=== PATIENT | female | born 1960 | race Caucasian/White ===

== ENCOUNTER 2021-12-08 14:11 | Outpatient (CLI) | payer BC, SELFPAY ==
[2021-12-08 14:13] LABS: Albumin* 4.4 g/dL (3.3-5.0); Chloride* 102 mmol/L (96-114); Sodium* 138 mmol/L (135-149)
[2021-12-08 14:14] LABS: Potassium* 4.2 mmol/L (3.6-5.1)
[2021-12-08 14:16] LABS: Alkaline Phosphatase* 137 U/L (40-150); Aspartate Amino Transferase* 163 U/L (12-35); Bilirubin Total* 1.6 mg/dL (0.1-1.5); Blood Urea Nitrogen* 12 mg/dL (7-30); Carbon Dioxide* 28 mmol/L (20-32); Cholesterol* 210 mg/dL (90-199); Creatinine* 0.6 mg/dL (0.5-1.5); Estimated Glomerular Filt Rate 103 ml/min; Glucose* 89 mg/dL (60-115); Total Protein* 7.5 g/dL (6.0-8.3); Triglycerides* 206 mg/dL (40-149)
[2021-12-08 14:17] LABS: Alanine Aminotransferase* 157 U/L (4-35); Calcium* 9.7 mg/dL (8.4-10.6); HDL Cholesterol* 53 mg/dL (>=50); LDL Cholesterol Calculated 116 mg/dL (<100)
[2021-12-08 21:55] LABS: Creatinine Urine 180.4 mg/dL
[2021-12-08 22:00] LABS: Microalbumin Creatinine Ratio 0 mg/g (0-30); Microalbumin Urine 1 mg/dL
== END 2021-12-08 14:12 | disposition home or self-care (01) ==
PROVIDERS: PCP Physician Assistant Medical; Visit Provider Family Medicine
DX: I10 Essential (primary) hypertension (principal); Z13.1 Encounter for screening for diabetes mellitus; Z13.6 Encounter for screening for cardiovascular disorders
CPT/HCPCS: 80053; 80061; 82043; 82570

== ENCOUNTER 2022-11-15 07:30 | Outpatient (CLI) | payer BC, SELFPAY | END 2022-11-15 07:31 | disposition home or self-care (01) | LOC: NFLDREF 11-16 15:35 | PROVIDERS: PCP Physician Assistant Medical; Referring Provider Physician Assistant Medical; Visit Provider Physician Assistant Medical | DX: R10.13 Epigastric pain (principal) | CPT/HCPCS: 87338 ==

== ENCOUNTER 2022-12-19 07:15 | Outpatient (CLI) | payer BC, SELFPAY ==
--- NOTE | 2022-12-19 07:15 | CRLHL7_ITS ---
For Patients: As a result of the Century Cures Act, medical imaging exams and procedure reports are released immediately into your electronic medical record. You may view this report before your referring provider. If you have questions, please contact your health care provider. INDICATION: abdominal distension COMPARISON: 08/17/2020 TECHNIQUE: Real time marte scale imaging and color Doppler analysis was performed of the right upper quadrant. FINDINGS: The liver echotexture is diffusely heterogeneous. No intrahepatic masses. There is a normal appearance of the hepatic IVC and proximal abdominal aorta. There is no evidence of ascites. The gallbladder is absent. The common bile duct is of normal size and measures 6 mm in diameter at the level of the shila hepatis. The pancreas appears normal. There is no evidence of a stone or hydronephrosis within the right kidney. The right kidney measures 10.4 cm in length. IMPRESSION: Diffuse hepatic steatosis, similar to the prior study. Dictated by Joel Batista MD @ 12/19/2022 8:33:53 AM (Electronically Signed)
== END 2022-12-19 07:16 | disposition home or self-care (01) ==
PROVIDERS: PCP Family Medicine; Visit Provider Internal Medicine Gastroenterology
DX: R14.0 Abdominal distension (gaseous) (principal); K76.0 Fatty (change of) liver, not elsewhere classified
CPT/HCPCS: 76705

== ENCOUNTER 2023-09-06 13:15 | Outpatient (CLI) | payer BC, SELFPAY | END 2023-09-06 13:16 | disposition home or self-care (01) | PROVIDERS: PCP Family Medicine; Visit Provider Family Medicine | DX: R17 Unspecified jaundice (principal); R10.9 Unspecified abdominal pain; K76.9 Liver disease, unspecified | CPT/HCPCS: 80076; 83690 ==

== ENCOUNTER 2023-09-08 09:38 | Outpatient (CLI) | payer BC, SELFPAY ==
--- NOTE | 2023-09-08 10:00 | CRLHL7_ITS ---
For Patients: As a result of the Century Cures Act, medical imaging exams and procedure reports are released immediately into your electronic medical record. You may view this report before your referring provider. If you have questions, please contact your health care provider. INDICATION: Abdominal pain. Elevated bilirubin. TECHNIQUE: CT abdomen and pelvis acquired with 84 cc Isovue 370 IV contrast. COMPARISON: None. FINDINGS: Lower chest: Dependent opacities within the lung bases. Liver: Unremarkable. Normal in size and attenuation. No suspicious masses. Gallbladder and bile ducts: Status post cholecystectomy. Normal caliber common bile duct. Pancreas: Unremarkable. No mass or inflammation. Spleen: Mild splenomegaly. Adrenal glands: Unremarkable. No nodules. Kidneys, ureters and urinary bladder: Unremarkable. No suspicious masses, stones, or hydronephrosis. Unremarkable urinary bladder. GI tract: Unremarkable. Normal in caliber. No sign of mass or inflammation. Normal appendix. Vasculature: Mildly dilated portal and splenic veins consistent with portal venous hypertension. Recanalization of the umbilical vein. Abdominal aorta is normal in caliber. Mesenteric arteries are patent. Lymph nodes: No lymphadenopathy. Peritoneum: Small volume of abdominal ascites in the right upper quadrant and pelvic ascites. No free intraperitoneal air. Abdominal Wall: No abdominal wall mass or hernia. Pelvis: Unremarkable uterus and adnexa. Bones: Old mild superior endplate compression deformity of L3. No acute fracture or suspicious bone lesion. IMPRESSION: 1. Mild splenomegaly. 2. Portal venous hypertension. 3. Recanalization of the umbilical vein. 4. Small volume of abdominal and pelvic ascites. 5. Status post cholecystectomy. Please note that all CT scans at this facility use dose modulation, iterative reconstruction, and/or weight-based dosing when appropriate to reduce radiation dose to as low as reasonably achievable. Dictated by Cristian Bundy MD @ 09/08/2023 12:52:44 PM (Electronically Signed)
[2023-09-08 10:15] LABS: Creatinine* 0.5 mg/dL (0.5-1.5); Estimated Glomerular Filt Rate 107 ml/min
== END 2023-09-08 09:39 | disposition home or self-care (01) ==
PROVIDERS: PCP Family Medicine; Visit Provider Family Medicine
DX: R10.9 Unspecified abdominal pain (principal); R17 Unspecified jaundice; R16.1 Splenomegaly, not elsewhere classified; K76.6 Portal hypertension; R18.8 Other ascites
CPT/HCPCS: 36415; 74177; 82565; Q9967

== ENCOUNTER 2023-09-12 10:36 | Outpatient (CLI) | payer BC, SELFPAY | END 2023-09-12 10:37 | disposition home or self-care (01) | PROVIDERS: PCP Family Medicine; Visit Provider Family Medicine | DX: R17 Unspecified jaundice (principal); K76.9 Liver disease, unspecified; R10.9 Unspecified abdominal pain | CPT/HCPCS: 80074; 80076; 83516; 86015; 86256; 86376; 86381 ==

== ENCOUNTER 2023-09-15 08:02 | Outpatient (CLI) | payer BC, SELFPAY ==
--- NOTE | 2023-09-15 08:15 | CRLHL7_ITS ---
For Patients: As a result of the Century Cures Act, medical imaging exams and procedure reports are released immediately into your electronic medical record. You may view this report before your referring provider. If you have questions, please contact your health care provider. INDICATION: unspecified jaundice COMPARISON: none TECHNIQUE: Real time marte scale imaging and color Doppler analysis was performed of the right upper quadrant. FINDINGS: The liver echotexture is coarsened. The main portal vein is patent with antegrade flow. The liver has a macronodular contour. There is a normal appearance of the hepatic IVC and proximal abdominal aorta. Ascites is present. The gallbladder is absent. The common bile duct is of normal size and measures 4.9 mm in diameter at the level of the shila hepatis. The pancreas appears normal. There is no evidence of a stone or hydronephrosis within the right kidney. The right kidney measures 9.3 cm in length. IMPRESSION: Cirrhotic liver with ascites. Dictated by Joel Batista MD @ 09/15/2023 10:14:07 PM (Electronically Signed)
== END 2023-09-15 08:03 | disposition home or self-care (01) ==
LOC: US 08:03
PROVIDERS: PCP Family Medicine; Visit Provider Family Medicine
DX: R17 Unspecified jaundice (principal); K74.60 Unspecified cirrhosis of liver; R18.8 Other ascites; R10.11 Right upper quadrant pain
CPT/HCPCS: 76705

== ENCOUNTER 2023-10-06 09:03 | Outpatient (CLI) | payer BC, SELFPAY ==
[2023-10-06 09:07] VITALS: BP 152/70; PULSE 93; RESP 16; O2SAT 100
--- NOTE | 2023-10-06 09:22 | P.GSCN_ITS ---
History of Present Illness Consult details Date Seen: 10/06/23 Consult date: 10/06/23 Narrative: Patient presents for evaluation of ascites and possible paracentesis. She 1st noticed yellowing of her eyes, which is what prompted her to come in. She has been seeing a provider at [facility] who recommended a diagnostic paracentesis. She denies any bloating of her abdomen or abdominal pain. She recently started 2 different diuretics and has lost 12 lb of water weight. She does feel like the yellowing of her skin and eyes is improving. She gets her liver labs checked every 2 weeks and they are trending in the right direction. On chart review a CT abdomen/pelvis was performed 09/15/2023. A moderate amount of ascites was seen at that time with largest fluid collection in the right upper quadrant and pelvis. Review of Systems Status of ROS: Reports: 10 or more systems reviewed and unremarkable except as noted in History and below [facility] Medical History Contact dermatitis ?L25.9 - Unspecified contact dermatitis, unspecified cause (ICD-10) Surgical History History of tonsillectomy and adenoidectomy ?Z90.89 - Acquired absence of other organs (ICD-10) History of liver biopsy ?Z98.890 - Other specified postprocedural states (ICD-10) History of endometrial ablation ?Z98.890 - Other specified postprocedural states (ICD-10) History of colonoscopy ?Z98.890 - Other specified postprocedural states (ICD-10) History of cholecystectomy ?Z90.49 - Acquired absence of other specified parts of digestive tract (ICD- 10) History of breast biopsy ?Z98.890 - Other specified postprocedural states (ICD-10) Family History Other Cardiovascular disease Diabetes Stroke Social History Narrative: 1 child non smoker Smoking Status: Never smoker Meds Home Medications and Allergies Home Medications ?Medication ?Instructions ?Recorded ?Confirmed ?Type fluticasone propionate 50 2 spray intranasal .PRN 09/06/23 09/06/23 History mcg/actuation nasal spray,suspension Allergies Allergy/AdvReac Type Severity Reaction Status Date / Time Sulfa (Sulfonamide Allergy Mild Hives Verified 09/06/23 12:40 Antibiotics) Exam Narrative: Exam Narrative: General: Alert and oriented, no acute distress. HEENT: Scleral icterus, PERRLA Abdomen: Soft, non tender and nondistended. Previously well-healed laparoscopic incision sites Skin: Jaundiced of skin, no significant edema or anasarca. Const: Vital Signs, click to edit/add: Vital Signs - 24 hr 10/06/23 09:07 Pulse Rate [Left P ulse Oximeter] 93 Respiratory Rate 16 Blood Pressure [Ri ght Arm] 152/70 H Pulse Oximetry 100 Oxygen Delivery Me thod Room Air Results Labs Labs: INR 09/06/2023 of 1.4 Hepatic panel reviewed from 09/06/2023, elevated total bilirubin but trending down. Mild elevation in transaminases and alkaline phosphatase. Imaging Abdomen CT scan report/results: report reviewed and image reviewed Progress Note:A&P Assessment and plan (1) Liver disease: Status: Acute Plan Patient is a 62-year-old female who is currently being worked up for liver disease of unknown etiology. Recommendations were made for a diagnostic and therapeutic paracentesis. Ultrasound evaluation was performed today with no evidence of ascites on imaging. I do think that this improvement is secondary to recent medication changes that the patient has had. With insufficient fluid to sample the procedure was not performed.
== END 2023-10-06 09:33 | disposition home or self-care (01) ==
PROVIDERS: PCP Family Medicine; Visit Provider Surgery
DX: R18.8 Other ascites; K76.9 Liver disease, unspecified
CPT/HCPCS: 76705

== ENCOUNTER 2023-10-09 12:55 | Outpatient (CLI) | payer BC, SELFPAY | END 2023-10-09 12:56 | disposition home or self-care (01) | LOC: RAD 12:55 | PROVIDERS: PCP Family Medicine; Visit Provider Nurse Practitioner | DX: R00.2 Palpitations (principal); R74.8 Abnormal levels of other serum enzymes; R17 Unspecified jaundice; R60.0 Localized edema; K76.6 Portal hypertension; R18.8 Other ascites; R03.0 Elevated blood-pressure reading, without diagnosis of hypertension | CPT/HCPCS: 93306 ==

== ENCOUNTER 2023-10-19 14:22 | Outpatient (CLI) | payer BC, SELFPAY ==
[2023-10-19 16:33] LABS: Albumin* 3.9 g/dL (3.3-5.0); Chloride* 96 mmol/L (96-114); Sodium* 128 mmol/L (135-149)
[2023-10-19 16:34] LABS: Potassium* 3.5 mmol/L (3.6-5.1)
[2023-10-19 16:36] LABS: Alanine Aminotransferase* 32 U/L (4-35); Alkaline Phosphatase* 108 U/L (40-150); Anion Gap 9 mEq/L (7-15); Aspartate Amino Transferase* 61 U/L (12-35); Bilirubin Direct* 2.5 mg/dL (0.0-0.5); Bilirubin Total* 6.6 mg/dL (0.1-1.5); Blood Urea Nitrogen* 10 mg/dL (7-30); Carbon Dioxide* 23 mmol/L (20-32); Creatinine* 0.8 mg/dL (0.5-1.5); Estimated Glomerular Filt Rate 84 ml/min; Glucose* 95 mg/dL (60-115); Total Protein* 7.7 g/dL (6.0-8.3)
[2023-10-19 16:37] LABS: Calcium* 9.8 mg/dL (8.4-10.6)
== END 2023-10-19 14:23 | disposition home or self-care (01) ==
LOC: NPINS 14:23
PROVIDERS: PCP Family Medicine; Visit Provider Nurse Practitioner
DX: R74.8 Abnormal levels of other serum enzymes (principal)
CPT/HCPCS: 80048; 80076

== ENCOUNTER 2024-03-01 15:20 | Outpatient (CLI) | payer BC, SELFPAY ==
[2024-03-03 20:23] LABS: HPV Source Endocervical; HPV, High Risk by TMA Not Detected
== END 2024-03-01 15:21 | disposition home or self-care (01) ==
PROVIDERS: PCP Family Medicine; Visit Provider Family Medicine
DX: I10 Essential (primary) hypertension (principal); L29.9 Pruritus, unspecified; K76.9 Liver disease, unspecified; R17 Unspecified jaundice; Z13.6 Encounter for screening for cardiovascular disorders; Z11.59 Encounter for screening for other viral diseases; Z11.51 Encounter for screening for human papillomavirus (HPV)
CPT/HCPCS: 80053; 80061; 86803; 87624; 87625; 88141; 88142

== ENCOUNTER 2024-03-07 13:01 | Outpatient (CLI) | payer BC, SELFPAY ==
--- NOTE | 2024-03-07 13:00 | CRLHL7_ITS ---
For Patients: As a result of the Cures Act, medical imaging exams and procedure reports are released immediately into your electronic medical record. You may view this report before your referring provider. If you have questions, please contact your health care provider. BILATERAL CAROTID ARTERY ULTRASOUND, 03/07/2024 CLINICAL HISTORY: Pruritus, unspecified. TECHNIQUE: The carotid circulations and the vertebral arteries in the neck were examined with marte-scale ultrasound, color-flow and Doppler spectral analysis. Degrees of stenosis were determined using SRU 2002 Consensus Panel Criteria. FINDINGS: There is a small amount of atherosclerotic plaque at the carotid bulb and proximal ICA bilaterally. Peak Systolic Velocity Right Subclavian A: 193.6 Distal CCA: 107.6 Mid CCA: 105.0 Prox ICA: 69.9 Mid ICA: 96.6 Dist ICA: 120.2 ICA/CCA Ratio: 1.1 Vertebral Artery: 84.5 Antegrade Left Subclavian A: 193.6 Distal CCA: 103.8 Mid CCA: 111.1 Prox ICA: 71.1 Mid ICA: 85.7 Dist ICA: 87.5 ICA/CCA Ratio: 0.8 Vertebral Artery: 63.2 Antegrade IMPRESSION: No hemodynamically significant stenosis within the internal carotid arteries bilaterally. Juliana Louie M.D. Diagnostic/Breast Radiologist [email or web address] Transcribed: 8:43 am DW/Dictated by: Juliana Louie MD @ 03/08/2024 6:47:00 AM (Electronically Signed)
== END 2024-03-07 13:02 | disposition home or self-care (01) ==
LOC: US 13:01
PROVIDERS: PCP Family Medicine; Visit Provider Family Medicine
DX: L29.9 Pruritus, unspecified (principal); I65.23 Occlusion and stenosis of bilateral carotid arteries; K76.9 Liver disease, unspecified; R17 Unspecified jaundice; I10 Essential (primary) hypertension
CPT/HCPCS: 93880

== ENCOUNTER 2024-03-29 09:00 | Outpatient (CLI) | payer BC, SELFPAY | END 2024-03-29 09:01 | disposition home or self-care (01) | LOC: NFLDREF 03-30 03:33 | PROVIDERS: PCP Family Medicine; Referring Provider Family Medicine; Visit Provider Family Medicine | DX: K76.9 Liver disease, unspecified (principal) | CPT/HCPCS: 85610 ==

== ENCOUNTER 2024-05-20 13:23 | Outpatient (CLI) | payer BC, SELFPAY ==
--- NOTE | 2024-05-20 13:40 | CRLHL7_ITS ---
For Patients: As a result of the Cures Act, medical imaging exams and procedure reports are released immediately into your electronic medical record. You may view this report before your referring provider. If you have questions, please contact your health care provider. BILATERAL SCREENING MAMMOGRAM WITH COMPUTER-AIDED DETECTION AND TOMOSYNTHESIS TECHNIQUE: CC and MLO views were obtained. These mammographic images have been obtained using full-field digital technique. These mammographic images were interpreted with the benefit of computer-aided detection. Breast Tomosynthesis was used in this interpretation. COMPARISON FILM: 09/22/20, 10/29/19, 05/03/18. FINDINGS: There are scattered areas of fibroglandular density IMPRESSION: There is no radiographic evidence for malignancy. ASSESSMENT: BI-RADS Category 1: Negative RECOMMENDATION: Routine screening mammogram in 1 year. A lay language report of this examination will be provided to the patient. Joel Batista M.D. Diagnostic Radiologist [email or web address] Transcribed: 4:45 p.mAnne-Marie lagunas/Dictated by: Joel Batista MD @ 05/21/2024 12:58:00 PM (Electronically Signed)
== END 2024-05-20 13:24 | disposition home or self-care (01) ==
LOC: MAMMO 13:23
PROVIDERS: PCP Family Medicine; Visit Provider Family Medicine
DX: Z12.31 Encounter for screening mammogram for malignant neoplasm of breast (principal)
CPT/HCPCS: 77063; 77067

== ENCOUNTER 2024-07-07 17:56 | Emergency (ER) | payer BC, SELFPAY ==
--- OUTSIDE RECORDS SUMMARY | 2024-07-03 09:30 | XMS_ITS | Encounter Summary ---
Author Organization [place] Address [address] [place] [address] Care Team Providers Care Environmental Sampling Technician Name Role Phone [facility], [facility] Primary Care Provider Kristen Dockery RN Unavailable Unavaila Kristen Bermudez RN Unavailable Unavaila Meliza James MD Unavailable [phone] Lanny Meléndez APRN C ARCHITECT Unavailable [phone] Gala Fair HAND CLIPPER Unavailable [phone] Meliza Villaseñor MD Unavailable [phone] Trey Abraham MD Unavailable [phone] Unavailable Unavail able Dixon Hernandez MD Unavailable [phone] Jes Arrington MD Unavailable + Encounter Details Date Type Department Care Team (Late st Contact Info) Description 07/03/2024 9:30 AM CDT Lab [facility] [address] [place] [address] Alcoholic cirrhosis (H); Cirrhosis, alcoholic [...] PM CDT Legal Sex Female 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 Gender Identity Female 10/31/2023 12:26 PM CDT Sexual Orientation Straight 10/31/2023 12 :26 PM CDT documented as of this encounter Plan of Treatment Upcoming Encounters Date Type Department Care Team (Late st Contact Info) Description 07/11/2024 PRE VISIT [facility] [address] [phone] Shanthi Griffin MD [address] [place] [address] [phone] *-*INCOMING RECORDS*-* 07/16/2024 7:30 AM CDT Lab [address] [phone] Jes Arrington MD [address] [place] [address] [phone] 07/16/2024 8:10 AM CDT Orders Only [address] [phone] Jes Arrington MD [address] [place] [address] 348365 07/16/2024 8:30 AM CDT Allied Health/Nurse Visit [facility] [address] [place] [address] [phone] Jes Arrington MD [address] [place] [address] [phone] 07/16/2024 9:00 AM CDT Allied Health/Nurse Visit [facility] [address] [place] [address] [phone] Jes Arrington MD [address] [place], [place] [address] [place] [address] [phone] Gala Fair, [facility] 07/16/2024 10:00 AM CDT Office Visit [facility] [address] [place] [address] [phone] Jes Arrington MD [address] [place] [address] [phone] 07/16/2024 11:00 AM CDT Office Visit [facility] [address] [place] [address] [phone] Jes Arrington MD [address] [place] [address] [phone] Trey Abraham MD [address] [place] [address] [address] [place], [place] [phone] 07/16/2024 12:00 PM CDT Allied Health/Nurse Visit [facility] [address] [place] [address] [phone] Jes Arrington MD [address] [place] [address] [phone] Jena Castano, [facility] [address] [facility] [address] [place] [address] 07/16/2024 12:30 PM CDT Allied Health/Nurse Visit [facility] [address] [place] [address] [phone] Jes Arrington MD [address] [place] [address] [phone] 07/16/2024 12:50 PM CDT Ancillary Procedure [facility] Imaging [facility] US [address] [phone] Jes Arrington MD [address] [place] [address] [address] [place] [address] 07/16/2024 1:50 PM CDT Ancillary Procedure [facility] Xray [address] [phone] Jes Arrington MD [address] [place] [address] [address] [place] [address] [phone] 07/16/2024 2:30 PM CDT Ancillary Procedure [facility] [address] [phone] Jes Arrington MD [address] [place] [address] [address] [place] [address] 08/26/2024 10:30 AM CDT Appointment [facility] [address] [place] [phone] Meliza Villaseñor MD [facility] [address] [place] [address] 08/26/2024 12:00 PM CDT Appointment [facility] Imaging [address] [place] [phone] Meliza Villaseñor MD [facility] [address] [place] [address] 10/01/2024 8:45 AM CDT Office Visit [facility] [address] [phone] Meliza Villaseñor MD [address] [place] [address] Dixon Hernandez MD [address] [facility] [address] [place] [address] documented as of this encounter Procedures Procedure [...] Cirrhosis, alcoholic (H) QUANTIFERON-TB GOLD PLUS Routine 025 9:42 AM CDT Alcoholic cirrhosis (H) Cirrhosis, alcoholic (H) HEPATITIS A ANTIBODY TOTAL Routine 07/03 9:42 AM CDT Alcoholic cirrhosis (H) Cirrhosis, alcoholic (H) TYPE AND SCREEN, ADULT Routine 9:42 AM CDT Alcoholic cirrhosis (H) [...] TSH WITH FREE T4 REFLEX Routine 07/04/19 25 9:42 AM CDT Alcoholic [...] * Urine Culture (07/03/2024 2:36 PM CDT) Culture <10,000 CFU/mL Mixture of Urogenital Zakia 07/05/2024 5:38 AM CDT [facility] Urine URINE SPECIMEN OBTAINED BY CLEAN CATCH PROCEDURE / Unknown Non-blood Collection / Unknown 07/03/2024 2:36 PM CDT 07/03/2024 2:41 PM CDT us Jes Arrington MD LAB - MICRO GENERA L ORDERABLES Final Result [facility] Inf. Diseases Diag. Lab 500 [facility], Room [address] [place] [address], [facility] * (ABNORMAL) Urine Microscopic Exam (07/03/2024 [...] RENA 07/03/2024 2:45 PM CDT RM LABORATORY Urine URINE SPECIMEN OBTAINED BY CLEAN CATCH PROCEDURE / Unknown Non-blood Collection / Unknown 07/03/2024 2:36 PM CDT 07/03/2024 2:36 PM CDT Jes Arrington MD LAB - URINE ORDERA BLES Final Result LABORATORY [facility] [place] [facility] [address] [facility] Lab (no room number, 1st floor of clinic) [place] [address], [place] * Nicotine and Mets, Urn, Quant (07/03/2024 2:36 PM CDT) Cotinine Confirm <15 ng/mL 07/08/19 11:38 AM CDT [facility] Nicotine Confirmation Urine <15 ng/mL 07/07/2024 11:38 AM CDT [facility] Comment: INTERPRETIVE INFORMATION: Nicotine and Metabolites, Urine, Quantitative Methodology: Quantitative Liquid Chromatography-Tandem Mass Spectrometry Positive cutoff: Nicotine 15 ng/mL Cotinine 15 ng/mL 4-BA-Ofgtszup 50 ng/mL Anabasine 5 ng/mL For medical [...] developed and its performance characteristics determined by [facility]. It has not been cleared or approved by the US Food and Drug Administration. This test was performed in a CLIA certified laboratory and is intended for clinical purposes. Performed By: [facility] [address] [place] [address] Work Car Operator: Sedrick Santos MD, PhD CLIA Number: [id number] 3-IE-Crmnsogd, Urn, Quant <50 ng/mL 07/07/2024 11:38 AM CDT [facility] Anabasine, Urn, Quant <5 ng/mL 07/07/2024 11:38 AM CDT [facility] Urine URINE SPECIMEN OBTAINED BY CLEAN CATCH PROCEDURE / Unknown Non-blood Collection / Unknown 07/03/2024 2:36 PM CDT 07/03/2024 2:36 PM CDT us Jes Arrington MD LAB - URINE ORDERA BLES Final Result [employer] [address] [place] [phone], [facility] [phone] * Ethyl Glucuronide Urine (07/03/2024 2:36 PM CDT) Ethyl Glucuronide Urine Negative Cutoff 500 ng/mL 07/05/2024 2:51 AM CDT [facility] Comment: Presumptive Negative by immunoassay. Testing by [...] chromatography tandem mass spectrometry (LC-MS/MS). Performed By: [address] [address] Work Car Operator: Sedrick Santos MD, PhD CLIA Number: [id number] Urine URINE SPECIMEN OBTAINED BY CLEAN CATCH PROCEDURE / Unknown Non-blood Collection / Unknown 07/03/2024 2:36 PM CDT 07/03/2024 2:36 PM CDT Jes Arrington MD LAB - URINE ORDERA BLES Final Result [address] [address], [facility] [phone] * (ABNORMAL) UA Macroscopic with reflex to [...] mg/dL 07/03/2024 2:41 PM CDT LABORATORY [facility] [place] Urine 1.015 1.003 - 1.035 07/03/2024 2:41 [...] LAB - URINE ORDERA BLES Final Result RM LABORATORY [facility] [place] [facility] [address] [facility] Lab (no room number, 1st floor of clinic) [place] [address], [facility] * Protein random urine (07/03/2024 2:36 [...] URINE ORDERA BLES Final Result PH LABORATORY [facility] [address] [facility] Lab (Main level, no room number) [place] [address] * Quantiferon TB Gold Plus (07/03/2024 9:42 AM CDT) Quantiferon-TB Gold Plus Negative Negative 07/04/2024 2:22 [...] Value -0.01 IU/mL 07/04/2024 2:22 PM CDT SPECIALTY CORE/PROT/END O TB2 Ag minus Nil Value 0.00 IU/mL 07/04/2024 2:22 PM CDT SPECIALTY CORE/PROT/END O Mitogen minus Nil Result 1.03 IU/mL 07/04/2024 2:22 PM CDT UM SPECIALTY CORE/PROT/END O Nil Result 0.05 IU/mL 07/04/2024 2:22 PM CDT SPECIALTY CORE/PROT/END O Blood BLOOD SPECIMEN / Unknown Venipuncture / Unknown 07/03/2024 9:42 AM CDT 07/03/2024 2:29 PM CDT Jes Arrington MD LAB - MICRO GENERA L ORDERABLES Final Result UM SPECIALTY CORE/PROT/ENDO Specialty Core/Prot/Endo 500 [facility], Room [address] [place] [address] * Treponema pallidum antibody confirm (07/03/2024 9:42 AM CDT) Pathologist [facility] T Pallidum by TP-PA conf Non Reactive Non Reactive 07/06/2024 11:07 PM CDT [facility] Comment: Performed By: [facility] [address] [place] [address] Work Car Operator: Sedrick Santos MD, PhD CLIA Number: [id number] Blood BLOOD SPECIMEN / Unknown Venipuncture / Unknown 07/03/2024 9:42 AM CDT 07/04/2024 11:40 AM CDT Jes Arrington MD LAB - BLOOD ORDERA BLES Final Result [facility] [employer] [facility] [employer] [address] [place] [address], [facility] [phone] * Rapid Plasma Reagin w Rflx to [facility]ITER (07/03/2024 9:42 AM CDT) Rapid Plasma Reagin Nonreactive Nonreactive 07/04/2024 11:40 AM CDT SPECIALTY CORE/PROT/EN DO Comment:Specimen sent to [facility]) for confirmation. Blood BLOOD SPECIMEN / Unknown Venipuncture / Unknown 07/03/2024 9:42 AM CDT 07/03/2024 9:42 AM CDT Narrative UM SPECIALTY CORE/PROT/ENDO - 07/04/2024 11:40 AM CDT [...] UM Specialty Core/Prot/Endo 500 [facility], [address] * Quantiferon TB Gold Plus Yellow Tube (07/03/2024 9:42 AM CDT) Quantiferon TB2 Tube 0.05 07/04/2024 12:56 PM CDT UM SPECIALTY CORE/PROT/ENDO Blood BLOOD SPECIMEN / Unknown Venipuncture / Unknown 07/03/2024 9:42 AM CDT 07/03/2024 2:29 PM CDT Jes Arrington MD LAB - MICRO GENERA L ORDERABLES Final Result UM SPECIALTY CORE/PROT/ENDO UM Specialty Core/Prot/Endo 500 [facility], Room [address] * Quantiferon TB Gold Plus Green Tube (07/03/2024 9:42 AM CDT) Quantiferon TB1 Tube 0.04 IU/mL 07/04/2024 12:56 PM CDT SPECIALTY CORE/PROT/ENDO Blood BLOOD SPECIMEN / Unknown Venipuncture / Unknown 07/03/2024 9:42 AM CDT 07/03/2024 2:29 PM CDT Jes Arrington MD LAB - MICRO GENERA L ORDERABLES Final Result UM SPECIALTY CORE/PROT/ENDO Specialty Core/Prot/Endo 500 [facility], Room [address] * Quantiferon TB Gold Plus Purple Tube (07/03/2024 9:42 AM CDT) Quantiferon Mitogen 1.08 IU/mL 07/04/2024 12:05 PM CDT UM SPECIALTY CORE/PROT/ENDO Blood BLOOD SPECIMEN / Unknown Venipuncture / Unknown 07/03/2024 9:42 AM CDT 07/03/2024 2:29 PM CDT Jes Arrington MD LAB - MICRO GENERA L ORDERABLES Final Result UM SPECIALTY CORE/PROT/ENDO UM Specialty Core/Prot/Endo 500 [facility], Room [address] * Quantiferon TB Gold Plus Estevez Tube (07/03/2024 9:42 AM CDT) Quantiferon Nil Tube 0.05 IU/mL 07/04/2024 12:57 PM CDT UM SPECIALTY CORE/PROT/ENDO Blood BLOOD SPECIMEN / Unknown Venipuncture / Unknown 07/03/2024 9:42 AM CDT 07/03/2024 2:29 PM CDT Jes Arrington MD LAB - MICRO GENERA L ORDERABLES Final Result UM SPECIALTY CORE/PROT/ENDO UM Specialty Core/Prot/Endo 500 [facility], Room [address] [place] [address] * Quantiferon TB Gold Plus Primary (07/03/2024 9:42 AM CDT) Blood BLOOD SPECIMEN / Unknown Venipuncture / Unknown 07/03/2024 9:42 AM CDT 07/03/2024 2:29 PM CDT Jes Arrington MD LAB - MICRO GENERA L ORDERABLES Final Result Performing Organization Address City/[facility]/ZIP Co de Phone Number UM SPECIALTY CORE/PROT/ENDO Specialty Core/Prot/Endo 500 [facility], Room [address] [place] [address] * (ABNORMAL) Bilirubin direct (07/03/2024 9:42 AM CDT) Bilirubin Direct 4.65(H) 0.00 - 0.45 mg/dL 07/03/2024 8:34 PM CDT [facility] Comment:As of 24, refer ence ranges and trending lines may vary depending on the testing location. Blood BLOOD SPECIMEN / Unknown Venipuncture / Unknown 07/03/2024 9:42 AM CDT 07/03/2024 9:42 AM CDT Jes Arrington MD LAB - BLOOD ORDERA BLES Final Result [facility] 500 [facility] [address] Building, Room [address] [phone] * Quantiferon TB Gold Plus Collection (07/03/2024 9:42 AM CDT) Blood BLOOD SPECIMEN / Unknown Venipuncture / Unknown 07/03/2024 9:42 AM CDT 07/03/2024 9:42 AM CDT Jes Arrington MD LAB - MICRO GENERA L ORDERABLES Final Result SPECIALTY CORE/PROT/ENDO Specialty Core/Prot/Endo 500 [facility] J [facility] [address], Room [phone] [place] [address] * Adult Type and Screen (07/03/2024 9:42 AM CDT) ABO/RH(D) A POS 07/02/2024 7:00 PM CDT RH BLOOD BANK Antibody Screen Negative Negative 07/02/2024 7:00 PM CDT RH BLOOD BANK SPECIMEN EXPIRATION DATE [id number] 07/02/2024 7:00 PM CDT RH BLOOD BANK Blood BLOOD SPECIMEN / Unknown Venipuncture / Unknown 07/03/2024 9:42 AM CDT 07/03/2024 9:42 AM CDT Jes Arrington MD LAB - BLOOD BANK T EST ORDER Final Result RH BLOOD BANK [address] [place] [address] * DRUG SCREEN 9, SER/DEIDRE W/RFLX TO CONF (07/03/2024 9:42 AM CDT) Amphetamines Qual Negative Cutoff 20 ng/mL 07/05/2024 1:37 PM CDT [facility] Bartiburates Qual Negative Cutoff 50 ng/mL 07/05/2024 1:37 PM CDT [facility] Benzodiazepines Qual Negative Cutoff 50 ng/mL 07/05/2024 1:37 PM CDT [facility] Buprenorphine Qual Negative Cutoff 1 ng/mL 07/05/2024 1:37 PM CDT [facility] Cocaine Qual Negative Cutoff 20 ng/mL 07/05/2024 1:37 PM CDT [facility] Methadone Qual Negative Cutoff 25 ng/mL 07/05/2024 1:37 PM CDT [facility] Opiates Qual Negative Cutoff 20 ng/mL 07/05/2024 1:37 PM CDT [facility] Oxycodone Qual Negative Cutoff 20 ng/mL 07/05/2024 1:37 PM CDT [facility] Phencyclidine Qual Negative Cutoff 10 ng/mL 07/05/2024 1:37 PM CDT [facility] Methamphetamine Qual Positive Cutoff 20 ng/mL 07/05/2024 1:37 PM CDT [facility] Comment: If the screen is positive, then confirmation by mass spectrometry will be added. Additional charges will apply. Unconfirmed positive may be useful for medical purposes, but does not meet forensic standards. Drug Screen Comments, Serum or Plasma See Note 07/05/2024 1:37 PM CDT [facility] Comment: INTERPRETIVE INFORMATION: Drug Screen 9 [...] developed and its performance characteristics determined by [employer]. It has not been cleared or approved by the US Food and Drug Administration. This test was performed in a CLIA certified laboratory and is intended for clinical purposes. Performed By: [facility] [address] [place] [address] Work Car Operator: Sedrick Santos MD, PhD CLIA Number: [id number] Cannabinoids Qual Negative Cutoff 20 ng/mL 07/05/2024 1:37 PM CDT [facility] Blood BLOOD SPECIMEN / Unknown Venipuncture / Unknown 07/03/2024 9:42 AM CDT 07/03/2024 9:42 AM CDT Jes Arrington MD LAB - BLOOD ORDERA BLES Final Result [facility] [employer] [facility] [employer] [address] [place] [address], [facility] [phone] * (ABNORMAL) Treponema Abs w Reflex to [...] testing in approximately two weeks is recommended. Jes Arrington MD LAB - BLOOD ORDERA BLES Final Result SPECIALTY CORE/PROT/ENDO Specialty Core/Prot/Endo 500 [facility], Room [id number] [place] [address] SPECIALTY LABS Specialty Lab 500 [facility], Room [address] [address] * HIV Antigen Antibody Combo Pretransplant [place] (07/03/2024 9:42 AM CDT) [facility] HIV Antigen Antibody Combo Pretransplant Nonreactive Nonreactive 07/03/2024 9:11 PM CDT LABORATORY Comment:Negative HIV-1 p24 a ntigen and [...] - BLOOD ORDERA BLES Final Result LABORATORY [facility] 500 [facility], Room [address] [address] * Hepatitis C antibody (07/03/2024 9:42 AM CDT) Pathologist [facility] Hepatitis C Antibody Nonreactive Nonreactive 07/03/2024 8:46 [...] ORDERA BLES Final Result Performing Organization Address [facility] Co de Phone Number LABORATORY [facility] Core Lab [address] [facility] [address] * Hepatitis B surface antigen (07/03/2024 9:42 AM CDT) [facility] Hepatitis B Surface Antigen Nonreactive Nonreactive 07/03/2024 8:46 PM CDT [facility] Blood BLOOD SPECIMEN / Unknown Venipuncture / Unknown 07/03/2024 9:42 AM CDT 07/03/2024 9:42 AM CDT Jes Arrington MD LAB - BLOOD ORDERA BLES Final Result LABORATORY [facility] Core Lab 500 [facility], [address] * Hepatitis B Surface Antibody (07/03/2024 9:42 AM CDT) [facility] Hepatitis B Surface Antibody Nonreactive 07/03/2024 8:54 [...] ORDERA BLES Final Result Performing Organization Address [facility] de Phone Number U LABORATORY [facility] 500 [facility], [address] * Hepatitis B core antibody (07/03/2024 9:42 [...] ORDERA BLES Final Result Performing Organization Address [facility] de Phone Number U LABORATORY [facility] 500 [facility], [address] [phone] * Hepatitis A Antibody Total (07/03/2024 9:42 AM CDT) Hepatitis A Antibody Total Nonreactive 07/03/2024 8:46 PM CDT [facility] Comment:This assay detects t he presence [...] ORDERA BLES Final Result Performing Organization Address City/[facility]/ZIP Co de Phone Number LABORATORY [facility] Core Lab 500 [facility], [address] [address], [facility] * (ABNORMAL) EBV Capsid Antibody IgG (07/03/2024 9:42 AM CDT) [facility] EBV Capsid Gaby IgG Instrument Value 407.0(H) [...] BLOOD ORDERA BLES Final Result SPECIALTY CORE/PROT/ENDO UM Specialty Core/Prot/Endo 500 [facility], Room [address] [address] SPECIAL[facility] LABS Specialty Lab 500 [facility], Room [address] [phone] [place] [address] * CMV Antibody IgG (07/03/2024 9:42 AM CDT) Pathologist [facility] CMV Gaby IgG Instrument Value <0.20 <0.60 [...] UM Specialty Core/Prot/Endo 500 [facility], Room [address] SPECIALTY LABS Specialty Lab 500 [facility], [address] * (ABNORMAL) CBC with platelets (07/03/2024 9:42 AM CDT) Pathologist [facility] WBC Count 4.4 4.0 - 11.0 10e3/uL 07/03/2024 10:18 AM CDT LABORATORY RBC Count 2.50(L) 3.80 - 5.20 10e6/uL 07/03/2024 10:18 AM CDT LABORATORY Hemoglobin 8.4(L) 11.7 - 15.7 g/dL 07/03/2024 10:18 AM CDT LABORATORY Hematocrit 24.7(L) 35.0 - 47.0 % [...] - 450 10e3/uL 07/03/2024 10:18 AM CDT LABORATORY Blood BLOOD SPECIMEN / Unknown Venipuncture / Unknown 07/03/2024 9:42 AM CDT 07/03/2024 9:42 AM CDT Narrative RM LABORATORY - 07/03/2024 10:18 AM CDT Verified by repeat analysis DA Jes Arrington MD LAB - BLOOD ORDERA BLES Final Result LABORATORY [facility] [place] Lab [address] [facility] (no room number, 1st floor of clinic) [place] [address], [facility] * (ABNORMAL) Vitamin D Deficiency (07/03/2024 9:42 AM CDT) [facility] Vitamin D, Total (25-Hydroxy) 15(L) 20 - 50 ng/mL 07/03/2024 8:43 PM CDT [facility] Comment:mild to moderate def iciency Blood BLOOD SPECIMEN / Unknown Venipuncture / Unknown 07/03/2024 9:42 AM CDT 07/03/2024 9:42 AM CDT Narrative [facility] - 07/03/2024 8:43 PM CDT Season, race, dietary intake, and treatment affect the concentration of 87-xkinism-Tguqqum D. Values may decrease during winter months and increase during summer months. Vitamin D determination is routinely performed by an immunoassay specific for 25 hydroxyvitamin D3. If an individual is on vitamin D2(ergocalciferol) supplementation, please specify 25 OH vitamin D2 and D3 level determination by LCMSMS test VITD23. Jes Arrington MD LAB - BLOOD ORDERA BLES Final Result U LABORATORY [facility] 500 [facility], [address] [place] [address], [facility] * (ABNORMAL) Transferrin (07/03/2024 9:42 AM CDT) Transferrin 187.0(L) 200.0 - 360.0 mg/dL 07/03/2024 8:43 PM CDT [facility] Blood BLOOD SPECIMEN / Unknown Venipuncture / Unknown 07/03/2024 9:42 AM CDT 07/03/2024 9:42 AM CDT Jes Arrington MD LAB - BLOOD ORDERA BLES Final Result U LABORATORY [facility] 500 [facility], [address] * TSH with free T4 reflex (07/03/2024 9:42 AM CDT) TSH 2.95 0.30 - 4.20 uIU/mL 07/03/2024 10:29 PM CDT [facility] Blood BLOOD SPECIMEN / Unknown Venipuncture / Unknown 07/03/2024 9:42 AM CDT 07/03/2024 9:42 AM CDT Jes Arrington MD LAB - BLOOD ORDERA BLES Final Result Performing Organization Address City/[facility]/ZIP Co de Phone Number LABORATORY [facility] Core Lab [address] [place] [address], [address] * Phosphorus (07/03/2024 9:42 AM CDT) Phosphorus 2.9 2.5 - 4.5 mg/dL 07/03/2024 8:43 PM CDT [facility] Blood BLOOD SPECIMEN / Unknown Venipuncture / Unknown 07/03/2024 9:42 AM CDT 07/03/2024 9:42 AM CDT Jes Arrington MD LAB - BLOOD ORDERA BLES Final Result U LABORATORY [facility] 500 [facility], [address] [address] * (ABNORMAL) Iron and iron binding capacity (07/03/2024 9:42 AM CDT) [facility] Iron 81 37 - 145 ug/dL 07/03/2024 [...] - BLOOD ORDERA BLES Final Result LABORATORY [facility] Core Lab 500 [facility], [address] [phone] * Hemoglobin A1c (07/03/2024 9:42 AM CDT) [facility] Estimated Average Glucose 74 <117 mg/dL 07/03/2024 [...] - BLOOD ORDERA BLES Final Result LABORATORY [facility] [place] [facility] [address] [facility] Lab (no room number, 1st floor of clinic) [place] [address], [place] * Ferritin (07/03/2024 9:42 AM CDT) [facility] Ferritin 216 11 - 328 ng/mL 07/03/2024 8:34 PM CDT [facility] Blood BLOOD SPECIMEN / Unknown Venipuncture / Unknown 07/03/2024 9:42 AM CDT 07/03/2024 9:42 AM CDT Jes Arrington MD LAB - BLOOD ORDERA BLES Final Result Performing Organization Address [facility] de Phone Number [facility] [address] [facility] * AFP tumor marker (07/03/2024 9:42 AM CDT) [facility] AFP tumor marker 3.4 <=8.3 ng/mL [...] ORDERA BLES Final Result Performing Organization Address City/[facility] Co de Phone Number [facility] [address] [facility], [address] [id number] [place] [address] * (ABNORMAL) Lipid Profile (07/03/2024 9:42 AM CDT) [facility] Cholesterol 203(H) <200 mg/dL 07/03/2024 8:34 [...] 219 mg/dL Very High: >= 220 mg/dL us Jes Arrington MD LAB - BLOOD ORDERA BLES Final Result [facility] [address] [facility], [address] [place] [address], [facility] * Phosphatidylethanol (PEth), Whole Blood (07/03/2024 [...] 16:0/18:2 (PLPEth) <10 ng/mL 07/05/2024 11:00 AM [employer] Comment:Reference ranges are not well established. EER Phosphatidylethanol (PETH) See Note 07/05/2024 11:00 AM [employer] Comment: Authorized individuals can access the [employer] Enhanced Report with an [employer] Connect account using the following link. Your local lab can assist you in obtaining the patient report if you don't have a Connect account. [email or web address] PEth Interpretation See Comment 07/05/2024 11:00 AM [employer] Comment: Phosphatidylethanol (PEth) is a group of [...] developed and its performance characteristics determined by [employer]. It has not been cleared or approved by the U.S. Food and Drug Administration. This test was performed in a CLIA-certified laboratory and is intended for clinical purposes. Performed By: [facility] [address] [place] [address] Work Car Operator: Sedrick Santos MD, PhD CLIA Number: [id number] Blood BLOOD SPECIMEN / Unknown Venipuncture / Unknown 07/03/2024 9:42 AM CDT 07/03/2024 9:42 AM CDT eJs Arrington MD LAB - BLOOD ORDERA BLES Final Result [facility] [address] [place] [address], [facility] [phone] * (ABNORMAL) INR (07/03/2024 9:42 AM CDT) INR 1.66(H) 0.85 - 1.15 07/03/2024 12:45 PM CDT [facility] PT 20.0(H) 11.8 - 14.8 Seconds 07/03/2024 12:45 PM CDT [facility] Blood BLOOD SPECIMEN / Unknown Venipuncture / Unknown 07/03/2024 9:42 AM CDT 07/03/2024 9:42 AM CDT Jes Arrington MD LAB - BLOOD ORDERA BLES Final Result [facility] [address] Lab (no room number, 1st floor of clinic) [place] [address] * (ABNORMAL) Comprehensive metabolic panel [...] 8:34 PM CDT [facility] Comment:eGFR calculated usin 2020 CKD-EPI equation. Calcium 8.7(L) 8.8 - 10.4 [...] BLOOD ORDERA BLES Final Result [facility], [address] [place] [address] documented in this encounter Visit Diagnoses Diagnosis Alcoholic cirrhosis (H) Alcoholic cirrhosis of liver Cirrhosis, alcoholic (H) Alcoholic cirrhosis of liver documented in this encounter Additional Health Concerns Assessment Noted Time PHQ-9 Depression Total Score: 8 06/12/19 25 12:56 PM CDT documented as of this encounter Care Teams Environmental Sampling Technician Relationship Specialty Start Date End Date Clinic, [facility] [place] [address] [place] [address] PCP - General 08/24/20 Kristen Dockery, RN Registered Nurse Nurse 11/09/23 Kristen Dockery, machine room engineerNews Technical Director Nurse 05/19/24 Meliza Villaseñor MD [address] [place] [address] Train Gateman Internal Medicine 05/19/24 Lanny Meléndez APRN C ARCHITECT [facility] [address] [place] [address] Referring Physician Internal Medicine 05/19/24 Gala Fair, [facility] Policy Writer Typist 05/20/24 Meliza Villaseñor MD [address] [place] [address] Physician Internal Medicine 05/20/24 Trey Abraham MD 420 [facility] 195 [place] [address] Surgery 05/20/[address] [facility] 420 [facility] EMER[facility]PART[facility] 84 [place] [address] Registered Dietitian Dietitian, Registered 05/20/24 Dixon Hernandez MD [address] [facility] [address] [place] [address] Cardiovascular Disease 05/20/24 Jes Arrington MD 516 [facility] [address] [place], [place] [address] Gastroenterology 06/24/24 documented as of this encounter
--- OUTSIDE RECORDS SUMMARY | 2024-07-06 09:20 | XMS_ITS | Encounter Summary ---
Author Organization [place] Address [address] [place] [address] Care Team Providers Care Fish Trapper Name Role Phone Clinic, [facility] Primary Care Provider Kristen Dockery RN Unavailable Unavaila Kristen Bermudez RN Unavailable Unavaila Meliza James MD Unavailable [phone] Lanny Meléndez APRN DENTAL THERAPIST Unavailable [phone] Gala Fair ELECTRICAL TEST TECHNICIAN Unavailable [phone] Meliza Villaseñor MD Unavailable [phone] Trey Abraham MD Unavailable [phone] Unavailable Unavail able Dixon Hernandez MD Unavailable [phone] Jes Arrington MD Unavailable + Encounter Details Date Type Department Care Team (Late st Contact Info) Description 07/06/2024 9:20 AM CDT Lab [facility] [address] [place] [address] Cirrhosis of liver (H) Social [...] PM CDT Legal Sex Female 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 AM PRIMARY 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 Gender Identity Female 10/31/2023 12:26 PM CDT Sexual Orientation Straight 10/31/2023 12 :26 PM CDT documented as of this encounter Plan of Treatment Upcoming Encounters Date Type Department Care Team (Late st Contact Info) Description 07/11/2024 PRE VISIT [facility] Hepatology Clinic [address] [phone] Shanthi Griffin MD [address] [place] [phone] *-*INCOMING RECORDS*-* 07/16/2024 7:30 AM CDT Lab [address] [phone] Jes Arrington MD [address] [place] [phone] 07/16/2024 8:10 AM CDT Orders Only [address] [phone] Jes Arrington MD [address] [place] [address] 659115 07/16/2024 8:30 AM CDT Allied Health/Nurse Visit [facility] Transplant Clinic [address] [place] [phone] Jes Arrington MD [address] [place] [address] [phone] 07/16/2024 9:00 AM CDT Allied Health/Nurse Visit [facility] Transplant Clinic [address] [place] [phone] Jes Arrington MD [address] [place] [phone] Gala Fair, [facility] 07/16/2024 10:00 AM CDT Office Visit [facility] Transplant Clinic [address] [place] [address] [phone] Jes Arrington MD [address] [place] [address] [phone] 07/16/2024 11:00 AM CDT Office Visit [facility] Transplant Clinic [address] [place] [address] [phone] Jes Arrington MD [address] [place] [address] [phone] Trey Abraham MD [address] [place] [address] 195 [place], [place] 6[address] 07/16/2024 12:00 PM CDT Allied Health/Nurse Visit [facility] Transplant Clinic [address] [place] [address] [phone] Jes Arrington MD [address] [place] [address] 180295 Jena Castano, RD [facility] 420 [facility] EMERGENCY DEPARTMENT 84 [place] [address] 07/16/2024 12:30 PM CDT Allied Health/Nurse Visit [facility] Transplant Clinic [address] [place] [phone] Jes Arrington MD [address] [place] [address] 486[address] 07/16/2024 12:50 PM CDT Ancillary Procedure [facility] Imaging Center US [place] 9[address] [facility] 1st [place] [phone] Jes Arrington MD [address] [place] [address] [address] [place] [address] 07/16/2024 1:50 PM CDT Ancillary Procedure [facility] Imaging Center Xray [place] [address] [phone] Jes Arrington MD [address] [place] [address] [address] [place] [address] [phone] 07/16/2024 2:30 PM CDT Ancillary Procedure [facility] [address] [phone] Jes Arrington MD [address] [place] [address] [address] [place] [address] 08/26/2024 10:30 AM CDT Appointment [facility] 500 [place] [phone] Meliza Villaseñor MD [facility] [address] [place] [address] 08/26/2024 12:00 PM CDT Appointment [facility] Imaging 500 [place] [phone] Meliza Villaseñor MD [facility] [address] [place] [address] 10/01/2024 8:45 AM CDT Office Visit [facility] Heart Clinic [address] [phone] Meliza Villaseñor MD [address] [place], [place] [address] Dixon Hernandez MD 420 [facility] 508 [place], [place] [phone] documented as of this encounter Procedures Procedure Name Priority Date/Time Associated Diagnosis Comments INR AALIYAH 07/06/2024 9:29 AM CDT Cirrhosis of liver (H) COMPREHENSIVE METABOLIC PANEL AALIYAH 07/06/2024 9:29 AM CDT Cirrhosis of [...] - BLOOD ORDERA BLES Final Result LABORATORY [facility] Acute Care Lab [address] [facility] Lab (1st floor, no room number) [place] [address], [facility] * (ABNORMAL) Comprehensive metabolic panel (07/06/2024 9:29 AM CDT) Sodium 132(L) 135 - 145 mmol/L 07/06/2024 10:03 AM CDT LABORATORY Potassium 3.6 3.4 - 5.3 mmol/L 07/06/2024 10:03 AM CDT LABORATORY Carbon Dioxide (CO2) 27 22 - 29 mmol/L 07/06/2024 10:03 AM CDT LABORATORY Anion Gap 14 7 - 15 mmol/L 07/06/2024 10:03 AM T LABORATORY Urea Nitrogen 25.6(H) 8.0 - 23.0 mg/dL 07/06/2024 10:03 AM [facility] LABORATORY Creatinine 1.90(H) 0.51 - 0.95 mg/dL 07/06/2024 10:03 AM T LABORATORY GFR Estimate 30(L) >60 mL/min/1.7 3m2 07/06/2024 10:03 AM T LABORATORY Comment:eGFR calculated usca 2020 CKD-EPI equation. Calcium 8.3(L) 8.8 - 10.4 mg/dL 07/06/2024 10:03 AM T LABORATORY Chloride 91(L) 98 - 107 mmol/L 07/06/2024 10:03 AM [facility] LABORATORY Glucose 101(H) 70 - 99 mg/dL 07/06/2024 10:03 AM [facility] LABORATORY Alkaline Phosphatase 208(H) 40 - 150 U/L 07/06/2024 10:03 AM [facility] LABORATORY AST 31 0 - 45 U/L 07/06/2024 10:03 AM [facility] LABOR[facility]ORY ALT 17 0 - 50 U/L 07/06/2024 10:03 AM [facility] LABOR[facility]ORY Protein Total 6.1(L) 6.4 - 8.3 g/dL 07/06/2024 10:03 AM [facility] LABOR[facility]ORY Albumin 2.8(L) 3.5 - 5.2 g/dL 07/06/2024 10:03 AM [facility] LABORATORY Bilirubin Total 10.7(H) <=1.2 mg/dL 07/06/2024 10:03 AM [facility] LABORATORY Blood STRUCTURE OF RIGHT UPPER LIMB / Unknown Venipuncture / Unknown 07/06/2024 9:29 AM CDT 07/06/2024 9:29 AM CDT us Jes Arrington MD LAB - BLOOD ORDERA BLES Final Result LABORATORY [facility] Acute Care Lab [address] [facility] Lab (1st floor, no room number) [place] [address], [facility] documented in this encounter Visit Diagnoses Diagnosis Cirrhosis of liver (H) Cirrhosis of liver without mention of alcohol documented in this encounter Additional Health Concerns Assessment Noted Time PHQ-9 Depression Total Score: 8 06/12/19 25 12:56 PM CDT documented as of this encounter Care Teams Fish Trapper Relationship Specialty Start Date End Date Clinic, [facility] [address] [facility] [place] [address] PCP - General 08/24/20 Kristen Dockery, RN Registered Nurse Nurse 11/09/23 Kristen Dockery, pearl diggerPipeline Dispatch Operator Nurse 05/19/24 Meliza Villaseñor MD [address] [place] [address] Glove Cleaner Internal Medicine 05/19/24 Lanny Meléndez APRN DENTAL THERAPIST [facility] [address] [place] [address] Referring Physician Internal Medicine 05/19/24 Gala Fair, [facility] Grounds Supervisor 05/20/24 Meliza Villaseñor MD [address] [place] [address] Physician Internal Medicine 05/20/24 Trey Abraham MD [address] [place] [facility] 195 [place], [place] [phone] Surgery 05/20/[address] [facility] [address] [facility] 84 [place] [address] Registered Dietitian Dietitian, Registered 05/20/24 Dixon Hernandez MD 420 [facility] [address] [place], [place] [address] Cardiovascular Disease 05/20/24 Jes Arrington MD 516 [facility] [address] [place], [place] [address] Gastroenterology 06/24/24 documented as of this encounter
[2024-07-07] VITALS (20 sets, daily range): BP systolic 101–127; BP diastolic 52–78; PULSE 88–94; RESP 16–18; TEMP 36.9; O2SAT 95–98; BMI 22.4
--- OUTSIDE RECORDS SUMMARY | 2024-07-07 17:59 | XMS_ITS | Encounter Summary ---
Author Organization [place] Address [address] [place] [address] 10580 Care Team Providers Care Parcel Post Order Clerk Name Role Phone Clinic, [facility] Primary Care Provider Kristne Dockery RN Unavailable Unavaila Kristen Bermudez RN Unavailable Unavaila Meliza James MD Unavailable [phone] Lanny Meléndez APRN FLIGHT SURGEON Unavailable [phone] Gala Fair GRILL ATTENDANT Unavailable [phone] Meliza Villaseñor MD Unavailable [phone] Trey Abraham MD Unavailable [phone] Unavailable Unavail able Dixon Hernandez MD Unavailable [phone] Jes Arrington MD Unavailable + Encounter Details Date Type Department Care Team (Late st Contact Info) Description 07/03/2024 MyC Medical Advice Initial Department Kristen Dockery RN Social History Tobacco Use Types Packs/Day Years [...] PM CDT 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 Gender Identity Female 10/31/2023 12:26 PM CDT Sexual Orientation Straight 10/31/2023 12 :26 PM CDT documented as of this encounter Plan of Treatment Upcoming Encounters Date Type Department Care Team (Late st Contact Info) Description 07/11/2024 PRE VISIT [facility] Hepatology Clinic [address] [phone] Shanthi Griffin MD [address] [place] [address] [phone] *-*INCOMING RECORDS*-* 07/16/2024 7:30 AM CDT Lab [address] [phone] Jes Arrington MD [address] [place] [address] [phone] 07/16/2024 8:10 AM CDT Orders Only [address] [phone] Jes Arrington MD [address] [place] [address] 471965 07/16/2024 8:30 AM CDT Allied Health/Nurse Visit [facility] Transplant Clinic [address] [place] [address] [phone] Jes Arrington MD [address] [place] [address] [phone] 07/16/2024 9:00 AM CDT Allied Health/Nurse Visit [facility] Transplant Clinic [address] [place] [address] [phone] Jes Arrington MD [address] [place] [address] [phone] Gala Fair, [facility] 07/16/2024 10:00 AM CDT Office Visit [facility] Transplant Clinic [address] [place] [address] [phone] Jes Arrington MD [address] [place] [address] [phone] 07/16/2024 11:00 AM CDT Office Visit [facility] Transplant Clinic [address] [place] [phone] Jes Arrington MD [address] [place] [address] 864695 Trey Abraham MD [address] [place] [address] 195 [place], [place] 761315 07/16/2024 12:00 PM CDT Allied Health/Nurse Visit [facility] Transplant Clinic [address] [place] [address] [phone] Jes Arrington MD [address] [place] [address] 898145 Jena Castano, RAFIQ [address] [place] [address] 07/16/2024 12:30 PM CDT Allied Health/Nurse Visit [facility] Transplant Clinic [address] [place] [address] [phone] Jes Arrington MD [address] [place] [address] [phone] 07/16/2024 12:50 PM CDT Ancillary Procedure [address] 1st [place] [phone] Jes Arrington MD [address] [place] [address] [id number] 07/16/2024 1:50 PM CDT Ancillary Procedure [facility] Imaging Center Xray [address] [phone] Jes Arrington MD [address] [place] [address] [address] [place] [address] 038[address] 07/16/2024 2:30 PM CDT Ancillary Procedure [facility] Dexa [address] [phone] Jes Arrington MD [address] [place] [address] [address] [place] [address] [id number] 08/26/2024 10:30 AM CDT Appointment [facility] Heart Care [address] [place] [phone] Meliza Villaseñor MD [address] [place] [address] 31754 08/26/2024 12:00 PM CDT Appointment [facility] Imaging [address] [place] [phone] Meliza Villaseñor MD [address] P[address] [place] [address] 51254 10/01/2024 8:45 AM CDT Office Visit [facility] Heart Clinic [address] [phone] Meliza Villaseñor MD [address] [place] [address] 97[address] Dixon Hernandez MD [address] [facility] [address] [place] [address] documented as of this encounter Visit Diagnoses Not on filedocumented in this encounter Additional Health Concerns Assessment Noted Time PHQ-9 Depression Total Score: 8 06/12/19 25 12:56 PM CDT documented as of this encounter Care Teams Parcel Post Order Clerk Relationship Specialty Start Date End Date Clinic, [facility] [address] [place] [address] PCP - General 08/24/20 Kristen Dockery, RN Registered Nurse Nurse 11/09/23 Kristen Dockery, telemarketing fundraiserHousing Management Representative Nurse 05/19/24 Meliza Villaseñor MD [address] [place] [address] Type Soldering Machine Tender Internal Medicine 05/19/24 Lanny Meléndez APRN FLIGHT SURGEON [facility] [address] [place] [address] Referring Physician Internal Medicine 05/19/24 Gala Fair, [facility] Paper Rewinder 05/20/24 Meliza Villaseñor MD [address] [place] [address] Physician Internal Medicine 05/20/24 Trey Abraham MD [address] [facility] [address] [place] [address] Surgery 05/20/[address] [facility] 420 [facility] [address] [facility] 84 [place] [address] Registered Dietitian Dietitian, Registered 05/20/24 Dixon Hernandez MD 420 [facility] [address] [place] [address] Cardiovascular Disease 05/20/24 Jes Arrington MD 516 [facility] [address] [place] [address] Gastroenterology 06/24/24 documented as of this encounter
--- OUTSIDE RECORDS SUMMARY | 2024-07-07 17:59 | XMS_ITS | Encounter Summary ---
Author Organization [place] Address [address] [place] [address] 84023 Care Team Providers Care Social Work Msw Name Role Phone Clinic, [facility] Primary Care Provider Kristen Dockery RN Unavailable Unavaila Kristen Bermudez RN Unavailable Unavaila Meliza James MD Unavailable [phone] Lanny Meléndez APRN VETERINARY PARASITOLOGIST Unavailable [phone] Gala Fair BRIM IRONER HAND Unavailable [phone] Meliza Villaseñor MD Unavailable [phone] Trey Abraham MD Unavailable [phone] Unavailable Unavail able Dixon Hernandez MD Unavailable [phone] Jes Arrington MD Unavailable + Encounter Details Date Type Department Care Team (Latest Contact Info) Description 07/03/2024 Travel Social History Tobacco Use Types Packs/Day Years [...] PM CDT 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 Gender Identity Female 10/31/2023 12:26 PM CDT Sexual Orientation Straight 10/31/2023 12 :26 PM CDT documented as of this encounter Plan of Treatment Upcoming Encounters Date Type Department Care Team (Late st Contact Info) Description 07/11/2024 PRE VISIT [facility] Hepatology Clinic [address] [phone] Shanthi Griffin MD [address] [place] [address] 639265 *-*INCOMING RECORDS*-* 07/16/2024 7:30 AM CDT Lab [address] [phone] Jes Arrington MD [address] [place] [address] 137105 07/16/2024 8:10 AM CDT Orders Only [address] [phone] Jes Arrington MD [address] [place] [address] [phone] 07/16/2024 8:30 AM CDT Allied Health/Nurse Visit [facility] Transplant Clinic [address] [place] [address] [phone] Jes Arrington MD [address] [place], [place] [address]B [address] [place] [address] [id number] 07/16/2024 9:00 AM CDT Allied Health/Nurse Visit [facility] Transplant Clinic [address] [place] [address] [phone] Jes Arrington MD [address] [place] [address] 179595 Beckielibrashirin Gala Alexa, [facility] 07/16/2024 10:00 AM CDT Office Visit [facility] Transplant Clinic [address] [place] [phone] Jes Arrington MD [address] [place] [address] 159365 07/16/2024 11:00 AM CDT Office Visit [facility] Transplant Clinic [address] [place] [phone] Jes Arrington MD [address] [place] [address] [phone] Trey Abraham MD [address] [place] [address] 195 [place], [place] 962445 07/16/2024 12:00 PM CDT Allied Health/Nurse Visit [facility] Transplant Clinic [address] [place] [phone] Jes Arrington MD [address] [place] [address] [phone] Jena Castano, RAFIQ [facility] 420 [facility] 84 [place] [address] 07/16/2024 12:30 PM CDT Allied Health/Nurse Visit [facility] Transplant Clinic [address] [place] [phone] Jes Arrington MD [address] [place] [address] [phone] 07/16/2024 12:50 PM CDT Ancillary Procedure [address] 1st [place] [phone] Jes Arrington MD [address] [place] [address] [address] [place] [address] 07/16/2024 1:50 PM CDT Ancillary Procedure [facility] Imaging Center Xray [place] [address] [place] [address] [phone] Jes Arrington MD [address] [place] [address] [address] [place] [address] 13978 07/16/2024 2:30 PM CDT Ancillary Procedure [facility] Dexa Clinic [address] [phone] Jes Arrington MD [address] [place] [address] [address] [place] [address] [phone] 08/26/2024 10:30 AM CDT Appointment [facility] Heart Care 500 [place] [phone] Meliza Villaseñor MD [address] [place] [address] 37494 08/26/2024 12:00 PM CDT Appointment [facility] Imaging 500 [place] [phone] Meliza Villaseñor MD [address] [place] [address] 34069 10/01/2024 8:45 AM CDT Office Visit [facility] Heart Clinic [address] [phone] Meliza Villaseñor MD [address] [place] [address] 71969 Dixon Hernandez MD [address] [facility] 508 [place], [place] 848095 documented as of this encounter Visit Diagnoses Not on filedocumented in this encounter Additional Health Concerns Assessment Noted Time PHQ-9 Depression Total Score: 8 06/12/19 25 12:56 PM CDT documented as of this encounter Care Teams Social Work Msw Relationship Specialty Start Date End Date Clinic, [facility] [address] [place] [address] PCP - General 08/24/20 Kristen Dockery, RN Registered Nurse Nurse 11/09/23 Kristen Dockery pet caretakerReal Estate Paralegal Nurse 05/19/24 Meliza Villaseñor MD [address] [place] [address] Med Specialist Internal Medicine 05/19/24 Lanny Meléndez APRN VETERINARY PARASITOLOGIST [facility] [address] [place], [place] 875036 Referring Physician Internal Medicine 05/19/24 Gala Fair, [facility] Latex Spooler 05/20/24 Meliza Villaseñor MD [address] [place] [address] Physician Internal Medicine 05/20/24 Trey Abraham MD [address] [facility] 195 [place], [place] 103205 Surgery 05/20/[address] [facility] 420 [facility] [address] [place] [address] Registered Dietitian Dietitian, Registered 05/20/24 Dixon Hernandez MD 420 [facility] 508 [place] [address] Cardiovascular Disease 05/20/24 Jes Arrington MD 516 [facility] [address] [place] [address] Gastroenterology 06/24/24 documented as of this encounter
--- OUTSIDE RECORDS SUMMARY | 2024-07-07 17:59 | XMS_ITS | Encounter Summary ---
Author Organization [place] Address [address] [place] [address] 73430 Care Team Providers Care Nuclear Waste Process Operator Name Role Phone Clinic, [facility] Primary Care Provider Kristen Dockery RN Unavailable Unavaila Kristen Bermudez RN Unavailable Unavaila Meliza James MD Unavailable [phone] Lanny Meléndez APRN TRACKMOBILE OPERATOR Unavailable [phone] Gala Fair VERSE WRITER Unavailable [phone] Meliza Villaseñor MD Unavailable [phone] Trey Abraham MD Unavailable [phone] Unavailable Unavail able Dixon Hernandez MD Unavailable [phone] Jes Arrington MD Unavailable + Encounter Details Date Type Department Care Team (Late st Contact Info) Description 07/04/2024 Results Follow-Up [facility] Transplant Clinic [address] [place] [phone] Kristen Dockery RN Social History Tobacco Use [...] PM CDT 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 Gender Identity Female 10/31/2023 12:26 PM CDT Sexual Orientation Straight 10/31/2023 12 :26 PM CDT documented as of this encounter Plan of Treatment Upcoming Encounters Date Type Department Care Team (Late st Contact Info) Description 07/11/2024 PRE VISIT [facility] Hepatology Clinic [address] [phone] Shanthi Griffin MD [address] [place] [address] [phone] *-*INCOMING RECORDS*-* 07/16/2024 7:30 AM CDT Lab [address] [phone] Jes Arrington MD [address] [place] [address] 138755 07/16/2024 8:10 AM CDT Orders Only [address] [phone] Jes Arrington MD [address] [place] [address] [phone] 07/16/2024 8:30 AM CDT Allied Health/Nurse Visit [facility] Transplant Clinic [address] [place] [address] [phone] Jes Arrington MD [address] [place] [address] [phone] 07/16/2024 9:00 AM CDT Allied Health/Nurse Visit [facility] Transplant Clinic [address] [place] [address] [phone] Jes Arrington MD [address] [place] [address] [phone] BeckieGala spears, [facility] 07/16/2024 10:00 AM CDT Office Visit [facility] Transplant Clinic [address] [place] [address] [phone] Jes Arrington MD [address] [place] [address] [phone] 07/16/2024 11:00 AM CDT Office Visit [facility] Transplant Clinic [address] [place] [address] [phone] Jes Arrington MD [address] [place] [address] 287695 Trey Abraham MD [address] [place] [address] 195 [place], [place] 828335 07/16/2024 12:00 PM CDT Allied Health/Nurse Visit [facility] Transplant Clinic [address] [place] [address] [phone] Jes Arrington MD [address] [place] [address] 598395 Jena Castano, RD [facility] 420 [facility] 84 [place] [address] 07/16/2024 12:30 PM CDT Allied Health/Nurse Visit [facility] Transplant Clinic [address] [place] [address] [phone] Jes Arrington MD [address] [place] [address] 207355 07/16/2024 12:50 PM CDT Ancillary Procedure [facility] Imaging [facility] [place] [address] [facility] 1st [place] [phone] Jes Arrington MD [address] [place] [address] [address] [place] [address] 96272 07/16/2024 1:50 PM CDT Ancillary Procedure [facility] Imaging Center Xray [place] [address] [place] [address] [phone] Jes Arrington MD [address] [place] [address] [address] [place] [address] 740115 07/16/2024 2:30 PM CDT Ancillary Procedure [facility] Dexa Clinic [address] [phone] Jes Arrington MD [address] [place] [address] [address] [place] [address] 17326 08/26/2024 10:30 AM CDT Appointment [facility] Heart Care 500 [place] [phone] Meliza Villaseñor MD [facility] [address] [place] [address] 63103 08/26/2024 12:00 PM CDT Appointment [facility] Imaging 500 [place] [phone] Meliza Villaseñor MD [facility] [address] [place] [address] 86889 10/01/2024 8:45 AM CDT Office Visit [facility] Heart Clinic [address] [phone] Meliza Villaseñor MD [address] [place], [place] 680997 Dixon Hernandez MD 420 [facility] 508 [place], [place] 918395 documented as of this encounter Visit Diagnoses Not on filedocumented in this encounter Additional Health Concerns Assessment Noted Time PHQ-9 Depression Total Score: 8 06/12/19 25 12:56 PM CDT documented as of this encounter Care Teams Nuclear Waste Process Operator Relationship Specialty Start Date End Date Clinic, [facility] [address] [place] [address] PCP - General 08/24/20 Kristen Dockery, RN Registered Nurse Nurse 11/09/23 Kristen Dockery therapeutic recreation leaderFurnace Clerk Nurse 05/19/24 Meliza Villaseñor MD [address] [place] [address] Bacteriologist Food Internal Medicine 05/19/24 Lanny Meléndez APRN TRACKMOBILE OPERATOR [facility] [address] [place], [place] [address] Referring Physician Internal Medicine 05/19/24 Gala Fair, [facility] Statistical Consultant 05/20/24 Meliza Villaseñor MD [address] [place] [address] Physician Internal Medicine 05/20/24 Trey Abraham MD 420 [facility] 195 [place], [place] [phone] Surgery 05/20/[address] [facility] 420 [facility] SE [facility] 84 [place] [address] Registered Dietitian Dietitian, Registered 05/20/24 Dixon Hernandez MD 420 [facility] 508 [place] [address] Cardiovascular Disease 05/20/24 Jes Arrington MD 516 [facility] [address] [place], [place] 246125 Gastroenterology 06/24/24 documented as of this encounter
--- OUTSIDE RECORDS SUMMARY | 2024-07-07 17:59 | XMS_ITS | Encounter Summary ---
Author Organization [facility] Address [address] [place] [address] 77599 Care Team Providers Care Box Fabricator Name Role Phone Clinic, [facility] Primary Care Provider Kristen Dockery RN Unavailable Unavaila Kristen Bermudez RN Unavailable Unavaila Meliza James MD Unavailable [phone] Lanny Meléndez APRN [employer] REP Unavailable [phone] Gala Fair ATMOSPHERIC TECHNICIAN Unavailable [phone] Meliza Villaseñor MD Unavailable [phone] Trey Abraham MD Unavailable [phone] Unavailable Unavail able Dixon Hernandez MD Unavailable [phone] Jes Arrington MD Unavailable + Encounter Details Date Type Department Care Team (Late st Contact Info) Description 07/01/2024 MyC Medical Advice [facility] [address] [place] [address] Kristen Dockery RN Social History [...] PM CDT 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 Gender Identity Female 10/31/2023 12:26 PM CDT Sexual Orientation Straight 10/31/2023 12 :26 PM CDT documented as of this encounter Plan of Treatment Upcoming Encounters Date Type Department Care Team (Late st Contact Info) Description 07/11/2024 PRE VISIT [facility] [address] [phone] Shanthi Griffin MD [address] [place] [address] [phone] *-*INCOMING RECORDS*-* 07/16/2024 7:30 AM CDT Lab [address] [phone] Jes Arrington MD [address] [place] [address] 750405 07/16/2024 8:10 AM CDT Orders Only [address] [phone] Jes Arrington MD [address] [place] [address] [phone] 07/16/2024 8:30 AM CDT Allied Health/Nurse Visit [facility] [address] [place] [address] [phone] Jes Arrington MD [address] [place] [address] 600695 07/16/2024 9:00 AM CDT Allied Health/Nurse Visit [facility] [address] [place] [address] [phone] Jes Arrington MD [address] [place] [address] 609295 Beckielibrashirin Gala Alexa, [facility] 07/16/2024 10:00 AM CDT Office Visit [facility] [address] [place] [address] [phone] Jes Arrington MD [address] [place] [address] 798995 07/16/2024 11:00 AM CDT Office Visit [facility] [address] [place] [address] [phone] Jes Arrington MD [address] [place] [address] 476405 Trey Abraham MD [address] [place] [address] 195 [place], [place] 980405 07/16/2024 12:00 PM CDT Allied Health/Nurse Visit [facility] [address] [place] [address] [phone] Jes Arrington MD [address] [place] [address] [phone] Jena Castano, RD [facility] 420 [facility] 84 [place] [address] 07/16/2024 12:30 PM CDT Allied Health/Nurse Visit [facility] [address] [place] [address] [phone] Jes Arrington MD [address] [place] [address] [phone] 07/16/2024 12:50 PM CDT Ancillary Procedure [facility] Imaging [facility] [place] 909 [facility] 1st [place] [phone] Jes Arrington MD [address] [place] [address] [address] [place] [address] 69990 07/16/2024 1:50 PM CDT Ancillary Procedure [facility] Imaging Center Xray [place] [address] [place] [address] [phone] Jes Arrington MD [address] [place] [address] [address] [place] [address] [phone] 07/16/2024 2:30 PM CDT Ancillary Procedure [facility] [address] [phone] Jes Arrington MD [address] [place] [address] [address] [place] [address] 45[address] 08/26/2024 10:30 AM CDT Appointment [facility] Heart Care [address] [place] [phone] Meliza Villaseñor MD [facility] [address] [place] [address] 689[address] 08/26/2024 12:00 PM CDT Appointment [facility] Imaging [address] [place] [phone] Meliza Villaseñor MD [facility] [address] [place] [address] 02078 10/01/2024 8:45 AM CDT Office Visit [facility] [address] [phone] Meliza Villaseñor MD [address] [place], [place] 057817 Dixon Hernandez MD [address] [place] [facility] 508 [place], [place] [phone] documented as of this encounter Visit Diagnoses Not on filedocumented in this encounter Additional Health Concerns Assessment Noted Time PHQ-9 Depression Total Score: 8 06/12/19 25 12:56 PM CDT documented as of this encounter Care Teams Box Fabricator Relationship Specialty Start Date End Date Clinic, [facility] [place] [address] [address] [place], [place] [phone] PCP - General 08/24/20 Kristen Dockery, RN Registered Nurse Nurse 11/09/23 Kristen Dockery curb setterMen'S Golf Coach Nurse 05/19/24 Meliza Villaseñor MD [address] [place] [address] Cyber Defense Analyst Internal Medicine 05/19/24 Lanny Meléndez APRN [employer]ITY PARTNER[employer]IP REP [facility] [address] [place], [place] 116226 Referring Physician Internal Medicine 05/19/24 Gala Fair, [facility] Correctional Probation Officer 05/20/24 Meliza Villaseñor MD [address] [place] [address] Physician Internal Medicine 05/20/24 Trey Abraham MD 420 [facility] 195 [place], [place] [phone] Surgery 05/20/[address] [facility] [address] [facility] 84 [place] [address] Registered Dietitian Dietitian, Registered 05/20/24 Dixon Hernandez MD 420 [facility] 508 [place] [address] Cardiovascular Disease 05/20/24 Jes Arrington MD [address] [facility] [address] [place], [place] 816165 Gastroenterology 06/24/24 documented as of this encounter
--- OUTSIDE RECORDS SUMMARY | 2024-07-07 17:59 | XMS_ITS | Encounter Summary ---
Author Organization [facility] Address [address] [place] [address] 64358 Care Team Providers Care Range Conservationist Name Role Phone Clinic, [facility] Primary Care Provider Kristen Dockery RN Unavailable Unavaila Kristen Bermudez RN Unavailable Unavaila Meliza James MD Unavailable [phone] Lanny Meléndez APRN BOARDING KENNEL OR CATTERY OPERATOR Unavailable [phone] Gala Fair BEHAVIORAL CONSULTANT Unavailable [phone] Meliza Villaseñor MD Unavailable [phone] Trey Abraham MD Unavailable [phone] Unavailable Unavail able Dixon Hernandez MD Unavailable [phone] Jes Arrington MD Unavailable + Encounter Details Date Type Department Care Team (Late st Contact Info) Description 07/05/2024 Telephone [facility] [address] [place] [phone] Kristen Dockery RN Social History [...] PM CDT 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 Gender Identity Female 10/31/2023 12:26 PM CDT Sexual Orientation Straight 10/31/2023 12 :26 PM CDT documented as of this encounter Miscellaneous Notes * Telephone Encounter - Kristen Dockery RN - 07/05/2024 8:38 AM CDT Lvm yesterday and today K+ 2.8 Med list notes Lasix and potassium- need to affirm what she's been taking Needs repeat K+ Reviewed w/ Dr Arrington, has not yet seen pt but scheduled with her for PLE 07/16/24 documented in this encounter Plan of Treatment Upcoming Encounters Date Type Department Care Team (Late st Contact Info) Description 07/11/2024 PRE VISIT [facility] [address] [phone] Shanthi Griffin MD [address] [place] [address] [phone] *-*INCOMING RECORDS*-* 07/16/2024 7:30 AM CDT Lab [address] [phone] Jes Arrington MD [address] [place] [address] [phone] 07/16/2024 8:10 AM CDT Orders Only [address] [phone] Jes Arrington MD [address] [place] [address] [phone] 07/16/2024 8:30 AM CDT Allied Health/Nurse Visit [facility] [address] [place] [address] [phone] Jes Arrington MD [address] [place] [address] [phone] 07/16/2024 9:00 AM CDT Allied Health/Nurse Visit [facility] Transplant [address] [phone] Jes Arrington MD [address] [place] [address] [phone] Gala Fair, [facility] 07/16/2024 10:00 AM CDT Office Visit [facility] [address] [place] [address] [phone] Jes Arrington MD [address] [place] [address] [phone] 07/16/2024 11:00 AM CDT Office Visit [facility] Transplant [address] [phone] Jes Arrington MD [address] [place] [address] [phone] Trey Abraham MD [address] [place] [address] 096245 07/16/2024 12:00 PM CDT Allied Health/Nurse Visit [facility] Transplant [address] [phone] Jes Arrington MD [address] [place] [address] [phone] Jena Castano, RAFIQ [facility] 420 [facility] 84 [place] [address] 07/16/2024 12:30 PM CDT Allied Health/Nurse Visit [facility] [address] [place] [address] [phone] Jes Arrington MD [address] [place], [place] [address]B [address] [place] [address] [phone] 07/16/2024 12:50 PM CDT Ancillary Procedure [address] [phone] Jes Arrington MD [address] [place] [address] 61613 07/16/2024 1:50 PM CDT Ancillary Procedure [facility] Xray [address] [phone] Jes Arrington MD [address] [place] [address] [phone] 07/16/2024 2:30 PM CDT Ancillary Procedure [facility] Dexa Clinic [address] [phone] Jes Arrington MD [address] [place] [address] [phone] 08/26/2024 10:30 AM CDT Appointment [facility] Heart Care [address] [place] [address] [phone] Meliza Villaseñor MD [address] [place] [address] 17327 08/26/2024 12:00 PM CDT Appointment [facility] Imaging [address] [place] [phone] Meliza Villaseñor MD [address] [place] [address] 10/01/2024 8:45 AM CDT Office Visit [facility] [address] [place] [phone] Meliza Villaseñor MD [address] [place], [place] [phone] Dixon Hernandez MD [address] [place] [address] 508 [place], [place] [phone] documented as of this encounter Visit Diagnoses Not on filedocumented in this encounter Additional Health Concerns Assessment Noted Time PHQ-9 Depression Total Score: 8 06/12/19 12:56 PM CDT documented as of this encounter Care Teams Range Conservationist Relationship Specialty Start Date End Date [facility], [facility] [address] [place] [address] PCP - General 08/24/20 Kristen Dockery, RN Registered Nurse Nurse 11/09/23 Kristen Dockery, loading dock handPower Shovel Operator Helper Nurse 05/19/24 Meliza Villaseñor MD [address] [place] [address] Culinary Director Internal Medicine 05/19/24 Lanny Meléndez APRN BOARDING KENNEL OR CATTERY OPERATOR [facility] [address] [place], [place] 612186 Referring Physician Internal Medicine 05/19/24 Gala Fair, [facility] Cash Surrender Calculator 05/20/24 Meliza Villaseñor MD 516 [facility] 2[address] [place] [address] Physician Internal Medicine 05/20/24 Trey Abraham MD 420 [facility] 195 [place] [address] Surgery 05/20/[address] [facility] 420 [facility] 84 [place] [address] Registered Dietitian Dietitian, Registered 05/20/24 Dixon Hernandez MD 420 [facility] [address] [place], [place] 439405 Cardiovascular Disease 05/20/24 Jes Arrington MD 516 [facility] 2[address] [place], [place] 013025 Gastroenterology 06/24/24 documented as of this encounter
--- OUTSIDE RECORDS SUMMARY | 2024-07-07 18:00 | XMS_ITS | Encounter Summary ---
Author Organization [place] Address [address] [place] [address] 18989 Care Team Providers Care Technical Writer And Editor Name Role Phone Clinic, [facility] Primary Care Provider Kristen Dockery RN Unavailable UnavailKristen Toussaint RN Unavailable Unavaila Meliza James MD Unavailable [phone] Lanny Meléndez APRN INTEGRATED LOGISTICS SUPPORT MANAGER Unavailable [phone] Gala Fair HOUSING MANAGER Unavailable [phone] Meliza Villaseñor MD Unavailable [phone] Trey Abraham MD Unavailable [phone] Unavailable Unavail able Dixon Hernandez MD Unavailable [phone] Jes Arrington MD Unavailable + Encounter Details Date Type Department Care Team (Late st Contact Info) Description 03/01/2024 External Order Results [facility] [address] [place] [address] Outside, Provider Social History Tobacco Use Types Packs/Day Years Used Date Smoking Tobacco: Never Smokeless Tobacco: Never Alcohol Use Standard Drinks/Week Comments Not Currently 0 (1 standard drink = 0.6 oz pur e alcohol) two months ago last drink Adolescent Education Answer Date Record ed Getting School Help Needed Not on file 11/20 Comments No Sex and Gender Information Value Date Recorded Sex Assigned at Female 10/31/2023 12:26 PM CDT Legal Sex Female 3:12 AM CIGARETTE MAKING MACHINE HOPPER FEEDER Gender Identity Female 10/31/2023 12:26 PM CDT Sexual Orientation Straight 10/31/2023 12 :26 PM CDT documented as of this encounter Plan of Treatment Upcoming Encounters Date Type Department Care Team (Late st Contact Info) Description 07/11/2024 PRE VISIT [facility] Hepatology Clinic [address] [phone] Shanthi Griffin MD [address] [place] [address] [phone] *-*INCOMING RECORDS*-* 07/16/2024 7:30 AM CDT Lab [address] [phone] Jes Arrington MD [address] [place] [address] 442105 07/16/2024 8:10 AM CDT Orders Only [address] [phone] Jes Arrington MD [address] [place] [address] [phone] 07/16/2024 8:30 AM CDT Allied Health/Nurse Visit [facility] Transplant Clinic [address] [place] [address] [phone] Jes Arrington MD [address] [place] [address] [phone] 07/16/2024 9:00 AM CDT Allied Health/Nurse Visit [facility] Transplant Clinic [address] [place] [address] [phone] Jes Arrington MD [address] [place] [address] 44186 Gala Fair, [facility] 07/16/2024 10:00 AM CDT Office Visit [facility] Transplant Clinic [address] [place] [address] [phone] Jes Arrington MD [address] [place] [address] [phone] 07/16/2024 11:00 AM CDT Office Visit [facility] [address] [place] [address] [phone] Jes Arrington MD [address] [place] [address] 61140 Trey Abraham MD [address] [place] [address] 195 [place], [place] 043525 07/16/2024 12:00 PM CDT Allied Health/Nurse Visit [facility] Transplant Clinic [address] [place] [address] [phone] Jes Arrington MD [address] [place] [address] 34489 Jena Castano, RAFIQ [address] [place] [address] 07/16/2024 12:30 PM CDT Allied Health/Nurse Visit [facility] Transplant Clinic [address] [place] [address] [phone] Jes Arrington MD [address] [place] [address] 92613 07/16/2024 12:50 PM CDT Ancillary Procedure [address] [place] [phone] Jes Arrington MD [address] [place] [address] [address] [place] [address] [phone] 07/16/2024 1:50 PM CDT Ancillary Procedure [facility] Center Xray [address] [phone] Jes Arrington MD [address] [place] [address] [address] [place] [address] 35183 07/16/2024 2:30 PM CDT Ancillary Procedure [facility] [address] [phone] Jes Arrington MD [address] [place] [address] [address] [place] [address] [phone] 08/26/2024 10:30 AM CDT Appointment [facility] Heart Care [address] [place] [phone] Meliza Villaseñor MD [facility] [address] [place] [address] 25827 08/26/2024 12:00 PM CDT Appointment [facility] Imaging [address] [place] [phone] Meliza Villaseñor MD [address] [place] [address] 50417 10/01/2024 8:45 AM CDT Office Visit [facility] Clinic [address] [phone] Meliza Villaseñor MD [address] [place] [address] 89539 Dixon Hernandez, [address] 879648 [place] [address] documented as of this encounter Procedures Procedure Name Priority Date/Time Associated Diagnosis Comments LIPID PROFILE Routine 03/01/2024 4:25 PM CIGARETTE MAKING MACHINE HOPPER FEEDER HEPATITIS C ANTIBODY Routine 03/01/2024 4:25 PM CIGARETTE MAKING MACHINE HOPPER FEEDER HEPATIC FUNCTION PANEL Routine 03/01/2024 4:25 PM CIGARETTE MAKING MACHINE HOPPER FEEDER BASIC METABOLIC PANEL Routine 03/01/2024 4:25 PM CIGARETTE MAKING MACHINE HOPPER FEEDER documented in this encounter Results * (ABNORMAL) Basic metabolic panel (03/01/2024 4:25 PM CIGARETTE MAKING MACHINE HOPPER FEEDER) Sodium (External) 134(L) 135 - 149 mmol/L NON-INTERFACED (ONBASE SCANS) Potassium (External) 3.9 3.6 - 5.1 mmol/L NON-INTERFACED (ONBASE SCANS) Chloride (External) 101 96 - 114 mmol/L NON-INTERFACED (ONBASE SCANS) CO2 (External) 27 20 - 32 mmol/L NON-INTERFACED (ONBASE SCANS) Anion Gap (External) 6(L) 7 - 15 mEq/L NON-INTERFACED (ONBASE SCANS) Urea Nitrogen (External) 15 7 - 30 mg/dL NON-INTERFACED (ONBASE SCANS) Creatinine (External) 0.7 0.5 - 1.5 mg/dL NON-INTERFACED (ONBASE SCANS) GFR Estimated (External) 98 mL/min NON-INTERFACED (ONBASE SCANS) Calcium (External) 9.1 8.4 - 10.6 mg/dL NON-INTERFACED (ONBASE SCANS) Glucose (External) 115 60 - 115 mg/dL NON-INTERFACED (ONBASE SCANS) Blood BLOOD SPECIMEN / Unknown 03/01/2024 4:25 PM CIGARETTE MAKING MACHINE HOPPER FEEDER Hansa FINLEY PFT - 03/05/2024 9:55 AM CIGARETTE MAKING MACHINE HOPPER FEEDER Verified by Param Katz on 03/05/2024. us Meliza Crawford MD LAB - BLOOD ORDERABLES Ed ited Result - Final Performing Organization Address [facility] de Phone Number TUSHAR JONES NON-INTERFACED (ONBASE SCANS) * (ABNORMAL) Hepatic function panel (03/01/2024 4:25 PM CIGARETTE MAKING MACHINE HOPPER FEEDER) Protein Total (External) 6.7 6.0 - 8.3 g/dL NON-INTERFACE D (ONBASE SCANS) Albumin (External) 3.6 3.3 - 5.0 g/dL NON-INTERFACE D (ONBASE SCANS) Bilirubin Total (External) 6.7(H) 0.1 - 1.5 mg/dL NON-INTERFACE D (ONBASE SCANS) AST (External) 41(H) 12 - 35 U/L NON-INTERFACE D (ONBASE SCANS) ALT (External) 29 4 - 35 U/L NON- INTERFACE D (ONBASE SCANS) Alk Phosphatase (External) 139 40 - 150 U/L NON-INTERFACE D (ONBASE SCANS) Blood BLOOD SPECIMEN / Unknown 03/01/2024 4:25 PM CIGARETTE MAKING MACHINE HOPPER FEEDER Narrative TUSHAR PFT - 03/05/2024 9:55 AM CIGARETTE MAKING MACHINE HOPPER FEEDER Verified by Param Katz on 03/05/2024. us Meliza Crawford MD LAB - BLOOD ORDERABLES Ed ited Result - Final Performing Organization Address [facility] de Phone Number TUSHAR JONES NON-INTERFACED (ONBASE SCANS) * (ABNORMAL) Lipid Profile (03/01/2024 4:25 PM CIGARETTE MAKING MACHINE HOPPER FEEDER) Triglycerides (External) 136 40 - 149 mg/dL NON-INTERFACE D (ONBASE SCANS) Cholesterol (External) 357(H) 90 - 199 mg/dL NON-INTERFACE D (ONBASE SCANS) LDL Cholesterol Calculated (External) 235(H) <100 mg/dL NON-INTERFACE D (ONBASE SCANS) HDL Cholesterol (External) 95 >=50 mg/dL NON-INTERFACE D (ONBASE SCANS) Blood BLOOD SPECIMEN / Unknown 03/01/2024 4:25 PM CIGARETTE MAKING MACHINE HOPPER FEEDER Narrative BREEZE PFT - 03/05/2024 9:55 AM CIGARETTE MAKING MACHINE HOPPER FEEDER Verified by Param Katz on 03/05/2024. us Meliza Crawford MD LAB - BLOOD ORDERABLES Ed ited Result - Final BREEZE PFT NON-INTERFACED (ONBASE SCANS) * Hepatitis C antibody (03/01/2024 4:25 PM CIGARETTE MAKING MACHINE HOPPER FEEDER) Hepatitis C Antibody (External) Negative Negative NON-INTERFACE D (ONBASE SCANS) Blood BLOOD SPECIMEN / Unknown 03/01/2024 4:25 PM CIGARETTE MAKING MACHINE HOPPER FEEDER Narrative BREEZE PFT - 03/05/2024 9:55 AM CIGARETTE MAKING MACHINE HOPPER FEEDER Verified by Param Katz on 03/05/2024. us Meliza Crawford MD LAB - BLOOD ORDERABLES Ed ited Result - Final BREEZE PFT NON-INTERFACED (ONBASE SCANS) documented in this encounter Visit Diagnoses Not on filedocumented in this encounter Care Teams Technical Writer And Editor Relationship Specialty Start Date End Date [facility], [facility] [address] [place], [place] [phone] PCP - General 08/24/20 Kristen Dockery, RN Registered Nurse Nurse 11/09/23 Kristen Dockery, eyeglass assemblerShed Hand Nurse 05/19/24 Meliza Villaseñor MD [address] [place] [address] [address] [place], [place] [phone] [employer] Clerk Internal Medicine 05/19/24 Lanny Meléndez APRN INTEGRATED LOGISTICS SUPPORT MANAGER [facility] [address] [place] [address] Referring Physician Internal Medicine 05/19/24 Gala Fair, [facility] Sales Office Coordinator 05/20/24 Meliza Villaseñor MD [address] [place] [address] [address] [place] [address] Physician Internal Medicine 05/20/24 Trey Abraham MD 420 [facility] 195 [place] [address] Surgery 05/20/[address] [facility] 420 [facility] 84 [place] [address] Registered Dietitian Dietitian, Registered 05/20/24 Dixon Hernandez MD 420 [facility] 508 [place] [address] Cardiovascular Disease 05/20/24 Jes Arrington MD 6 [facility] 2[address] [place] [address] Gastroenterology 06/24/24 documented as of this encounter
--- OUTSIDE RECORDS SUMMARY | 2024-07-07 18:00 | XMS_ITS | Encounter Summary ---
Author Organization [place] Address [facility] [place] [address] Care Team Providers Care Grain Loader Name Role Phone Clinic, [facility] Primary Care Provider Kristen Dockery RN Unavailable Unavaila Kristen Bermudez RN Unavailable Unavaila Meliza James MD Unavailable [phone] Lanny Meléndez APRN INFLATABLE BUILDINGS LAMINATOR Unavailable [phone] Gala Fair BELT MOLDER Unavailable [phone] Meliza Villaseñor MD Unavailable [phone] Trey Abraham MD Unavailable [phone] Unavailable Unavail able Dixon Hernandez MD Unavailable [phone] Encounter Details Date Type Department Care Team (Late st Contact Info) Description 06/03/2024 Telephone [facility] [address] [place] [address] Neftali Elizabeth MD [address] [place], [place] [id number] Social History Tobacco Use Types Packs/Day Years [...] PM CDT Legal Sex Female 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 Appointment scheduled by: Patient. (self-pay - complete Cost Estimate) Caller name: Analia Caller phone #: [phone] Legal Guardianship Reviewed? No Honoring Choices Notified? No Brief reason for appt: ANJEL EVAL Sheriff needed? NO Contact information verified/updated: Yes If appt is for adult ANJEL program location, confirm you have verified the location and address with the patient referring to the template header. Yes Shanthi Abebe We have scheduled your evaluation. In the event that your insurance coverage comes back as out of network, you may receive a call to cancel your appointment and direct you to your insurance company for in-network coverage. Disclaimer regarding insurance read to patient? Yes Informed patient Carmona are for programming that is in person in the [facility] area? Yes - proceed with scheduling documented in this encounter Plan of Treatment Upcoming Encounters Date Type Department Care Team (Late st Contact Info) Description 07/11/2024 PRE VISIT [facility]atology [facility] [address] [phone] Shanthi Griffin MD [address] [place] [address] *-*INCOMING RECORDS*-* 07/16/2024 7:30 AM CDT Lab [facility] [place] [address] [phone] Jes Arrington MD [address] [place], [place] [address]B [address] [place] [address] 780955 07/16/2024 8:10 AM CDT Orders Only [address] [phone] Jes Arrington MD [address] [place], [place] [address]B [address] [place] [address] 127235 07/16/2024 8:30 AM CDT Allied Health/Nurse Visit [facility] Transplant Clinic [address] [place] [address] [phone] Jes Arrington MD [address] [place] [address] 433145 07/16/2024 9:00 AM CDT Allied Health/Nurse Visit [facility] Transplant [address] [phone] Jes Arrington MD [address] [place] [address] [phone] Gala Fair, [facility] 07/16/2024 10:00 AM CDT Office Visit [facility] Trans[facility] [address] [place] [address] [phone] Jes Arrington MD [address] [place] [address] 190995 07/16/2024 11:00 AM CDT Office Visit [facility] Trans[facility] [address] [place] [address] [phone] Jes Arrington MD [address] [place] [address], [place] [address] Trey Abraham MD 420 [facility] 195 [place] [address] 07/16/2024 12:00 PM CDT Allied Health/Nurse Visit [facility] Transplant [facility] [address] [place] [address] [phone] Jes Arrington MD [address] [place] [address] [place] [address] Jena Castano, RAFIQ [address] [place] [address] 07/16/2024 12:30 PM CDT Allied Health/Nurse Visit [facility] Transplant Clinic [address] [place] [address] [phone] Jes Arrington MD [address] [place] [address] [place] [address] 07/16/2024 12:50 PM CDT Ancillary Procedure [facility] [address] [phone] Jes Arrington MD [address] [place] [address] ST [address] [place] [address] 07/16/2024 1:50 PM CDT Ancillary Procedure [facility] Imaging [place] Xray [address] [phone] Jes Arrington MD [address] [place] [address] ST [address] [place] [address] 07/16/2024 2:30 PM CDT Ancillary Procedure [facility] [address] [place] [phone] Jes Arrington MD [address] [place] [address] ST [address] [place] [address] 08/26/2024 10:30 AM CDT Appointment [facility] 500 [place] [phone] Meliza Villaseñor MD [address] P[address] [place] [address] 08/26/2024 12:00 PM CDT Appointment [facility] 500 [place] [phone] Meliza Villaseñor MD [address] [place], [place] [address]ware st PWB [address] [place] [address] 10/01/2024 8:45 AM CDT Office Visit [facility] [address] [phone] Meliza Villaseñor MD [address] P[address] [place] [address] Dixon Hernandez MD 420 [facility] 508 [place], [place] 27[address] documented as of this encounter Visit Diagnoses Not on filedocumented in this encounter Care Teams Grain Loader Relationship Specialty Start Date End Date Clinic, [facility] [place] [address] [place] [address] PCP - General 08/24/20 Kristen Dockery, RN Registered Nurse Nurse 11/09/23 Kristen Dockery, manifold operatorVaccinator Nurse 05/19/24 Meliza Villaseñor MD [address] [place] [address] Firearms Expert Internal Medicine 05/19/24 Medhat Lanny PLANT GUARD INFLATABLE BUILDINGS LAMINATOR [facility] [address] [place], [place] [address] Referring Physician Internal Medicine 05/19/24 Gala Fair, [facility] Ux Research Associate 05/20/24 Meliza Villaseñor MD [address] [place] [address] Physician Internal Medicine 05/20/24 Trey Abraham MD [address] [place] [address] [facility] 195 [place] [address] Surgery 05/20/[address] [facility] [address] [facility] 84 [place] [address] Registered Dietitian Dietitian, Registered 05/20/24 Dixon Hernandez MD [address] [place] [address] [facility] 508 [place], [place] [address] Cardiovascular Disease 05/20/24 documented as of this encounter
--- OUTSIDE RECORDS SUMMARY | 2024-07-07 18:00 | XMS_ITS ---
Author Organization [place] Address [address] [place] [address] Care Team Providers Care Precision Agriculture Specialist Name Role Phone [facility], [facility] Primary Care Provider Kristen Dockery RN Unavailable UnavailKristen Toussaint RN Unavailable Unavaila Meliza James MD Unavailable [phone] Lanny Meléndez APRN CORE MICROARCHITECT Unavailable [phone] Gala Fair ORCHARD HAND Unavailable [phone] Meliza Villaseñor MD Unavailable [phone] Trey Abraham MD Unavailable [phone] Unavailable Unavail able Dixon Hernandez MD Unavailable [phone] Jes Arrington MD Unavailable + Transplant Episode Liver Candidate [facility] ([place], [place]) - [facility] Referred on 10/30/2023 Marked as Active on 05/19/2024 Reason: Ready for Evaluation Liver CoordinatorCatbisi Dockery RN Phone: N/A Fax: N/A Email: [email or web address] [email or web address] Score Value Updated Expires Exceptions/[place] sons CPRA Not available UNOS MELD Not available MELD (Calc) 34 07/06/2024 [place] Organ Diagnosis 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 Care Team Name Role Phone Fax Email Kristen Dockery RN Liver Coordinator N/A N/A [email or web address] Kristen Dockery RN Bindery Helper N/A N/A [email or web address] Meliza Villaseñor MD Chalk Molding Machine Operator [phone] N/A Lanny Meléndez APRN CORE MICROARCHITECT Referring Physician [phone] N/A Fernanda Figueroa LPN Studio Set Up Worker N/A N/A N/A Events Pre-Transplant Referred: 10/30/2023 Appointments (06/07/2024 - 08/07/2024) When With Visit Type Description 06/25/2024 SOT SOT Metal Punch Press Operator Eval Ca nceled (Other) 06/25/2024 SOT - Dixon Castano Nutrition Visit Cance led (Other) 06/25/2024 SOT - Jarad, T Liver Eval Surg Canceled (Other) 06/25/2024 SOT - Mahnaz Villaseñor Liver Eval Hept Canceled (Other) 06/25/2024 SOT - Kendra Montanez Social Work Eval Cancele d (Other) 06/25/2024 SOT Nurse Only Canceled (Other ) 07/11/2024 Gastro - Gaby, E New General Liver Cancele d (Other) 07/16/2024 SOT SOT Care Coordin ator Eval 07/16/2024 SOT - Dixon Castano Nutrition Vi sit 07/16/2024 SOT - Jarad, T Liver Eval Surg 07/16/2024 SOT - Mahnaz Arrington Liver Eval Hep t 07/16/2024 SOT - Manjula, Dom Social Work E danica 07/16/2024 SOT Nurse Only
--- OUTSIDE RECORDS SUMMARY | 2024-07-07 18:00 | XMS_ITS | Encounter Summary ---
Author Organization [place] Address [address] [place] [address] Care Team Providers Care Bankruptcy Judge Name Role Phone Clinic, [facility] Primary Care Provider Kristen Dockery RN Unavailable Unavaila Kristen Bermudez RN Unavailable Unavaila Meliza James MD Unavailable [phone] Lanny Meléndez APRN CAMPUS COORDINATOR Unavailable [phone] Gala Fair DIVISION CONTROLLER Unavailable [phone] Meliza Villaseñor MD Unavailable [phone] Trey Abraham MD Unavailable [phone] Unavailable Unavail able Dixon Hernandez MD Unavailable [phone] Jes Arrington MD Unavailable + Encounter Details Date Type Department Care Team (Late st Contact Info) Description 06/03/2024 MyC Medical Advice Initial Department Kristen Dockery [...] PM CDT Legal Sex Female 3:12 AM ROPE TOW 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 Gender Identity Female 10/31/2023 12:26 PM CDT Sexual Orientation Straight 10/31/2023 12 :26 PM CDT documented as of this encounter Plan of Treatment Upcoming Encounters Date Type Department Care Team (Late st Contact Info) Description 07/11/2024 PRE VISIT [facility] Hepatology Clinic [address] [phone] Shanthi Griffin MD [address] [place] [address] [phone] *-*INCOMING RECORDS*-* 07/16/2024 7:30 AM CDT Lab [address] [phone] Jes Arrington MD [address] [place] [address] 547315 07/16/2024 8:10 AM CDT Orders Only [address] [phone] Jes Arrington MD [address] [place] [address] 814225 07/16/2024 8:30 AM CDT Allied Health/Nurse Visit [facility] Transplant Clinic [address] [place] [address] [phone] Jes Arrington MD [address] [place], [place] [address]B [address] [place] [address] 593655 07/16/2024 9:00 AM CDT Allied Health/Nurse Visit [facility] Transplant Clinic [address] [place] [address] [phone] Jes Arrington MD [address] [place] [address] 588585 Manjula Gala Alexa, [facility] 07/16/2024 10:00 AM CDT Office Visit [facility] Transplant Clinic [address] [place] [phone] Jes Arrington MD [address] [place] [address] [phone] 07/16/2024 11:00 AM CDT Office Visit [facility] Transplant Clinic [address] [place] [phone] Jes Arrington MD [address] [place] [address] 110055 Trey Abraham MD [address] [place] [address] 195 [place], [place] 5[address]25 07/16/2024 12:00 PM CDT Allied Health/Nurse Visit [facility] Transplant Clinic [address] [place] [phone] Jes Arrington MD [address] [place] [address] 488425 Jena Castano, RAFIQ [facility] 420 [facility] 84 [place] [address] 07/16/2024 12:30 PM CDT Allied Health/Nurse Visit [facility] Transplant Clinic [address] [place] [phone] Jes Arrington MD [address] [place] [address] 387495 07/16/2024 12:50 PM CDT Ancillary Procedure [address] 1st [place] [address] Jes Arrington MD [address] [place] [address] [address] [place] [address] 07/16/2024 1:50 PM CDT Ancillary Procedure [facility] Xray [place] [address] [place] [address] [phone] Jes Arrington MD [address] [place] [address] ST [address] [place] [address] 07/16/2024 2:30 PM CDT Ancillary Procedure [facility] [address] [phone] Jes Arrington MD [address] [place] [address] ST [address] [place] [address] 406115 08/26/2024 10:30 AM CDT Appointment [facility] Care 500 [place] [phone] Meliza iVllaseñor MD [address] P[address] [place] [address] 96[address] 08/26/2024 12:00 PM CDT Appointment [facility] 500 [place] [phone] Meliza Villaseñor MD [address] P[address] [place] [address] 10/01/2024 8:45 AM CDT Office Visit [facility] Heart Clinic [address] [phone] Meliza Villaseñor MD [address] P[address] [place] [address] 8[address] Dixon Hernandez MD [address] [place] [facility] [address] [place], [place] 1285[address] documented as of this encounter Visit Diagnoses Not on filedocumented in this encounter Care Teams Bankruptcy Judge Relationship Specialty Start Date End Date Clinic, [facility] [place] [address] [place], [place] [phone] PCP - General 08/24/20 Kristen Dockery, RN Registered Nurse Nurse 11/09/23 Kristen Dockery, agronomy advisorEnvironmental Educator Nurse 05/19/24 Meliza Villaseñor MD [address] [place] [address] Sorting Supervisor Internal Medicine 05/19/24 Lanny Meléndez APRN CAMPUS COORDINATOR [facility] [address] [place], [place] [address] Referring Physician Internal Medicine 05/19/24 Gala Fair, [facility] Telemetry Monitor 05/20/24 Meliza Villaseñor MD [address] [place] [address] Physician Internal Medicine 05/20/24 Trey Abraham MD [address] [place] [facility] 195 [place], [place] 793325 Surgery 05/20/[address] [facility] 420 [facility] 84 [place] [address] Registered Dietitian Dietitian, Registered 05/20/24 Dixon Hernandez MD 420 [facility] 508 [place], [place] 626[address] Cardiovascular Disease 05/20/24 Jes Arrington MD [address] [facility] [address] [place], [place] 5867[address] Gastroenterology 06/24/24 documented as of this encounter
--- OUTSIDE RECORDS SUMMARY | 2024-07-07 18:00 | XMS_ITS | Encounter Summary ---
Author Organization [place] Address [address] [place] [address] Care Team Providers Care Torch Straightener Name Role Phone Clinic, [facility] Primary Care Provider Kristen Dockery RN Unavailable UnavailKristen Toussaint RN Unavailable Unavaila Meliza James MD Unavailable [phone] Lanny Meléndez APRN INTER FOLD ROLL CUTTER Unavailable [phone] Gala Fair DIRECTOR HOME Unavailable [phone] Meliza Villaseñor MD Unavailable [phone] Trey Abraham MD Unavailable [phone] Unavailable Unavail able Dixon Hernandez MD Unavailable [phone] Encounter Details Date Type Department Care Team (Latest Contact Info) Description 06/11/2024 Travel Social History Tobacco Use Types Packs/Day [...] PM CDT Legal Sex Female 3:12 AM CLASSER Gender Identity Female 10/31/2023 12:26 PM CDT Sexual Orientation Straight 10/31/2023 12 :26 PM CDT documented as of this encounter Plan of Treatment Upcoming Encounters Date Type Department Care Team (Late st Contact Info) Description 07/11/[address] [facility] Hepatology Clinic [address] [phone] Shanthi Griffin MD [address] [place] [address] 659925 *-*INCOMING RECORDS*-* 07/16/2024 7:30 AM CDT Lab [address] [phone] Jes Arrington MD [address] [place] [address] 871115 07/16/2024 8:10 AM CDT Orders Only [address] [phone] Jes Arrington MD [address] [place] [address] 610315 07/16/2024 8:30 AM CDT Allied Health/Nurse Visit [facility] Transplant Clinic [address] [place] [address] [phone] Jes Arrington MD [address] [place], [place] [address]B [address] [place] [address] [phone] 07/16/2024 9:00 AM CDT Allied Health/Nurse [facility] Transplant Clinic [address] [place] [address] [phone] Jes Arrington MD [address] [place], [place] [address]B [address] [place] [address] 630425 Gala Fair, [facility] 07/16/2024 10:00 AM CDT Office Visit [facility] Transplant Clinic [address] [place] [address] [phone] Jes Arrington MD [address] [place] [address] ST [address] [place] [address] 799205 07/16/2024 11:00 AM CDT Office Visit [facility] Transplant Clinic [address] [place] [address] [phone] Jes Arrington MD [address] [place] [address] [phone] Trey Abraham MD [address] [place] [address] 195 [place], [place] 976535 07/16/2024 12:00 PM CDT Allied Health/Nurse Visit [facility] Transplant Clinic [address] [place] [address] [phone] Jes Arrington MD [address] [place] [address] 072175 Jena Castano, RAFIQ [facility] [address] [address] 07/16/2024 12:30 PM CDT Allied Health/Nurse [facility] Transplant Clinic [address] [place] [address] [phone] Jes Arrington MD [address] [place] [address] ST [address] [place] [address] 487865 07/16/2024 12:50 PM CDT Ancillary Procedure [address] 1st [place] [phone] Jes Arrington MD [address] [place], [place] [address]B 2[address] [place] [address] 07/16/2024 1:50 PM CDT Ancillary Procedure [facility] Xray [place] [address] [place] [address] [phone] Jes Arrington MD [address] [place] [address] ST [address] [place] [address] 94[address] 07/16/2024 2:30 PM CDT Ancillary Procedure [facility] [address] [phone] Jes Arrington MD [address] [place] [address] [address] [place] [address] 00584 08/26/2024 10:30 AM CDT Appointment [facility] Care 500 [place] [phone] Meliza Villaseñor MD [facility] [address] [place] [address] 08/26/2024 12:00 PM CDT Appointment [facility] Imaging 500 [place] [phone] Meliza Villaseñor MD [facility] [address] [place] [address] 36[address] 10/01/2024 8:45 AM CDT Office Visit [facility] Heart Clinic [address] [phone] Meliza Villaseñor MD [address] [place] [address] 486[address] Dixon Hernandez MD 420 [facility] 508 [place], [place] 7[address] documented as of this encounter Visit Diagnoses Not on filedocumented in this encounter Additional Health Concerns Assessment Noted Time PHQ-9 Depression Total Score: 8 06/12/19 12:56 PM CDT documented as of this encounter Care Teams Torch Straightener Relationship Specialty Start Date End Date Clinic, [facility] [address] [facility] [place] [address] PCP - General 08/24/20 Kristen Dockery, RN Registered Nurse Nurse 11/09/23 Kristen Dockery, auditing control clerkBlow Torch Operator Nurse 05/19/24 Meliza Villaseñor MD [address] [place] [address] Ditch Rider Internal Medicine 05/19/24 Lanny Meléndez APRN INTER FOLD ROLL [facility]UT[facility] [address] [place], [place] [address] Referring Physician Internal Medicine 05/19/24 Gala Fair, [facility] Career Development Director 05/20/24 Meliza Villaseñor MD [address] [place] [address] Physician Internal Medicine 05/20/24 Trey Abraham MD 420 [facility] 195 [place], [place] [phone] Surgery 05/20/[address] [facility] 420 [facility] 84 [place] [address] Registered Dietitian Dietitian, Registered 05/20/24 Dixon Hernandez MD [address] [place] [address] 508 [place], [place] 567385 Cardiovascular Disease 05/20/24 documented as of this encounter
--- OUTSIDE RECORDS SUMMARY | 2024-07-07 18:00 | XMS_ITS | Encounter Summary ---
Author Organization [place] Address [address] [place] [address] 98171 Care Team Providers Care Hatchery Employee Name Role Phone [facility], [facility] Primary Care Provider Kristen Dockery RN Unavailable UnavailKristen Toussaint RN Unavailable Unavaila Meliza James MD Unavailable [phone] Lanny Meléndez APRN COMMODITY MERCHANT Unavailable [phone] Gala Fair HEALTH SPA MANAGER Unavailable [phone] Meliza Villaseñor MD Unavailable [phone] Trey Abraham MD Unavailable [phone] Unavailable Unavail able Dixon Hernandez MD Unavailable [phone] Jes Arrington MD Unavailable + Encounter Details Date Type Department Care Team (Late st Contact Info) Description 01/08/2024 MyC Medical Advice [facility] [address] [place] [address] Kristen Dockery RN Social History [...] PM CDT Legal Sex Female 3:12 AM OPHTHALMOLOGY SURGICAL TECHNICIAN Gender Identity Female 10/31/2023 12:26 PM CDT Sexual Orientation Straight 10/31/2023 12 :26 PM CDT documented as of this encounter Plan of Treatment Upcoming Encounters Date Type Department Care Team (Late st Contact Info) Description 07/11/2024 PRE VISIT [facility] [address] [phone] Shanthi Griffin MD [address] [place] [address] [phone] *-*INCOMING RECORDS*-* 07/16/2024 7:30 AM CDT Lab [address] [phone] Jes Arrington MD [address] [place], [place] [address]B [address] [place] [address] 117305 07/16/2024 8:10 AM CDT Orders Only [address] [phone] Jes Arrington MD [address] [place], [place] [address]B [address] [place] [address] [phone] 07/16/2024 8:30 AM CDT Allied Health/Nurse Visit [facility] [address] [place] [address] [phone] Jes Arrington MD [address] [place] [address] [address] [place] [address] 536995 07/16/2024 9:00 AM CDT Allied Health/Nurse Visit [facility] [address] [place] [address] [phone] Jes Arrington MD [address] [place] [address] Gala Fair, [facility] 07/16/2024 10:00 AM CDT Office Visit [facility] [address] [place] [address] [phone] Jes Arrington MD [address] [place] [address] [phone] 07/16/2024 11:00 AM CDT Office Visit [facility] [address] [place] [address] [phone] Jes Arrington MD [address] [place] [address] [phone] Trey Abraham MD [address] [place] [address] [address] [place], [place] [phone] 07/16/2024 12:00 PM CDT Allied Health/Nurse Visit [facility] [address] [place] [address] [phone] Jes Arrington MD [address] [place] [address] 446325 Jena Castano, RAFIQ [facility] 420 [facility] 84 [place] [address] 07/16/2024 12:30 PM CDT Allied Health/Nurse Visit [facility] [address] [place] [address] [phone] Jes Arrington MD [address] [place] [address] [phone] 07/16/2024 12:50 PM CDT Ancillary Procedure [facility] Imaging Center [facility] [address] [phone] Jes Arrington MD [address] [place] [address] 37708 07/16/2024 1:50 PM CDT Ancillary Procedure [facility] Xray [place] [address] [place] [address] [phone] Jes Arrington MD [address] [place] [address] [address] [place] [address] [id number] 07/16/2024 2:30 PM CDT Ancillary Procedure [facility] [address] [phone] Jes Arrington MD [address] [place] [address] [address] [place] [address] 9[address] 08/26/2024 10:30 AM CDT Appointment [facility] Heart Care [address] [place] [phone] Meliza Villaseñor MD [facility] [address] [place] [address] 36047 08/26/2024 12:00 PM CDT Appointment [facility] Imaging [address] [place] [phone] Meliza Villaseñor MD [address] [place] [address] 49871 10/01/2024 8:45 AM CDT Office Visit [facility] [address] [phone] Meliza Villaseñor MD [address] [place] [address] Dixon Hernandez MD 420 [facility] [address] [place], [place] 665455 documented as of this encounter Visit Diagnoses Not on filedocumented in this encounter Care Teams Hatchery Employee Relationship Specialty Start Date End Date Clinic, [facility] [address] [facility]kimberleejameson [address] [place], [place] [phone] PCP - General 08/24/20 Kristen Dockery, RN Registered Nurse Nurse 11/09/23 Kristen Dockery, web weaverGastroenterology Teacher Nurse 05/19/24 Meliza Villaseñor MD [address] [facility] [place] [address] [place] [address] Target Man Internal Medicine 05/19/24 Lanny Meléndez APRN COMMODITY MERCHANT [facility] [address] [place], [place] [address] Referring Physician Internal Medicine 05/19/24 Gala Fair, [facility] Charge Master Coordinator 05/20/24 Meliza Villaseñor MD [address] [place] [address] Physician Internal Medicine 05/20/24 Trey Abraham MD 420 [facility] [address] [place], [place] [phone] Surgery 05/20/[address] [facility] 420 [facility] 84 [place] [address] Registered Dietitian Dietitian, Registered 05/20/24 Dixon Hernandez MD 420 [facility] [address] [place] [address] Cardiovascular Disease 05/20/24 Jes Arrington MD 516 [facility] [address] [place], [place] 596715 Gastroenterology 06/24/24 documented as of this encounter
--- OUTSIDE RECORDS SUMMARY | 2024-07-07 18:00 | XMS_ITS | Encounter Summary ---
Author Organization [place] Address [address] [place] [address] 23028 Care Team Providers Care Forms Analyst Name Role Phone Clinic, [facility] Primary Care Provider Kristen Dockery RN Unavailable UnavailKristen Toussaint RN Unavailable Unavaila Meliza James MD Unavailable [phone] Lanny Meléndez APRN SENSOR OPERATOR Unavailable [phone] Gala Fair TELEHEALTH CASE MANAGER Unavailable [phone] Meliza Villaseñor MD Unavailable [phone] Trey Abraham MD Unavailable [phone] Unavailable Unavail able Dixon Hernandez MD Unavailable [phone] Jes Arrington MD Unavailable + Encounter Details Date Type Department Care Team (Late st Contact Info) Description 09/08/2023 External Order Results [facility] [address] [place] [address] Outside, Provider Social History Tobacco Use Types Packs/Day Years Used Date Smoking Tobacco: Never Smokeless Tobacco: Never Alcohol Use Standard Drinks/Week Comments Yes 0 (1 standard drink = 0.6 oz pur e alcohol) few times a year Adolescent Education Answer Date Record ed Getting School Help Needed Not on file 11/20 Comments No Sex and Gender Information Value Date Recorded Sex Assigned at Female 10/31/2023 12:26 PM CDT Legal Sex Female 3:12 AM ZIPPER MEASURER Gender Identity Female 10/31/2023 12:26 PM CDT Sexual Orientation Straight 10/31/2023 12 :26 PM CDT documented as of this encounter Plan of Treatment Upcoming Encounters Date Type Department Care Team (Late st Contact Info) Description 07/11/2024 PRE VISIT [facility] Hepatology Clinic [address] [phone] Shanthi Griffin MD [address] [place] [address] [phone] *-*INCOMING RECORDS*-* 07/16/2024 7:30 AM CDT Lab [address] [phone] Jes Arrington MD [address] [place] [address] 703165 07/16/2024 8:10 AM CDT Orders Only [address] [phone] Jes Arrington MD [address] [place] [address] [phone] 07/16/2024 8:30 AM CDT Allied Health/Nurse Visit [facility] Transplant [facility] [address] [place] [address] [phone] Jes Arrington MD [address] [place] [address] [phone] 07/16/2024 9:00 AM CDT Allied Health/Nurse Visit [facility] Trans[facility] [address] [place] [address] [phone] Jes Arrington MD [address] [place] [address] [phone] Gala Fair, [facility] 07/16/2024 10:00 AM CDT Office Visit [facility] [address] [place] [address] [phone] Jes Arrington MD [address] [place] [address] [phone] 07/16/2024 11:00 AM CDT Office Visit [facility] [address] [place] [phone] Jes Arrington MD [address] [place] [address] 490695 Trey Abraham MD [address] [place] [address] 195 [place], [place] 35[address] 07/16/2024 12:00 PM CDT Allied Health/Nurse Visit [facility] [address] [place] [address] [phone] Jes Arrington MD [address] [place] [address] 855455 Jena Castano, RAFIQ [address] [place] [address] 07/16/2024 12:30 PM CDT Allied Health/Nurse Visit [facility] [address] [place] [address] [phone] Jes Arrington MD [address] [place] [address] 676105 07/16/2024 12:50 PM CDT Ancillary Procedure [address] [phone] Jes Arrington MD [address] [place] [address] [address] [place] [address] 78985 07/16/2024 1:50 PM CDT Ancillary Procedure [facility] Xray [address] [phone] Jes Arrington MD [address] [place] [address] [address] [place] [address] 14821 07/16/2024 2:30 PM CDT Ancillary Procedure [facility] [address] [phone] Jes Arrington MD [address] [place] [address] [address] [place] [address] 0[address] 08/26/2024 10:30 AM CDT Appointment [facility] Heart Care [address] [place] [phone] Meliza Villaseñor MD [address] [place] [address] 47[address] 08/26/2024 12:00 PM CDT Appointment [facility] Imaging 500 [place] [address] Meliza Vlilaseñor MD [address] [place] [address] 15899 10/01/2024 8:45 AM CDT Office Visit [facility] Heart Clinic [address] [phone] Meliza Villaseñor MD [address] [place] [address] 41502 Dixon Hernandez MD 420 [facility] 508 [place], [place] 110855 documented as of this encounter Procedures Procedure Name Priority Date/Time Associated Diagnosis Comments CREATININE Routine 09/08/2023 9:50 AM CDT documented in this encounter Results * Creatinine (09/08/2023 9:50 AM CDT) Creatinine (External) 0.51 0.5 - 1.5 mg/dL NON-INTERFACED (ONBASE SCANS) GFR Estimated (External) 107 ml/min NON-INTERFACED (ONBASE SCANS) Blood BLOOD SPECIMEN / Unknown 09/08/2023 9:50 AM CDT Narrative TUSHAR PFT - 03/05/2024 9:44 AM ZIPPER MEASURER Verified by Isaac Rodrigues on 03/05/2024. us Provider Outside LAB - BLOOD ORDERABLES Edited R esult - Final TUSHAR PFT NON-INTERFACED (ONBASE SCANS) documented in this encounter Visit Diagnoses Not on filedocumented in this encounter Care Teams Forms Analyst Relationship Specialty Start Date End Date [facility] [place], [facility] [address] [facility] [place] [address] PCP - General 08/24/20 Kristen Dockery, RN Registered Nurse Nurse 11/09/23 Kristen Dockery, adoption services managerAnesthesiologist And Critical Care Nurse 05/19/24 Meliza Villaseñor MD [address] [place] [address] Hotel Director Internal Medicine 05/19/24 Lanny Meléndez APRN SENSOR OPERATOR [facility] [address] [place] [address] Referring Physician Internal Medicine 05/19/24 Gala Fair, [facility] Laborer Vegetable Farm 05/20/24 Meliza [facility]aseñor MD [facility] [address] [place] [address] Physician Internal Medicine 05/20/24 Trey Abraham MD 420 [facility] 195 [place] [address] Surgery 05/20/24 Jena Castano, RAFIQ [facility] 420 [facility] 84 [place] [address] Registered Dietitian Dietitian, Registered 05/20/24 Dixon Hernandez MD 420 [facility] [address] [place] [address] Cardiovascular Disease 05/20/24 Jes Arrington MD 516 [facility] [address] [place] [address] Gastroenterology 06/24/24 documented as of this encounter
--- OUTSIDE RECORDS SUMMARY | 2024-07-07 18:00 | XMS_ITS | Encounter Summary ---
Author Organization [place] Address [address] [place] [address] 16622 Care Team Providers Care Hack Driver Name Role Phone [facility], [facility] Primary Care Provider Kristen Dockery RN Unavailable UnavailKristen Toussaint RN Unavailable Unavaila Meliza James MD Unavailable [phone] Lanny Meléndez APRN STOVE INSTALLER Unavailable [phone] Gala Fair PLATFORM INSPECTOR Unavailable [phone] Meliza Villaseñor MD Unavailable [phone] Trey Abraham MD Unavailable [phone] Unavailable Unavail able Dixon Hernandez MD Unavailable [phone] Jes Arrington MD Unavailable + Encounter Details Date Type Department Care Team (Late st Contact Info) Description 11/13/2023 MyC Medical Advice [facility] Trans[facility] [address] [place] [address] Kristen Dockery RN Social History [...] PM CDT Legal Sex Female 3:12 AM INSPECTOR AND TESTER Gender Identity Female 10/31/2023 12:26 PM CDT Sexual Orientation Straight 10/31/2023 12 :26 PM CDT documented as of this encounter Plan of Treatment Upcoming Encounters Date Type Department Care Team (Late st Contact Info) Description 07/11/2024 PRE VISIT [facility] [address] [phone] Shanthi Griffin MD [address] [place] [address] [phone] *-*INCOMING RECORDS*-* 07/16/2024 7:30 AM CDT Lab [address] [phone] Jes Arrington MD [address] [place], [place] [address]B [address] [place] [address] 104005 07/16/2024 8:10 AM CDT Orders Only [address] [phone] Jes Arrington MD [address] [place], [place] [address]B [address] [place] [address] 915505 07/16/2024 8:30 AM CDT Allied Health/Nurse Visit [facility] [address] [place] [address] [phone] Jes Arrington MD [address] [place] [address] [address] [place] [address] 518015 07/16/2024 9:00 AM CDT Allied Health/Nurse Visit [facility] [address] [place] [address] [phone] Jes Arrington MD [address] [place] [address] 9[address] Gala Fair, [facility] 07/16/2024 10:00 AM CDT Office Visit [facility] [address] [place] [address] [phone] Jes Arrington MD [address] [place] [address] [phone] 07/16/2024 11:00 AM CDT Office Visit [facility] [address] [place] [address] [phone] Jes Arrington MD [address] [place] [address] [phone] Trey Abraham MD [address] [place] [address] 195 [place], [place] 157785 07/16/2024 12:00 PM CDT Allied Health/Nurse Visit [facility] [address] [place] [address] [phone] Jes Arrington MD [address] [place] [address] 773255 Jena Castano, RAFIQ [facility] 420 [facility] 84 [place] [address] 07/16/2024 12:30 PM CDT Allied Health/Nurse Visit [facility] [address] [place] [address] [phone] Jes Arrington MD [address] [place] [address] [phone] 07/16/2024 12:50 PM CDT Ancillary Procedure [facility] [address] [phone] Jes Arrington MD [address] [place] [address] 07/16/2024 1:50 PM CDT Ancillary Procedure [facility] Xray [place] [address] [place] [address] [phone] Jes Arrington MD [address] [place] [address] [address] [place] [address] 145765 07/16/2024 2:30 PM CDT Ancillary Procedure [facility] [address] [phone] Jes Arrington MD [address] [place] [address] [address] [place] [address] 08/26/2024 10:30 AM CDT Appointment [facility] 500 [place] [address] Meliza Villaseñor MD [facility] [address] [place] [address]90 08/26/2024 12:00 PM CDT Appointment [facility] Imaging [address] [place] [phone] Meliza Villaseñor MD [address] [place] [address]952 10/01/2024 8:45 AM CDT Office Visit [facility] [address] [phone] Meliza Villaseñor MD [address] [place] [address] Dixon Hernandez MD 420 [facility] [address] [place], [place] 798105 documented as of this encounter Visit Diagnoses Not on filedocumented in this encounter Care Teams Hack Driver Relationship Specialty Start Date End Date Clinic, [facility] [address] [facility] [address] [place], [place] [phone] PCP - General 08/24/20 Kristen Dockery, RN Registered Nurse Nurse 11/09/23 Kristen Dockery, glue mounter operatorUnit Aide Tech Nurse 05/19/24 Meliza Villaseñor MD [address] [facility] [address] [place] [address] Communications Department Head Internal Medicine 05/19/24 Lanny Meléndez APRN STOVE INSTALLER [facility] [address] [place], [place] 6426[address] Referring Physician Internal Medicine 05/19/24 Gala Fair, [facility] Thoroughbred Horse Farm Manager 05/20/24 Meliza Villaseñor MD [address] [place] [address] Physician Internal Medicine 05/20/24 Trey Abraham MD 420 [facility] 195 [place], [place] 141785 Surgery 05/20/[address] [facility] 420 [facility] 84 [place] [address] Registered Dietitian Dietitian, Registered 05/20/24 Dixon Hernandez MD 420 [facility] [address] [place] [address] Cardiovascular Disease 05/20/24 Jes Arrington MD 516 [facility] [address] [place], [place] 063365 Gastroenterology 06/24/24 documented as of this encounter
--- OUTSIDE RECORDS SUMMARY | 2024-07-07 18:00 | XMS_ITS | Clinical Summary ---
Author Organization [employer] [facility] Address [address] [place] [address] Care Team Providers Care Filling Station Laborer Name Role Phone Meliza Crawford MD Primary Care Provider [phone] Allergies Active Allergy Reactions Criticality Noted Date Comments Sulfa (Sulfonamide Antibiotics) Rash,Itching Medications triamcinolone (ARISTOCORT; KENALOG) 0.1 % creamIndications :Dermatitis Apply thinly to chest, legs and arms 2 times daily, Monday through Fridays, off on weekends. Avoid face and skin folds. 45 g 2 9 Active loratadine (CLARITIN) 10 mg tablet Take by mouth. Activ e gabapentin (NEURONTIN) 300 mg capsule take 1 Capsule by mouth three times a day 0 Active fluticasone (50 mcg per actuation) nasal solution (FLONASE)Indicat ions:Chronic rhinitis Inhale 2 Sprays into both nostrils once daily. 1 Bottle 11 0 Active Loratadine-D 10-240 mg 24hr tabletIndication s:Seasonal allergic rhinitis, unspecified trigger Take 1 tablet by mouth once daily 90 Tablet 1 Active Xolair 150 mg/mL subcutaneous syringe 1 Active fluocinonide 0.05 TOPICAL (LIDEX) 0.05 % external solution apply 1 Application twice a day as needed topically for no more than 14 days at a time. 1 Active EPINEPHrine (EPIPEN) 0.3 mg/0.3 mL injection 1 Injectible as needed as directed At first sign of allergy. 0 Active potassium chloride (Klor-Con M20) 20 mEq Extended-Release tabletIndication s:Hypokalemia Take 1 Tablet (20 mEq) by mouth 2 times daily with meals. 60 Tablet 1 Active lisinopriL (PRINIVIL; ZESTRIL) 20 mg tabletIndication s:HTN (hypertension) Take 2 tablets by mouth once daily. 180 Tablet 1 Active hydroCHLOROthiaz vijay 12.5 mg tabletIndication s:HTN (hypertension) Take 1 tablet by mouth once daily. 30 Tablet 1 Active Active Problems Problem Noted Date Diagnosed Date Other insomnia 11/20/2019 JOSE (obstructive sleep apnea) 11/20/2019 ASCUS of cervix with negative high risk HPV 09/2019 Overview (11/01/2019): 10/2019 ASCUS/HPV negative Plan: Pap/HPV due 10/2022 Itching 09/26/2019 Elevated blood sugar 08/27/2017 Regular astigmatism 05/27/2005 Myopia 05/27/2005 HYPERTENSION - ESSENTIAL 02/22/2005 ALLERGIES 04/10/2003 Breast mass, left Resolved Problems Problem Noted Date Diagnosed Date Resolved Date Routine adult health maintenance 08/21/2015 08/25/2020 Overview (08/21/2015): Colonoscopy 08/2015 hyperplastic polyp, repeat in 10 years ANXIETY - UNSPECIFIED 05/23/20002020 ACNE 09/23/1999 08/25/2020 Immunizations Immunization Administration Dates Next Due Influenza, IIV3 (Age >=3 years) 12/18/2009 Influenza, IIV4 04/23/2019(Deferred: Patient Ref used) Tdap 08/25/2020,02/13/2009 Zoster (Shingrix-RZV, recombinant) 11/03/2017, Family History Medical History Relation Name Comments Diabetes Father Hypertension Father Heart attack Maternal Grandfather Hypertension Maternal Grandfather Hypertension Maternal Grandmother Diabetes Mother Hypertension Mother Osteoporosis Mother Other Mother retinal detachm ent/rheumatic fever Stroke Mother Diabetes Paternal Grandfather ?? Hypertension Paternal Grandfather Hypertension Paternal Grandmother Anesthesia Problem No Family History Blood Disease No Family History Clotting disorder No Family History Relation Name Status Comments Father Maternal Grandfather Maternal Grandmother Mother Paternal Grandfather Paternal Grandmother Social History Tobacco Use Types Packs/Day Years Used Date Smoking Tobacco: Never Smokeless Tobacco: Never Tobacco Cessation:Counseling Given: Yes Alcohol Use Standard Drinks/Week Comments Yes 0 (1 standard drink = 0.6 oz pur e alcohol) A few times a year PHQ-2 Answer Date Recorded PHQ-2 TOTAL SCORE 0 10/22/2019 Social Connections Answer Date Recorded Frequency of Communication with Friends and Fami ly Not on file 02/13/2021 Financial Resource Strain Answer Date R ecorded Difficulty of Paying Living Expenses Not on file 02/13/2021 Difficulty of Paying Living Expenses Not on file 02/13/2021 Comments No Sex and Gender Information Value Date Recorded Sex Assigned at Not on file Legal Sex Female 5:21 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 Gender Identity Not on file Sexual Orientation Not on file 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 on file Not on file Not on file Obstetrics History Para Term AB IAB SAB Ectopic Multiple Livin g Live Births 1 1 1 1 1 Date Outcome GA Total Labor Labor/2nd/3rd Weight Sex Type Anes PTL Rosario A1 A5 Name Clin 1996 Term 37w 0d M Vag Living Last Filed Vital Signs Vital Sign Reading Time Taken Comments Blood Pressure 106/72 08/25/2020 9:44 AM CDT Pulse 90 08/25/2020 9:44 AM CDT Temperature 36.7 C (98 F) 11/20/2019 11:47 AM CDT Respiratory Rate 18 09/27/2019 11:2 2 AM CDT Oxygen Saturation 99% 08/25/2020 9:44 AM CDT Inhaled Oxygen Concentration - - Weight 69.4 kg (152 lb 14.4 oz) 08/25/2020 9:44 AM CDT Height 173.5 cm (5' 8.31) 08/25/2020 9:44 AM CD T Body Mass Index 23.04 08/25/2020 9:44 AM CDT Plan of Treatment Health Maintenance Due Date Last Done Comments HIV for age 15-65 1977 Hepatitis C screening for age 18-79 1980 Pneumococcal series for age 50+ (1 of 1 - PCV) 2012 Depression screening for age 12+ 10/21/2020 10/22/2019, 10/20/2019, 08/22/2017, Additional history exists Mammogram for age 45-75 10/28/2020 10/29/19 20, 05/03/2018, 10/26/2012, Additional history exists BMI (ht and wt on same day) for age 18+ 08/25/2021 08/25/2020, 11/20/2019, 10/22/2019, Additional history exists Pap test for age 21-65 10/21/2022 , 10/22/2019, 09/27/2015 ([facility] Additional history exists COVID-19 vaccine series ( - 2023- season) 2023 Lipids for age 45-75 10/09/2024 10/10/2019, 08/17/2016, 07/12/2013, Additional history exists Influenza Vaccine (Season Ended) 2024 12/18/2009 Colonoscopy through age 75 08/19/2025 08/20/2015 Tetanus booster 08/25/2030 08/25/2020, 02/13/2009 RSV vaccine for adults or (1 - 1-dose 75+ series) 2037 Zoster (shingles) series for age 50+ Completed 11/03/2017, 08/22/2017 Tdap Completed 08/25/2020, 02/13/2009 Hepatitis B series for 19+ Aged Out N o longer eligible based on patient's age to complete this topic Procedures Procedure Name Priority Date/Time Associated Diagnosis Comments XR MAMMO BILAT SCREENING Routine 10/29/2019 9:20 AM CDT Visit for screening mammogram POULTRY DEBEAKER THIN PREP PAP SCREEN IMAGED Routine 10/22/2019 2:01 PM CDT Screening for malignant neoplasm of cervix LIPID PANEL Routine 10/10/2019 8:28 AM CDT Lipid screening from Last 3 Months or Most Recently Relevant to Health Maintenance Results * XR MAMMO BILAT SCREENING (10/29/2019 9:20 AM CDT) Anatomical Region Laterality Modality BREASTS, Breast Left, Breast Right Bilateral Mammography Impressions 10/29/2019 2:20 PM CDT There is no radiographic evidence for malignancy. Recommend annual mammograms. A lay language report of this examination will be provided to the patient. MAMMOGRAM ASSESSMENT: ACR 1 Negative Narrative 10/29/2019 2:20 PM CDT XR MAMMO BILAT SCREENING [[id number]] CLINICAL HISTORY: This is an asymptomatic 59 y.o. patient. INDICATION FOR EXAM: Mammogram Screening. TECHNIQUE: CC & MLO views were obtained. This digital study was evaluated with the assistance of Computer-Aided Detection. COMPARISON FILM: Yes 05/03/18 Axxana 10/26/12 Axxana FINDINGS: Mammographically, the breast tissue has scattered fibroglandular densities. There are no dominant masses, suspicious micro calcifications or areas of architectural distortion. Emely Jimenez MD MAMMO Final Resul t * (ABNORMAL) POULTRY DEBEAKER THIN PREP PAP SCREEN IMAGED (10/22/2019 2:01 PM CDT) Case Report Gynecologic Cytology Report Case: [id number] Authorizing Provider: Melonie Savage NP Collected: 10/22/2019 1401 [facility] Received: 10/22/2019 1427 [facility] First Screen: Remi Whittington Pathologist: Albina Cortes MD Specimen: POULTRY DEBEAKER ThinPrep Vial Screening, Cervical 10/31/2019 3:04 PM CDT [facility] INTERPRETATION/ RESULT ATYPICAL SQUAMOUS CELLS OF UNDETERMINED SIGNIFICANCE (ASCUS)(A) (none) 10/31/2019 3:04 PM CDT [facility] at 1504 CDT SPECIMEN ADEQUACY Satisfactory for evaluation Endocervical component present 10/31/2019 3:04 PM CDT [facility] HPV REQUEST HPV if ASCUS 10/31/2019 3:04 PM CDT [facility] Date of LMP postmenopausal 0 3:04 PM CDT [facility] Last Pap Date 201210/31/2019 3:04 PM CDT [facility] Last Pap Result NIL 0 3:04 PM CDT [facility] Abnormal Pap or [place] Bx in last 5 years No 10/31/2019 3:04 PM CDT [facility] Menstrual Status Postmenopausal 10/31/2019 3:04 PM CDT [facility] [place] Bx Done Today No 10/31/2019 3:04 PM CDT [facility] Additional Information None given 10/31/2019 3:04 PM CDT [facility] Comment: Cytology is screened at [facility] - [address], [place] [address] and [facility] - [address], [place] [address] and [facility] - [address] [place] [address] Interpreted at [facility] - [address], [place] [address] Automated Review Successful 10/31/2019 3:04 PM CDT [facility] Comment:Specimen processed s uccessfully by automated pastry sous chef device, ThinPrep Imaging System, [email or web address] ANCILLARY TESTING POULTRY DEBEAKER HPV Ordered, Please see separate report 10/31/2019 3:04 PM CDT [facility] Note The pap test is a screening technique, not a diagnostic procedure. It is used primarily to screen for squamous cancers and precursor lesions. Published studies have shown that it is subject to both false negative and false positive results. The pap test should not be used as the sole means to diagnose or exclude pre-malignant and malignant lesions. 10/31/2019 3:04 PM CDT [facility] Other (Cervical) Non-Blood / Unknown 10/22/2019 2:01 PM CDT 10/22/2019 2:27 PM CDT Melonie Savage SPEED BELT SANDER PATHOLOGY/CYTOLOGY Final Res ult [facility] [address] [place] [address], [place] * (ABNORMAL) LIPID PANEL (10/10/2019 8:28 AM CDT) CHOLESTEROL,TOTAL 279(H) 100 - 199 mg/dL 10/10/2019 3:56 PM CDT [facility] TRIGLYCERIDES 112 <150 mg/dL 10/10/2019 3:56 PM CDT [facility] HDL CHOLESTEROL 88 >40 mg/dL 0 3:56 PM CDT [facility] NON-HDL CHOLESTEROL 191(H) <145 mg/dl 10/10/2019 3:56 PM CDT [facility] CHOL/HDL RATIO 3.17 <4.50 10/10/2019 3:56 PM CDT [facility] LDL CHOLESTEROL 169(H) <=130 mg/dL 10/10/2019 3:56 PM CDT [facility] PROVIDER ORDERED STATUS RANDOM 10/10/2019 3:56 PM CDT [facility] Blood BLOOD SPECIMEN / Unknown Venipuncture / Unknown 10/10/2019 8:28 AM CDT 10/10/2019 8:28 AM CDT us Emely Jimenez MD CHEMISTRY Final Resul t [facility] [address] [place] [address], from Last 3 Months or Most Recently Relevant to Health Maintenance Insurance [facility] [employer] Advance Directives * Full Code (Latest Code Status on File) Date Activated Date Inactivated Comments 06/29/2018 11:16 AM 06/29/2018 6:20 PM Care Teams Filling Station Laborer Relationship Specialty Start Date End Date Meliza Crawford MD [address] [place] [id number] PCP - General 10/09/23
--- OUTSIDE RECORDS SUMMARY | 2024-07-07 18:00 | XMS_ITS | Encounter Summary ---
Author Organization [employer] Address [address] [place] [address] Care Team Providers Care Speech Lang Path Name Role Phone Clinic, [facility] Primary Care Provider Kristen Dockery RN Unavailable UnavailKristen Toussaint RN Unavailable Unavaila Meliza James MD Unavailable [phone] Lanny Meléndez APRN PARTY PLAN SALES UNIT SALES LEADER Unavailable [phone] Gala Fair NATIONAL SALES ASSOCIATE Unavailable [phone] Meliza Villaseñor MD Unavailable [phone] Trey Abraham MD Unavailable [phone] Unavailable Unavail able Dixon Hernandez MD Unavailable [phone] Jes Arrington MD Unavailable + Encounter Details Date Type Department Care Team (Late st Contact Info) Description 03/15/2024 External Order Results [facility] [address] [place] [address] Outside, Provider Social History Tobacco Use Types [...] PM CDT Legal Sex Female 3:12 AM C.O.D. AUDIT CLERK Gender Identity Female 10/31/2023 12:26 PM CDT Sexual Orientation Straight 10/31/2023 12 :26 PM CDT documented as of this encounter Plan of Treatment Upcoming Encounters Date Type Department Care Team (Late st Contact Info) Description 07/11/2024 PRE VISIT [facility] [address] [phone] Shanthi Griffin MD [address] [place] [address] [phone] *-*INCOMING RECORDS*-* 07/16/2024 7:30 AM CDT Lab [address] [phone] Jes Arrington MD [address] [place] [address] [phone] 07/16/2024 8:10 AM CDT Orders Only [address] [phone] Jes Arrington MD [address] [place] [address] [phone] 07/16/2024 8:30 AM CDT Allied Health/Nurse Visit [facility] [address] [place] [address] [phone] Jes Arrington MD [address] [place] [address] [phone] 07/16/2024 9:00 AM CDT Allied Health/Nurse Visit [facility] [address] [place] [address] [phone] Jes Arrington MD [address] [place] [address] Gala Fair, [facility] 07/16/2024 10:00 AM CDT Office Visit [facility] [address] [place] [address] [phone] Jes Arrington MD [address] [place] [address] [phone] 07/16/2024 11:00 AM CDT Office Visit [facility] [address] [place] [address] [phone] Jes Arrington MD [address] [place] [address] 5[address] Trey Abraham MD [address] [place] [address] [address] [place], [place] 122165 07/16/2024 12:00 PM CDT Allied Health/Nurse Visit [facility] [address] [place] [address] [phone] Jes Arrington MD [address] [place] [phone] Jena Castano, RAFIQ [address] [place] [address] 07/16/2024 12:30 PM CDT Allied Health/Nurse Visit [facility] [address] [place] [address] [phone] Jes Arrington MD [address] [place] [address] 07/16/2024 12:50 PM CDT Ancillary Procedure [address] [place] [phone] Jes Arrington MD [address] [place] [address] [address] [place] [address] [phone] 07/16/2024 1:50 PM CDT Ancillary Procedure [facility] Xray [address] [phone] Jes Arrington MD [address] [place] [address] [address] [place] [address] 07/16/2024 2:30 PM CDT Ancillary Procedure [facility] [address] [phone] Jes Arrington MD [address] [place] [address] [address] [place] [address] [phone] 08/26/2024 10:30 AM CDT Appointment [facility] [address] [place] [phone] Meliza Villaseñor MD [facility] [address] [place] [address] 08/26/2024 12:00 PM CDT Appointment [facility] [address] [place] [phone] Meliza Villaseñor MD [address] [place] [address] 10/01/2024 8:45 AM CDT Office Visit [facility] [address] [phone] Meliza Villaseñor MD [address] [place] [phone] Dixon Hernandez MD [address] [place] [address] documented as of this encounter Procedures Procedure Name Priority Date/Time Associated Diagnosis Comments INR Routine 03/29/2024 9:00 AM C.O.D. AUDIT CLERK CBC WITH PLATELETS Routine 03/15/2024 8: 30 AM C.O.D. AUDIT CLERK documented in this encounter Results * (ABNORMAL) INR (03/29/2024 9:00 AM C.O.D. AUDIT CLERK) Pathologist [facility] INR (External) 1.38(H) 0.91 - 1.10 NON-INTERFACED (ONBASE SCANS) Blood BLOOD SPECIMEN / Unknown 03/29/2024 9:00 AM C.O.D. AUDIT CLERK Narrative TUSHRA PFT - 04/09/2024 2:14 PM C.O.D. AUDIT CLERK Verified by Leah Gimenez on 04/09/2024. us Provider Outside LAB - BLOOD ORDERABLES Edited R esult - Final TUSHAR PFT NON-INTERFACED (ONBASE SCANS) * (ABNORMAL) CBC with platelets (03/15/2024 8:30 AM C.O.D. AUDIT CLERK) WBC Count (External) 3.28(L) 4.50 - 11.00 K/UL NON-INTERFACE D (ONBASE SCANS) RBC Count (External) 3.17(L) 4.00 - 5.20 m/uL NON-INTERFACE D (ONBASE SCANS) Hemoglobin (External) 10.1(L) 12.0 - 16.0 gm/dl NON-INTERFACE D (ONBASE SCANS) Hematocrit (External) 30.6(L) 33.0 - 51.0 % NON-INTERFACE D (ONBASE SCANS) MCV (External) 97 80 - 100 fL NON-INTERFACE D (ONBASE SCANS) MCH (External) 32 26 - 34 pg NON- INTERFACE D (ONBASE SCANS) MCHC (External) 33 32 - 36 gm/dl NON-INTERFACE D (ONBASE SCANS) Platelet Count (External) 97(L) 140 - 440 K/UL NON-INTERFACE D (ONBASE SCANS) Blood BLOOD SPECIMEN / Unknown 03/15/2024 8:30 AM C.O.D. AUDIT CLERK Narrative TUSHAR PFT - 03/15/2024 8:30 AM C.O.D. AUDIT CLERK Verified by Dm Hernandez on 03/26/2024. us Provider Outside LAB - BLOOD ORDERABLES Edited R esult - Final TUSHAR PFT NON-INTERFACED (ONBASE SCANS) documented in this encounter Visit Diagnoses Not on filedocumented in this encounter Care Teams Speech Lang Path Relationship Specialty Start Date End Date [facility], [facility] [address] [address] [place], [place] [phone] PCP - General 08/24/20 Kristen Dockery, RN Registered Nurse Nurse 11/09/23 Kristen Dockery, advanced registered nurseMedical Lab Scientist Nurse 05/19/24 Meliza Villaseñor MD [address] [facility] [address] [place] [address] Sausage Cutter Internal Medicine 05/19/24 Lanny Meléndez APRN PARTY PLAN SALES UNIT SALES LEADER [facility] [address] [place], [place] [address] Referring Physician Internal Medicine 05/19/24 Gala Fair, [facility] Inspector Open Die 05/20/24 Meliza Villaseñor MD [address] [place] [address] Physician Internal Medicine 05/20/24 Trey Abraham MD 420 [facility] [address] [place] [address] Surgery 05/20/24 Jena Castano, RAFIQ [facility] 420 [facility] [address] [place] [address] Registered Dietitian Dietitian, Registered 05/20/24 Dixon Hernandez MD 420 [facility] [address] [place] [address] Cardiovascular Disease 05/20/24 Jes Arrington MD [address] [facility] [address] [place] [address] Gastroenterology 06/24/24 documented as of this encounter
--- OUTSIDE RECORDS SUMMARY | 2024-07-07 18:00 | XMS_ITS | Encounter Summary ---
Author Organization [place] Address [address] [place] [address] Care Team Providers Care Housing Relocation Name Role Phone Clinic, [facility] Primary Care Provider Kristen Dockery RN Unavailable Unavaila Kristen Bermudez RN Unavailable Unavaila Meliza James MD Unavailable [phone] Lanny Meléndez APRN CARBURETOR MECHANIC Unavailable [phone] Gala Fair SHEARING MACHINE OPERATOR Unavailable [phone] Meliza Villaseñor MD Unavailable [phone] Trey Abraham MD Unavailable [phone] Unavailable Unavail able Dixon Hernandez MD Unavailable [phone] Jes Arrington MD Unavailable + Reason for Referral * Diagnostic Imaging Dexa (Routine) - Pending Review Specialty Diagnoses / Procedures Referred By Contac t Referred To Contact Radiology. Diagnoses Alcoholic cirrhosis (H) Cirrhosis, alcoholic (H) Procedures Dexa hip/pelvis/spine [[id number]] > 40 years or previous steroid use. Bone age for pediatric patients. Jes Arrington MD 6 [facility] [address] [place] [address] Phone: tel: fax: Referral ID Status Reason Start Date Expiration Date V isits Requested Visits Authorized [id number] Pending Review 06/24/2024 06/24/2025 1 1 * Diagnostic Imaging Ultrasound (Routine) - Pending Review Specialty Diagnoses / Procedures Referred By Paz noble Referred To Contact Radiology. Diagnoses Alcoholic cirrhosis (H) Cirrhosis, alcoholic (H) Procedures US Abdomen Complete w Doppler Complete Jes Arrington MD [address] [place] [address] Phone: tel: fax: Referral ID Status Reason Start Date Expiration Date V isits Requested Visits Authorized [id number] Pending Review 06/24/2024 06/24/2025 1 1 * Diagnostic Imaging XR (Routine) - Pending Review Specialty Diagnoses / Procedures Referred By Paz noble Referred To Contact Radiology. Diagnoses Alcoholic cirrhosis (H) Cirrhosis, alcoholic (H) Procedures X-ray Chest 2 vws [IMG36] Jes Arrington MD [address] [place] [address] Phone: tel: fax: Referral ID Status Reason Start Date Expiration Date V isits Requested Visits Authorized [id number] Pending Review 06/24/2024 06/24/2025 1 1 Reason for Visit * Reason Onset Date Comments Cancel/Reschedule 06/24/2024 Encounter Details Date Type Department Care Team (Late st Contact Info) Description 06/24/[address] [facility] [address] [place] [address] Kristen Dockery RN Cancel/Reschedule Social History Tobacco Use Types Packs/Day Years [...] CDT Legal Sex Female 3:12 AM [employer] Gender Identity Female 10/31/2023 12:26 PM CDT Sexual Orientation Straight 10/31/2023 12 :26 PM CDT documented as of this encounter Miscellaneous Notes * Telephone Encounter - Kristen Dockery RN - 06/24/2024 10:15 AM CDT Spoke to Analia. She reports she believes she has COVID, sx started Monday- respiratory sx with cough. Plan to reschedule for 07/16/24 w/ Dr Arrington for PLE Asked her to ge labs AALIYAH as we have not received full records from [place] or [facility] on recent labs. She plans to get at [facility], asked her to get AALIYAH and see PCP re: COVID sx, discussed higher risk of complications with cirrhosis. * Telephone Encounter - Renetta Paul - 06/24/2024 9:01 AM CDT Patient Call: General Route to PHOTO PRINTER Reason for call: Pt called to cancel Liver evaluation appointments on 06/25, she has been having symptoms for a few days Call back needed? Yes Return Call Needed Same as documented in contacts section When to return call?: Same day: Route High Priority * Addendum Note - Kristen Dockery RN - 06/24/2024 9:01 AM CDTAddended by: KRISTEN DOCKERY on: 06/24/2024 12:37 PM Modules accepted: Orders documented in this encounter Plan of Treatment Upcoming Encounters Date Type Department Care Team (Shannan Contact Info) Description 07/11/[address] [facility] [address] [phone] Shanthi Griffin MD [address] [place] [address] [phone] *-*INCOMING RECORDS*-* 07/16/2024 7:30 AM CDT Lab [address] [phone] Jes Arrington MD [address] [place] [address] [phone] 07/16/2024 8:10 AM CDT Orders Only [address] [phone] Jes Arrington MD [address] [place], [place] [address]B [address] [place] [address] [phone] 07/16/2024 8:30 AM CDT Allied Health/Nurse Visit [facility] [address] [place] [phone] Jes Arrington MD [address] [place], [place] [address] [address] [place] [address] 154695 07/16/2024 9:00 AM CDT Allied Health/Nurse Visit [facility] [address] [place] [address] [phone] Jes Arrington MD [address] [place], [place] [address] [address] [place] [address] 786855 Gala Fair, [facility] 07/16/2024 10:00 AM CDT Office Visit [facility] [address] [place] [address] [phone] Jes Arrington MD [address] [place], [place] [address] [address] [place] [address] [phone] 07/16/2024 11:00 AM CDT Office Visit [facility] [address] [place] [address] [phone] Jes Arrington MD [address] [place] [address] Trey Abraham MD [address] [place] [address] [address] [place], [place] 498275 07/16/2024 12:00 PM CDT Allied Health/Nurse Visit [facility] [address] [place] [address] [phone] Jes Arrington MD [address] [place] [address] [phone] Jena Castano, RD [address] [address] 07/16/2024 12:30 PM CDT Allied Health/Nurse Visit [facility] [address] [place] [address] [phone] Jes Arrington MD [address] [place] [address] 07/16/2024 12:50 PM CDT Ancillary Procedure [address] 1st [place] [phone] Jes Arrington MD [address] [place] [address] [phone] 07/16/2024 1:50 PM CDT Ancillary Procedure [facility] Xray [place] [address] [facility] 1st [place] [phone] Jes Arrington MD [address] [place] [address] [address] [place] [address] 07/16/2024 2:30 PM CDT Ancillary Procedure [facility] Dexa Clinic [place] [address] [phone] Jes Arrington MD [address] [place] [address] [address] [place] [address] [phone] 08/26/2024 10:30 AM CDT Appointment [facility] [address] [place] [phone] Meliza Villaseñor MD [facility] [address] [place] [address] 08/26/2024 12:00 PM CDT Appointment [facility] [address] [place] [phone] Meliza Villaseñor MD [facility] [address] [place] [address] 10/01/2024 8:45 AM CDT Office Visit [facility] [place] [address] [place] [phone] Meliza Villaseñor MD [address] [place] [address] Dixon Hernandez MD [address] [facility] [address] [place] [address] Scheduled Orders Name Type Priority Associated Diagnoses Order Schedule Comprehensive metabolic panel Lab Routine Alcoholic cirrhosis (H) Monthly for 20 Occurrences starting 06/24/2024 until 06/24/2025, 1 completed INR Lab Routine Alcoholic cirrhosis (H) Monthly for 20 Occurrences starting 06/24/2024 until 06/24/2025, 1 completed Phosphatidylethanol (PEth), Whole Blood Lab Routine Alcoholic cirrhosis (H) Monthly for 20 Occurrences starting 06/24/2024 until 06/24/2025, 1 completed EKG 12-lead, tracing only [EKG1] EKG Routine Alcoholic cirrhosis (H) Cirrhosis, alcoholic (H) Expected: 07/16/2024, Expires: 06/24/2025 Nicotine and Cotinine Confirmation Lab Routine Alcoholic cirrhosis (H) Cirrhosis, alcoholic (H) Expected: 07/16/2024, Expires: 06/24/2025 X-ray Chest 2 vws [IMG36] Imaging Routine Alcoholic cirrhosis (H) Cirrhosis, alcoholic (H) Expected: 07/16/2024, Expires: 06/24/2025 US Abdomen Complete w Dopple r Complete Imaging Routine Alcoholic cirrhosis (H) Cirrhosis, alcoholic (H) Expected: 07/16/2024, Expires: 06/24/2025 Dexa hip/pelvis/spine [[id number]] > 40 years or previous steroid use. Bone age for pediatric patients. Imaging Routine Alcoholic cirrhosis (H) Cirrhosis, alcoholic (H) Expected: 07/16/2024, Expires: 06/24/2025 documented as of this encounter Results * Nicotine and Mets, Urn, Quant (07/03/2024 2:36 PM CDT) Cotinine Confirm <15 ng/mL 07/08/19 11:38 AM CDT [facility] Nicotine Confirmation Urine <15 ng/mL 07/07/2024 11:38 AM CDT [facility] Comment: INTERPRETIVE INFORMATION: Nicotine and Metabolites, Urine, Quantitative Methodology: Quantitative Liquid Chromatography-Tandem Mass Spectrometry Positive cutoff: Nicotine 15 ng/mL Cotinine 15 ng/mL 1-MC-Eqccowzm 50 ng/mL Anabasine 5 ng/mL For medical [...] developed and its performance characteristics determined by [facility]. It has not been cleared or approved by the US Food and Drug Administration. This test was performed in a CLIA certified laboratory and is intended for clinical purposes. Performed By: [facility] [address] [place] [address] Pediatrician/Medical Doctor: Sedrick Santos MD, PhD CLIA Number: [id number], Urn, Quant <50 ng/mL 07/07/2024 11:38 AM CDT [facility] Anabasine, Urn, Quant <5 ng/mL 07/07/2024 11:38 AM CDT [facility] [employer] Urine URINE SPECIMEN OBTAINED BY CLEAN CATCH PROCEDURE / Unknown Non-blood Collection / Unknown 07/03/2024 2:36 PM CDT 07/03/2024 2:36 PM CDT Jes Arrington MD LAB - URINE ORDERA BLES Final Result [facility] [employer] [address] [address], [facility] [phone] * Ethyl Glucuronide Urine (07/03/2024 2:36 PM CDT) Ethyl Glucuronide Urine Negative Cutoff 500 ng/mL 07/05/2024 2:51 AM CDT [facility] [employer] Comment: Presumptive Negative by immunoassay. Testing by [...] chromatography tandem mass spectrometry (LC-MS/MS). Performed By: [facility] [address] [place] [address] Pediatrician/Medical Doctor: Sedrick Santos MD, PhD CLIA Number: [id number] Urine URINE SPECIMEN OBTAINED BY CLEAN CATCH PROCEDURE / Unknown Non-blood Collection / Unknown 07/03/2024 2:36 PM CDT 07/03/2024 2:36 PM CDT us Jes Arrington MD LAB - URINE ORDERA BLES Final Result [facility] [employer] [address] [place] [phone], [facility] [phone] * (ABNORMAL) UA Macroscopic with reflex to [...] mg/dL 07/03/2024 2:41 PM CDT LABORATORY Specific [place] Urine 1.015 1.003 - 1.035 07/03/2024 2:41 [...] - URINE ORDERA BLES Final Result LABORATORY [facility] [address] [facility] Lab (no room number, 1st floor of clinic) [place] [address], [facility] * Protein random urine (07/03/2024 [...] URINE ORDERA BLES Final Result PH LABORATORY [facility] [address] (Main level, no room number) [place] [address], [facility] * DRUG SCREEN 9, SER/DEIDRE [...] ng/mL 07/05/2024 1:37 PM CDT [facility] Phencyclidine Qual Negative Cutoff 10 ng/mL 07/05/2024 1:37 PM CDT [facility] Methamphetamine Qual Positive Cutoff 20 ng/mL 07/05/2024 1:37 PM CDT [facility] Comment: If the screen is positive, then confirmation by mass spectrometry will be added. Additional charges will apply. Unconfirmed positive may be useful for medical purposes, but does not meet forensic standards. Drug Screen Comments, Serum or Plasma See Note 07/05/2024 1:37 PM CDT [facility] Comment: INTERPRETIVE INFORMATION: Drug Screen 9 [...] developed and its performance characteristics determined by [facility]. It has not been cleared or approved by the US Food and Drug Administration. This test was performed in a CLIA certified laboratory and is intended for clinical purposes. Performed By: [facility] [address] [place] [address] Pediatrician/Medical Doctor: Sedrick Santos MD, PhD CLIA Number: [id number] Cannabinoids Qual Negative Cutoff 20 ng/mL 07/05/2024 1:37 PM CDT [facility] Blood BLOOD SPECIMEN / Unknown Venipuncture / Unknown 07/03/2024 9:42 AM CDT 07/03/2024 9:42 AM CDT us Jes Arrington MD LAB - BLOOD ORDERA BLES Final Result [address] [address], [facility] [phone] * (ABNORMAL) Treponema Abs w Reflex to RPR and Titer (07/03/2024 9:42 AM CDT) [facility] Treponema Antibody Total Reactive( A) Nonreactive 07/03/2024 [...] Final Result SPECIALTY CORE/PROT/ENDO Specialty Core/Prot/Endo 500 [facility], [address] SPECIALTY LABS Specialty Lab [address] [place] [address], Room [address] * HIV Antigen Antibody Combo Pretransplant [place] (07/03/2024 9:42 AM CDT) [facility] HIV Antigen Antibody Combo Pretransplant Nonreactive [...] - BLOOD ORDERA BLES Final Result LABORATORY [facility] Core Lab [address] [facility], Room [address] [phone] * Hepatitis C antibody (07/03/2024 9:42 AM CDT) Hepatitis C Antibody Nonreactive Nonreactive 07/03/2024 8:46 PM CDT LABORATORY Comment:A nonreactive screen ing test result [...] - BLOOD ORDERA BLES Final Result LABORATORY [facility] Core Lab [address] [facility], Room [address] * Hepatitis B surface antigen (07/03/2024 9:42 AM CDT) Hepatitis B Surface Antigen Nonreactive Nonreactive 07/03/2024 8:46 PM CDT LABORATORY Blood BLOOD SPECIMEN / Unknown Venipuncture / Unknown 07/03/2024 9:42 AM CDT 07/03/2024 9:42 AM CDT Jes Arrington MD LAB - BLOOD ORDERA BLES Final Result LABORATORY [facility] Institute Core Lab [address] [facility], [address] [phone] * Hepatitis B Surface Antibody (07/03/2024 9:42 AM CDT) [facility] Hepatitis B Surface Antibody Nonreactive 07/03/2024 [...] ORDERA BLES Final Result Performing Organization Address City/[facility]/ZIP Co de Phone Number U LABORATORY [facility] Institute Core Lab [address] [facility], Room [address] * Hepatitis B core antibody (07/03/2024 9:42 AM CDT) [facility] Hepatitis B Core Antibody Total Nonreactive Nonreactive [...] BLOOD ORDERA BLES Final Result U LABORATORY [facility] Institute Core Lab [address] [facility], Room [address] * Hepatitis A Antibody Total (07/03/2024 9:42 AM CDT) [facility] Hepatitis A Antibody Total Nonreactive 07/03/2024 [...] BLOOD ORDERA BLES Final Result U LABORATORY [facility] Institute Core Lab [address] [facility], [address] [phone] * (ABNORMAL) EBV Capsid Antibody IgG (07/03/2024 9:42 AM CDT) [facility] EBV Capsid Gaby IgG Instrument Value [...] Final Result SPECIALTY CORE/PROT/ENDO Specialty Core/Prot/Endo 500 [facility] [address] Building, Room [address] SPECIALTY LABS Specialty Lab [address] [facility] Unit [facility] Room [address] [address], [place] * CMV Antibody IgG (07/03/2024 9:42 AM CDT) [facility] CMV Gaby IgG Instrument Value <0.20 <0.60 U/mL 07/03/2024 11:21 PM CDT UM SPECIALTY CORE/PROT/EN DO CMV Antibody IgG No detectable antibody. No detectable antibody. 07/03/2024 11:21 PM CDT SPECIALTY LABS Blood BLOOD SPECIMEN / Unknown Venipuncture / Unknown 07/03/2024 9:42 AM CDT 07/03/2024 9:42 AM CDT Jes Arrington MD LAB - BLOOD ORDERA BLES Final Result UM SPECIALTY CORE/PROT/ENDO Specialty Core/Prot/Endo [address] [facility] Unit [facility] Room [address] SPECIALTY LABS Specialty Lab 500 [facility], [address] [phone] [place] [address] * (ABNORMAL) CBC with platelets (07/03/2024 9:42 AM CDT) [facility] WBC Count 4.4 4.0 - 11.0 10e3/uL 07/03/2024 10:18 AM CDT LABORATORY RBC Count 2.50(L) 3.80 - 5.20 10e6/uL 07/03/2024 10:18 AM CDT LABORATORY Hemoglobin 8.4(L) 11.7 - 15.7 g/dL 07/03/2024 10:18 AM CDT RM LABORATORY Hematocrit 24.7(L) 35.0 - 47.0 % 07/03/2024 10:18 AM CDT RM LABORATORY MCV 99 78 - 100 fL 07/03/2024 10:18 AM CDT LABORATORY MCH 33.6(H) 26.5 - 33.0 pg 07/03/2024 10:18 AM CDT RM LABORATORY MCHC 34.0 31.5 - 36.5 g/dL [...] - BLOOD ORDERA BLES Final Result LABORATORY [facility] Lab [address] [facility] (no room number, 1st floor of clinic) [place] [address] * (ABNORMAL) Vitamin D Deficiency (07/03/2024 9:42 AM CDT) [facility] Vitamin D, Total (25-Hydroxy) 15(L) 20 - 50 ng/mL 07/03/2024 8:43 PM CDT [facility] LAB[facility] Comment:mild to moderate def iciency Blood BLOOD SPECIMEN / Unknown Venipuncture / Unknown 07/03/2024 9:42 AM CDT 07/03/2024 9:42 AM CDT Narrative [facility] LAB[facility] - 07/03/2024 8:43 PM CDT Season, race, dietary intake, and treatment affect the concentration of 00-ehsbbua-Mwdroik D. Values may decrease during winter months and increase during summer months. Vitamin D determination is routinely performed by an immunoassay specific for 25 hydroxyvitamin D3. If an individual is on vitamin D2(ergocalciferol) supplementation, please specify 25 OH vitamin D2 and D3 level determination by LCMSMS test VITD23. us Jes Arrington MD LAB - BLOOD ORDERA BLES Final Result [facility] LABORATORY [facility] Institute Core Lab [address] [facility], Room [address] * (ABNORMAL) Transferrin (07/03/2024 9:42 AM CDT) Transferrin 187.0(L) 200.0 - 360.0 mg/dL 07/03/2024 8:43 PM CDT [facility] Blood BLOOD SPECIMEN / Unknown Venipuncture / Unknown 07/03/2024 9:42 AM CDT 07/03/2024 9:42 AM CDT Jes Arrington MD LAB - BLOOD ORDERA BLES Final Result U LABORATORY [facility] Core Lab [address] [facility], Room [address] * TSH with free T4 reflex (07/03/2024 9:42 AM CDT) Pathologist [facility] TSH 2.95 0.30 - 4.20 uIU/mL 07/03/2024 10:29 PM CDT [facility] LAB[facility]ATORY Blood BLOOD SPECIMEN / Unknown Venipuncture / Unknown 07/03/2024 9:42 AM CDT 07/03/2024 9:42 AM CDT Jes Arrington MD LAB - BLOOD ORDERA BLES Final Result U LABORATORY [facility] Institute Core Lab [address] [facility], Room [address] * Phosphorus (07/03/2024 9:42 AM CDT) Phosphorus 2.9 2.5 - 4.5 mg/dL 07/03/2024 8:43 PM CDT [facility] Blood BLOOD SPECIMEN / Unknown Venipuncture / Unknown 07/03/2024 9:42 AM CDT 07/03/2024 9:42 AM CDT Jes Arrington MD LAB - BLOOD ORDERA BLES Final Result U LABORATORY [facility] Institute Core Lab [address] [facility], Room [address] * (ABNORMAL) Iron and iron binding capacity (07/03/2024 9:42 AM CDT) Pathologist [facility] Iron 81 37 - 145 ug/dL 07/03/2024 8:34 PM CDT [facility] Iron Binding Capacity 210(L) 240 - 430 ug/dL 07/03/2024 8:34 PM CDT [facility] LAB[facility] Iron Sat Index 39 15 - 46 % 07/03/2024 8:34 PM CDT U LABORATORY Blood BLOOD SPECIMEN / Unknown Venipuncture / Unknown 07/03/2024 9:42 AM CDT 07/03/2024 9:42 AM CDT Jes Arrington MD LAB - BLOOD ORDERA BLES Final Result Performing Organization Address City/[facility]/ZIP Co de Phone Number LABORATORY [facility] Institute Core Lab [address] [facility], Room [address] * Hemoglobin A1c (07/03/2024 9:42 AM CDT) Pathologist [facility] Estimated Average Glucose 74 <117 mg/dL 07/03/2024 [...] - BLOOD ORDERA BLES Final Result LABORATORY [facility] [address] [facility] Lab (no room number, 1st floor of clinic) [place] [address], [facility] * Ferritin (07/03/2024 9:42 AM CDT) [facility] Ferritin 216 11 - 328 ng/mL 07/03/2024 8:34 PM CDT U LABORATORY Blood BLOOD SPECIMEN / Unknown Venipuncture / Unknown 07/03/2024 9:42 AM CDT 07/03/2024 9:42 AM CDT Jes Arrington MD LAB - BLOOD ORDERA BLES Final Result LABORATORY [facility] Institute Core Lab [address] [facility], [facility] [address] [phone] * AFP tumor marker (07/03/2024 9:42 AM CDT) [facility] AFP tumor marker 3.4 <=8.3 ng/mL 07/03/2024 8:34 PM CDT LABORATORY Blood BLOOD SPECIMEN / Unknown Venipuncture / Unknown 07/03/2024 9:42 AM CDT 07/03/2024 9:42 AM CDT Narrative LABORATORY - 07/03/2024 8:34 PM CDT This result is obtained using the [employer] AFP method on the arjun e801 immunoassay analyzer. Results obtained with different assay methods or kits cannot be used interchangeably. Reference ranges apply to non- females only. Jes Arrington MD LAB - BLOOD ORDERA BLES Final Result LABORATORY [facility] Institute Core Lab [address] [facility], [address] [phone] * (ABNORMAL) Lipid Profile (07/03/2024 9:42 AM CDT) [facility] Cholesterol 203(H) <200 mg/dL 07/03/2024 8:34 [...] BLOOD ORDERA BLES Final Result [facility] LABORATORY [facility] Institute Core Lab [address] [facility], [address] [place] [address] * Phosphatidylethanol (PEth), Whole Blood (07/03/2024 9:42 [...] (PLPEth) <10 ng/mL 07/05/2024 11:00 AM CDT [facility] Comment:Reference ranges are not well established. EER Phosphatidylethanol (PETH) See Note 07/05/2024 11:00 AM T [facility] Comment: Authorized individuals can access the [facility] Enhanced Report with an [facility] Connect account using the following link. Your local lab can assist you in obtaining the patient report if you don't have a Connect account. [email or web address] PEth Interpretation See Comment 07/05/2024 11:00 AM T [facility] Comment: Phosphatidylethanol (PEth) is a group of [...] developed and its performance characteristics determined by [facility]. It has not been cleared or approved by the U.S. Food and Drug Administration. This test was performed in a CLIA-certified laboratory and is intended for clinical purposes. Performed By: [facility] [address] [place] [address] Pediatrician/Medical Doctor: Sedrick Santos MD, PhD CLIA Number: [id number] Blood BLOOD SPECIMEN / Unknown Venipuncture / Unknown 07/03/2024 9:42 AM CDT 07/03/2024 9:42 AM CDT Jes Arrington MD LAB - BLOOD ORDERA BLES Final Result [facility] [employer] [address] [address], [facility] [phone] * (ABNORMAL) INR (07/03/2024 9:42 AM CDT) INR 1.66(H) 0.85 - 1.15 07/03/2024 12:45 PM CDT [facility] PT 20.0(H) 11.8 - 14.8 Seconds 07/03/2024 12:45 PM CDT [facility] Blood BLOOD SPECIMEN / Unknown Venipuncture / Unknown 07/03/2024 9:42 AM CDT 07/03/2024 9:42 AM CDT Jes Arrington MD LAB - BLOOD ORDERA BLES Final Result [facility] LABORATORY [facility] [place] [facility] Lab [address] Lab (no room number, 1st floor of clinic) [place] [address], [facility] * (ABNORMAL) Comprehensive metabolic panel [...] BLOOD ORDERA BLES Final Result [facility] LABORATORY [facility] Institute Core Lab 500 [facility] J Building, Room [address]-580 [place] [address], [facility] documented in this encounter Visit Diagnoses Diagnosis Alcoholic cirrhosis (H)- Primary Alcoholic cirrhosis of liver Cirrhosis, alcoholic (H) Alcoholic cirrhosis of liver documented in this encounter Additional Health Concerns Assessment Noted Time PHQ-9 Depression Total Score: 8 06/12/19 25 12:56 PM CDT documented as of this encounter Care Teams Housing Relocation Relationship Specialty Start Date End Date Clinic, [facility] [address] [place] [address] PCP - General 08/24/20 Kristen Dockery, RN Registered Nurse Nurse 11/09/23 Kristen Dockery, base cloth inspectorProduct Management Analyst Nurse 05/19/24 Meliza Villaseñor MD [address] [place] [address] Practice Billing Associate Internal Medicine 05/19/24 Lanny Meléndez APRN CARBURETOR MECHANIC [facility] [address] [place], [place] [address] Referring Physician Internal Medicine 05/19/24 Gala Fair, [facility] Traffic Safety Administrator 05/20/24 Meliza Villaseñor MD [address] [place] [address] Physician Internal Medicine 05/20/24 Trey Abraham MD 420 [facility] 195 [place], [place] 6737[address] Surgery 05/20/[address] [facility] 420 [facility] SE [facility] 84 [place] [address] Registered Dietitian Dietitian, Registered 05/20/24 Dixon Hernandez MD 420 [facility] 508 [place], [place] 099[address] Cardiovascular Disease 05/20/24 Jes Arrington MD [facility] [place], [place] 9[address] Gastroenterology 06/24/24 documented as of this encounter
--- OUTSIDE RECORDS SUMMARY | 2024-07-07 18:00 | XMS_ITS | Encounter Summary ---
Author Organization [place] Address [address] [place] [address]99 Care Team Providers Care Customer Service Coordinator Name Role Phone Clinic, [facility] Primary Care Provider Kristen Dockery RN Unavailable Unavaila Kristen Bermudez RN Unavailable Unavaila Meliza James MD Unavailable [phone] Lanny Meléndez APRN FRINGE WEAVER Unavailable [phone] Gala Fair ACID PUMPER Unavailable [phone] Meliza Villaseñor MD Unavailable [phone] Trey Abraham MD Unavailable [phone] Unavailable Unavail able Dixon Hernandez MD Unavailable [phone] Jes Arrington MD Unavailable + Encounter Details Date Type Department Care Team (Late st Contact Info) Description 07/02/2024 Telephone [facility] Transplant Clinic [address] [place] [address] Kristen Dockery RN Social History [...] PM CDT Legal Sex Female 3:12 AM 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 Lvm 07/02 asking her to get labs as we discussed last week. Asked for them nolater than end of week. Assess MELD and PEth and determine if / eval still appropriate. documented in this encounter Plan of Treatment Upcoming Encounters Date Type Department Care Team (Late st Contact Info) Description 07/11/2024 PRE VISIT [facility] Hepatology [facility] [address] [phone] Shanthi Griffin MD [address] [place] [address] 120365 *-*INCOMING RECORDS*-* 07/16/2024 7:30 AM CDT Lab [address] [phone] Jes Arrington MD [address] [place] [address] 07/16/2024 8:10 AM CDT Orders Only [address] [phone] Jes Arrington MD [address] [place] [address] [phone] 07/16/2024 8:30 AM CDT Allied Health/Nurse Visit [facility] Transplant Clinic [address] [place] [address] [phone] Jes Arrington MD [address] [place] [address] [phone] 07/16/2024 9:00 AM CDT Allied Health/Nurse Visit [facility] Transplant [address] [phone] Jes Arrington MD [address] [place] [address] [phone] Gala Fair, [facility] 07/16/2024 10:00 AM CDT Office Visit [facility] Trans[facility] [address] [place] [address] [phone] Jes Arrington MD [address] [place] [address] [id number] 07/16/2024 11:00 AM CDT Office Visit [facility] Transplant [address] [phone] Jes Arrington MD [address] [place] [address] 075515 Trey Abraham MD [address] [place] [address] [phone] 07/16/2024 12:00 PM CDT Allied Health/Nurse Visit [facility] Transplant [address] [phone] Jes Arrington MD [address] [place] [address] [phone] Jena Castano, RAFIQ [facility] 420 [facility] 84 [place] [address] 07/16/2024 12:30 PM CDT Allied Health/Nurse Visit [facility] Transplant Clinic [address] [place] [address] [phone] Jes Arrington MD [address] [place], [place] [address]B [address] [place] [address] 265365 07/16/2024 12:50 PM CDT Ancillary Procedure [address] [phone] Jes Arrington MD [address] [place] [address] [phone] 07/16/2024 1:50 PM CDT Ancillary Procedure [facility] Xray [address] [phone] Jes Arrington MD [address] [place] [address] [phone] 07/16/2024 2:30 PM CDT Ancillary Procedure [facility] [address] [phone] Jes Arrington MD [address] [place] [address] 169245 08/26/2024 10:30 AM CDT Appointment [facility] Heart Care [address] [place] [address] [phone] Meliza Villaseñor MD [address] [place] [address] 08/26/2024 12:00 PM CDT Appointment [facility] Imaging [address] [place] [phone] Meliza Villaseñor MD [address] [place] [address] 10/01/2024 8:45 AM CDT Office Visit [facility] Heart Clinic [facility] [address] [place] [phone] Meliza Villaseñor MD [address] [place], [place] 344617 Dixon Hernandez MD [address] [place] [address] 508 [place], [place] [address]855 documented as of this encounter Visit Diagnoses Not on filedocumented in this encounter Additional Health Concerns Assessment Noted Time PHQ-9 Depression Total Score: 8 06/12/19 12:56 PM CDT documented as of this encounter Care Teams Customer Service Coordinator Relationship Specialty Start Date End Date [facility], [facility] [address] [facility] [address] PCP - General 08/24/20 Kristen Dockery, RN Registered Nurse Nurse 11/09/23 Kristen Dockery, jewelry jobberNet Finisher Nurse 05/19/24 Meliza Villaseñor MD [address] [place] [address] Stationary Engineer Apprentice Internal Medicine 05/19/24 Lanny Meléndez APRN FRINGE WEAVER [facility] [address] [place], [place] 86[address] Referring Physician Internal Medicine 05/19/24 Gala Fair, [facility] Truck Spotter 05/20/24 Meliza Villaseñor MD 516 [facility] 2A [place] [address] Physician Internal Medicine 05/20/24 Trey Abraham MD 420 [facility] 195 [place] [address] Surgery 05/20/[address] [facility] 420 [facility] 84 [place] [address] Registered Dietitian Dietitian, Registered 05/20/24 Dixon Hernandez MD 420 [facility] 508 [place] [address] Cardiovascular Disease 05/20/24 Jes Arrington MD 516 [facility] 2A [place] [address] Gastroenterology 06/24/24 documented as of this encounter
--- OUTSIDE RECORDS SUMMARY | 2024-07-07 18:00 | XMS_ITS | Encounter Summary ---
Author Organization [place] Address [address] [place] [address] Care Team Providers Care Plycor Operator Name Role Phone Clinic, [facility] Primary Care Provider Kristen Dockery RN Unavailable UnavailKristen Toussaint RN Unavailable Unavaila Meliza James MD Unavailable [phone] Lanny Meléndez APRN RAILCAR BRAKE OPERATOR Unavailable [phone] Gala Fair SET UP MECHANIC COIL WINDING MACHINES Unavailable [phone] Meliza Villaseñor MD Unavailable [phone] Trey Abraham MD Unavailable [phone] Unavailable Unavail able Dixon Hernandez MD Unavailable [phone] Jes Arrington MD Unavailable + Encounter Details Date Type Department Care Team (Late st Contact Info) Description 09/12/2023 External Order Results [facility] [address] [place] [address] Outside, Provider Social History Tobacco Use Types [...] PM CDT Legal Sex Female 3:12 AM 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 Gender Identity Female 10/31/2023 12:26 PM CDT Sexual Orientation Straight 10/31/2023 12 :26 PM CDT documented as of this encounter Plan of Treatment Upcoming Encounters Date Type Department Care Team (Late st Contact Info) Description 07/11/2024 PRE VISIT [facility] Hepatology Clinic [address] [phone] Shanthi Griffin MD [address] [place] [address] [phone] *-*INCOMING RECORDS*-* 07/16/2024 7:30 AM CDT Lab [address] [phone] Jes Arrington MD [address] [place] [address] 097305 07/16/2024 8:10 AM CDT Orders Only [address] [phone] Jes Arrington MD [address] [place] [address] 119105 07/16/2024 8:30 AM CDT Allied Health/Nurse Visit [facility] Transplant Clinic [address] [place] [address] [phone] Jes Arrington MD [address] [place] [address] [phone] 07/16/2024 9:00 AM CDT Allied Health/Nurse Visit [facility] Transplant Clinic [address] [place] [address] [phone] Jes Arrington MD [address] [place] [address] [phone] Gala Fair, [facility] 07/16/2024 10:00 AM CDT Office Visit [facility] Trans[facility] [address] [place] [address] [phone] Jes Arrington MD [address] [place] [address] 084885 07/16/2024 11:00 AM CDT Office Visit [facility] Trans[facility] [address] [place] [phone] Jes Arrington MD [address] [place] [address] 450635 Trey Abraham MD [address] [place] [address] 195 [place], [place] 299205 07/16/2024 12:00 PM CDT Allied Health/Nurse Visit [facility] Trans[facility] [address] [place] [address] [phone] Jes Arrington MD [address] [place] [address] 674515 Jena Castano, RAFIQ [address] [place] [address] 07/16/2024 12:30 PM CDT Allied Health/Nurse Visit [facility] Trans[facility] [address] [place] [address] [phone] Jes Arrington MD [address] [place] [address] [phone] 07/16/2024 12:50 PM CDT Ancillary Procedure [address] [phone] Jes Arrington MD [address] [place] [address] [address] [place] [address] 23403 07/16/2024 1:50 PM CDT Ancillary Procedure [facility] Xray [address] [phone] Jes Arrington MD [address] [place] [address] [address] [place] [address] 21815 07/16/2024 2:30 PM CDT Ancillary Procedure [facility] Dexa Clinic [address] [phone] Jes Arrington MD [address] [place] [address] [address] [place] [address] 62380 08/26/2024 10:[address] [facility] Heart Care 500 [place] [phone] Meliza Villaseñor MD [address] [place] [address] 13016 08/26/2024 12:00 PM CDT Appointment [facility] Imaging 500 [place] [phone] Meliza Villaseñor MD [address] [place] [address] 87187 10/01/2024 8:45 AM CDT Office Visit [facility] Heart Clinic [address] [phone] Meliza Villaseñor MD [address] [place] [address] 41592 Dixon Hernandez MD 420 [facility] 508 [place] [address] documented as of this encounter Procedures Procedure Name Priority Date/Time Associated Diagnosis Comments EXTERNAL LAB RESULTS Routine 09/12/2023 10:45 AM CDT EXTERNAL LAB RESULTS Routine 09/12/2023 10:45 AM CDT documented in this encounter Results * (ABNORMAL) External Lab Results (09/12/2023 10:45 AM CDT) Scan Lab Results (External) See scanned report, multiple labs(A) NON-INTERFACE D (ONBASE SCANS) Comment: Mitochondrial (M2) Antibody, IgG Antinuclear Antibody (JUANY), HEp-2, IgG Smooth Muscle Ab, IgG Titer 09/12/2023 10:4 5 AM CDT Narrative BREEZE PFT - 11/09/2023 11:50 AM CDT Verified by Isaac Rodrigues on 11/09/2023. us Provider Outside LABORATORY Edited Result - Final Performing Organization Address City/[facility]/ZIP Co de Phone Number BREEZE PFT NON-INTERFACED (ONBASE SCANS) * External Lab Results (09/12/2023 10:45 AM CDT) Scan Lab Results (External) See Scanned Report NON-INTERFACE D (ONBASE SCANS) Comment:Autoimmune Liver Dis ease Reflexive Panel 09/12/2023 10:4 5 AM CDT Narrative BREEZE PFT - 11/09/2023 11:40 AM CDT Verified by Leah Gimenez on 11/09/2023. us Provider Outside LABORATORY Edited Result - Final BREEZE PFT NON-INTERFACED (ONBASE SCANS) documented in this encounter Visit Diagnoses Not on filedocumented in this encounter Care Teams Plycor Operator Relationship Specialty Start Date End Date Clinic, [facility] [place] [address] [place], [place] [phone] PCP - General 08/24/20 Kristen Dockery, RN Registered Nurse Nurse 11/09/23 Kristen Dockery, brake operatorVeterinary Milk Specialist Nurse 05/19/24 Meliza Villaseñor MD [address] [place] [address] Oracle Solutions Architect Internal Medicine 05/19/24 Lanny Meléndez APRN CNP [facility] [address] [place], [place] [address] Referring Physician Internal Medicine 05/19/24 Gala Fair, [facility] Mammalogy Teacher 05/20/24 Meliza Villaseñor MD [address] [place] [address] Physician Internal Medicine 05/20/24 Trey Abraham MD 420 [facility] 195 [place], [place] 207925 Surgery 05/20/24 Jean Castano, RAFIQ [facility] [address] [facility] 84 [place] [address] Registered Dietitian Dietitian, Registered 05/20/24 Dixon Hernandez MD [address] [facility] 508 [place] [address] Cardiovascular Disease 05/20/24 Jes Arrington MD 6 [facility] 2A [place] [address] Gastroenterology 06/24/24 documented as of this encounter
--- OUTSIDE RECORDS SUMMARY | 2024-07-07 18:00 | XMS_ITS | Encounter Summary ---
Author Organization [place] Address [address] [place] [address] Care Team Providers Care Veterans Rehabilitation Counselor Name Role Phone Clinic, [facility] Primary Care Provider Kristen Dockery RN Unavailable Unavaila Kristen Bermudez RN Unavailable Unavaila Meliza James MD Unavailable [phone] Lanny Meléndez APRN INCISING MACHINE OPERATOR Unavailable [phone] Gala Fair NEWS CAMERA PERSON Unavailable [phone] Meliza Villaseñor MD Unavailable [phone] Trey Abraham MD Unavailable [phone] Unavailable Unavail able Dixon Hernandez MD Unavailable [phone] Jes Arrington MD Unavailable + Encounter Details Date Type Department Care Team (Late st Contact Info) Description 05/09/2024 MyC Medical Advice Initial Department Kristen Dockery [...] PM CDT Legal Sex Female 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 Gender Identity Female 10/31/2023 12:26 PM CDT Sexual Orientation Straight 10/31/2023 12 :26 PM CDT documented as of this encounter Plan of Treatment Upcoming Encounters Date Type Department Care Team (Late st Contact Info) Description 07/11/2024 PRE VISIT [facility] Hepatology Clinic [address] [phone] Shanthi Griffin MD [address] [place] [address] [phone] *-*INCOMING RECORDS*-* 07/16/2024 7:30 AM CDT Lab [address] [phone] Jes Arrington MD [address] [place] [address] 632365 07/16/2024 8:10 AM CDT Orders Only [address] [phone] Jes Arrington MD [address] [place] [address] 500245 07/16/2024 8:30 AM CDT Allied Health/Nurse Visit [facility] [address] [place] [address] [phone] Jes Arrington MD [address] [place], [place] [address]B [address] [place] [address] 744395 07/16/2024 9:00 AM CDT Allied Health/Nurse Visit [facility] [address] [place] [address] [phone] Jes Arrington MD [address] [place] [address] [phone] Manjula Gala Alexa, [facility] 07/16/2024 10:00 AM CDT Office Visit [facility] [address] [place] [phone] Jes Arrington MD [address] [place] [address] [phone] 07/16/2024 11:00 AM CDT Office Visit [facility] [address] [place] [phone] Jes Arrington MD [address] [place] [address] [phone] Trey Abraham MD [address] [place] [address] 195 [place], [place] 6[address]25 07/16/2024 12:00 PM CDT Allied Health/Nurse Visit [facility] [address] [place] [phone] Jes Arrington MD [address] [place] [address] [phone] Jena Castano, RAFIQ [facility] 420 [facility] 84 [place] [address] 07/16/2024 12:30 PM CDT Allied Health/Nurse Visit [facility] [address] [place] [phone] Jes Arrington MD [address] [place] [address] [phone] 07/16/2024 12:50 PM CDT Ancillary Procedure [address] 1st [place] [address] Jes Arrington MD [address] [place] [address] [address] [place] [address] 07/16/2024 1:50 PM CDT Ancillary Procedure [facility] Xray [place] [address] [place] [address] [phone] Jes Arrington MD [address] [place] [address] [address] [place] [address] 57267 07/16/2024 2:30 PM CDT Ancillary Procedure [facility] Dexa Clinic [address] [phone] Jes Arrington MD [address] [place] [address] [address] [place] [address] [phone] 08/26/2024 10:30 AM CDT Appointment [facility] Heart Care 500 [place] [phone] Meliza Villaseñor MD [address] [place] [address] 87[address] 08/26/2024 12:00 PM CDT Appointment [facility] Imaging 500 [place] [phone] Meliza Villaseñor MD [address] [place] [address] 38575 10/01/2024 8:45 AM CDT Office Visit [facility] [address] [phone] Meliza Villaseñor MD [address] [place] [address]98 Dixon Hernandez MD [address] [place] [address] [facility] 508 [place], [place] [phone] documented as of this encounter Visit Diagnoses Not on filedocumented in this encounter Care Teams Veterans Rehabilitation Counselor Relationship Specialty Start Date End Date Clinic, [facility] [place] [address] [place], [place] [phone] PCP - General 08/24/20 Kristen Dockery, RN Registered Nurse Nurse 11/09/23 Kristen Dockery, leather splitterOffset Label Rewinder Nurse 05/19/24 Meliza Villaseñor MD [address] [place] [address] Welding Production Supervisor Internal Medicine 05/19/24 Lanny Meléndez APRN INCISING MACHINE OPERATOR [facility] [address] [place], [place] 421906 Referring Physician Internal Medicine 05/19/24 Gala Fair, [facility] Sap Business Objects Developer 05/20/24 Meliza Villaseñor MD [address] [place] [address] Physician Internal Medicine 05/20/24 Trey Abraham MD [address] [facility] 195 [place], [place] [phone] Surgery 05/20/[address] [facility] [address] [facility] 84 [place] [address] Registered Dietitian Dietitian, Registered 05/20/24 Dixon Hernandez MD 420 [facility] 508 [place], [place] 565545 Cardiovascular Disease 05/20/24 Jes Arrington MD 516 [facility] [address] [place], [place] 322485 Gastroenterology 06/24/24 documented as of this encounter
--- OUTSIDE RECORDS SUMMARY | 2024-07-07 18:00 | XMS_ITS | Encounter Summary ---
Author Organization [facility] Address [address] [place] [address] 6[address]99 Care Team Providers Care Online Editor Name Role Phone Clinic, [facility] Primary Care Provider Kristen Dockery RN Unavailable Unavaila Kristen Bermudez RN Unavailable Unavaila Meliza James MD Unavailable [phone] Lanny Meléndez APRN LAN ENGINEER Unavailable [phone] Gala Fair SPECIALIST FIELD ENGINEER Unavailable [phone] Meliza Villaseñor MD Unavailable [phone] Trey Abraham MD Unavailable [phone] Unavailable Unavail able Dixon Hernandez MD Unavailable [phone] Jes Arrington MD Unavailable + Encounter Details Date Type Department Care Team (Late st Contact Info) Description 04/08/2024 MyC Medical Advice Initial Department Kristen Dockery [...] PM CDT Legal Sex Female 3:12 AM ASSEM[employer]ER [employer] Gender Identity Female 10/31/2023 12:26 PM CDT Sexual Orientation Straight 10/31/2023 12 :26 PM CDT documented as of this encounter Plan of Treatment Upcoming Encounters Date Type Department Care Team (Late st Contact Info) Description 07/11/2024 PRE VISIT [facility] [address] [phone] Shanthi Griffin MD [address] [place] [address] [phone] *-*INCOMING RECORDS*-* 07/16/2024 7:30 AM CDT Lab [address] [phone] Jes Arrington MD [address] [place] [address] [phone] 07/16/2024 8:10 AM CDT Orders Only [address] [phone] Jes Arrington MD [address] [place] [address] [phone] 07/16/2024 8:30 AM CDT Allied Health/Nurse Visit [facility] [address] [place] [address] [phone] Jes Arrington MD [address] [place], [place] [address]B [address] [place] [address] [phone] 07/16/2024 9:00 AM CDT Allied Health/Nurse Visit [facility] [address] [place] [address] [phone] Jes Arrington MD [address] [place] [address] [phone] Manjula Gala Alexa, [facility] 07/16/2024 10:00 AM CDT Office Visit [facility] [address] [place] [phone] Jes Arrington MD [address] [place] [address] [phone] 07/16/2024 11:00 AM CDT Office Visit [facility] [address] [place] [phone] Jes Arrington MD [address] [place] [address] 406375 Trey Abraham MD [address] [place] [address] 195 [place], [place] [phone] 07/16/2024 12:00 PM CDT Allied Health/Nurse Visit [facility] [address] [place] [phone] Jes Arrington MD [address] [place] [address] 647715 Jena Castano, RAFIQ [facility] 420 [facility] 84 [place] [address] 07/16/2024 12:30 PM CDT Allied Health/Nurse Visit [facility] [address] [place] [phone] Jes Arrington MD [address] [place] [address] 707155 07/16/2024 12:50 PM CDT Ancillary Procedure [address] 1st [place] [address] Jes Arrington MD [address] [place] [address] [address] [place] [address] 07/16/2024 1:50 PM CDT Ancillary Procedure [facility] Xray [place] [address] [place] [address] [phone] Jes Arrington MD [address] [place] [address] [address] [place] [address] 07/16/2024 2:30 PM CDT Ancillary Procedure [facility] [address] [phone] Jes Arrington MD [address] [place] [address] [place] [address] [phone] 08/26/2024 10:30 AM CDT Appointment [facility] Heart Care 500 [place] [phone] Meliza Villaseñor MD [address] [place] [address] 08/26/2024 12:00 PM CDT Appointment [facility] 500 [place] [phone] Meliza Villaseñor MD [address] P[address] [place] [address] 47625 10/01/2024 8:45 AM CDT Office Visit [facility] [address] [phone] Meliza Villaseñor MD [address] P[address] [place] [address] 68681 Dixon Hernandez MD [address] [place] [address] [facility] 508 [place], [place] 588995 documented as of this encounter Visit Diagnoses Not on filedocumented in this encounter Care Teams Online Editor Relationship Specialty Start Date End Date Clinic, [facility] [place] [address] [place], [place] [phone] PCP - General 08/24/20 Kristen Dockery, RN Registered Nurse Nurse 11/09/23 Kristen Dockery, medication administration professionalMortgage Assistant Nurse 05/19/24 Meliza Villaseñor MD [address] [place] [address] Rhinologist Internal Medicine 05/19/24 Lanny Meléndez APRN LAN ENGINEER [facility] [address] [place], [place] [address] Referring Physician Internal Medicine 05/19/24 Gala Fair, [facility] Patient Coordinator Front Desk 05/20/24 Meliza Villaseñor MD [address] [place] [address] Physician Internal Medicine 05/20/24 Trey Abraham MD [address] [place] [address] [facility] 195 [place], [place] 775155 Surgery 05/20/[address] [facility] 420 [facility] SE [facility] 84 [place] [address] Registered Dietitian Dietitian, Registered 05/20/24 Dixon Hernandez MD 420 [facility] 508 [place], [place] [phone] Cardiovascular Disease 05/20/24 Jes Arrington MD 516 [facility] [address] [place], [place] [phone] Gastroenterology 06/24/24 documented as of this encounter
--- OUTSIDE RECORDS SUMMARY | 2024-07-07 18:00 | XMS_ITS | Encounter Summary ---
Author Organization [facility] Address [address] [place] [address] 34296 Care Team Providers Care Lime Burner Name Role Phone Clinic, [facility] Primary Care Provider Kristen Dockery RN Unavailable Unavaila Kristen Bermudez RN Unavailable Unavaila Meliza James MD Unavailable [phone] Lanny Meléndez APRN COMMODITY BUYER Unavailable [phone] Gala Fair PARACHUTE TAPER Unavailable [phone] Meliza Villaseñor MD Unavailable [phone] Trey Abraham MD Unavailable [phone] Unavailable Unavail able Dixon Hernandez MD Unavailable [phone] Jes Arrington MD Unavailable + Encounter Details Date Type Department Care Team (Late st Contact Info) Description 03/19/2024 MyC Medical Advice Initial Department Kristen Dockery [...] PM CDT 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 Gender Identity Female 10/31/2023 12:26 PM CDT Sexual Orientation Straight 10/31/2023 12 :26 PM CDT documented as of this encounter Plan of Treatment Upcoming Encounters Date Type Department Care Team (Late st Contact Info) Description 07/11/2024 PRE VISIT [facility] Hepatology Clinic [address] [phone] Shanthi Griffin MD [address] [place] [address] [phone] *-*INCOMING RECORDS*-* 07/16/2024 7:30 AM CDT Lab [address] [phone] Jes Arrington MD [address] [place] [address] [phone] 07/16/2024 8:10 AM CDT Orders Only [address] [phone] Jes Arrington MD [address] [place] [address] [phone] 07/16/2024 8:30 AM CDT Allied Health/Nurse Visit [facility] Transplant Clinic [address] [place] [address] [phone] Jes Arrington MD [address] [place], [place] [address]B [address] [place] [address] 322005 07/16/2024 9:00 AM CDT Allied Health/Nurse Visit [facility] Transplant Clinic [address] [place] [address] [phone] Jes Arrington MD [address] [place] [address] 225605 Manjula Gala Alexa, [facility] 07/16/2024 10:00 AM CDT Office Visit [facility] Transplant [facility] [address] [place] [phone] Jes Arrington MD [address] [place] [address] [phone] 07/16/2024 11:00 AM CDT Office Visit [facility] Trans[facility] [address] [place] [phone] Jes Arrington MD [address] [place] [address] [phone] Trey Abraham MD [address] [place] [address] 195 [place], [place] 771365 07/16/2024 12:00 PM CDT Allied Health/Nurse Visit [facility] Trans[facility] [address] [place] [phone] Jes Arrington MD [address] [place] [address] 294295 Jena Castano, RAFIQ [facility] 420 [facility] 84 [place] [address] 07/16/2024 12:30 PM CDT Allied Health/Nurse Visit [facility] Transplant Clinic [address] [place] [phone] Jes Arrington MD [address] [place] [address] [phone] 07/16/2024 12:50 PM CDT Ancillary Procedure [address] 1st [place] [address] Jes Arrington MD [address] [place] [address] [address] [place] [address] 07/16/2024 1:50 PM CDT Ancillary Procedure [facility] Imaging Center Xray [place] [address] [place] [address] [phone] Jes Arrington MD [address] [place] [address] [address] [place] [address] 43[address] 07/16/2024 2:30 PM CDT Ancillary Procedure [facility] Dexa Clinic [address] [phone] Jes Arrington MD [address] [place] [address] [address] [place] [address] [phone] 08/26/2024 10:30 AM CDT Appointment [facility] 500 [place] [phone] Meliza Villaseñor MD [address] [place] [address] 98999 08/26/2024 12:00 PM CDT Appointment [facility] 500 [place] [phone] Meliza Villaseñor MD [address] [place] [address] 04408 10/01/2024 8:45 AM CDT Office Visit [facility] Heart Clinic [address] [phone] Meliza Villaseñor MD [address] [place] [address] 16426 Dixon Hernandez MD [address] [place] [address] [facility] 508 [place], [place] 399485 documented as of this encounter Visit Diagnoses Not on filedocumented in this encounter Care Teams Lime Burner Relationship Specialty Start Date End Date Clinic, [facility] [place] [address] [place], [place] [phone] PCP - General 08/24/20 Kristen Dockery, RN Registered Nurse Nurse 11/09/23 Kristen Dockery, pneumatic system conveyor operatorVp Integrity Nurse 05/19/24 Meliza Villaseñor MD [address] [place] [address] Supervisor Drying And Winding Internal Medicine 05/19/24 Lanny Meléndez APRN COMMODITY BUYER [facility] [address] [place], [place] 20[address]66 Referring Physician Internal Medicine 05/19/24 Gala Fair, [facility] [place] Construction Supervisor 05/20/24 Meliza Villaseñor MD [address] [place] [address] Physician Internal Medicine 05/20/24 Trey Abraham MD [address] [place] [address] [facility] 195 [place], [place] 902925 Surgery 05/20/[address] [facility] 420 [facility] SE [facility] 84 [place] [address] Registered Dietitian Dietitian, Registered 05/20/24 Dixon Hernandez MD 420 [facility] 508 [place], [place] 025475 Cardiovascular Disease 05/20/24 Jes Arrington MD 516 [facility] [address] [place], [place] 645165 Gastroenterology 06/24/24 documented as of this encounter
--- OUTSIDE RECORDS SUMMARY | 2024-07-07 18:01 | XMS_ITS | Encounter Summary ---
Author Organization [facility] Address [address] [place] [address] 07214 Care Team Providers Care Separations Scientist Name Role Phone Clinic, [facility] Primary Care Provider Kristen Dockery RN Unavailable Unavaila Kristen Bermudez RN Unavailable Unavaila Meliza James MD Unavailable [phone] Lanny Meléndez APRN TROLLEY CAR OVERHAULER Unavailable [phone] Gala Fair SEAT MAKER Unavailable [phone] Meliza Villaseñor MD Unavailable [phone] Trey Abraham MD Unavailable [phone] Unavailable Unavail able Dixon Hernandez MD Unavailable [phone] Jes Arrington MD Unavailable + Encounter Details Date Type Department Care Team (Latest Contact Info) Description 07/06/2024 Travel Social History Tobacco Use Types Packs/Day [...] PM CDT 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 Gender Identity Female 10/31/2023 12:26 PM CDT Sexual Orientation Straight 10/31/2023 12 :26 PM CDT documented as of this encounter Plan of Treatment Upcoming Encounters Date Type Department Care Team (Late st Contact Info) Description 07/11/2024 PRE VISIT [facility] Hepatology Clinic [address] [phone] Shanthi Griffin MD [address] [place] [address] 193615 *-*INCOMING RECORDS*-* 07/16/2024 7:30 AM CDT Lab [address] [phone] Jes Arrington MD [address] [place] [address] [phone] 07/16/2024 8:10 AM CDT Orders Only [address] [phone] Jes Arrington MD [address] [place] [address] [phone] 07/16/2024 8:30 AM CDT Allied Health/Nurse Visit [facility] Transplant Clinic [address] [place] [address] [phone] Jes Arrington MD [address] [place], [place] [address]B [address] [place] [address] 806935 07/16/2024 9:00 AM CDT Allied Health/Nurse Visit [facility] Transplant Clinic [address] [place] [address] [phone] Jes Arrington MD [address] [place] [address] [phone] Beckielibrashirin Gala Alexa, [facility] 07/16/2024 10:00 AM CDT Office Visit [facility] Transplant Clinic [address] [place] [phone] Jes Arrington MD [address] [place] [address] [phone] 07/16/2024 11:00 AM CDT Office Visit [facility] Trans[facility] [address] [place] [phone] Jes Arrington MD [address] [place] [address] [phone] Trey Abraham MD [address] [place] [address] 195 [place], [place] [phone] 07/16/2024 12:00 PM CDT Allied Health/Nurse Visit [facility] Transplant [facility] [address] [place] [phone] Jes Arrington MD [address] [place] [address] 626255 Jena Castano, RAFIQ [facility] 420 [facility] 84 [place] [address] 07/16/2024 12:30 PM CDT Allied Health/Nurse Visit [facility] Transplant [facility] [address] [place] [phone] Jes Arrington MD [address] [place] [address] [phone] 07/16/2024 12:50 PM CDT Ancillary Procedure [address] 1st [place] [phone] Jes Arrington MD [address] [place] [address] [address] [place] [address] 07/16/2024 1:50 PM CDT Ancillary Procedure [facility] Imaging Center Xray [place] [address] [place] [address] [phone] Jes Arrington MD [address] [place] [address] [address] [place] [address] 27890 07/16/2024 2:30 PM CDT Ancillary Procedure [facility] Dexa Clinic [address] [phone] Jes Arrington MD [address] [place] [address] [address] [place] [address] [phone] 08/26/2024 10:30 AM CDT Appointment [facility] Heart Care 500 [place] [phone] Meliza Villaseñor MD [address] [place] [address] 75612 08/26/2024 12:00 PM CDT Appointment [facility] Imaging 500 [place] [phone] Meliza Villaseñor MD [address] [place] [address] 82895 10/01/2024 8:45 AM CDT Office Visit [facility] Heart Clinic [address] [phone] Meliza Villaseñor MD [address] [place] [address] 46332 Dixon Hernandez MD [address] [place] [address] [facility] 508 [place], [place] 392865 documented as of this encounter Visit Diagnoses Not on filedocumented in this encounter Additional Health Concerns Assessment Noted Time PHQ-9 Depression Total Score: 8 06/12/19 25 12:56 PM CDT documented as of this encounter Care Teams Separations Scientist Relationship Specialty Start Date End Date Clinic, [facility] [address] [place] [address] PCP - General 08/24/20 Kristen Dockery, RN Registered Nurse Nurse 11/09/23 Kristen Dockery inspector fibrous wallboardBehavioral Health Rn Nurse 05/19/24 Meliza Villaseñor MD [address] [place] [address] Order Picker Internal Medicine 05/19/24 Lanny Meléndez APRN TROLLEY CAR OVERHAULER [facility] [address] [place], [place] [address] Referring Physician Internal Medicine 05/19/24 Gala Fair, [facility] Cpht 05/20/24 Meliza Villaseñor MD [address] [place] [address] Physician Internal Medicine 05/20/24 Trey Abraham MD [address] [place] [address] [facility] 195 [place], [place] 398105 Surgery 05/20/[address] [facility] 420 [facility] 84 [place] [address] Registered Dietitian Dietitian, Registered 05/20/24 Dixon Hernandez MD 420 [facility] 508 [place] [address] Cardiovascular Disease 05/20/24 Jes Arrington MD 516 [facility] [address] [place] [address] Gastroenterology 06/24/24 documented as of this encounter
--- OUTSIDE RECORDS SUMMARY | 2024-07-07 18:01 | XMS_ITS | Encounter Summary ---
Author Organization [place] Address [address] [place] [address] Care Team Providers Care Pet Walker Name Role Phone Clinic, [facility] Primary Care Provider Kristen Dockery RN Unavailable Unavaila Kristen Bermudez RN Unavailable Unavaila Meliza James MD Unavailable [phone] Lanny Meléndez APRN RECOVERY ROOM NURSE Unavailable [phone] Gala Fair ROPE RIDER Unavailable [phone] Meliza Villaseñor MD Unavailable [phone] Trey Abraham MD Unavailable [phone] Unavailable Unavail able Dixon Hernandez MD Unavailable [phone] Jes Arrington MD Unavailable + Encounter Details Date Type Department Care Team (Late st Contact Info) Description 07/05/2024 Telephone [facility] Transplant Clinic [address] [place] [address] Kristen Dockery RN Social History [...] PM CDT 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 K+ 2.88. Having muscle cramping and weakness, feels run down Discussed labs worsening, MELD now up to 26. Do not cancel PLE clinic again, she needs to be seen. Discussed any fevers or other signs of infection to come to our ER. Patient does not get rachelle. Abdomen with some bloating after eating but no ascites per her description/assessment. Does have BLE edema. Encouraged her to follow low Na+ diet, elevate legs when at rest. PLAN: holding today and tomorrow's Lasix. Taking K+ supplement she has at home BID, will repeat labs first thing in morning at walk in lab at [facility] and re- assess. Discussed with infectious sx or anybleeding documented in this encounter Plan of Treatment Upcoming Encounters Date Type Department Care Team (Late st Contact Info) Description 07/11/2024 PRE VISIT [facility] Hepatology Clinic [address] [phone] Shanthi Griffin MD [address] [place] [address] *-*INCOMING RECORDS*-* 07/16/2024 7:30 AM CDT Lab [facility] Lab [address] 1st [place] [address] Jes Arrington MD [address] [place] [address] [address] [place] [address] 07/16/2024 8:10 AM CDT Orders Only [address] [phone] Jes Arrington MD [address] [place] [address] 727175 07/16/2024 8:30 AM CDT Allied Health/Nurse Visit [facility] Transplant [address] [phone] Jes Arrington MD [address] [place] [address] 640345 07/16/2024 9:00 AM CDT Allied Health/Nurse Visit [facility] Transplant [address] [phone] Jes Arrington MD [address] [place] [address] [phone] Gala Fair, [facility] 07/16/2024 10:00 AM CDT Office Visit [facility] Transplant [address] [phone] Jes Arrington MD [address] [place], [place] [address]B [address] [place] [address] 07/16/2024 11:00 AM CDT Office Visit [facility] Transplant Clinic [address] [place] [phone] Jes Arrington MD [address] [place], [place] [address]B [address] [place] [address] 474645 Trey Abraham MD 420 [facility] 195 [place], [place] 473345 07/16/2024 12:00 PM CDT Allied Health/Nurse Visit [facility] Transplant Clinic [address] [place] [phone] Jes Arrington MD [address] [place] [address] [address] [place], [place] 765895 Jena Castano, RAFIQ [facility] 420 [facility] 84 [place] [address] 07/16/2024 12:30 PM CDT Allied Health/Nurse Visit [facility] Transplant Clinic [address] [place] [address] [phone] Jes Arrington MD [address] [place] [address] [address] [place] [address] 680205 07/16/2024 12:50 PM CDT Ancillary Procedure [facility] [address] [phone] Jes Arrington MD [address] [place] [address] [address] [place] [address] [phone] 07/16/2024 1:50 PM CDT Ancillary Procedure [facility] Imaging Center Xray [address] [phone] Jes Arrington MD [address] [place] [address] [address] [place] [address] [phone] 07/16/2024 2:30 PM CDT Ancillary Procedure [facility] Dexa Clinic [address] [phone] Jes Arrington MD [address] [place] [address] [place] [address] 08/26/2024 10:30 AM CDT Appointment [facility] Heart Care [address] [place] [phone] Meliza Villaseñor MD [facility] [address] [place] [address] 08/26/2024 12:00 PM CDT Appointment [facility] Imaging 500 [place] [phone] Meliza Villaseñor MD [address] [place], [place] [address]ware st [address]WB [address] [place] [address] 10/01/2024 8:45 AM CDT Office Visit [facility] [place] [address] [place] [phone] Meliza Villaseñor MD [address] [place], [place] [address]ware st [address] [place] [address] [phone] Dixon Hernandez MD 420 [facility] 508 [place], [place] 628995 documented as of this encounter Results * (ABNORMAL) INR (07/06/2024 9:29 AM CDT) INR 2.06(H) 0.85 - 1.15 07/06/2024 9:45 AM CDT [facility] PT 23.0(H) 11.8 - 14.8 Seconds 07/06/2024 9:45 AM CDT [facility] Blood STRUCTURE OF RIGHT UPPER LIMB / Unknown Venipuncture / Unknown 07/06/2024 9:29 AM CDT 07/06/2024 9:29 AM CDT Jes Arrington MD LAB - BLOOD ORDERA BLES Final Result LABORATORY [facility] Lab [address] Lab (1st floor, no room number) [place] [address], [facility] * (ABNORMAL) Comprehensive metabolic panel (07/06/2024 9:29 AM CDT) Sodium 132(L) 135 - 145 mmol/L 07/06/2024 10:03 AM CDT LABORATORY Potassium 3.6 3.4 - 5.3 mmol/L 07/06/2024 10:03 AM CDT LABORATORY Carbon Dioxide (CO2) 27 22 - 29 mmol/L 07/06/2024 10: AM T LABORATORY Anion Gap 14 7 - 15 mmol/L 07/06/2024 10:03 AM T LABORATORY Urea Nitrogen 25.6(H) 8.0 - 23.0 mg/dL 07/06/2024 10:03 AM T LABORATORY Creatinine 1.90(H) 0.51 - 0.95 mg/dL 07/06/2024 10:03 AM CDT LABORATORY GFR Estimate 30(L) >60 mL/min/1.7 3m2 07/06/2024 10:03 AM CDT LABORATORY Comment:eGFR calculated usin 2020 CKD-EPI equation. Calcium 8.3(L) 8.8 - 10.4 mg/dL 07/06/2024 10: AM CDT LABORATORY Chloride 91(L) 98 - 107 mmol/L 07/06/2024 10:03 AM T LABORATORY Glucose 101(H) 70 - 99 mg/dL 07/06/2024 10:03 AM CDT LABORATORY Alkaline Phosphatase 208(H) 40 - 150 U/L 07/06/2024 10:03 AM CDT LABORATORY AST 31 0 - 45 U/L 07/06/2024 10:03 AM CDT LABORATORY ALT 17 0 - 50 U/L 07/06/2024 10:03 AM CDT LABORATORY Protein Total 6.1(L) 6.4 - 8.3 g/dL 07/06/2024 10:03 AM T LABORATORY Albumin 2.8(L) 3.5 - 5.2 g/dL 07/06/2024 10:03 AM CDT RH LAB[facility] Bilirubin Total 10.7(H) <=1.2 mg/dL 07/06/2024 10:03 AM CDT [facility] Blood STRUCTURE OF RIGHT UPPER LIMB / Unknown Venipuncture / Unknown 07/06/2024 9:29 AM CDT 07/06/2024 9:29 AM CDT us Jes Arrington MD LAB - BLOOD ORDERA BLES Final Result RH LABORATORY [facility] Lab [address] Lab (1st floor, no room number) [place] [address] documented in this encounter Visit Diagnoses Diagnosis Cirrhosis of liver (H)- Primary Cirrhosis of liver without mention of alcohol documented in this encounter Additional Health Concerns Assessment Noted Time PHQ-9 Depression Total Score: 8 06/12/19 25 12:56 PM CDT documented as of this encounter Care Teams Pet Walker Relationship Specialty Start Date End Date [facility], [facility] [address] [facility] [place] [address] PCP - General 08/24/20 Kristen Dockery, RN Registered Nurse Nurse 11/09/23 Kristen Dockery, gold charmerAudio Visual Collections Coordinator Nurse 05/19/24 Meliza Villaseñor MD [address] [place] [address] 9[address] Hose Seamer Internal Medicine 05/19/24 Lanny Meléndez APRN RECOVERY ROOM NURSE [facility] [address] [place] [address] Referring Physician Internal Medicine 05/19/24 Gala Fair, [facility] Hang Gliding Instructor 05/20/24 Meliza Villaseñor MD 516 [facility] 2A [place] [address] Physician Internal Medicine 05/20/24 Trey Abraham MD 420 [facility] 195 [place], [place] 755245 Surgery 05/20/24 Jena Castano, RAFIQ [facility] 420 [facility] 84 [place] [address] Registered Dietitian Dietitian, Registered 05/20/24 Dixon Hernandez MD 420 [facility] 508 [place] [address] Cardiovascular Disease 05/20/24 Jes Arrington MD 6 [facility] 2A [place] [address] Gastroenterology 06/24/24 documented as of this encounter
--- OUTSIDE RECORDS SUMMARY | 2024-07-07 18:01 | XMS_ITS | Encounter Summary ---
Author Organization [place] Address [address] [place] [address] Care Team Providers Care Associate Professor Of History Name Role Phone Clinic, [facility] Primary Care Provider Kristen Dockery RN Unavailable Unavaila Kristen Bermudez RN Unavailable Unavaila Meliza James MD Unavailable [phone] Lanny Meléndez APRN INSURANCE ADMINISTRATOR Unavailable [phone] Gala Fair STONE TRIMMER Unavailable [phone] Meliza Villaseñor MD Unavailable [phone] Trey Abraham MD Unavailable [phone] Unavailable Unavail able Dioxn Hernandez MD Unavailable [phone] Jes Arrington MD Unavailable + Encounter Details Date Type Department Care Team (Late st Contact Info) Description 08/14/2019 External Order Results [facility] Specialty Laboratories [address] 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 Gender Identity Female 10/31/2023 12:26 PM CDT Sexual Orientation Straight 10/31/2023 12 :26 PM CDT documented as of this encounter Plan of Treatment Upcoming Encounters Date Type Department Care Team (Late st Contact Info) Description 07/11/2024 PRE VISIT [facility] Hepatology Clinic [address] [phone] Shanthi Griffin MD [address] [place] [address] *-*INCOMING RECORDS*-* 07/16/2024 7:30 AM CDT Lab [address] [phone] Jes Arrington MD [address] [place] [address] [phone] 07/16/2024 8:10 AM CDT Orders Only [address] [phone] Jes Arrington MD [address] [place], [place] [address]B [address] [place] [address] 010045 07/16/2024 8:30 AM CDT Allied Health/Nurse Visit [facility] Transplant Clinic [address] [place] [address] [phone] Jes Arrington MD [address] [place], [place] [address]B [address] [place] [address] 129215 07/16/2024 9:00 AM CDT Allied Health/Nurse Visit [facility] Transplant Clinic [address] [place] [address] [phone] Jes Arrington MD [address] [place], [place] [address]B [address] [place] [address] 380265 Gala Fair, [facility] 07/16/2024 10:00 AM CDT Office Visit [facility] Transplant Clinic [address] [place] [phone] Jes Arrington MD [address] [place], [place] [address]B [address] [place] [address] 369415 07/16/2024 11:00 AM CDT Office Visit [facility] Transplant Clinic [address] [place] [address] [phone] Jes Arrington MD [address] [place] [address] 749[address] Trey Abraham MD [address] [place] [address] 195 [place] [address] 07/16/2024 12:00 PM CDT Allied Health/Nurse Visit [facility] Transplant Clinic [address] [place] [address] [phone] Jes Arrington MD [address] [place] [address] 225325 Jena Castano, RAFIQ [address] [place] [address] 07/16/2024 12:30 PM CDT Allied Health/Nurse Visit [facility] Transplant Clinic [address] [place] [address] [phone] Jes Arrington MD [address] [place] [address] 6[address] 07/16/2024 12:50 PM CDT Ancillary Procedure [address] 1st [place] [phone] Jes Arrington MD [address] [place] [address] 035425 07/16/2024 1:50 PM CDT Ancillary Procedure [facility] Imaging Center Xray [place] 909 [facility] 1st [place] [phone] Jes Arrington MD [address] [place] [address] [address] [place] [address] 07/16/2024 2:30 PM CDT Ancillary Procedure [facility] Dexa Clinic [place] [address] [phone] eJs Arrington MD [address] [place] [address] [address] [place] [address] [phone] 08/26/2024 10:30 AM CDT Appointment [facility] Heart Care 500 [place] [phone] Meliza Villaseñor MD [facility] [address] [place] [address] 08/26/2024 12:00 PM CDT Appointment [facility] Imaging 500 [place] [phone] Meliza Villaseñor MD [facility] [address] [place] [address] 10/01/2024 8:45 AM CDT Office Visit [facility] Heart [facility] 909 [place] [phone] Meliza Villaseñor MD [address] [place] [address] 97889 Dixon Hernandez MD 420 [facility] EMERGENCY DEPARTMENT 508 [place] [address] documented as of this encounter Procedures Procedure Name Priority Date/Time Associated Diagnosis Comments EXTERNAL LAB RESULTS Routine 08/14/2019 10:22 AM CDT documented in this encounter Results * External Lab Results (08/14/2019 10:22 AM CDT) Scan Lab Results (External) See Scanned Report NON-INTERFACE D (ONBASE SCANS) Comment:MITOCHONDRIAL ANTIBO DY 08/14/2019 10:2 2 AM CDT Narrative TUSHAR PFT - 02/27/2024 1:23 PM BOOKSTORE CLERK Verified by Isaac Rodrigues on 02/27/2024. us Provider Outside LABORATORY Edited Result - Final TUSHAR PFT NON-INTERFACED (ONBASE SCANS) documented in this encounter Visit Diagnoses Not on filedocumented in this encounter Care Teams Associate Professor Of History Relationship Specialty Start Date End Date [facility], [facility] [address] [facility] [place] [address] PCP - General 08/24/20 Kristen Dockery, RN Registered Nurse Nurse 11/09/23 Kristen Dockery, bed spring makerComputer Compositor Nurse 05/19/24 Meliza Villaseñor MD [address] [place] [address] 22884 Test Grader Internal Medicine 05/19/24 Lanny Meléndez APRN INSURANCE ADMINISTRATOR [facility] [address] [place], [place] [address] Referring Physician Internal Medicine 05/19/24 Gala Fair, [facility] Real Estate Instructor 05/20/24 Meliza Villaseñor MD 516 [facility] 2A [place] [address] Physician Internal Medicine 05/20/24 Trey Abraham MD 420 [facility] 195 [place] [address] Surgery 05/20/24 Jena Castano, RD [facility] 420 [facility] SE [facility] 84 [place] [address] Registered Dietitian Dietitian, Registered 05/20/24 Dixon Hernandez MD 420 [facility] EM[facility]MENT 508 [place] [address] Cardiovascular Disease 05/20/24 Jes Arrington MD 6 [facility] 2A [place] [address] Gastroenterology 06/24/24 documented as of this encounter
--- OUTSIDE RECORDS SUMMARY | 2024-07-07 18:01 | XMS_ITS | Encounter Summary ---
Author Organization [place] Address [address] [place] [address]80 Care Team Providers Care Actuarial Science Teacher Name Role Phone Clinic, [facility] Primary Care Provider Kristen Dockery RN Unavailable UnavailKristen Toussaint RN Unavailable Unavaila Meliza James MD Unavailable [phone] Lanny Meléndez APRN BUTTON BRADDER Unavailable [phone] Gala Fair PBX WIRE CHIEF Unavailable [phone] Meliza Villaseñor MD Unavailable [phone] Trey Abraham MD Unavailable [phone] Unavailable Unavail able Dixon Hernandez MD Unavailable [phone] Jes Arrington MD Unavailable + Encounter Details Date Type Department Care Team (Late st Contact Info) Description 09/08/2023 External Order Results [facility] Specialty Laboratories [address] [place] [address] Outside, Provider Social History Tobacco Use Types [...] PM CDT Legal Sex Female 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 Gender Identity Female 10/31/2023 12:26 PM CDT Sexual Orientation Straight 10/31/2023 12 :26 PM CDT documented as of this encounter Plan of Treatment Upcoming Encounters Date Type Department Care Team (Late st Contact Info) Description 07/11/2024 PRE VISIT [facility] Hepatology Clinic [address] [phone] Shanthi Griffin MD [address] [place] [address] 680285 *-*INCOMING RECORDS*-* 07/16/2024 7:30 AM CDT Lab [address] [phone] Jes Arrington MD [address] [place] [address] [phone] 07/16/2024 8:10 AM CDT Orders Only [address] [phone] Jes Arrington MD [address] [place] [address] [phone] 07/16/2024 8:30 AM CDT Allied Health/Nurse Visit [facility] Transplant Clinic [address] [place] [address] [phone] Jes Arrington MD [address] [place] [address] 118515 07/16/2024 9:00 AM CDT Allied Health/Nurse Visit [facility] Transplant Clinic [address] [place] [address] [phone] Jes Arrington MD [address] [place] [address] 817655 Gala Fair, [facility] 07/16/2024 10:00 AM CDT Office Visit [facility] Transplant Clinic [address] [place] [address] [phone] Jes Arrington MD [address] [place] [address] 135695 07/16/2024 11:00 AM CDT Office Visit [facility] Transplant Clinic [address] [place] [phone] Jes Arrington MD [address] [place] [address] [phone] Trey Abraham MD [address] [place] [address] 195 [place], [place] 259415 07/16/2024 12:00 PM CDT Allied Health/Nurse Visit [facility] Transplant Clinic [address] [place] [address] [phone] Jes Arrington MD [address] [place] [address] 100395 Jena Castano, RAFIQ [address] [place] [address] 07/16/2024 12:30 PM CDT Allied Health/Nurse Visit [facility] Transplant Clinic [address] [place] [address] [phone] Jes Arrington MD [address] [place] [address] [phone] 07/16/2024 12:50 PM CDT Ancillary Procedure [address] [phone] Jes Arrington MD [address] [place] [address] [address] [place] [address] 07/16/2024 1:50 PM CDT Ancillary Procedure [facility] Center Xray [address] [phone] Jes Arrington MD [address] [place] [address] [address] [place] [address] 07/16/2024 2:30 PM CDT Ancillary Procedure [facility] Dexa Clinic [address] [phone] Jes Arrington MD [address] [place] [address] [address] [place] [address] 08/26/2024 10:30 AM CDT Appointment [facility] Heart Care 500 [place] [phone] Meliza Villaseñor MD [address] [place] [address] 24022 08/26/2024 12:00 PM CDT Appointment [facility] Imaging 500 [place] [phone] Meliza Villaseñor MD [address] [place] [address] 10/01/2024 8:45 AM CDT Office Visit [facility] Heart Clinic [address] [phone] Meliza Villaseñor MD [address] [place] [address] Dixon Hernandez MD 420 [facility] 508 [place], [place] [phone] documented as of this encounter Procedures Procedure Name Priority Date/Time Associated Diagnosis Comments CREATININE Routine 09/08/2023 9:50 AM CDT documented in this encounter Results * Creatinine (09/08/2023 9:50 AM CDT) GFR Estimated (External) 107 ml/min NON-INTERFACED (ONBASE SCANS) Creatinine (External) 0.5 0.5 - 1.5 mg/dL NON-INTERFACED (ONBASE SCANS) Blood BLOOD SPECIMEN / Unknown 09/08/2023 9:50 AM CDT Narrative BREEZE PFT - 11/09/2023 11:42 AM CDT Verified by Leah Gimenez on 11/09/2023. Manuel Riggins MD LAB - BLOOD ORDERABLES Edited Result - Final TUSHAR PFT NON-INTERFACED (ONBASE SCANS) documented in this encounter Visit Diagnoses Not on filedocumented in this encounter Care Teams Actuarial Science Teacher Relationship Specialty Start Date End Date [facility], [facility] [address] [facility] [place] [address] PCP - General 08/24/20 Kristen Dockery, RN Registered Nurse Nurse 11/09/23 Kristen Dockery, antiquerSeed Service Advisor Nurse 05/19/24 Meliza Villaseñor MD [address] [place] [address] Engineering And Development Director Internal Medicine 05/19/24 Lanny Meléndez APRN BUTTON BRADDER [facility] [address] [place] [address] Referring Physician Internal Medicine 05/19/24 Gala Fair, [facility] Flare Maker 05/20/24 Meliza Villaseñor MD 516 [facility] 2A [place] [address] Physician Internal Medicine 05/20/24 Trey Abraham MD 420 [facility] 195 [place] [address] Surgery 05/20/[address] [facility] 420 [facility] 84 [place] [address] Registered Dietitian Dietitian, Registered 05/20/24 Dixon Hernandez MD 420 [facility] 508 [place] [address] Cardiovascular Disease 05/20/24 Jes Arrington MD 516 [facility] 2A [place] [address] Gastroenterology 06/24/24 documented as of this encounter
--- OUTSIDE RECORDS SUMMARY | 2024-07-07 18:01 | XMS_ITS | Encounter Summary ---
Author Organization [facility] Address [address] [place] [id number] Care Team Providers Care Hydramatic Mechanic Name Role Phone Clinic, [facility] Primary Care Provider Kristen Dockery RN Unavailable UnavailKristen Toussaint RN Unavailable Unavaila Meliza James MD Unavailable [phone] Lanny Meléndez APRN COUNTY SURVEYOR Unavailable [phone] Gala Fair FREELANCE WEB DESIGNER Unavailable [phone] Meliza Villaseñor MD Unavailable [phone] Trey Abraham MD Unavailable [phone] Unavailable Unavail able Dixon Hernandez MD Unavailable [phone] Jes Arrington MD Unavailable + Encounter Details Date Type Department Care Team (Late st Contact Info) Description 11/15/2022 External Order Results [facility] [address] [place] [address] Outside, Provider Social History Tobacco Use Types Packs/Day Years Used Date Smoking Tobacco: Never Smokeless Tobacco: Never Alcohol Use Standard Drinks/Week Comments Yes 0 (1 standard drink = 0.6 oz pur e alcohol) few times a year Comments No Sex and Gender Information Value Date Recorded Sex Assigned at Female 10/31/2023 12:26 PM CDT Legal Sex Female 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 AM 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 FINISHER Gender Identity Female 10/31/2023 12:26 PM CDT Sexual Orientation Straight 10/31/2023 12 :26 PM CDT documented as of this encounter Plan of Treatment Upcoming Encounters Date Type Department Care Team (Late st Contact Info) Description 07/11/2024 PRE VISIT [facility] [address] [phone] Shanthi Griffin MD [address] [place] [address] [phone] *-*INCOMING RECORDS*-* 07/16/2024 7:30 AM CDT Lab [address] [phone] Jes Arrington MD [address] [place] [address] [phone] 07/16/2024 8:10 AM CDT Orders Only [address] [phone] Jes Arrington MD [address] [place] [address] [phone] 07/16/2024 8:30 AM CDT Allied Health/Nurse Visit [facility] [address] [place] [address] [phone] Jes Arrington MD [address] [place] [address] [phone] 07/16/2024 9:00 AM CDT Allied Health/Nurse Visit [facility] [address] [place] [address] [phone] Jes Arrington MD [address] [place] [address] [phone] Gala Fair, [facility] 07/16/2024 10:00 AM CDT Office Visit [facility] [address] [place] [phone] Jes Arrington MD [address] [place] [address] [phone] 07/16/2024 11:00 AM CDT Office Visit [facility] [address] [place] [phone] Jes Arrington MD [address] [place] [phone] Trey Abraham MD [address] [place] [address] [address] [place], [place] [phone] 07/16/2024 12:00 PM CDT Allied Health/Nurse Visit [facility] [address] [place] [phone] Jes Arrington MD [address] [place] [address] [phone] Jena Castano, RAFI[facility] [address] [place] [address] 07/16/2024 12:30 PM CDT Allied Health/Nurse Visit [facility] [address] [place] [phone] Jes Arrington MD [address] [place] [address] [phone] 07/16/2024 12:50 PM CDT Ancillary Procedure [address] 1st [place] [phone] Jes Arrington MD [address] [place] [address] [address] [place] [address] 07/16/2024 1:50 PM CDT Ancillary Procedure [facility] Xray [address] [phone] Jes Arrington MD [address] [place] [address] [address] [place] [phone] 07/16/2024 2:30 PM CDT Ancillary Procedure [facility] [address] [phone] Jes Arrington MD [address] [place] [address] [address] [place] [phone] 08/26/2024 10:30 AM CDT Appointment [facility] [address] [place] [phone] Meliza Villaseñor MD [facility] [address] [place] [phone] 08/26/2024 12:00 PM CDT Appointment [facility] [address] [place] [phone] Meliza Villaseñor MD [address] [place] [phone] 10/01/2024 8:45 AM CDT Office Visit [facility] [address] [phone] Meliza Villaseñor MD [address] [place] [phone] Dixon Hernandez MD [address] [facility] [address] [place] [address] documented as of this encounter Procedures Procedure Name Priority Date/Time Associated Diagnosis Comments HEPATIC FUNCTION PANEL Routine 10/19/2023 8:56 AM CDT BASIC METABOLIC PANEL Routine 10/19/2023 8:56 AM CDT EXTERNAL LAB RESULTS Routine 09/12/2023 10:45 AM CDT HEPATITIS C ANTIBODY Routine 09/12/2023 10:45 AM CDT HEPATITIS B SURFACE ANTIGEN Routine 09/12/2023 10:45 AM CDT HEPATITIS B CORE ANTIBODY Routine 09/12/2023 10:45 AM CDT HEPATIC FUNCTION PANEL Routine 09/12/2023 10:45 AM CDT INR Routine 09/06/2023 1:33 PM CDT LIPASE Routine 09/06/2023 1:33 PM CDT HEPATIC FUNCTION PANEL Routine 09/06/2023 1:33 PM CDT CALCIUM IONIZED WHOLE BLOOD BIRGIT Routine 09/06/2023 1:33 PM CDT BASIC METABOLIC PANEL Routine 09/06/2023 1:33 PM CDT EXTERNAL LAB RESULTS Routine 11/15/2022 7:30 AM CDT documented in this encounter Results * (ABNORMAL) Basic metabolic panel (10/19/2023 8:56 AM CDT) Sodium (External) 128(L) 135 - 149 mmol/L NON-INTERFACED (ONBASE SCANS) Potassium (External) 3.5(L) 3.6 - 5.1 mmol/L NON-INTERFACED (ONBASE SCANS) Chloride (External) 96 96 - 114 mmol/L NON-INTERFACED (ONBASE SCANS) CO2 (External) 23 20 - 32 mmol/L NON-INTERFACED (ONBASE SCANS) Anion Gap (External) 9 7 - 15 mEq/L NON-INTERFACED (ONBASE SCANS) Urea Nitrogen (External) 10 7 - 30 mg/dL NON-INTERFACED (ONBASE SCANS) Creatinine (External) 0.8 0.5 - 1.5 mg/dl NON-INTERFACED (ONBASE SCANS) GFR Estimated (External) 84 ml/min NON-INTERFACED (ONBASE SCANS) Calcium (External) 9.8 8.4 - 10.6 mg/dL NON-INTERFACED (ONBASE SCANS) Glucose (External) 95 60 - 115 mg/dL NON-INTERFACED (ONBASE SCANS) Blood BLOOD SPECIMEN / Unknown 10/19/2023 8:56 AM CDT Narrative TUSHAR PFT - 11/09/2023 11:50 AM CDT Verified by Dm Hernandez on 11/09/2023. us Provider Outside LAB - BLOOD ORDERABLES Edited R esult - Final [place] P[place] NON-INTERFACED (ONBASE SCANS) * (ABNORMAL) Hepatic function panel (10/19/2023 8:56 AM CDT) Protein Total (External) 7.7 6.0 - 8.3 g/dL NON-INTERFACE D (ONBASE SCANS) Albumin (External) 3.9 3.3 - 5.0 g/dl NON-INTERFACE D (ONBASE SCANS) Bilirubin Total (External) 6.6(H) 0.1 - 1.5 mg/dL NON-INTERFACE D (ONBASE SCANS) Bilirubin Direct (External) 2.5(H) 0.0 - 0.5 mg/dL NON-INTERFACE D (ONBASE SCANS) AST (External) 61(H) 12 - 35 U/L NON-INTERFACE D (ONBASE SCANS) ALT (External) 32 4 - 35 U/L NON- INTERFACE D (ONBASE SCANS) Alk Phosphatase (External) 108 40 - 150 U/L NON-INTERFACE D (ONBASE SCANS) Blood BLOOD SPECIMEN / Unknown 10/19/2023 8:56 AM CDT Narrative BREEZE PFT - 11/09/2023 11:50 AM CDT Verified by Dm Hernandez on 11/09/2023. Provider Outside LAB - BLOOD ORDERABLES Edited R Evolva - Final Performing Organization Address City/[facility]/ZIP Co de Phone Number TUSHAR PFT NON-INTERFACED (ONBASE SCANS) * (ABNORMAL) Hepatic function panel (09/12/2023 10:45 AM CDT) Protein Total (External) 7.0 6.0 - 8.3 g/dL NON-INTERFACE D (ONBASE SCANS) Albumin (External) 3.3 3.3 - 5.0 g/dL NON-INTERFACE D (ONBASE SCANS) Bilirubin Total (External) 6.5(H) 0.1 - 1.5 mg/dl NON-INTERFACE D (ONBASE SCANS) Bilirubin Direct (External) 2.8(H) 0.0 - 0.5 mg/dL NON-INTERFACE D (ONBASE SCANS) AST (External) 152(H) 12 - 35 U/L NON-INTERFACE D (ONBASE SCANS) ALT (External) 56(H) 4 - 35 U/L NON- INTERFACE D (ONBASE SCANS) Alk Phosphatase (External) 139 40 - 150 U/L NON-INTERFACE D (ONBASE SCANS) Blood BLOOD SPECIMEN / Unknown 09/12/2023 10:45 AM CDT Narrative GAILEZE PFT - 11/09/2023 11:42 AM CDT Verified by Isaac Rodrigues on 11/09/2023. Provider Outside LAB - BLOOD ORDERABLES Edited [employer] TUSHAR PFT NON-INTERFACED (ONBASE SCANS) * Hepatitis B surface antigen (09/12/2023 10:45 AM CDT) Hep B Surface Agn (External) Negative Negative NON-INTERFACE D (ONBASE SCANS) Blood BLOOD SPECIMEN / Unknown 09/12/2023 10:45 AM CDT Narrative BREEZE PFT - 11/09/2023 11:42 AM CDT Verified by Isaac Rodrigues on 11/09/2023. Provider Outside LAB - BLOOD ORDERABLES Edited R esult - Final BREEZE PFT NON-INTERFACED (ONBASE SCANS) * Hepatitis B core antibody (09/12/2023 10:45 AM CDT) Hepatitis B Core Gaby (External) Negative Negative NON-INTERFACE D (ONBASE SCANS) Blood BLOOD SPECIMEN / Unknown 09/12/2023 10:45 AM CDT Narrative BREEZE PFT - 11/09/2023 11:42 AM CDT Verified by Isaac Rodrigues on 11/09/2023. Provider Outside LAB - BLOOD ORDERABLES Edited R esult - Final Performing Organization Address [facility]/ZIP Co de Phone Number BREEZE PFT NON-INTERFACED (ONBASE SCANS) * External Lab Results (09/12/2023 10:45 AM CDT) Scan Lab Results (External) See Scanned Report NON-INTERFACE D (ONBASE SCANS) Comment: Hep A Ab, IGM Hep Acute Pnl 09/12/2023 10:4 5 AM CDT Narrative BREEZE PFT - 11/09/2023 11:42 AM CDT Verified by Isaac Rodrigues on 11/09/2023. us Provider Outside LABORATORY Edited Result - Final BREEZE PFT NON-INTERFACED (ONBASE SCANS) * Hepatitis C antibody (09/12/2023 10:45 AM CDT) Hepatitis C Antibody (External) Negative Negative NON-INTERFACE D (ONBASE SCANS) Blood BLOOD SPECIMEN / Unknown 09/12/2023 10:45 AM CDT Narrative BREEZE PFT - 11/09/2023 11:42 AM CDT Verified by Isaac Rodrigues on 11/09/2023. Provider Outside LAB - BLOOD ORDERABLES Edited [facility] Performing Organization Address [facility]/ZIP Co de Phone Number GAILEZE PFT NON-INTERFACED (ONBASE SCANS) * INR (09/06/2023 1:33 PM CDT) Pathologist [facility] INR (External) 1.4 0.8 - 1.4 NON-I NTERFACED (ONBASE SCANS) Blood BLOOD SPECIMEN / Unknown 09/06/2023 1:33 PM CDT Narrative BREEZE PFT - 11/09/2023 11:43 AM CDT Verified by Dm Hernandez on 11/09/2023. Provider Outside LAB - BLOOD ORDERABLES Edited Ev[employer] Performing Organization Address [facility] Co de Phone Number GAILEZE PFT NON-INTERFACED (ONBASE SCANS) * (ABNORMAL) Hepatic function panel (09/06/2023 1:33 PM CDT) Protein Total (External) 7.1 6.0 - 8.3 g/dL NON-INTERFACE D (ONBASE SCANS) Albumin (External) 3.1(L) 3.3 - 5.0 g/dL NON-INTERFACE D (ONBASE SCANS) Bilirubin Total (External) 11.6(H) 0.1 - 1.5 mg/dL NON-INTERFACE D (ONBASE SCANS) Bilirubin Direct (External) 5.0(H) 0.0 - 0.5 mg/dL NON-INTERFACE D (ONBASE SCANS) ALT (External) 34 4 - 35 U/L NON- INTERFACE D (ONBASE SCANS) Alk Phosphatase (External) 197(H) 40 - 150 U/L NON-INTERFACE D (ONBASE SCANS) AST (External) 114(H) 12 - 35 U/L NON-INTERFACE D (ONBASE SCANS) Blood BLOOD SPECIMEN / Unknown 09/06/2023 1:33 PM CDT Narrative BREEZE PFT - 11/09/2023 11:43 AM CDT Verified by Dm Hernandez on 11/09/2023. Provider Outside LAB - BLOOD ORDERABLES Edited [facility] Performing Organization Address [facility] Co de Phone Number BREEZE PFT NON-INTERFACED (ONBASE SCANS) * Lipase (09/06/2023 1:33 PM CDT) Lipase Level Low Scale (External) 53 23 - 300 U/L NON-INTERFACED (ONBASE SCANS) Blood BLOOD SPECIMEN / Unknown 09/06/2023 1:33 PM CDT Narrative BREEZE PFT - 11/09/2023 11:43 AM CDT Verified by mD Hernandez on 11/09/2023. Provider Outside LAB - BLOOD ORDERABLES Edited [facility] Performing Organization Address [facility] de Phone Number BREEZE PFT NON-INTERFACED (ONBASE SCANS) * (ABNORMAL) Calcium Ionized Whole Blood Birgit (09/06/2023 1:33 PM CDT) Calcium Ionized (External) 1.08(L) 1.11 - 1.33 mmol/L NON-INTERFACED (ONBASE SCANS) Blood BLOOD SPECIMEN / Unknown 09/06/2023 1:33 PM CDT Narrative BREEZE PFT - 11/09/2023 11:43 AM CDT Verified by Dm Hernandez on 11/09/2023. Provider Outside LAB - BLOOD ORDERABLES Edited [facility] Performing Organization Address [facility] Co de Phone Number BREEZE PFT NON-INTERFACED (ONBASE SCANS) * (ABNORMAL) Basic metabolic panel (09/06/2023 1:33 PM CDT) Sodium (External) 134(L) 138 - 146 mmol/L NON-INTERFACED (ONBASE SCANS) Potassium (External) 3.4(L) 35 - 4.9 mmol/L NON-INTERFACED (ONBASE SCANS) Chloride (External) 96(L) 98 - 109 mmol/L NON-INTERFACED (ONBASE SCANS) CO2 (External) 25 20 - 32 mmol/L NON-INTERFACED (ONBASE SCANS) Urea Nitrogen (External) <5(L) 8 - 26 mg/dL NON-INTERFACED (ONBASE SCANS) Creatinine (External) 0.6 0.6 - 1.3 mg/dL NON-INTERFACED (ONBASE SCANS) Glucose (External) 106 68 - 115 mg/dL NON-INTERFACED (ONBASE SCANS) Blood BLOOD SPECIMEN / Unknown 09/06/2023 1:33 PM CDT Narrative BREEZE PFT - 11/09/2023 11:43 AM CDT Verified by Dm Hernandez on 11/09/2023. us Provider Outside LAB - BLOOD ORDERABLES Edited R esult - Final BREEZE PFT NON-INTERFACED (ONBASE SCANS) * External Lab Results (11/15/2022 7:30 AM CDT) Scan Lab Results (External) See Scanned Report NON-INTERFACE D (ONBASE SCANS) Comment:H pylori Ag St 11/15/2022 7:30 AM CDT Narrative BREEZE PFT - 11/09/2023 11:33 AM CDT Verified by Isaac Rodrigues on 11/09/2023. us Provider Outside LABORATORY Edited Result - Final GAILEZE PFT NON-INTERFACED (ONBASE SCANS) documented in this encounter Visit Diagnoses Not on filedocumented in this encounter Care Teams Hydramatic Mechanic Relationship Specialty Start Date End Date [facility], Magdalene Myrick [address] [place] [address] PCP - General 08/24/20 Kristen Dockery, RN Registered Nurse Nurse 11/09/23 Kristen Dockery, line inspectorCaterpillar Operator Nurse 05/19/24 Meliza Villaseñor MD [address] [facility] [address] [place] [address] Rooming House Inspector Internal Medicine 05/19/24 Lanny Meléndez APRN COUNTY SURVEYOR [facility] [address] [place] [address] Referring Physician Internal Medicine 05/19/24 Gala Fair, [facility] Creative Specialist 05/20/24 Meliza Villaseñor MD [address] [facility] [address] [place] [address] Physician Internal Medicine 05/20/24 Trey Abraham MD [address] [facility] [address] [place] [address] Surgery 05/20/[address] [facility] [address] [facility] [address] [place] [address] Registered Dietitian Dietitian, Registered 05/20/24 Dixon Hernandez MD [address] [facility] [address] [place] [address] Cardiovascular Disease 05/20/24 Jes Arrington MD 6 [facility] [address] [place] [address] Gastroenterology 06/24/24 documented as of this encounter
--- OUTSIDE RECORDS SUMMARY | 2024-07-07 18:01 | XMS_ITS | Encounter Summary ---
Author Organization [facility] Address [address] [place] [address] Care Team Providers Care Supervisor Billposting Name Role Phone Clinic, [facility] Primary Care Provider Kristen Dockery RN Unavailable UnavailKristen Toussaint RN Unavailable Unavaila Meliza James MD Unavailable [phone] Lanny Meléndez APRN MACHINE SET UP Unavailable [phone] Gala Fair RADIOLOGY NURSE Unavailable [phone] Meliza Villaseñor MD Unavailable [phone] Trey Abraham MD Unavailable [phone] Unavailable Unavail able Dixon Hernandez MD Unavailable [phone] Jes Arrington MD Unavailable + Encounter Details Date Type Department Care Team (Late st Contact Info) Description 09/28/2023 External Order Results Formerly [facility] [address] [place] [address] Outside, Provider Social History Tobacco Use Types [...] PM CDT Legal Sex Female 3:12 AM 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 ENGINEER Gender Identity Female 10/31/2023 12:26 PM CDT Sexual Orientation Straight 10/31/2023 12 :26 PM CDT documented as of this encounter Plan of Treatment Upcoming Encounters Date Type Department Care Team (Late st Contact Info) Description 07/11/2024 PRE VISIT [facility] [address] [phone] Shanthi Griffin MD [address] [place] [address] [phone] *-*INCOMING RECORDS*-* 07/16/2024 7:30 AM CDT Lab [address] [phone] Jes Arrington MD [address] [place] [address] [phone] 07/16/2024 8:10 AM CDT Orders Only [address] [phone] Jes Arrington MD [address] [place] [address] [phone] 07/16/2024 8:30 AM CDT Allied Health/Nurse Visit [facility] [address] [place] [address] [phone] Jes Arrington MD [address] [place] [address] [phone] 07/16/2024 9:00 AM CDT Allied Health/Nurse Visit [facility] [address] [place] [address] [phone] Jes Arrington MD [address] [place] [address] [phone] Gala Fair, [facility] 07/16/2024 10:00 AM CDT Office Visit [facility] [address] [place] [address] [phone] Jes Arrington MD [address] [place] [address] [phone] 07/16/2024 11:00 AM CDT Office Visit [facility] [address] [place] [phone] Jes Arrington MD [address] [place] [address] [phone] Trey Abraham MD [address] [place] [address] [address] [place], [place] [address] 07/16/2024 12:00 PM CDT Allied Health/Nurse Visit [facility] [address] [place] [address] [phone] Jes Arrington MD [address] [place] [address] [phone] Jena Castano, [facility] [address] [place] [address] 07/16/2024 12:30 PM CDT Allied Health/Nurse Visit [facility] [address] [place] [address] [phone] Jes Arrington MD [address] [place] [address] [phone] 07/16/2024 12:50 PM CDT Ancillary Procedure [address] [phone] Jes Arrington MD [address] [place] [address] [address] [place] [phone] 07/16/2024 1:50 PM CDT Ancillary Procedure [facility] [address] [phone] Jes Arrington MD [address] [place] [address] [address] [place] [phone] 07/16/2024 2:30 PM CDT Ancillary Procedure [facility] [address] [phone] Jes Arrington MD [address] [place] [address] [address] [place] [address] 08/26/2024 10:30 AM CDT Appointment [facility] [address] [place] [phone] Meliza Villaseñor MD [address] [place] [phone] 08/26/2024 12:00 PM CDT Appointment Formerly [facility] [address] [place] [phone] Meliza Villaseñor MD [address] [place] [phone] 10/01/2024 8:45 AM CDT Office Visit [facility] [address] [phone] Meliza Villaseñor MD [address] [place] [address] 15[address] Dixon Hernandez MD [address] [phone] [place] [address] documented as of this encounter Procedures Procedure Name Priority Date/Time Associated Diagnosis Comments EXTERNAL LAB RESULTS Routine 09/28/2023 11:39 AM CDT HEPATIC FUNCTION PANEL Routine 09/28/2023 11:39 AM CDT BASIC METABOLIC PANEL Routine 09/28/2023 11:39 AM CDT CBC WITH PLATELETS Routine 09/28/2023 11 :39 AM CDT documented in this encounter Results * (ABNORMAL) Hepatic function panel (09/28/2023 11:39 AM CDT) Bilirubin Total (External) 5.4(H) 0.0 - 1.2 mg/dL NON-INTERFACE D (ONBASE SCANS) Bilirubin Direct (External) 2.29(H) 0.00 - 0.40 mg/dL NON-INTERFACE D (ONBASE SCANS) AST (External) 56(H) 0 - 40 IU/L NON-INTERFACE D (ONBASE SCANS) ALT (External) 35(H) 0 - 32 IU/L NON-INTERFACE D (ONBASE SCANS) Albumin (External) 3.3(L) 3.8 - 4.9 g/dL NON-INTERFACE D (ONBASE SCANS) Alk Phosphatase (External) 103 44 - 121 IU/L NON-INTERFACE D (ONBASE SCANS) Protein Total (External) 6.2 6.0 - 8.5 g/dL NON-INTERFACE D (ONBASE SCANS) Blood BLOOD SPECIMEN / Unknown 09/28/2023 11:39 AM CDT Hansa FINLEY PFT - 02/27/2024 1:38 PM 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 ENGINEER Verified by Leah Gimenez on 02/27/2024. us Provider Outside LAB - BLOOD ORDERABLES Edited R esult - Final TUSHAR PFT NON-INTERFACED (ONBASE SCANS) * (ABNORMAL) Basic metabolic panel (09/28/2023 11:39 AM CDT) Urea Nitrogen (External) 7(L) 8 - 27 mg/dL NON-INTERFACED (ONBASE SCANS) BUN/Creatinine Ratio (External) 12 12 - 28 NON-INTERFACED (ONBASE SCANS) CO2 (External) 25 20 - 29 mmol/L NON-INTERFACED (ONBASE SCANS) Calcium (External) 8.4(L) 8.7 - 10.3 mg/dL NON-INTERFACED (ONBASE SCANS) Chloride (External) 101 96 - 106 mmol/L NON-INTERFACED (ONBASE SCANS) Creatinine (External) 0.57 0.57 - 1.00 mg/dL NON-INTERFACED (ONBASE SCANS) GFR Estimated (External) 104 >59 ml/min/1.7 3m2 NON-INTERFACED (ONBASE SCANS) Glucose (External) 104(H) 70 - 99 mg/dL NON-INTERFACED (ONBASE SCANS) Potassium (External) 3.4(L) 3.5 - 5.2 mmol/L NON-INTERFACED (ONBASE SCANS) Sodium (External) 137 134 - 144 mmol/L NON-INTERFACED (ONBASE SCANS) Blood BLOOD SPECIMEN / Unknown 09/28/2023 11:39 AM CDT Hansa FINLEY PFT - 02/27/2024 1:38 PM 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 ENGINEER Verified by Leah Gimenez on 02/27/2024. us Provider Outside LAB - BLOOD ORDERABLES Edited R esult - Final TUSHAR PFT NON-INTERFACED (ONBASE SCANS) * (ABNORMAL) CBC with platelets (09/28/2023 11:39 AM CDT) Hematocrit (External) 27.2(L) 34.0 - 46.6 % NON-INTERFACE D (ONBASE SCANS) Hemoglobin (External) 9.3(L) 11.1 - 15.9 g/dL NON-INTERFACE D (ONBASE SCANS) MCH (External) 35.5(H) 26.6 - 33.0 pg NON-INTERFACE D (ONBASE SCANS) MCHC (External) 34.2 31.5 - 35.7 g/dL NON-INTERFACE D (ONBASE SCANS) MCV (External) 104(H) 79 - 97 fL NON- INTERFACE D (ONBASE SCANS) Platelet Count (External) 143(L) 150 - 450 x10E3/uL NON-INTERFACE D (ONBASE SCANS) RBC Count (External) 2.62(LL) 3.77 - 5.28 x10E6/uL NON-INTERFACE D (ONBASE SCANS) RDW (External) 13.3 11.7 - 15.4 % NON-INTERFACE D (ONBASE SCANS) WBC Count (External) 6.2 3.4 - 10.8 x10E3/uL NON-INTERFACE D (ONBASE SCANS) Blood BLOOD SPECIMEN / Unknown 09/28/2023 11:39 AM CDT Narrative BREEZE PFT - 02/27/2024 1:38 PM 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 ENGINEER Verified by Leah Gimenez on 02/27/2024. us Provider Outside LAB - BLOOD ORDERABLES Edited R esult - Final BREEZE PFT NON-INTERFACED (ONBASE SCANS) * External Lab Results (09/28/2023 11:39 AM CDT) Scan Lab Results (External) See scanned report NON-INTERFACE D (ONBASE SCANS) Comment:Anti-Mitochondrial A b by IFA 09/28/2023 11:3 9 AM CDT Narrative BREEZE PFT - 02/27/2024 1:38 PM 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 ENGINEER Verified by Leah Gimenez on 02/27/2024. us Provider Outside LABORATORY Edited Result - Final BREEZE PFT NON-INTERFACED (ONBASE SCANS) documented in this encounter Visit Diagnoses Not on filedocumented in this encounter Care Teams Supervisor Billposting Relationship Specialty Start Date End Date Clinic, [facility] [address] [place] [address] PCP - General 08/24/20 Kristen Dockery, RN Registered Nurse Nurse 11/09/23 Kristen Dockery, hall cleanerSpaghetti Press Helper Nurse 05/19/24 Meliza Villaseñor MD [address] [place] [address] Cna Gna Internal Medicine 05/19/24 Lanny Meléndez APRN MACHINE SET UP [facility] [address] [place] [address] Referring Physician Internal Medicine 05/19/24 Gala Fair, [facility] Chief Service Observer 05/20/24 Meliza Villaseñor MD [address] [place] [address] Physician Internal Medicine 05/20/24 Trey Abraham MD [address] [facility] [address] [place], [place] [address] Surgery 05/20/[address] [facility] [address] [facility] [address] [place] [address] Registered Dietitian Dietitian, Registered 05/20/24 Dixon Hernandez MD [address] [facility] [address] [place] [address] Cardiovascular Disease 05/20/24 Jes Arrington MD [address] [place] [address] Gastroenterology 06/24/24 documented as of this encounter
--- OUTSIDE RECORDS SUMMARY | 2024-07-07 18:01 | XMS_ITS | Clinical Summary ---
Author Organization [facility] Address [address] [place] [address] Care Team Providers Care Air Conditioning Insulation Installer Name Role Phone [facility], [facility] Primary Care Provider Kristen Dockery RN Unavailable Unavaila Kristen Bermudez RN Unavailable Unavaila Meliza James MD Unavailable [phone] Lanny Meléndez APRN FISHERIES INSPECTOR Unavailable [phone] Gala Fair DIRECTOR OF SECURITY Unavailable [phone] Meliza Villaseñor MD Unavailable [phone] Trey Abraham MD Unavailable [phone] Unavailable Unavail able Dixon Hernandez MD Unavailable [phone] Jes Arrington MD Unavailable + Allergies Active Allergy Reactions Criticality Noted Date Comments Sulfa Antibiotics Itching,Rash,Hives Low 05/27/2005 Medications * This document contains information received from the source organization and may not represent a complete record from that organization. EPINEPHrine (ANY BX GENERIC EQUIV) 0.3 MG/0.3ML injection 2-pack Inject 0.3 mg into the muscle as needed for anaphylaxis Active fluticasone (CUTIVATE) 0.05 % external cream Apply topically 2 times daily as needed Active fluticasone (FLONASE) 50 MCG/ACT nasal spray Brinkley 2 sprays into both nostrils daily Active gabapentin (NEURONTIN) 300 MG capsule Take 300 mg by mouth 3 times daily Active Potassium Chloride Ramila ER (KLOR-CON M20 PO) Take 20 mEq by mouth 2 times daily Active triamcinolone (KENALOG) 0.1 % external cream Apply topically 2 times daily as needed for irritation Active omalizumab (XOLAIR) 150 MG injection Inject Subcutaneous every 28 days Active hydroCHLOROthia zide 12.5 MG tablet Take 12.5 mg by mouth daily. Active spironolactone (ALDACTONE) 25 MG tablet Take 25 mg by mouth daily. Active loratadine-pseu doePHEDrine (CLARITIN-D 24-HOUR) 10-240 MG 24 hr tablet Take 1 tablet by mouth daily. Active hydrOXYzine HCl (ATARAX) 10 MG tablet Take 10 mg by mouth 3 times daily as needed for itching. Active furosemide (LASIX) 20 MG tablet Take 20 mg by mouth daily. Active Active Problems Problem Noted Date Diagnosed Date Alcohol use disorder, severe, dependence 025 Breast mass, left 10/31/2023 Contact dermatitis 10/31/2023 Disorder of liver 10/31/2023 Epigastric pain 10/31/2023 Gastroesophageal reflux disease 10/31/2023 Jaundice 10/31/2023 Pedal edema 10/31/2023 Dermatitis 10/31/2023 Pruritus 10/31/2023 Restless leg 10/31/2023 Abdominal pain 10/31/2023 JOSE (obstructive sleep apnea) 11/20/2019 Other insomnia 11/20/2019 ASCUS of cervix with negative high risk HPV 09/2019 Overview (10/31/2023): 10/2019 ASCUS/HPV negative Plan: Pap/HPV due 10/2022 Itching 09/26/2019 Elevated blood sugar 08/27/2017 Myopia 05/27/2005 Regular astigmatism 05/27/2005 Essential hypertension 02/22/2005 Allergic rhinitis 04/10/2003 Encounters * This document contains information received from the source organization and may not represent a complete record from that organization. Date Type Department Care Team Description 07/06/2024 9:20 AM CDT [facility] [address] [place] [address] Cirrhosis of liver (H) 07/06/2024 Travel 07/05/2024 Telephone [facility] [address] [place] [phone] Kristen Dockery RN 07/05/2024 Telephone [facility] [address] [place] [phone] Kristen Dockery RN 07/04/2024 Results Follow-Up [facility] [address] [place] [phone] Kristen Dockery RN 07/03/2024 9:30 AM CDT Lab [facility] [address] [place] [phone] Alcoholic cirrhosis (H); Cirrhosis, alcoholic (H) 07/03/2024 MyC Medical Advice Initial Department Kristen Dockery RN 07/03/2024 Travel 07/02/2024 Telephone [facility] [address] [place] [phone] Kristen Dockery RN 07/01/2024 MyC Medical Advice [facility] [address] [place] [phone] Kristen Dockery RN 06/24/2024 Telephone [facility] [address] [place] [phone] Kristen Dockery RN Cancel/Reschedule 06/11/2024 Travel 06/03/2024 MyC Medical Advice Initial Department Kristen Dockery RN 06/03/2024 Telephone [facility] [address] [address] [place] [phone] Neftali Elizabeth MD 05/09/2024 MyC Medical Advice Initial Department Kristen Dockery RN 04/09/2024 Telephone [facility] Hepatology [address] [phone] Shanthi Griffin MD from Last 3 Months Family History Medical History Relation Comments Diabetes Father Hypertension Father Heart Disease Maternal Grandfather Hypertension Maternal Grandfather Hypertension Maternal Grandmother Cerebrovascular Disease Mother Diabetes Mother Hypertension Mother Osteoporosis Mother Retinal detachment Mother Rheumatic fever Mother Diabetes Paternal Grandfather Hypertension Paternal Grandfather Hypertension Paternal Grandmother Relation Status Comments Father Maternal Grandfather Maternal Grandmother Mother Paternal Grandfather Paternal Grandmother Son Alive Social History Tobacco Use Types Packs/Day Years [...] PM CDT Legal Sex Female 3:12 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 Gender Identity Female 10/31/2023 12:26 PM CDT Sexual Orientation Straight 10/31/2023 12 :26 PM CDT Last Filed Vital Signs Vital Sign Reading Time Taken Comments Blood Pressure 106/77 08/27/2020 4:46 PM CDT Pulse 80 08/27/2020 3:15 PM CDT Temperature 36.4 C (97.6 F) 08/27/2020 4:46 PM CDT Respiratory Rate 12 08/27/2020 4:46 PM CDT Oxygen Saturation 98% 08/27/2020 4:46 PM CDT Inhaled Oxygen Concentration - - Weight 62.6 kg (138 lb) 06/12/2024 10:07 AM CDT Height 175.3 cm (5' 9) 06/12/2024 10:07 AM CDT Body Mass Index 20.38 06/12/2024 10:07 AM CDT Plan of Treatment Upcoming Encounters Date Type Department Care Team (Late st Contact Info) Description 07/11/2024 PRE VISIT [facility] [address] [phone] Shanthi Griffin MD [address] [place] [phone] *-*INCOMING RECORDS*-* 07/16/2024 7:30 AM CDT Lab [address] [phone] Jes Arrington MD [address] [place] [phone] 07/16/2024 8:10 AM CDT Orders Only [address] [phone] Jes Arrington MD [address] [place] [address] [phone] 07/16/2024 8:30 AM CDT Allied Health/Nurse Visit [facility] [address] [place] [phone] Jes Arrington MD [address] [place] [address] [phone] 07/16/2024 9:00 AM CDT Allied Health/Nurse Visit [facility] [address] [place] [phone] Jes Arrington MD [address] [place] [address] [phone] Gala Fair, [facility] 07/16/2024 10:00 AM CDT Office Visit [facility] [address] [place] [phone] Jes Arrington MD [address] [place], [place] [address] [address] [place] [address] 07/16/2024 11:00 AM CDT Office Visit [facility] [address] [place] [phone] Jes Arrington MD [address] [place], [place] [address] [address] [place] [address] Trey Abraham MD 420 [facility] 195 [place], [place] [phone] 07/16/2024 12:00 PM CDT Allied Health/Nurse Visit [facility] [address] [place] [address] [phone] Jes Arrington MD [address] [place] [address] Jena Castano, RD [facility] 420 [facility] 84 [place] [address] 07/16/2024 12:30 PM CDT Allied Health/Nurse Visit [facility] [address] [place] [address] [phone] Jes Arrington MD [address] [place] [phone] 07/16/2024 12:50 PM CDT Ancillary Procedure [facility] [address] [phone] Jes Arrington MD [address] [place] [address] 07/16/2024 1:50 PM CDT Ancillary Procedure [facility] Xray [address] [phone] Jes Arrington MD [address] [place] [address] [place] [address] 07/16/2024 2:30 PM CDT Ancillary Procedure [facility] [address] [phone] Jes Arrington MD [address] [place] [address] [place] [address] 08/26/2024 10:30 AM CDT Appointment [facility] [address] [place] [phone] Meliza Villaseñor MD [facility] [address] [place] [address] 08/26/2024 12:00 PM CDT Appointment [facility] [address] [place] [phone] Meliza Villaseñor MD [facility] [address] [place] [address] 10/01/2024 8:45 AM CDT Office Visit [facility] [address] [phone] Meliza Villaseñor MD [address] [place] [address] [phone] Dixon Hernandez MD 420 [facility] 508 [place], [place] [phone] Health Maintenance Due Date Last Done Comments ADVANCE CARE PLANNING 1962 ANNUAL REVIEW OF HM ORDERS 1962 CT COLONOGRAPHY 1962 FIT 1962 FLEX SIG 1962 sDNA (Cologuard) 1962 HEPATITIS A IMMUNIZATION (1 of 2 - Risk 2-dose series) 1981 Pneumococcal Vaccine: 50+ Years (1 of 2 - PCV) 1981 YEARLY PREVENTIVE VISIT 10/21/2020 10/22/2019 COVID-19 Vaccine (2 - Roma risk series) 12/25/2020 11/27/2020 HEPATITIS B IMMUNIZATION (1 of 3 - Risk 3-dose series) 2022 RSV VACCINE (1 - Risk 60-74 years 1-dose series) 2022 INFLUENZA VACCINE (Season Ended) 2024 12/18/2009, 12/15/2008 BMP 07/06/2025 07/06/2024, 06/14, 03/01/2024, Additional history exists MAMMO SCREENING 05/20/2026 05/20/2024, 10/14, 11/21/2008, Additional history exists DIABETES SCREENING 07/07/2027 07/06/2024, 0 07/03/2024, 07/03/2024, Additional history exists HPV TEST 03/01/2029 03/01/2024 PAP 03/01/2029 03/01/2024, 02/13, 10/22/2019 LIPID 07/03/2029 07/03/2024, 03/01/2024 DTAP/TDAP/TD IMMUNIZATION (3 - Td or Tdap) 08/25/2030 08/25/2020, 02/13/2009 COLONOSCOPY 02/03/2033 02/03/2023, 02/03/2023 COLORECTAL CANCER SCREENING 02/03/2033 ZOSTER IMMUNIZATION Completed 11/03/2017, 8 PHQ-2 (once per calendar year) Completed 06/12/2024, 06/12/2024 HEPATITIS C SCREENING Completed 07/03/2024 , 03/01/2024, 09/12/2023 HIV SCREENING Completed 07/03/2024 HPV IMMUNIZATION Aged Out No longer e ligible based on patient's age to complete this topic MENINGITIS IMMUNIZATION Aged Out No l onger eligible based on patient's age to complete this topic Procedures Procedure Name Priority Date/Time Associated Diagnosis Comments INR [facility] 07/06/2024 9:29 AM CDT Cirrhosis of liver (H) COMPREHENSIVE METABOLIC PANEL [facility] 07/06/2024 9:29 AM CDT Cirrhosis of liver (H) URINE CULTURE Routine 07/03/2024 2:36 PM CDT Alcoholic cirrhosis (H) Cirrhosis, alcoholic (H) URINE MICROSCOPIC EXAM Routine 2:36 PM CDT Alcoholic cirrhosis (H) Cirrhosis, alcoholic (H) NICOTINE AND METS, URN, QUANT Routine 07/03/2024 2:36 PM CDT Alcoholic cirrhosis (H) Cirrhosis, alcoholic (H) ETHYL GLUCURONIDE SCREEN WITH REFLEX TO CONFIRMATION, [...] CDT Alcoholic cirrhosis (H) Cirrhosis, alcoholic (H) BILIRUBIN DIRECT Routine 07/03/2024 9:42 AM CDT Alcoholic cirrhosis (H) Cirrhosis, alcoholic (H) DRUG SCREEN 9, SER/DEIDRE W/RFLX TO [...] (H) EBV CAPSID ANTIBODY IGG Routine 07/04/19 9:42 AM CDT Alcoholic cirrhosis [...] CDT Alcoholic cirrhosis (H) Cirrhosis, alcoholic (H) PHOSPHORUS Routine 07/03/2024 9:42 AM CDT [...] 07/03/2024 9:42 AM CDT Alcoholic cirrhosis (H) INR Routine 07/03/2024 9:42 AM CDT Alcoholic cirrhosis (H) COMPREHENSIVE METABOLIC PANEL Routine 07/03/2024 9:42 AM CDT Alcoholic cirrhosis (H) MAMMOGRAM - HIM SCAN 05/20/2024 12:00 AM CDT ABSTRACT PAP ([facility] EXTERNAL RESULT) Routine 03/01/2024 3:40 PM STEREOPTIC PROJECTION TOPOGRAPHER ABSTRACT HPV ([facility] EXTERNAL RESULT) Routine 03/01/2024 3:40 PM STEREOPTIC PROJECTION TOPOGRAPHER COLONOSCOPY - HIM SCAN 3 12:00 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 from Last 3 Months or Most Recently Relevant to Health Maintenance Results * (ABNORMAL) INR (07/06/2024 9:29 AM CDT) Only the most recent of2 resultswithin the time period is included. INR 2.06(H) 0.85 - 1.15 07/06/2024 9:45 AM CDT [facility] PT 23.0(H) 11.8 - 14.8 Seconds 07/06/2024 9:45 AM CDT [facility] Blood STRUCTURE OF RIGHT UPPER LIMB / Unknown Venipuncture / Unknown 07/06/2024 9:29 AM CDT 07/06/2024 9:29 AM CDT Jes Arrington MD LAB - BLOOD ORDERA BLES Final Result LABORATORY [facility] [address] Lab (1st floor, no room number) [place] [address], [facility] * (ABNORMAL) Comprehensive metabolic panel (07/06/2024 9:29 AM CDT) Only the most recent of2 resultswithin the time period is included. Sodium 132(L) 135 - 145 mmol/L 07/06/2024 [...] 07/06/2024 10:03 AM CDT LABORATORY Comment:eGFR calculated 2020 CKD-EPI equation. Calcium 8.3(L) 8.8 - [...] - BLOOD ORDERA BLES Final Result LABORATORY [facility] [address] [facility] Lab (1st floor, no room number) [place] [phone] * Ethyl Glucuronide Urine (07/03/2024 2:36 PM CDT) Ethyl Glucuronide Urine Negative Cutoff 500 ng/mL 07/05/2024 2:51 AM CDT [employer] Comment: Presumptive Negative by immunoassay. Testing by [...] chromatography tandem mass spectrometry (LC-MS/MS). Performed By: [facility] [address] [place] [id number] Senior Qa Automation Engineer: Sedrick Santos MD, PhD CLIA Number: [id number] Urine URINE SPECIMEN OBTAINED BY CLEAN CATCH PROCEDURE / Unknown Non-blood Collection / Unknown 07/03/2024 2:36 PM CDT 07/03/2024 2:36 PM CDT us Jes Arrington MD LAB - URINE ORDERA JD Final Result [facility] [address] [place] [address], [facility] [phone] * Nicotine and Mets, Urn, Quant (07/03/2024 2:36 PM CDT) Cotinine Confirm <15 ng/mL 07/08/19 11:38 AM CDT [facility] Nicotine Confirmation Urine <15 ng/mL 07/07/2024 11:38 AM CDT [facility] Comment: INTERPRETIVE INFORMATION: Nicotine and Metabolites, Urine, Quantitative Methodology: Quantitative Liquid Chromatography-Tandem Mass Spectrometry Positive cutoff: Nicotine 15 ng/mL Cotinine 15 ng/mL 8-KW-Epzewayy 50 ng/mL Anabasine 5 ng/mL For medical [...] developed and its performance characteristics determined by [facility]. It has not been cleared or approved by the [place] Food and Drug Administration. This test was performed in a CLIA certified laboratory and is intended for clinical purposes. Performed By: [facility] [address] [place] [address] Senior Qa Automation Engineer: Sedrick Santos MD, PhD CLIA Number: [id number], Urn, Quant <50 ng/mL 07/07/2024 11:38 AM CDT [facility] Anabasine, Urn, Quant <5 ng/mL 07/07/2024 11:38 AM T [facility] Urine URINE SPECIMEN OBTAINED BY CLEAN CATCH PROCEDURE / Unknown Non-blood Collection / Unknown 07/03/2024 2:36 PM CDT 07/03/2024 2:36 PM CDT Jes Arrington MD LAB - URINE ORDERA BLES Final Result [facility] [address] [place] [address], [facility] [phone] * (ABNORMAL) UA Macroscopic with reflex to Microscopic and Culture (07/03/2024 2:36 PM CDT) Color Urine Fabienne(A) Colorless, Straw, Light Yellow, Yellow 07/03/2024 2:41 PM CDT LABORATORY Appearance Urine Clear Clear 07/04/19 2:41 PM CDT LABORATORY Glucose Urine Negative Negative mg/dL 07/03/2024 2:41 PM CDT LABORATORY Bilirubin Urine Small(A) Negative 2:41 PM CDT LABORATORY Ketones Urine Negative Negative mg/dL 07/03/2024 2:41 PM CDT LABORATORY Specific [place] Urine 1.015 1.003 - 1.035 07/03/2024 2:41 [...] URINE ORDERA BLES Final Result RM LABORATORY [facility] [address] [facility] Lab (no room number, 1st floor of clinic) [place] [address], [facility] * Protein random urine (07/03/2024 2:36 [...] URINE ORDERA BLES Final Result PH LABORATORY [facility] [address] [facility] Lab (Main level, no room number) [place] [address], [facility] * (ABNORMAL) Urine Microscopic Exam (07/03/2024 [...] /HPF RENA 07/03/2024 2:45 PM CDT LABORATORY Hyaline Casts Urine 2-5(A) None Seen /LPF RENA 07/03/2024 2:45 PM CDT [facility] LABORATORY Renal Tubular Epithelials Urine Few(A) None Seen /HPF RENA 07/03/2024 2:45 PM CDT LABORATORY Urine URINE SPECIMEN OBTAINED BY CLEAN CATCH PROCEDURE / Unknown Non-blood Collection / Unknown 07/03/2024 2:36 PM CDT 07/03/2024 2:36 PM CDT Jes Arrington MD LAB - URINE ORDERA BLES Final Result LABORATORY [facility] [address] [facility] (no room number, 1st floor of clinic) [place] [address], [facility] * Urine Culture (07/03/2024 2:36 PM CDT) Culture <10,000 CFU/mL Mixture of Urogenital Zakia 07/05/2024 5:38 AM CDT [facility] Urine URINE SPECIMEN OBTAINED BY CLEAN CATCH PROCEDURE / Unknown Non-blood Collection / Unknown 07/03/2024 2:36 PM CDT 07/03/2024 2:41 PM CDT Jes Arrington MD LAB - MICRO GENERA L ORDERABLES Final Result [facility] LABORATORY [facility] Inf. Diseases Diag. Lab [address] [facility], [address] [place] [address], [facility] * Quantiferon TB Gold Plus (07/03/2024 [...] UM SPECIALTY CORE/PROT/ENDO UM Specialty Core/Prot/Endo 500 [facility], Room [address] * Quantiferon TB Gold Plus Purple Tube (07/03/2024 9:42 AM CDT) [facility] Quantiferon Mitogen 1.08 IU/mL 07/04/2024 12:05 PM CDT UM SPECIALTY CORE/PROT/ENDO Blood BLOOD SPECIMEN / Unknown Venipuncture / Unknown 07/03/2024 9:42 AM CDT 07/03/2024 2:29 PM CDT Jes Arrington MD LAB - MICRO GENERA L ORDERABLES Final Result UM SPECIALTY CORE/PROT/ENDO UM Specialty Core/Prot/Endo 500 [facility], Room [address] * Quantiferon TB Gold Plus Yellow Tube (07/03/2024 9:42 AM CDT) Quantiferon TB2 Tube 0.05 07/04/2024 12:56 PM CDT UM SPECIALTY CORE/PROT/ENDO Blood BLOOD SPECIMEN / Unknown Venipuncture / Unknown 07/03/2024 9:42 AM CDT 07/03/2024 2:29 PM CDT Jes Arrington MD LAB - MICRO GENERA L ORDERABLES Final Result UM SPECIALTY CORE/PROT/ENDO UM Specialty Core/Prot/Endo 500 [facility], Room [address] * Quantiferon TB Gold Plus Green Tube (07/03/2024 9:42 AM CDT) Quantiferon TB1 Tube 0.04 IU/mL 07/04/2024 12:56 PM CDT SPECIALTY CORE/PROT/ENDO Blood BLOOD SPECIMEN / Unknown Venipuncture / Unknown 07/03/2024 9:42 AM CDT 07/03/2024 2:29 PM CDT Jes Arrington MD LAB - MICRO GENERA L ORDERABLES Final Result Performing Organization Address [facility] Co de Phone Number SPECIALTY CORE/PROT/ENDO Specialty Core/Prot/Endo 500 [facility], Room [address] * Quantiferon TB Gold Plus Estevez Tube (07/03/2024 9:42 AM CDT) Quantiferon Nil Tube 0.05 IU/mL 07/04/2024 12:57 PM CDT SPECIALTY CORE/PROT/ENDO Blood BLOOD SPECIMEN / Unknown Venipuncture / Unknown 07/03/2024 9:42 AM CDT 07/03/2024 2:29 PM CDT Jes Arrington MD LAB - MICRO GENERA L ORDERABLES Final Result Performing Organization Address City/State/[facility] Co de Phone Number SPECIALTY CORE/PROT/ENDO Specialty Core/Prot/Endo 500 [facility] [address] [facility], Room [address] * Hepatitis A Antibody Total (07/03/2024 9:42 [...] ORDERA BLES Final Result Performing Organization Address City/[facility]/ZIP Co de Phone Number LABORATORY [facility] [place] [facility] 500 [facility], [address] [id number] * Adult Type and Screen (07/03/2024 9:42 AM CDT) ABO/RH(D) A POS 07/02/2024 7:00 PM CDT RH BLOOD BANK Antibody Screen Negative Negative 07/02/2024 7:00 PM CDT RH BLOOD BANK SPECIMEN EXPIRATION DATE [id number] 07/02/2024 7:00 PM CDT RH BLOOD BANK Blood BLOOD SPECIMEN / Unknown Venipuncture / Unknown 07/03/2024 9:42 AM CDT 07/03/2024 9:42 AM CDT Jes Arrington MD LAB - BLOOD BANK T EST ORDER Final Result [place] [address] * Hepatitis B Surface Antibody (07/03/2024 9:42 AM CDT) Pathologist [facility] Hepatitis B Surface Antibody Nonreactive 07/03/2024 8:54 [...] BLOOD ORDERA BLES Final Result [facility]U LABORATORY [facility] [place] [facility] 500 [facility], [address] [address] * (ABNORMAL) EBV Capsid Antibody IgG (07/03/2024 9:42 AM CDT) Pathologist [facility] EBV Capsid Gaby IgG Instrument Value 407.0(H) [...] UM SPECIALTY CORE/PROT/ENDO UM Specialty Core/Prot/Endo 500 [facility] [address] Building, [id number] [place] [address] SPECIALTY LABS Specialty Lab 500 [facility] [address] Building, [address] [address] * CMV Antibody IgG (07/03/2024 9:42 AM CDT) Pathologist [facility] CMV Gaby IgG Instrument Value <0.20 <0.60 U/mL 07/03/2024 11:21 PM CDT SPECIALTY CORE/PROT/EN DO CMV Antibody IgG No detectable antibody. No detectable antibody. 07/03/2024 11:21 PM CDT SPECIALTY LABS Blood BLOOD SPECIMEN / Unknown Venipuncture / Unknown 07/03/2024 9:42 AM CDT 07/03/2024 9:42 AM CDT Jes Arrington MD LAB - BLOOD ORDERA BLES Final Result UM SPECIALTY CORE/PROT/ENDO UM Specialty Core/Prot/Endo 500 [facility] [address] Building, [id number] [place] [address] SPECIALTY LABS Specialty Lab 500 [facility] [address] Building, [address] [address] * Rapid Plasma Reagin w Rflx to TITER (07/03/2024 9:42 AM CDT) [facility] Rapid Plasma Reagin Nonreactive Nonreactive 07/04/2024 11:40 AM CDT SPECIALTY CORE/PROT/EN DO Comment:Specimen sent to [facility]) for confirmation. Blood BLOOD [...] produce false- positive results with this test. us Jes Arrington MD LAB - BLOOD ORDERA BLES Final Result SPECIALTY CORE/PROT/ENDO Specialty Core/Prot/Endo 500 [facility], [address] * (ABNORMAL) Treponema Abs w Reflex to RPR and Titer (07/03/2024 9:42 AM CDT) Pathologist [facility] Treponema Antibody Total Reactive( A) Nonreactive 07/03/2024 [...] ORDERA BLES Final Result Performing Organization Address City/[facility] Co de Phone Number UM SPECIALTY CORE/PROT/ENDO UM Specialty Core/Prot/Endo 500 [facility], Room [address] SPECIALTY LABS Specialty Lab 500 [facility], Room [address] [place] [address] * Quantiferon TB Gold Plus Collection (07/03/2024 9:42 AM CDT) Blood BLOOD SPECIMEN / Unknown Venipuncture / Unknown 07/03/2024 9:42 AM CDT 07/03/2024 9:42 AM CDT Jes Arrington MD LAB - MICRO GENERA L ORDERABLES Final Result Performing Organization Address City/[facility] Co de Phone Number UM SPECIALTY CORE/PROT/ENDO UM Specialty Core/Prot/Endo 500 [facility] Building, Room [address] * Quantiferon TB Gold Plus Primary (07/03/2024 9:42 AM CDT) Blood BLOOD SPECIMEN / Unknown Venipuncture / Unknown 07/03/2024 9:42 AM CDT 07/03/2024 2:29 PM CDT Jes Arrington MD LAB - MICRO GENERA L ORDERABLES Final Result Performing Organization Address City/[facility]/ZIP Co de Phone Number UM SPECIALTY CORE/PROT/ENDO [facility] Specialty Core/Prot/Endo 500 [facility], Room [address] * HIV Antigen Antibody Combo Pretransplant Teller (07/03/2024 9:42 AM CDT) [facility] HIV Antigen Antibody Combo Pretransplant Nonreactive Nonreactive 07/03/2024 9:11 PM CDT U LABORATORY Comment:Negative HIV-1 p24 a ntigen and [...] - BLOOD ORDERA BLES Final Result LABORATORY [facility] [place] [place] [facility] [address] [place] [address], Room [address] [place] [address] * Treponema pallidum antibody confirm (07/03/2024 9:42 AM CDT) [facility] T Pallidum by TP-PA conf Non Reactive Non Reactive 07/06/2024 11:07 PM CDT [employer] Comment: Performed By: [employer] [address] [place] [id number] Senior Qa Automation Engineer: Sedrick Santos MD, PhD CLIA Number: [id number] Blood BLOOD SPECIMEN / Unknown Venipuncture / Unknown 07/03/2024 9:42 AM CDT 07/04/2024 11:40 AM CDT Jes Arrington MD LAB - BLOOD ORDERA BLES Final Result Performing Organization Address City/[facility]/ZIP Co de Phone Number [employer] [address] [place] [phone], [facility] [phone] * Phosphatidylethanol (PEth), Whole Blood (07/03/2024 9:42 AM CDT) [facility] PEth 16:0/18:1 (POPEth) <10 ng/mL 07/05/2024 11:00 AM T [facility] Comment: PEth 16:0/18:1 (POPEth) Less than 10 ng/mL............Not detected Less than 20 ng/mL............Abstinence or light alcohol consumption 20 - 200 ng/mL................Moderate alcohol consumption Greater than 200 ng/mL........Heavy alcohol consumption or chronic alcohol use (Reference: Eligio Day and Dixon Evans 2018 J. Forensic Sci) PEth 16:0/18:2 (PLPEth) <10 ng/mL 07/05/2024 11:00 AM T [facility] Comment:Reference ranges are not well established. EER Phosphatidylethanol (PETH) See Note 07/05/2024 11:00 AM T [facility] Comment: Authorized individuals can access the [employer] Enhanced Report with an [employer] Connect account using the following link. Your local lab can assist you in obtaining the patient report if you don't have a Connect account. [email or web address] PEth Interpretation See Comment 07/05/2024 11:00 AM T [facility] Comment: Phosphatidylethanol (PEth) is a group [...] developed and its performance characteristics determined by [facility]. It has not been cleared or approved by the U.S. Food and Drug Administration. This test was performed in a CLIA-certified laboratory and is intended for clinical purposes. Performed By: [facility] [address] [place] [address] Senior Qa Automation Engineer: Sedrick Santos MD, PhD CLIA Number: [id number] Blood BLOOD SPECIMEN / Unknown Venipuncture / Unknown 07/03/2024 9:42 AM CDT 07/03/2024 9:42 AM CDT Jes Arrington MD LAB - BLOOD ORDERA BLES Final Result [address] [address], [facility] [phone] * DRUG SCREEN 9, SER/DEIDRE W/RFLX TO [...] Cutoff 20 ng/mL 07/05/2024 1:37 PM CDT [facility] Phencyclidine Qual Negative Cutoff 10 ng/mL 07/05/2024 1:37 PM CDT [facility] Methamphetamine Qual Positive Cutoff 20 ng/mL 07/05/2024 1:37 PM CDT [facility] Comment: If the screen is positive, then confirmation by mass spectrometry will be added. Additional charges will apply. Unconfirmed positive may be useful for medical purposes, but does not meet forensic standards. Drug Screen Comments, Serum or Plasma See Note 07/05/2024 1:37 PM CDT [facility] Comment: INTERPRETIVE INFORMATION: Drug Screen [...] developed and its performance characteristics determined by [facility] [facility]. It has not been cleared or approved by the US Food and Drug Administration. This test was performed in a CLIA certified laboratory and is intended for clinical purposes. Performed By: [facility] [address] [place], [place] [id number] Senior Qa Automation Engineer: Sedrick Santos MD, PhD CLIA Number: [id number] Cannabinoids Qual Negative Cutoff 20 ng/mL 07/05/2024 1:37 PM CDT [facility] Blood BLOOD SPECIMEN / Unknown Venipuncture / Unknown 07/03/2024 9:42 AM CDT 07/03/2024 9:42 AM CDT Jes Arrington MD LAB - BLOOD ORDERA BLES Final Result [facility] [address] [place] [address], [facility] [phone] * (ABNORMAL) Vitamin D Deficiency (07/03/2024 9:42 AM CDT) Vitamin D, Total (25-Hydroxy) 15(L) 20 - 50 ng/mL 07/03/2024 8:43 PM CDT [facility] Comment:mild to moderate def iciency Blood BLOOD SPECIMEN / Unknown Venipuncture / Unknown 07/03/2024 9:42 AM CDT 07/03/2024 9:42 AM CDT Narrative [facility] - 07/03/2024 8:43 PM CDT Season, race, dietary intake, and treatment affect the concentration of 76-yhsqowv-Lcwwnsr D. Values may decrease during winter months and increase during summer months. Vitamin D determination is routinely performed by an immunoassay specific for 25 hydroxyvitamin D3. If an individual is on vitamin D2(ergocalciferol) supplementation, please specify 25 OH vitamin D2 and D3 level determination by LCMSMS test VITD23. Jes Arrington MD LAB - BLOOD ORDERA BLES Final Result [facility] [place] [facility] 500 [facility], [address] [phone] * TSH with free T4 reflex (07/03/2024 9:42 AM CDT) TSH 2.95 0.30 - 4.20 uIU/mL 07/03/2024 10:29 PM CDT [facility] Blood BLOOD SPECIMEN / Unknown Venipuncture / Unknown 07/03/2024 9:42 AM CDT 07/03/2024 9:42 AM CDT Jes Arrington MD LAB - BLOOD ORDERA BLES Final Result Performing Organization Address City/[facility]/ZIP Co de Phone Number U LABORATORY [facility] [place] [place] [facility] 500 [facility], [address] * (ABNORMAL) Transferrin (07/03/2024 9:42 AM CDT) Transferrin 187.0(L) 200.0 - 360.0 mg/dL 07/03/2024 8:43 PM CDT [facility] Blood BLOOD SPECIMEN / Unknown Venipuncture / Unknown 07/03/2024 9:42 AM CDT 07/03/2024 9:42 AM CDT Jes Arrington MD LAB - BLOOD ORDERA BLES Final Result Performing Organization Address City/[facility]/ZIP Co de Phone Number U LABORATORY [facility] Lab 500 [facility], [address] * Phosphorus (07/03/2024 9:42 AM CDT) Phosphorus 2.9 2.5 - 4.5 mg/dL 07/03/2024 8:43 PM CDT [facility] Blood BLOOD SPECIMEN / Unknown Venipuncture / Unknown 07/03/2024 9:42 AM CDT 07/03/2024 9:42 AM CDT Jes Arrington MD LAB - BLOOD ORDERA BLES Final Result Performing Organization Address City/[facility]/ZIP Co de Phone Number U LABORATORY [facility] [place] [facility] 500 [facility], [address] [phone] * (ABNORMAL) Lipid Profile (07/03/2024 9:42 AM CDT) Cholesterol 203(H) <200 mg/dL 07/03/2024 8:34 PM [...] BLOOD ORDERA BLES Final Result [facility] LABORATORY [facility] [place] [facility] 500 [facility], Room [address] [place] [address], [facility] * (ABNORMAL) Iron and iron binding [...] ORDERA BLES Final Result Performing Organization Address [facility] de Phone Number LABORATORY [facility] [place] [facility] 500 [facility], Room [address] [place] [address] * Hepatitis C antibody (07/03/2024 9:42 AM [...] ORDERA BLES Final Result Performing Organization Address City/[facility] Co de Phone Number LABORATORY [facility] [place] [facility] 500 [facility], Room [address] [place], [place] [address] [place] [address] * Hepatitis B surface antigen (07/03/2024 9:42 AM CDT) Hepatitis B Surface Antigen Nonreactive Nonreactive 07/03/2024 8:46 PM CDT LABORATORY Blood BLOOD SPECIMEN / Unknown Venipuncture / Unknown 07/03/2024 9:42 AM CDT 07/03/2024 9:42 AM CDT Jes Arrington MD LAB - BLOOD ORDERA BLES Final Result LABORATORY [facility] [place] [place] [facility] [address] [facility], [address] [phone] * Hepatitis B core antibody (07/03/2024 9:42 AM CDT) [facility] Hepatitis B Core Antibody Total Nonreactive Nonreactive 07/03/2024 8:46 PM CDT LABORATORY Comment:Nonreactive hepatiti s B core antibody test results indicate the absence of exposure to hepatitis B virus and no evidence of recent, past/resolved, or chronic hepatitis B. Blood BLOOD SPECIMEN / Unknown Venipuncture / Unknown 07/03/2024 9:42 AM CDT 07/03/2024 9:42 AM CDT Jes Arrington MD LAB - BLOOD ORDERA BLES Final Result LABORATORY [facility] [place] [facility] [address] [facility], [address] [phone] [place] [address] * Hemoglobin A1c (07/03/2024 9:42 AM CDT) [facility] Estimated Average Glucose 74 <117 mg/dL [...] - BLOOD ORDERA BLES Final Result LABORATORY [facility] [place] [facility] [address] [facility] (no room number, 1st floor of clinic) [place] [address] * Ferritin (07/03/2024 9:42 AM CDT) Pathologist [facility] Ferritin 216 11 - 328 ng/mL 07/03/2024 8:34 PM CDT [facility] Blood BLOOD SPECIMEN / Unknown Venipuncture / Unknown 07/03/2024 9:42 AM CDT 07/03/2024 9:42 AM CDT Jes Arrington MD LAB - BLOOD ORDERA BLES Final Result LABORATORY [facility] [place] [facility] 500 [facility], [address] [address] * (ABNORMAL) Bilirubin direct (07/03/2024 9:42 AM CDT) Pathologist [facility] Bilirubin Direct 4.65(H) 0.00 - 0.45 mg/dL 07/03/2024 8:34 PM CDT [facility] Comment:As of 24, refer ence ranges and trending lines may vary depending on the testing location. Blood BLOOD SPECIMEN / Unknown Venipuncture / Unknown 07/03/2024 9:42 AM CDT 07/03/2024 9:42 AM CDT Jes Arrington MD LAB - BLOOD ORDERA BLES Final Result LABORATORY [facility] [place] [facility] 500 [facility], [address] [address] * AFP tumor marker (07/03/2024 9:42 AM CDT) Pathologist [facility] AFP tumor marker 3.4 <=8.3 ng/mL 07/03/2024 [...] BLOOD ORDERA BLES Final Result U LABORATORY [facility] [place] [facility] [address] [facility], Room [address] [place] [address] * (ABNORMAL) CBC with platelets (07/03/2024 [...] - BLOOD ORDERA BLES Final Result LABORATORY [facility] [place] [facility] [address] [facility] (no room number, 1st floor of clinic) [place] [address], [facility] * Mammogram - HIM Scan (05/20/2024 12:00 AM CDT) Anatomical Region Laterality Modality Other 05/20/2024 Provider Outside IMG MAMMOGRAPHY ORDERABLES Krissy l Result * Abstract HPV (HIM External Result) (03/01/2024 3:40 PM STEREOPTIC PROJECTION TOPOGRAPHER) HPV Abstract See Scanned Document [facility] [employer] 03/01/2024 3:40 PM STEREOPTIC PROJECTION TOPOGRAPHER Narrative [facility] - 03/01/2024 3:40 PM STEREOPTIC PROJECTION TOPOGRAPHER [facility] - External Lab Results Provider Outside LAB - HIM EXTERNAL RESULT Final Result Performing Organization Address City/[facility]/ZIP Co de Phone Number [facility] [employer] [address] [phone] * Abstract PAP (HIM External Result) (03/01/2024 3:40 PM STEREOPTIC PROJECTION TOPOGRAPHER) PAP-ABSTRACT See Scanned Document [facility] [employer] 03/01/2024 3:40 PM STEREOPTIC PROJECTION TOPOGRAPHER Narrative [facility] - 03/01/2024 3:40 PM STEREOPTIC PROJECTION TOPOGRAPHER [facility] - External Lab Results Provider Outside LAB - HIM EXTERNAL RESULT Final Result [facility] [employer] [address] [phone] * Colonoscopy - HIM Scan (02/03/2023 12:00 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) 02/03/2023 us Provider Outside PROCEDURES Final Result from Last 3 Months or Most Recently Relevant to Health Maintenance [place] Care Teams Air Conditioning Insulation Installer Relationship Specialty Start Date End Date Clinic, [facility] [address] [place], [place] [phone] PCP - General 08/24/20 Kristen Dockery, RN Registered Nurse Nurse 11/09/23 Kristen Dockery, industrial security analystMorgue Keeper Nurse 05/19/24 Meliza Villaseñor MD [address] [place] [address] Disability Aide Internal Medicine 05/19/24 Lanny Meléndez APRN FISHERIES INSPECTOR [facility] [id number] [place], [place] [phone] Referring Physician Internal Medicine 05/19/24 Gala Fair, [facility] Manager Actuarial 05/20/24 Meliza Villaseñor MD [address] [place] [address] Physician Internal Medicine 05/20/24 Trey Abraham MD 420 [facility] 195 [place], [place] [phone] MD Surgery 05/20/[address] [facility] 420 [facility] 84 [place] [address] Registered Dietitian Dietitian, Registered 05/20/24 Dixon Hernandez MD 420 [facility] 508 [place], [place] [address] Cardiovascular Disease 05/20/24 Jes Arrington MD [address] [place] [address] Gastroenterology 06/24/24
--- OUTSIDE RECORDS SUMMARY | 2024-07-07 18:01 | XMS_ITS | Encounter Summary ---
Author Organization [place] Address [address] [place] [address] Care Team Providers Care Grill Chef Name Role Phone Clinic, [facility] Primary Care Provider Kristen Dockery RN Unavailable UnavailKristen Toussaint RN Unavailable Unavaila Meliza James MD Unavailable [phone] Lanny Meléndez APRN FLEET OPERATIONS MANAGER Unavailable [phone] Gala Fair UTILITY TECHNICIAN Unavailable [phone] Meliza Villaseñor MD Unavailable [phone] Trey Abraham MD Unavailable [phone] Unavailable Unavail able Dixon Hernandez MD Unavailable [phone] Jes Arrington MD Unavailable + Encounter Details Date Type Department Care Team (Late st Contact Info) Description 10/19/2023 External Order Results [facility] [address] [place] [address] Outside, Provider Social History Tobacco Use Types [...] PM CDT Legal Sex Female 3:12 AM DIRECTOR OF PHYSICAL THERAPY Gender Identity Female 10/31/2023 12:26 PM CDT Sexual Orientation Straight 10/31/2023 12 :26 PM CDT documented as of this encounter Plan of Treatment Upcoming Encounters Date Type Department Care Team (Late st Contact Info) Description 07/11/2024 PRE VISIT [facility] [address] [phone] Shanthi Griffin MD [address] [place] [address]45[address] *-*INCOMING RECORDS*-* 07/16/2024 7:30 AM CDT Lab [address] [phone] Jes Arrington MD [address] [place] [phone] 07/16/2024 8:10 AM CDT Orders Only [address] [phone] Jes Arrington MD [address] [place] [phone] 07/16/2024 8:30 AM CDT Allied Health/Nurse Visit [facility] [address] [place] [phone] Jes Arrington MD [address] [place] [phone] 07/16/2024 9:00 AM CDT Allied Health/Nurse Visit [facility] [address] [place] [address] [phone] Jes Arrington MD [address] [place] [address] Gala Fair, [facility] 07/16/2024 10:00 AM CDT Office Visit [facility] [address] [place] [address] [phone] Jes Arrington MD [address] [place] [address] [phone] 07/16/2024 11:00 AM CDT Office Visit [facility] [address] [place] [phone] Jes Arrington MD [address] [place] [address] [phone] Trey Abraham MD [address] [place] [address] 195 [place], [place] [address] 07/16/2024 12:00 PM CDT Allied Health/Nurse Visit [facility] [address] [place] [address] [phone] Jes Arrington MD [address] [place] [address] [phone] Jena Castano, [employer] [address] [place] [address] 07/16/2024 12:30 PM CDT Allied Health/Nurse Visit [facility] [address] [place] [phone] Jes Arrington MD [address] [place] [phone] 07/16/2024 12:50 PM CDT Ancillary Procedure [address] [phone] Jes Arrington MD [address] [place] [address] [address] [place] [address] 07/16/2024 1:50 PM CDT Ancillary Procedure [facility] Xray [address] [phone] Jes Arrington MD [address] [place] [address] [address] [place] [address] 07/16/2024 2:30 PM CDT Ancillary Procedure [facility] [address] [phone] Jes Arrington MD [address] [place] [address] [address] [place] [address] 08/26/2024 10:[address] [facility] 500 [place] [phone] Meliza Villaseñor MD [address] [place] [address] 08/26/2024 12:00 PM CDT Appointment [facility] 500 [place] [address] Meliza Villaseñor MD [address] [place] [address] 10/01/2024 8:45 AM CDT Office Visit [facility] [address] [phone] Meliza Villaseñor MD [address] [place] [address] Dixon Hernandez MD 420 [facility] 508 [place], [place] [phone] documented as of this encounter Visit Diagnoses Not on filedocumented in this encounter Care Teams Grill Chef Relationship Specialty Start Date End Date Clinic, [facility] [address] [facility] [address] [place], [place] [phone] PCP - General 08/24/20 Kristen Dockery, RN Registered Nurse Nurse 11/09/23 Kristen Dockery, postal sorting officerDevice Repair Technician Nurse 05/19/24 Meliza Villaseñor MD [address] [place] [address] Blue Split Trimmer Internal Medicine 05/19/24 Lanny Meléndez APRN FLEET OPERATIONS MANAGER [facility] [address] [place], [place] [address] Referring Physician Internal Medicine 05/19/24 Gala Fair, [facility] Body Cleaner 05/20/24 Meliza Villaseñor MD [address] [place] [address] Physician Internal Medicine 05/20/24 Trey Abraham MD 420 [facility] 195 [place], [place] [phone] Surgery 05/20/[address] [facility] 420 [facility] 84 [place] [address] Registered Dietitian Dietitian, Registered 05/20/24 Dixon Hernandez MD [address] [facility] [address] [place], [place] [phone] Cardiovascular Disease 05/20/24 Jes Arrington MD 516 [facility] [address] [place], [place] [phone] Gastroenterology 06/24/24 documented as of this encounter
--- NOTE | 2024-07-07 18:33 | ED.GENADULT ---
HPI - General Adult General Date Seen: 07/07/24 Chief complaint: Abdominal Pain Stated complaint: Ascites concerns Time Seen by Provider: 07/07/24 18:33 History of Present Illness HPI narrative: 63-year-old female with a past medical history of liver disease in jaundice presents to the ER today with Labs from 03/15/2024 showed a white count of 3.2, hemoglobin 10.1, platelet count 97 Sodium 134, potassium 3.9, chloride 101, bicarb 27, BUN 15, creatinine 0.7. Total bilirubin was 6.7, AST 41, ALT 29, alk-phos 139. INR was 1.38 on 03/29. Abd US 09/15/23 FINDINGS: The liver echotexture is coarsened. The main portal vein is patent with antegrade flow. The liver has a macronodular contour. There is a normal appearance of the hepatic IVC and proximal abdominal aorta. Ascites is present. The gallbladder is absent. The common bile duct is of normal size and measures 4.9 mm in diameter at the level of the shila hepatis. The pancreas appears normal. There is no evidence of a stone or hydronephrosis within the right kidney. The right kidney measures 9.3 cm in length. IMPRESSION: Cirrhotic liver with ascites. The patient reports that she has been in the process of workup for her liver with her doctors to the [employer] system and through [facility]. They know that she has worsening cirrhosis with complications including peripheral edema and ascites. It sounds like they do not yet know the actual cause of her liver disease. It is not thought to be alcohol related. She has been referred to the liver transplant team at the [facility]. She has had phone contact with her liver transplant team, but has not actually seen them yet for her 1st in person visit. She is on loop diuretics over the long-term. Apparently she had labs done on , 3 days ago that showed dangerously low potassium at about 1.8 or 1.9. She was told to stop her loop diuretic. She was told to start taking a potassium supplement. She did not have any prescription potassium so she went to the pharmacy and got an [id number] version of potassium. She had a recheck potassium level done yesterday on Monday and her K had increased to 3.5. She was in the process, last week, of getting set up for an outpatient paracentesis. It sounds like she was not doing too bad last week so they were putting off the paracentesis to occur sometime this next week. She thought she would be able to make it through the weekend. Over the past couple of days since she has been off her loop diuretic she has noted that she has had increasing bilateral lower extremity peripheral edema and significant increase in her abdominal girth, bloated feeling, and general discomfort. She is not really having abdominal pain. No fever. She has a little bit short of breath because she feels like she can not move her diaphragm down to take a deep breath. She is not coughing. No chest pain. No palpitations. She came here to the ER desiring evaluation for her ascites and, if possible, to get a paracentesis. Related Data Home Medications ?Medication ?Instructions ?Recorded ?Confirmed furosemide 20 mg tablet 20 mg PO DAILY 02/20/24 07/07/24 spironolactone 50 mg tablet 50 mg PO DAILY 02/20/24 07/07/24 Previous Rx's ?Medication ?Instructions ?Recorded loratadine-pseudoephedrine ER 10 1 tab PO QDAY #90 tabs 07/27/23 mg-240 mg tablet,extended [id number] (lorata-dine D) gabapentin 300 mg capsule 300 mg PO 3XD PRN for itch #270 03/01/24 caps hydrochlorothiazide 12.5 mg capsule 12.5 mg PO QAM #90 caps 03/01/24 hydroxyzine HCl 10 mg tablet 10 - 30 mg (1 - 3 x 10 mg) PO TID 06/10/24 PRN itching #360 tabs Allergies Allergy/AdvReac Type Severity Reaction Status Date / Time Sulfa (Sulfonamide Allergy Mild Hives Verified 07/07/24 18:26 Antibiotics) [facility] Surgical History History of tonsillectomy and adenoidectomy ?Z90.89 - Acquired absence of other organs (ICD-10) History of liver biopsy ?Z98.890 - Other specified postprocedural states (ICD-10) History of endometrial ablation ?Z98.890 - Other specified postprocedural states (ICD-10) History of cholecystectomy ?Z90.49 - Acquired absence of other specified parts of digestive tract (ICD-10) History of breast biopsy ?Z98.890 - Other specified postprocedural states (ICD-10) Family History Other Cardiovascular disease Diabetes Stroke Social History Narrative: 1 child non smoker Smoking Status: Never smoker Exam Narrative: Exam Narrative: Constitutional: Appears well-developed and well-nourished. She is jaundiced. Alert. Conversant. Non toxic. HENT: Head: Atraumatic. Nose: Nose normal. Mouth/Throat: Oral mucosa is clear and moist. no trismus. Pharynx normal. Tonsils symmetric. No tonsillar enlargement, erythema, or exudate. Eyes: Conjunctivae normal. EOM normal. Pupils equal, round, and reactive to light. No scleral icterus. Neck: Normal range of motion. Neck supple. No tracheal deviation present. Cardiovascular: Normal rate, regular rhythm. No gallop. No friction rub. No murmur heard. Symmetric radial artery pulses Pulmonary/Chest: Effort normal. No stridor. No respiratory distress. No wheezes. No rales. No rhonchi . No tenderness. Abdominal: Soft. Bowel sounds normal. Distended and dull to percussion consistent with ascites.. No mass. No tenderness. No rebound. No guarding. No caput medusa Musculoskeletal: RUE: Normal range of motion. No tenderness. No deformity LUE: Normal range of motion. No tenderness. No deformity RLE: Normal range of motion. No edema. No tenderness. No deformity LLE: Normal range of motion. No edema. No tenderness. No deformity Neurological: Alert and oriented to person, place, and time. Normal strength. CN II-VII intact. No sensory deficit. GCS eye subscore is 4. GCS verbal subscore is 5. GCS motor subscore is 6. Normal coordination Skin: Skin is warm and dry. No rash noted. No pallor. Normal capillary refill. Psychiatric: Normal mood. Normal affect. Const: Vital Signs, click to edit/add: Vital Signs - 24 hr 07/07/24 18:26 07/07/24 19:42 07/07/24 21:06 Temperature 98.4 F Pulse Rate 92 90 Pulse Rate [Pulse Oximeter] 93 Respiratory Rate 18 16 Blood Pressure 102/52 L Blood Pressure [Ri ght Upper Arm] 127/78 Pulse Oximetry 97 98 98 Oxygen Delivery Me thod Room Air Room Air 07/07/24 21:07 07/07/24 21:15 07/07/24 21:30 Temperature Pulse Rate 90 90 91 Pulse Rate [Pulse Oximeter] Respiratory Rate Blood Pressure 104/58 L Blood Pressure [Ri ght Upper Arm] Pulse Oximetry 98 97 97 Oxygen Delivery Me thod 07/07/24 21:31 07/07/24 21:45 07/07/24 22:00 Temperature Pulse Rate 90 92 93 Pulse Rate [Pulse Oximeter] Respiratory Rate Blood Pressure 101/55 L Blood Pressure [Ri ght Upper Arm] Pulse Oximetry 95 97 98 Oxygen Delivery Me thod 07/07/24 22:01 07/07/24 22:15 07/07/24 22:30 Temperature Pulse Rate 92 91 90 Pulse Rate [Pulse Oximeter] Respiratory Rate Blood Pressure 105/54 L Blood Pressure [Ri ght Upper Arm] Pulse Oximetry 98 97 96 Oxygen Delivery Me thod 07/07/24 22:31 07/07/24 22:45 07/07/24 23:00 Temperature Pulse Rate 90 90 88 Pulse Rate [Pulse Oximeter] Respiratory Rate Blood Pressure 103/58 L Blood Pressure [Ri ght Upper Arm] Pulse Oximetry 97 96 97 Oxygen Delivery Me thod 07/07/24 23:01 07/07/24 23:15 07/07/24 23:30 Temperature Pulse Rate 90 90 93 Pulse Rate [Pulse Oximeter] Respiratory Rate Blood Pressure 107/59 L Blood Pressure [Ri ght Upper Arm] Pulse Oximetry 97 96 97 Oxygen Delivery Me thod 07/07/24 23:31 07/07/24 23:46 07/08/24 00:00 Temperature Pulse Rate 94 93 92 Pulse Rate [Pulse Oximeter] Respiratory Rate Blood Pressure 102/59 L Blood Pressure [Ri ght Upper Arm] Pulse Oximetry 97 95 99 Oxygen Delivery Me thod 07/08/24 00:01 07/08/24 00:01 07/08/24 00:01 Temperature Pulse Rate 94 94 94 Pulse Rate [Pulse Oximeter] Respiratory Rate Blood Pressure 96/45 L 96/45 L 96/45 L Blood Pressure [Ri ght Upper Arm] Pulse Oximetry 98 98 98 Oxygen Delivery Me thod 07/08/24 00:15 Temperature Pulse Rate 89 Pulse Rate [Pulse Oximeter] Respiratory Rate Blood Pressure Blood Pressure [Ri ght Upper Arm] Pulse Oximetry 98 Oxygen Delivery Me thod Course Vital Signs Vital signs: Initial Vital Signs Temperature 98.4 F 07/07/24 18:26 Temperature Source Temporal Artery Scan 07/07/24 18:26 Pulse Rate 93 07/07/24 18:26 Respiratory Rate 18 07/07/24 18:26 Blood Pressure 127/78 07/07/24 18:26 Blood Pressure Mean 94 07/07/24 18:26 Blood Pressure Position Sitting 07/07/24 18:26 Pulse Oximetry 97 07/07/24 18:26 Oxygen Delivery Method Room Air 07/07/24 18:26 Vital Signs Temperature 98.4 F 07/07/24 18:26 Pulse Rate 93 07/07/24 18:26 Respiratory Rate 18 07/07/24 18:26 Blood Pressure 127/78 07/07/24 18:26 Pulse Oximetry 97 07/07/24 18:26 Oxygen Delivery Method Room Air 07/07/24 18:26 Temperature 98.4 F 07/07/24 18:26 Pulse Rate 89 07/08/24 00:15 Respiratory Rate 16 07/07/24 19:42 Blood Pressure 96/45 L 07/08/24 00:01 Pulse Oximetry 98 07/08/24 00:15 Oxygen Delivery Method Room Air 07/07/24 19:42 Medical Decision Making MDM Narrative Medical decision making narrative: Very pleasant 63-year-old female with unexplained liver disease and cirrhosis leading to jaundice, ascites, peripheral edema. She has already had extensive workup through [facility] without a cause and is in the process of establishing care with the liver transplant team at [facility]. She has been developing ascites over the past couple weeks which has gotten worse over the past couple of days. She had been in the beginning phases with her liver team of getting set up for outpatient paracentesis. She thought she could make it through the holiday weekend, but ultimately started having increasing discomfort because of fluid distention in her abdomen and trouble breathing so she came to the ER tonight desiring paracentesis. She has also had trouble with will hypokalemia as a side effect of her loop diuretic recently. Laboratory workup tonight does show normal potassium 3.5. Creatinine is 1.8 which is actually down from last week when it was 1.9. LFTs are abnormal, similar to recent. Platelet count is low but safe at 1:19 a.m.. INR is abnormal but safe at 1.6. After verbal and written consent we did perform the paracentesis at the bedside here in the ER. I was able to get out about 2.8 L of ascitic fluid. Patient notes marked improvement in her discomfort after relief of fluid. She is very pleased in eager for discharge home. Discussed outpatient management, indications for return to the ER, need for close outpatient follow-up and repeat labs on Monday. Questions answered. Patient is pleased near for discharge. Lab Data Labs: Lab Results 07/07/24 07/07/24 Range/Units 20:00 20:09 WBC 5.03 (4.50-11.00) K/uL RBC 2.41 L (4.00-5.20) m/uL Hgb 8.1 L (12.0-16.0) gm/dL Hct 24.2 L (33.0-51.0) % MCV 100 (80-100) fL MCH 34 (26-34) pg MCHC 34 (32-36) gm/dL RDW Coeff of Monika 16.6 H (11.5-15.5) % Plt Count 119 L (140-440) K/uL Neut % (Auto) 61.8 (42.0-72.0) % Lymph % (Auto) 20.7 (20-44) % Ellsworth % (Auto) 11.7 H (0.0-11.0) % Eos % (Auto) 5.0 (0.0-7.0) % Baso % (Auto) 0.6 (0.0-3.0) % Neut # (Auto) 3.11 (1.7-7.0) K/uL Lymph # (Auto) 1.04 (0.90-2.90) K/uL Ellsworth # (Auto) 0.60 (0.00-0.90) K/UL Eos # (Auto) 0.25 (0.00-0.50) K/uL Baso # (Auto) 0.03 (0.00-0.30) K/uL Abs Immat Gran (auto) 0.01 (0.00-0.30) K/uL Imm/Tot Granulo (auto) 0.2 % INR 1.63 H (0.91-1.10) Sodium 130 L (135-149) mmol/L Potassium 3.5 L (3.6-5.1) mmol/L Chloride 92 L (96-114) mmol/L Carbon Dioxide 32 (20-32) mmol/L Anion Gap 6 L (7-15) mEq/L BUN 34 H (7-30) mg/dL Creatinine 1.8 H (0.5-1.5) mg/dL Estimated Creat Clear 33.11 Estimated GFR 32 ml/min Glucose 98 (60-115) mg/dL Calcium 8.2 L (8.4-10.6) mg/dL Total Bilirubin 9.3 H (0.1-1.5) mg/dL AST 43 H (12-35) U/L ALT 21 (4-35) U/L Alkaline Phosphatase 222 H (40-150) U/L Total Protein 6.7 (6.0-8.3) g/dL Albumin 2.9 L (3.3-5.0) g/dL Discharge Plan Discharge Clinical Impression: Abdominal ascites Patient Disposition: Home, Self-Care Condition: Stable Instructions: Ascites (ED), Paracentesis (DC) Additional Instructions: As we discussed, please come back to the ER right away if you have any concerns especially abdominal pain, fever, uncontrolled drainage or bleeding from her paracentesis puncture site, or if you have any other problems. Please follow-up with your regular doctors and your liver team next week to recheck. If possible have your team recheck your labs to look at your potassium and your kidney function on Monday. Prescriptions: No Action gabapentin 300 mg capsule 300 mg PO 3XD PRN (Reason: for itch) Qty: 270 3RF hydrochlorothiazide 12.5 mg capsule 12.5 mg PO QAM Qty: 90 3RF spironolactone 50 mg tablet 50 mg PO DAILY furosemide 20 mg tablet 20 mg PO DAILY lorata-dine D 10-240 mg tablet extended release 24 hr 1 tab PO QDAY Qty: 90 3RF hydroxyzine HCl 10 mg tablet 10 - 30 mg PO TID PRN (Reason: itching) Qty: 360 0RF Follow Up/Referrals: Meliza Crawford MD [Primary Care Provider, [facility]] Stand Alone Forms: [facility] Info Instructions Procedures Paracentesis Pre procedure diagnosis: Ascites Written consent by: patient Site marking: site marked Verification/time out: correct patient, correct site and correct procedure Imaging guidance used?: No (Bedside ultrasound was used to localize a pocket of fluid. Was not used f) Anesthesia: lidocaine 1% Amount of anesthesia used (mL): 6 Fluid: clear (2.8 L) Post Procedure Exam: awake, alert, normal BP, normal HR and normal SpO2 Estimated blood loss (if any): none Complications: none Patient Tolerated Procedure: well Ultrasound FAST exam #1: Areas examined: other (Right upper quadrant right abdomen for ascitic fluid.) Exam type: limited abdominal ultrasound Finding: free fluid in abdomen (And appropriate pocket of ascites was identified. Site was marked. Paracentesis was then performed blindly.) Impression: other (Positive for ascites)
[2024-07-07 20:16] LABS: Basophils Absolute Auto 0.03 K/uL (0.00-0.30); Basophils Percent Auto 0.6 % (0.0-3.0); Eosinophils Absolute Auto 0.25 K/uL (0.00-0.50); Hematocrit 24.2 % (33.0-51.0); Hemoglobin* 8.1 gm/dL (12.0-16.0); Immature Granulocytes Abs Auto 0.01 K/uL (0.00-0.30); Immature Granulocytes Pct Auto 0.2 %; Lymphocytes Absolute Auto 1.04 K/uL (0.90-2.90); Lymphocytes Percent Auto 20.7 % (20-44); Mean Corpuscular HGB Conc 34 gm/dL (32-36); Mean Corpuscular Hemoglobin 34 pg (26-34); Mean Corpuscular Volume 100 fL (80-100); Monocytes Percent Auto 11.7 % (0.0-11.0); Neutrophils Absolute Auto 3.11 K/uL (1.7-7.0); Neutrophils Percent Auto 61.8 % (42.0-72.0); Platelet Count* 119 K/uL (140-440); RDW Coefficient of Variation % 16.6 % (11.5-15.5); Red Blood Count 2.41 m/uL (4.00-5.20); White Blood Count* 5.03 K/uL (4.50-11.00)
[2024-07-07 20:18] LABS: Slide Review Reflex No
[2024-07-07 20:29] LABS: INR 1.63 (0.91-1.10); Prothrombin Time 20.3 Seconds
[2024-07-07 20:44] LABS: Albumin* 2.9 g/dL (3.3-5.0); Chloride* 92 mmol/L (96-114); Potassium* 3.5 mmol/L (3.6-5.1); Sodium* 130 mmol/L (135-149)
[2024-07-07 20:47] LABS: Alanine Aminotransferase* 21 U/L (4-35); Alkaline Phosphatase* 222 U/L (40-150); Anion Gap 6 mEq/L (7-15); Aspartate Amino Transferase* 43 U/L (12-35); Bilirubin Total* 9.3 mg/dL (0.1-1.5); Blood Urea Nitrogen* 34 mg/dL (7-30); Calcium* 8.2 mg/dL (8.4-10.6); Carbon Dioxide* 32 mmol/L (20-32); Creatinine* 1.8 mg/dL (0.5-1.5); Est. Creatinine Clearance* 33.11; Estimated Glomerular Filt Rate 32 ml/min; Glucose* 98 mg/dL (60-115); Total Protein* 6.7 g/dL (6.0-8.3)
[2024-07-08] VITALS: PULSE 92; O2SAT 99
[2024-07-08 00:01] VITALS: BP 96/45; PULSE 94; O2SAT 98
[2024-07-08 00:15] VITALS: PULSE 89; O2SAT 98
--- NOTE | 2024-07-08 00:39 | PC.NURSE ---
pt left ER via wheelchair, up in room and steady on feet prior to discharge, pt had approx 3 liters of cloudy yellow colored fluid drained via paracentesis, enrrique well and no pain at this time
== END 2024-07-08 00:37 | disposition home or self-care (01) ==
PROVIDERS: Emergency Provider Emergency Medicine; PCP Family Medicine
DX: R18.8 Other ascites (principal); K74.60 Unspecified cirrhosis of liver
CPT/HCPCS: 49082; 36415; 76604; 76705; 80053; 85025; 85610; 89051; 93308; 99283; 99285

== ENCOUNTER 2024-07-09 13:15 | Outpatient (CLI) | payer BC, SELFPAY | END 2024-07-09 13:16 | disposition home or self-care (01) | PROVIDERS: PCP Family Medicine; Visit Provider Family Medicine | DX: E87.6 Hypokalemia (principal) | CPT/HCPCS: 80053; 83735 ==

== ENCOUNTER 2024-08-01 07:47 | Emergency (ER) | payer BC, SELFPAY ==
--- OUTSIDE RECORDS SUMMARY | 2024-07-03 09:30 | XMS_ITS | Encounter Summary ---
Author Organization Margaret Address [address] [place] [address] Care Team Providers Care Buck Swamper Name Role Phone [facility], [facility] Primary Care Provider Kristen Dockery RN Unavailable Unavaila Kristen Bermudez RN Unavailable Unavaila Meliza James MD Unavailable [phone] Lanny Meléndez APRN MAT CUTTER Unavailable [phone] Gala Fair SCHOOL LUNCH MONITOR Unavailable [phone] Meliza Villaseñor MD Unavailable [phone] Trey Abraham MD Unavailable [phone] Unavailable Unavail able Dixon Hernandez MD Unavailable [phone] Jes Arrington MD Unavailable + Encounter Details Date Type Department Care Team (Late st Contact Info) Description 07/03/2024 9:30 AM CDT Lab [facility] Laboratory [address] [place] [address] Alcoholic cirrhosis (H); Cirrhosis, alcoholic (H) Social History Tobacco Use Types Packs/Day Years Used Date Smoking Tobacco: Never Smokeless Tobacco: Never Alcohol Use Standard Drinks/Week Comments Not Currently 0 (1 standard drink = 0.6 oz pur e alcohol) two months ago last drink PHQ-2 Answer Date Recorded PHQ-2 Score 0 06/12/2024 Adolescent Education Answer Date Record ed Getting School Help Needed Not on file 11/20 Comments No Sex and Gender Information Value Date Recorded Sex Assigned at Female 10/31/2023 12:26 PM CDT 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 [address] [place] [address] Meliza Villaseñor MD [address] [place] [address] 08/26/2024 12:00 PM CDT Appointment [facility] Imaging [address] [place] [phone] Meliza Villaseñor MD [address] [place] [address] 09/12/2024 11:00 AM CDT Office Visit [facility] [address] 2nd [place] [phone] Dixon Hernandez MD [address] [place] [phone] 10/01/2024 PRE VISIT [facility] [address] [place] [phone] Dixon Hernandez MD [address] [place] [address] [id number] Previsit documented as of this encounter Procedures Procedure Name Priority Date/Time Associated Diagnosis Comments ETHYL GLUCURONIDE SCREEN WITH REFLEX TO CONFIRMATION, URINE Routine 07/03/2024 2:36 PM CDT Alcoholic cirrhosis (H) Cirrhosis, alcoholic (H) NICOTINE AND METS, URN, QUANT Routine 07/03/2024 2:36 PM CDT Alcoholic cirrhosis (H) Cirrhosis, alcoholic (H) UA MACROSCOPIC WITH REFLEX TO MICRO AND CULTURE Routine 07/03/2024 2:36 PM CDT Alcoholic cirrhosis (H) Cirrhosis, alcoholic (H) PROTEIN RANDOM URINE Routine 07/03/2024 2:36 PM CDT Alcoholic cirrhosis (H) Cirrhosis, alcoholic (H) URINE MICROSCOPIC EXAM Routine 2:36 PM CDT Alcoholic cirrhosis (H) Cirrhosis, alcoholic (H) URINE CULTURE Routine 07/03/2024 2:36 PM CDT Alcoholic cirrhosis (H) Cirrhosis, alcoholic (H) QUANTIFERON TB GOLD PLUS Routine 025 9:42 AM CDT Alcoholic cirrhosis (H) Cirrhosis, alcoholic (H) QUANTIFERON TB GOLD PLUS PURPLE TUBE Routine 07/03/2024 9:42 AM CDT Alcoholic cirrhosis (H) Cirrhosis, alcoholic (H) QUANTIFERON TB GOLD PLUS YELLOW TUBE Routine 07/03/2024 9:42 AM CDT Alcoholic cirrhosis (H) Cirrhosis, alcoholic (H) QUANTIFERON TB GOLD PLUS GREEN TUBE Routine 07/03/2024 9:42 AM CDT Alcoholic cirrhosis (H) Cirrhosis, alcoholic (H) QUANTIFERON TB GOLD PLUS ESTEVEZ TUBE Routine 07/03/2024 9:42 AM CDT Alcoholic cirrhosis (H) Cirrhosis, alcoholic (H) QUANTIFERON-TB GOLD PLUS Routine 05/21/2 025 9:42 AM CDT Alcoholic cirrhosis (H) Cirrhosis, alcoholic (H) HEPATITIS A ANTIBODY TOTAL Routine 07/03 9:42 AM CDT Alcoholic cirrhosis (H) Cirrhosis, alcoholic (H) TYPE AND SCREEN, ADULT Routine 5 9:42 AM CDT Alcoholic cirrhosis (H) Cirrhosis, alcoholic (H) HEPATITIS B SURFACE ANTIBODY Routine 07/03/2024 9:42 AM CDT Alcoholic cirrhosis (H) Cirrhosis, alcoholic (H) EBV CAPSID ANTIBODY IGG Routine 07/04/19 25 9:42 AM CDT Alcoholic cirrhosis (H) Cirrhosis, alcoholic (H) CMV ANTIBODY IGG Routine 07/03/2024 9:42 AM CDT Alcoholic cirrhosis (H) Cirrhosis, alcoholic (H) RAPID PLASMA REAGIN W RFLX TO TITER Routine 07/03/2024 9:42 AM CDT Alcoholic cirrhosis (H) Cirrhosis, alcoholic (H) TREPONEMA ABS W REFLEX TO RPR AND TITER Routine 07/03/2024 9:42 AM CDT Alcoholic cirrhosis (H) Cirrhosis, alcoholic (H) QUANTIFERON TB GOLD PLUS COLLECTION Routine 07/03/2024 9:42 AM CDT Alcoholic cirrhosis (H) Cirrhosis, alcoholic (H) QUANTIFERON TB GOLD PLUS PRIMARY Routine 07/03/2024 9:42 AM CDT Alcoholic cirrhosis (H) Cirrhosis, alcoholic (H) HIV ANTIGEN ANTIBODY COMBO PRETRANSPLANT Routine 07/03/2024 9:42 AM CDT Alcoholic cirrhosis (H) Cirrhosis, alcoholic (H) TREPONEMA PALLIDUM ANTIBODY CONFIRM Routine 07/03/2024 9:42 AM CDT Alcoholic cirrhosis (H) Cirrhosis, alcoholic (H) AMPHETAMINES S/P QUANT Routine 9:42 AM CDT Alcoholic cirrhosis (H) Cirrhosis, alcoholic (H) PHOSPHATIDYLETHANOL (PETH), WHOLE BLOOD Routine 07/03/2024 9:42 AM CDT Alcoholic cirrhosis (H) DRUG SCREEN 9, SER/DEIDRE W/RFLX TO CONF Routine 07/03/2024 9:42 AM CDT Alcoholic cirrhosis (H) Cirrhosis, alcoholic (H) VITAMIN D DEFICIENCY SCREENING Routine 07/03/2024 9:42 AM CDT Alcoholic cirrhosis (H) Cirrhosis, alcoholic (H) TSH WITH FREE T4 REFLEX Routine 07/04/19 9:42 AM CDT Alcoholic cirrhosis (H) Cirrhosis, alcoholic (H) TRANSFERRIN Routine 07/03/2024 9:42 AM CDT Alcoholic cirrhosis (H) Cirrhosis, alcoholic (H) INR Routine 07/03/2024 9:42 AM CDT Alcoholic cirrhosis (H) PHOSPHORUS Routine 07/03/2024 9:42 AM CDT Alcoholic cirrhosis (H) Cirrhosis, alcoholic (H) LIPID PROFILE Routine 07/03/2024 9:42 AM CDT Alcoholic cirrhosis (H) Cirrhosis, alcoholic (H) IRON AND IRON BINDING CAPACITY Routine 07/03/2024 9:42 AM CDT Alcoholic cirrhosis (H) Cirrhosis, alcoholic (H) HEPATITIS C ANTIBODY Routine 07/03/2024 9:42 AM CDT Alcoholic cirrhosis (H) Cirrhosis, alcoholic (H) HEPATITIS B SURFACE ANTIGEN Routine 07/03/2024 9:42 AM CDT Alcoholic cirrhosis (H) Cirrhosis, alcoholic (H) HEPATITIS B CORE ANTIBODY Routine 2024 9:42 AM CDT Alcoholic cirrhosis (H) Cirrhosis, alcoholic (H) HEMOGLOBIN A1C Routine 07/03/2024 9:42 AM CDT Alcoholic cirrhosis (H) Cirrhosis, alcoholic (H) FERRITIN Routine 07/03/2024 9:42 AM CDT Alcoholic cirrhosis (H) Cirrhosis, alcoholic (H) COMPREHENSIVE METABOLIC PANEL Routine 07/03/2024 9:42 AM CDT Alcoholic cirrhosis (H) BILIRUBIN DIRECT Routine 07/03/2024 9:42 AM CDT Alcoholic cirrhosis (H) Cirrhosis, alcoholic (H) AFP TUMOR MARKER Routine 07/03/2024 9:42 AM CDT Alcoholic cirrhosis (H) Cirrhosis, alcoholic (H) ABO/RH TYPE AND SCREEN Routine 9:42 AM CDT Alcoholic cirrhosis (H) Cirrhosis, alcoholic (H) CBC WITH PLATELETS Routine 07/03/2024 9: 42 AM CDT Alcoholic cirrhosis (H) Cirrhosis, alcoholic (H) documented in this encounter Results * Urine Culture (07/03/2024 2:36 PM CDT) [facility] Culture <10,000 CFU/mL Mixture of Urogenital Zakia 07/05/2024 5:38 AM CDT [facility] Urine URINE SPECIMEN OBTAINED BY CLEAN CATCH PROCEDURE / Unknown Non-blood Collection / Unknown 07/03/2024 2:36 PM CDT 07/03/2024 2:41 PM CDT us Jes Arrington MD LAB - MICRO GENERA L ORDERABLES Final Result [facility] Inf. Diseases Diag. Lab [address] [facility], [address] [place] [address] * (ABNORMAL) Urine Microscopic Exam (07/03/2024 2:36 PM CDT) Bacteria Urine Few(A) None Seen /HPF RENA 07/03/2024 2:45 PM CDT RM LABORATORY RBC Urine 0-2 0-2 /HPF /HPF RENA 07/03/2024 2:45 PM CDT RM LABORATORY WBC Urine 10-25(A) 0-5 /HPF /HPF RENA 07/03/2024 2:45 PM CDT RM LABORATORY Squamous Epithelials Urine Few(A) None Seen /LPF RENA 07/03/2024 2:45 PM CDT [facility]ORY WBC Clumps Urine Present(A ) None Seen /HPF RENA 07/03/2024 2:45 PM CDT [facility]ORY Transitional Epithelials Urine Few(A) None Seen /HPF RENA 07/03/2024 2:45 PM CDT RM LABOR[facility]ORY Hyaline Casts Urine 2-5(A) None Seen /LPF RENA 07/03/2024 2:45 PM CDT RM [facility]OR[facility]ORY Renal Tubular Epithelials Urine Few(A) None Seen /HPF RENA 07/03/2024 2:45 PM CDT LABORATORY Urine URINE SPECIMEN OBTAINED BY CLEAN CATCH PROCEDURE / Unknown Non-blood Collection / Unknown 07/03/2024 2:36 PM CDT 07/03/2024 2:36 PM CDT Jes Arrington MD LAB - URINE ORDERA BLES Final Result LABORATORY [facility] [place] [facility] [address] [facility] Lab (no room number, 1st floor of clinic) [place] [address], [facility] * Nicotine and Mets, Urn, Quant (07/03/2024 2:36 PM CDT) Cotinine Confirm <15 ng/mL 07/08/19 11:38 AM CDT [facility] Nicotine Confirmation Urine <15 ng/mL 07/07/2024 11:38 AM CDT [facility] Comment: INTERPRETIVE INFORMATION: Nicotine and Metabolites, Urine, Quantitative Methodology: Quantitative Liquid Chromatography-Tandem Mass Spectrometry Positive cutoff: Nicotine 15 ng/mL Cotinine 15 ng/mL [id number] 50 ng/mL Anabasine 5 ng/mL For medical purposes only; not valid for forensic use. This test is designed to evaluate recent use of nicotine-containing products. Passive and active exposure cannot be discriminated definitively, although a cutoff of 100 ng/mL cotinine is frequently used for surgery qualification purposes. For smoking cessation programs or compliance testing, the absence of expected drug(s) and/or drug metabolite(s) may indicate non-compliance, inappropriate timing of specimen collection relative to drug administration, poor drug absorption, diluted/adulterated urine, or limitations of testing. The concentration value must be greater than or equal to the cutoff to be reported as positive. Anabasine is included as a biomarker of tobacco use, versus nicotine replacement. Interpretive questions should be directed to the laboratory. This test was developed and its performance characteristics determined by [employer]. It has not been cleared or approved by the US Food and Drug Administration. This test was performed in a CLIA certified laboratory and is intended for clinical purposes. Performed By: [facility] [address] [place] [address] Mason Foreman/Superintendant: Sedrick Santos MD, PhD CLIA Number: [id number], Urn, Quant <50 ng/mL 07/07/2024 11:38 AM CDT [facility] Anabasine, Urn, Quant <5 ng/mL 07/07/2024 11:38 AM CDT [facility] Urine URINE SPECIMEN OBTAINED BY CLEAN CATCH PROCEDURE / Unknown Non-blood Collection / Unknown 07/03/2024 2:36 PM CDT 07/03/2024 2:36 PM CDT Jes Arrington MD LAB - URINE ORDERA BLES Final Result [facility] [employer] [facility] [employer] [address] [place] [address], [facility] [phone] * Ethyl Glucuronide Urine (07/03/2024 2:36 PM CDT) Ethyl Glucuronide Urine Negative Cutoff 500 ng/mL 07/05/2024 2:51 AM CDT [facility] Comment: Presumptive Negative by immunoassay. Testing by mass spectrometry is available on request. INTERPRETIVE INFORMATION: Ethyl Glucuronide Screen with Reflex to Confirmation, Urine Ethyl glucuronide is a direct metabolite of ethanol and can be detected up to 80 hours in urine after ethanol ingestion. The cutoff for positive by immunoassay is set at 500 ng/mL. A positive result will be confirmed by liquid chromatography tandem mass spectrometry (LC-MS/MS). Performed By: [facility] [employer] [address] [place] [address] Mason Foreman/Superintendant: Sedrick Santos MD, PhD CLIA Number: [id number] Urine URINE SPECIMEN OBTAINED BY CLEAN CATCH PROCEDURE / Unknown Non-blood Collection / Unknown 07/03/2024 2:36 PM CDT 07/03/2024 2:36 PM CDT us Jes Arrington MD LAB - URINE ORDERA BLES Final Result [address] [address], [facility] [phone] * (ABNORMAL) UA Macroscopic with reflex to Microscopic and Culture (07/03/2024 2:36 PM CDT) Color Urine Fabienne(A) Colorless, Straw, Light Yellow, Yellow 07/03/2024 2:41 PM CDT LABORATORY Appearance Urine Clear Clear 07/04/19 25 2:41 PM CDT LABORATORY Glucose Urine Negative Negative mg/dL 07/03/2024 2:41 PM CDT LABORATORY Bilirubin Urine Small(A) Negative 2:41 PM CDT LABORATORY Ketones Urine Negative Negative mg/dL 07/03/2024 2:41 PM CDT LABORATORY Specific [place] Urine 1.015 1.003 - 1.035 07/03/2024 2:41 PM CDT LABORATORY Blood Urine Negative Negative 07/03/2024 2:41 PM CDT LABORATORY pH Urine 5.5 5.0 - 7.0 07/03/2024 2:41 PM CDT LABORATORY Protein Albumin Urine Negative Negative mg/dL 07/03/2024 2:41 PM CDT LABORATORY Urobilinogen Urine 2.0(A) 0.2, 1.0 E.U./dL 07/03/2024 2:41 PM CDT LABORATORY Nitrite Urine Negative Negative 07/03/2024 2:41 PM CDT LABORATORY Leukocyte Esterase Urine Moderate(A) Negative 07/03/2024 2:41 PM CDT LABORATORY Urine URINE SPECIMEN OBTAINED BY CLEAN CATCH PROCEDURE / Unknown Non-blood Collection / Unknown 07/03/2024 2:36 PM CDT 07/03/2024 2:36 PM CDT Jes Arrington MD LAB - URINE ORDERA BLES Final Result LABORATORY [facility] [address] [facility] Lab (no room number, 1st floor of clinic) [place] [address], [facility] * Protein random urine (07/03/2024 2:36 PM CDT) Total Protein Urine mg/dL 11.9 mg/dL 07/04/2024 7:37 PM CDT [facility] Comment:The reference ranges have not been established in urine protein. The results should be integrated into the clinical context for interpretation. Total Protein Urine mg/mg Creat 0.09 0.00 - 0.20 mg/mg Cr 07/04/2024 7:37 PM CDT [facility] Creatinine Urine mg/dL 139.6 mg/dL 07/04/2024 7:37 PM CDT [facility] Comment:The reference ranges have not been established in urine creatinine. The results should be integrated into the clinical context for interpretation. Urine URINE SPECIMEN OBTAINED BY CLEAN CATCH PROCEDURE / Unknown Non-blood Collection / Unknown 07/03/2024 2:36 PM CDT 07/03/2024 2:36 PM CDT Jes Arrington MD LAB - URINE ORDERA BLES Final Result [facility] LABORATORY [facility] [address] (Main level, no room number) [place] [address], [place] * Amphetamines Confirmation (07/03/2024 9:42 AM CDT) Amphetamine <20 ng/mL 07/10/2024 1:02 AM CDT [facility] Comment: INTERPRETIVE INFORMATION: Amphetamines, Serum or Plasma, Quantitative Methodology: Quantitative Liquid Chromatography-Tandem Mass Spectrometry Positive cutoff: 20 ng/mL For medical purposes only; not valid for forensic use. The absence of expected drug(s) and/or drug metabolite(s) may indicate non-compliance, inappropriate timing of specimen collection relative to drug administration, poor drug absorption, or limitations of testing. The concentration value must be greater than or equal to the cutoff to be reported as positive. Interpretive questions should be directed to the laboratory. This test was developed and its performance characteristics determined by [employer]. It has not been cleared or approved by the US Food and Drug Administration. This test was performed in a CLIA certified laboratory and is intended for clinical purposes. Methamphetamine Confirm <20 ng/mL 07/10/2024 1:02 AM CDT [facility] MDA <20 ng/mL 07/10/2024 1:02 AM CDT [facility] MDMA <20 ng/mL 07/10/2024 1:02 AM CDT [facility] MDEA <20 ng/mL 07/10/2024 1:02 AM CDT [facility] Comment: Performed By: [facility] [address] [place] [address] Mason Foreman/Superintendant: Sedrick Santos MD, PhD CLIA Number: [id number] Blood BLOOD SPECIMEN / Unknown Venipuncture / Unknown 07/03/2024 9:42 AM CDT 07/03/2024 9:42 AM CDT Jes Arrington MD LAB - BLOOD ORDERA BLES Final Result [facility] [employer] [facility] [employer] [address] [place] [address], [facility] [phone] * Quantiferon TB Gold Plus (07/03/2024 9:42 AM CDT) [facility] Quantiferon-TB Gold Plus Negative Negative 07/04/2024 2:22 PM CDT [facility]PROT/END O Comment: No interferon gamma response to M.tuberculosis antigens was detected. Infection with M.tuberculosis is unlikely, however a single negative result does not exclude infection. In patients at high risk for infection, a second test should be considered in accordance with the 2017 ATS/IDSA/CDC Clinical Pract ice Guidelines for Diagnosis of Tuberculosis in Adults and Children TB1 Ag minus Nil Value -0.01 IU/mL 07/04/2024 2:22 PM CDT [facility]PROT/END O TB2 Ag minus Nil Value 0.00 IU/mL 07/04/2024 2:22 PM CDT [facility]END O Mitogen minus Nil Result 1.03 IU/mL 07/04/2024 2:22 PM CDT [facility]PROT/END O Nil Result 0.05 IU/mL 07/04/2024 2:22 PM CDT [facility]PROT/END O Blood BLOOD SPECIMEN / Unknown Venipuncture / Unknown 07/03/2024 9:42 AM CDT 07/03/2024 2:29 PM CDT Jes Arrington MD LAB - MICRO GENERA L ORDERABLES Final Result SPECIALTY CORE/PROT/ENDO Specialty Core/Prot/Endo [address] [facility], [address] * Treponema pallidum antibody confirm (07/03/2024 9:42 AM CDT) T Pallidum by TP-PA conf Non Reactive Non Reactive 07/06/2024 11:07 PM CDT [facility] Comment: Performed By: [facility] [address] [place] [address] Mason Foreman/Superintendant: Sedrick Santos MD, PhD CLIA Number: [id number] Blood BLOOD SPECIMEN / Unknown Venipuncture / Unknown 07/03/2024 9:42 AM CDT 07/04/2024 11:40 AM CDT Jes Arrington MD LAB - BLOOD ORDERA BLES Final Result Performing Organization Address City/[facility]/ZIP Co de Phone Number [employer] [address] [place] [address], [facility] [phone] * Rapid Plasma Reagin w Rflx to TITER (07/03/2024 9:42 AM CDT) Pathologist [facility] Rapid Plasma Reagin Nonreactive Nonreactive 07/04/2024 11:40 AM CDT SPECIALTY CORE/PROT/EN DO Comment:Specimen sent to [facility]) for confirmation. Blood BLOOD SPECIMEN / Unknown Venipuncture / Unknown 07/03/2024 9:42 AM CDT 07/03/2024 9:42 AM CDT Narrative SPECIALTY CORE/PROT/ENDO - 07/04/2024 11:40 AM CDT This test should not be used as a primary diagnostic approach for syphilis, and a serum specimen should be submitted for a treponemal-specific antibody test. Biological false-positive reactions with cardiolipin-type antigens have been reported in disease such as infectious mononucleosis, leprosy, malaria, lupus erythematosus, vaccinia, and viral pneumonia. , autoimmune diseases, and narcotic additions may give false-positives. Pinta, yaws, bejel, and other treponemal diseases may also produce false- positive results with this test. Jes Arrington MD LAB - BLOOD ORDERA BLES Final Result [facility] CORE/PROT/ENDO Specialty Core/Prot/Endo [address] [facility], [address] * Quantiferon TB Gold Plus Yellow Tube (07/03/2024 9:42 AM CDT) [facility] Quantiferon TB2 Tube 0.05 07/04/2024 12:56 PM CDT SPECIAL[facility] CORE/PROT/ENDO Blood BLOOD SPECIMEN / Unknown Venipuncture / Unknown 07/03/2024 9:42 AM CDT 07/03/2024 2:29 PM CDT Jse Arrington MD LAB - MICRO GENERA L ORDERABLES Final Result [facility] SPECIALTY CORE/PROT/ENDO UM Specialty Core/Prot/Endo [address] [facility], [address] * Quantiferon TB Gold Plus Green Tube (07/03/2024 9:42 AM CDT) Quantiferon TB1 Tube 0.04 IU/mL 07/04/2024 12:56 PM CDT SPECIALTY CORE/PROT/ENDO Blood BLOOD SPECIMEN / Unknown Venipuncture / Unknown 07/03/2024 9:42 AM CDT 07/03/2024 2:29 PM CDT Jes Arrington MD LAB - MICRO GENERA L ORDERABLES Final Result [facility] SPECIALTY CORE/PROT/ENDO Specialty Core/Prot/Endo [address] [facility], [address] * Quantiferon TB Gold Plus Purple Tube (07/03/2024 9:42 AM CDT) Quantiferon Mitogen 1.08 IU/mL 07/04/2024 12:05 PM CDT SPECIALTY CORE/PROT/ENDO Blood BLOOD SPECIMEN / Unknown Venipuncture / Unknown 07/03/2024 9:42 AM CDT 07/03/2024 2:29 PM CDT Jes Arrington MD LAB - MICRO GENERA L ORDERABLES Final Result SPECIALTY CORE/PROT/ENDO Specialty Core/Prot/Endo [address] [facility], [address] * Quantiferon TB Gold Plus Estevez Tube (07/03/2024 9:42 AM CDT) Quantiferon Nil Tube 0.05 IU/mL 07/04/2024 12:57 PM CDT [facility] CORE/PROT/ENDO Blood BLOOD SPECIMEN / Unknown Venipuncture / Unknown 07/03/2024 9:42 AM CDT 07/03/2024 2:29 PM CDT Jes Arrington MD LAB - MICRO GENERA L ORDERABLES Final Result [facility] SPECIALTY CORE/PROT/ENDO UM Specialty Core/Prot/Endo [address] [facility] [address] [facility], [address] * Quantiferon TB Gold Plus Primary (07/03/2024 9:42 AM CDT) Blood BLOOD SPECIMEN / Unknown Venipuncture / Unknown 07/03/2024 9:42 AM CDT 07/03/2024 2:29 PM CDT Jes Arrington MD LAB - MICRO GENERA L ORDERABLES Final Result Performing Organization Address City/[facility]/ZIP Co de Phone Number SPECIALTY CORE/PROT/ENDO Specialty Core/Prot/Endo [address] [facility], [address] * (ABNORMAL) Bilirubin direct (07/03/2024 9:42 AM CDT) [facility] Bilirubin Direct 4.65(H) 0.00 - 0.45 mg/dL 07/03/2024 8:34 PM CDT [facility] Comment:As of 24, refer ence ranges and trending lines may vary depending on the testing location. Blood BLOOD SPECIMEN / Unknown Venipuncture / Unknown 07/03/2024 9:42 AM CDT 07/03/2024 9:42 AM CDT Jes Arrington MD LAB - BLOOD ORDERA BLES Final Result [facility] [place] [facility] [address] [facility] [address] [facility], [address] * Quantiferon TB Gold Plus Collection (07/03/2024 9:42 AM CDT) Blood BLOOD SPECIMEN / Unknown Venipuncture / Unknown 07/03/2024 9:42 AM CDT 07/03/2024 9:42 AM CDT us Jes Arrington MD LAB - MICRO GENERA L ORDERABLES Final Result [facility]TY CORE/PROT/ENDO UM Specialty Core/Prot/Endo [address], [address] [place] [id number] * Adult Type and Screen (07/03/2024 9:42 AM CDT) ABO/RH(D) A POS 07/02/2024 7:00 PM CDT RH BLOOD BANK Antibody Screen Negative Negative 07/02/2024 7:00 PM CDT RH BLOOD BANK SPECIMEN EXPIRATION DATE [id number] 07/02/2024 7:00 PM CDT [facility] BLOOD BANK Blood BLOOD SPECIMEN / Unknown Venipuncture / Unknown 07/03/2024 9:42 AM CDT 07/03/2024 9:42 AM CDT Jes Arrington MD LAB - BLOOD BANK T EST ORDER Final Result BLOOD BANK [address] [place] [address], [facility] * DRUG SCREEN 9, SER/DEIDRE W/RFLX TO CONF (07/03/2024 9:42 AM CDT) Amphetamines Qual Negative Cutoff 20 ng/mL 07/05/2024 1:37 PM CDT [facility] Bartiburates Qual Negative Cutoff 50 ng/mL 07/05/2024 1:37 PM CDT [facility] Benzodiazepines Qual Negative Cutoff 50 ng/mL 07/05/2024 1:37 PM CDT [facility] Buprenorphine Qual Negative Cutoff 1 ng/mL 07/05/2024 1:37 PM CDT [facility] Cocaine Qual Negative Cutoff 20 ng/mL 07/05/2024 1:37 PM CDT [facility] Methadone Qual Negative Cutoff 25 ng/mL 07/05/2024 1:37 PM CDT [facility] Opiates Qual Negative Cutoff 20 ng/mL 07/05/2024 1:37 PM CDT [facility] Oxycodone Qual Negative Cutoff 20 ng/mL 07/05/2024 1:37 PM CDT [facility] Phencyclidine Qual Negative Cutoff 10 ng/mL 07/05/2024 1:37 PM CDT [facility] Methamphetamine Qual Positive Cutoff 20 ng/mL 07/05/2024 1:37 PM CDT [facility] Comment: If the screen is positive, then confirmation by mass spectrometry will be added. Additional charges will apply. Unconfirmed positive may be useful for medical purposes, but does not meet forensic standards. Drug Screen Comments, Serum or Plasma See Note 07/05/2024 1:37 PM CDT [facility] Comment: INTERPRETIVE INFORMATION: Drug Screen 9 Panel, Serum or Plasma - Immunoassay Screen with Reflex to Mass Spectrometry Confirmation/Quantitation 1. Methodology: Qualitative Immunoassay Screen 2. Drugs/Drug classes reported as Positive are automatically reflexed to mass spectrometry confirmation/quantitation testing. An immunoassay unconfirmed positive screen result may be useful for medical purposes but does not meet forensic standards. 3. The absence of expected drug(s) and/or drug metabolite(s) may indicate noncompliance, inappropriate timing of specimen collection relative to drug administration, poor drug absorption, or limitations of testing. The concentration at which the screening test can detect a drug or metabolite varies within a drug class. Specimens for which drugs or drug classes are detected by the screen are automatically reflexed to a second, more specific technology (mass spectrometry). The concentration value must be greater than or equal to the cutoff to be reported as positive. Interpretive questions should be directed to the laboratory. 4. For medical purposes only; not valid for forensic use. This test was developed and its performance characteristics determined by [facility]. It has not been cleared or approved by the US Food and Drug Administration. This test was performed in a CLIA certified laboratory and is intended for clinical purposes. Performed By: [facility] [address] [place] [id number] Mason Foreman/Superintendant: Sedrick Santos MD, PhD CLIA Number: [id number] Cannabinoids Qual Negative Cutoff 20 ng/mL 07/05/2024 1:37 PM CDT [facility] Blood BLOOD SPECIMEN / Unknown Venipuncture / Unknown 07/03/2024 9:42 AM CDT 07/03/2024 9:42 AM CDT Jes Arrington MD LAB - BLOOD ORDERA BLES Final Result 2 Minutes LABS [facility] [address] [place] [address], [facility] [phone] * (ABNORMAL) Treponema Abs w Reflex to RPR and Titer (07/03/2024 9:42 AM CDT) Treponema Antibody Total Reactive( A) Nonreactive 07/03/2024 11:35 PM CDT [facility] Comment: The Anti-Treponema Antibody screening tends to remain positive for life, therefore it does not distinguish between active and past syphilis infections. All positive and equivocal results will automatically reflex to a non-specific Rapid Plasma Reagin (RPR) test. If the Treponema Antibody is positive, and the RPR is positive, this is presumptive evidence of current infection, inadequately treated infection, persistent infection or reinfection. If the Anti-Treponema Antibody is positive and the RPR is negative, then a second Treponema specific test (TP-PA) will be performed to determine whether the antibody test is falsely positive or is detecting early infection. If the latter is suspected, repeat testing in approximately two weeks is recommended. Blood BLOOD SPECIMEN / Unknown Venipuncture / Unknown 07/03/2024 9:42 AM CDT 07/03/2024 9:42 AM CDT Narrative SPECIALTY CORE/PROT/ENDO - 07/03/2024 11:35 PM CDT The Syphilis (Treponema) Antibody screening tends to remain positive for life, therefore it does not distinguish between active and past syphilis infections. All positive results will automatically reflex to a non-specific Rapid Plasma Reagin (RPR) test. If the Syphilis (Treponema) Antibody is positive, and the RPR is positive, this is presumptive evidence of current infection, inadequately treated infection, persistent infection or reinfection. If the Syphilis (Treponema) Antibody is positive and the RPR is negative, then a second Treponema specific test (TP-PA) will be performed to determine whether the antibody test is falsely positive or is detecting early infection. If the latter is suspected, repeat testing in approximately two weeks is recommended. us Jes Arrington MD LAB - BLOOD ORDERA BLES Final Result SPECIALTY CORE/PROT/ENDO Specialty Core/Prot/Endo [address] [facility], [id number] [place] [address] SPECIALTY LABS [facility] [address] [facility], [address] [phone] * HIV Antigen Antibody Combo Pretransplant Roach (07/03/2024 9:42 AM CDT) HIV Antigen Antibody Combo Pretransplant Nonreactive Nonreactive 07/03/2024 9:11 PM CDT [facility] Comment:Negative HIV-1 p24 a ntigen and HIV-1/2 antibody screening test results usually indicate the absence of HIV-1 and HIV-2 infection. However, such negative results do not rule-out acute HIV infection. If acute HIV-1 or HIV-2 infection is suspected, detection of HIV-1 or HIV-2 RNA is recommended. This result is obtained using the Kurtis Elecsys HIV Duo method on the arjun e801 immunoassay analyzer. Blood BLOOD SPECIMEN / Unknown Venipuncture / Unknown 07/03/2024 9:42 AM CDT 07/03/2024 9:42 AM CDT Jes Arrington MD LAB - BLOOD ORDERA BLES Final Result [facility] 500 [facility], [address] [address] * Hepatitis C antibody (07/03/2024 9:42 AM CDT) Hepatitis C Antibody Nonreactive Nonreactive 07/03/2024 8:46 PM CDT [facility] Comment:A nonreactive screen ing test result does not exclude the possibility of exposure to or infection with HCV. Nonreactive screening test results in individuals with prior exposure to HCV may be due to antibody levels below the limit of detection of this assay or lack of reactivity to the HCV antigens used in this assay. Patients with recent HCV infections (<3 months from time of exposure) may have false- negative HCV antibody results due to the time needed for seroconversion (average of 8 to 9 weeks). Blood BLOOD SPECIMEN / Unknown Venipuncture / Unknown 07/03/2024 9:42 AM CDT 07/03/2024 9:42 AM CDT Jes Arrington MD LAB - BLOOD ORDERA BLES Final Result Performing Organization Address City/[facility]/ZIP Co de Phone Number U LABORATORY [facility] Lab 500 [facility], Room [address] [place] [address] * Hepatitis B surface antigen (07/03/2024 9:42 AM CDT) Hepatitis B Surface Antigen Nonreactive Nonreactive 07/03/2024 8:46 PM CDT [facility] Blood BLOOD SPECIMEN / Unknown Venipuncture / Unknown 07/03/2024 9:42 AM CDT 07/03/2024 9:42 AM CDT Jes Arrington MD LAB - BLOOD ORDERA BLES Final Result Performing Organization Address City/[facility] de Phone Number LABORATORY [facility] Lab [address] [place] [address], [address] [place] [address] * Hepatitis B Surface Antibody (07/03/2024 9:42 AM CDT) Hepatitis B Surface Antibody Nonreactive 07/03/2024 8:54 PM CDT [facility] Comment:Nonreactive results, defined as anti-HBs levels of less than 8.5 mIU/mL, indicate a lack of recovery from acute or chronic hepatitis B or inadequate immune response to HBV vaccination. Hepatitis B Surface Antibody Instrument Value <3.50 <8.5 m[IU]/mL 07/03/2024 8:54 PM CDT [facility] Blood BLOOD SPECIMEN / Unknown Venipuncture / Unknown 07/03/2024 9:42 AM CDT 07/03/2024 9:42 AM CDT Jes Arrington MD LAB - BLOOD ORDERA BLES Final Result Performing Organization Address City/[facility]/ZIP Co de Phone Number LABORATORY [facility] 500 [facility], [address] [phone] * Hepatitis B core antibody (07/03/2024 9:42 AM CDT) Hepatitis B Core Antibody Total Nonreactive Nonreactive 07/03/2024 8:46 PM CDT [facility] Comment:Nonreactive hepatiti s B core antibody test results indicate the absence of exposure to hepatitis B virus and no evidence of recent, past/resolved, or chronic hepatitis B. Blood BLOOD SPECIMEN / Unknown Venipuncture / Unknown 07/03/2024 9:42 AM CDT 07/03/2024 9:42 AM CDT Jes Arrington MD LAB - BLOOD ORDERA BLES Final Result Performing Organization Address [facility] de Phone Number LABORATORY [facility] 500 [facility], [address] [phone] * Hepatitis A Antibody Total (07/03/2024 9:42 AM CDT) [facility] Hepatitis A Antibody Total Nonreactive 07/03/2024 8:46 PM CDT U [facility]ORY Comment:This assay detects t he presence of anti-hepatitis A virus (anti-HAV) total (both IgG and IgM combined). If clinically indicated, specific testing for anti- HAV IgM (HAVM / Hepatitis A IgM Antibody, Serum) is necessary to confirm the presence of acute or recent hepatitis A. Please see interpretation guide below. Blood BLOOD SPECIMEN / Unknown Venipuncture / Unknown 07/03/2024 9:42 AM CDT 07/03/2024 9:42 AM CDT Narrative [facility] - 07/03/2024 8:46 PM CDT HAV antibody testing interpretation chart: HAV Total Antibody - NONREACTIVE HAV IgM - NOT TESTED Comments: No evidence of vaccination or previous infection; Susceptible to Hepatitis A infection HAV Total Antibody - REACTIVE HAV IgM - NOT TESTED Comments:Consistent with recent or remote Hepatitis A infection or antibody response to HAV vaccination HAV Total Antibody - REACTIVE HAV IgM - NONREACTIVE Comments:Consistent with resolved Hepatitis A infection or antibody response to HAV vaccination HAV Total Antibody - REACTIVE HAV IgM - REACTIVE Comments:Consistent with active Hepatitis A infection Jes Arrington MD LAB - BLOOD ORDERA BLES Final Result Performing Organization Address City/[facility]/ZIP Co de Phone Number U LABORATORY [facility] 500 [facility], [address] [address] * (ABNORMAL) EBV Capsid Antibody IgG (07/03/2024 9:42 AM CDT) EBV Capsid Gaby IgG Instrument Value 407.0(H) <18.0 U/mL 07/03/2024 11:22 PM CDT SPECIALTY CORE/PROT/EN DO EBV Capsid Antibody IgG Positive( A) No detectable antibody. 07/03/2024 11:22 PM CDT [facility] LABS Comment:Suggests recent or p ast exposure. Blood BLOOD SPECIMEN / Unknown Venipuncture / Unknown 07/03/2024 9:42 AM CDT 07/03/2024 9:42 AM CDT Jes Arrington MD LAB - BLOOD ORDERA BLES Final Result Performing Organization Address [facility] de Phone Number SPECIALTY CORE/PROT/ENDO Specialty Core/Prot/Endo [address] [facility], [phone] [place] [address] SPECIALTY LABS Specialty Lab 500 [facility], [address] [address] * CMV Antibody IgG (07/03/2024 9:42 AM CDT) CMV Gaby IgG Instrument Value <0.20 <0.60 U/mL 07/03/2024 11:21 PM CDT SPECIALTY CORE/PROT/EN DO CMV Antibody IgG No detectable antibody. No detectable antibody. 07/03/2024 11:21 PM CDT SPECIAL[facility] LABS Blood BLOOD SPECIMEN / Unknown Venipuncture / Unknown 07/03/2024 9:42 AM CDT 07/03/2024 9:42 AM CDT Jes Arrington MD LAB - BLOOD ORDERA BLES Final Result UM SPECIALTY CORE/PROT/ENDO [facility] Specialty Core/Prot/Endo [address] [facility] [address], [address] [place] [address] SPECIALTY LABS Specialty Lab [address] [facility] [address], [address] [place] [address] * (ABNORMAL) CBC with platelets (07/03/2024 9:42 AM CDT) WBC Count 4.4 4.0 - 11.0 10e3/uL 07/03/2024 10:18 AM CDT LABORATORY RBC Count 2.50(L) 3.80 - 5.20 10e6/uL 07/03/2024 10:18 AM CDT LABORATORY Hemoglobin 8.4(L) 11.7 - 15.7 g/dL 07/03/2024 10:18 AM CDT [facility] LABORATORY Hematocrit 24.7(L) 35.0 - 47.0 % 07/03/2024 10:18 AM CDT LABORATORY MCV 99 78 - 100 fL 07/03/2024 10:18 AM CDT LABORATORY MCH 33.6(H) 26.5 - 33.0 pg 07/03/2024 10:18 AM CDT LABORATORY MCHC 34.0 31.5 - 36.5 g/dL 07/03/2024 10:18 AM CDT LABORATORY RDW 17.2(H) 10.0 - 15.0 % 07/03/2024 10:18 AM CDT LABORATORY Platelet Count 136(L) 150 - 450 10e3/uL 07/03/2024 10:18 AM CDT RM [facility]ATORY Blood BLOOD SPECIMEN / Unknown Venipuncture / Unknown 07/03/2024 9:42 AM CDT 07/03/2024 9:42 AM CDT Narrative LABORATORY - 07/03/2024 10:18 AM CDT Verified by repeat analysis DA Jes Arrington MD LAB - BLOOD ORDERA BLES Final Result LABORATORY [facility] [address] [facility] Lab (no room number, 1st floor of clinic) [place] [address], [facility] * (ABNORMAL) Vitamin D Deficiency (07/03/2024 9:42 AM CDT) Vitamin D, Total (25-Hydroxy) 15(L) 20 - 50 ng/mL 07/03/2024 8:43 PM CDT [facility] Comment:mild to moderate def iciency Blood BLOOD SPECIMEN / Unknown Venipuncture / Unknown 07/03/2024 9:42 AM CDT 07/03/2024 9:42 AM CDT Narrative [facility] - 07/03/2024 8:43 PM CDT Season, race, dietary intake, and treatment affect the concentration of 09-qmsgfqd-Hhwlwrl D. Values may decrease during winter months and increase during summer months. Vitamin D determination is routinely performed by an immunoassay specific for 25 hydroxyvitamin D3. If an individual is on vitamin D2(ergocalciferol) supplementation, please specify 25 OH vitamin D2 and D3 level determination by LCMSMS test [id number]. Jes Arrington MD LAB - BLOOD ORDERA BLES Final Result LABORATORY [facility] [address] [facility], [address] [place] [address], [facility] * (ABNORMAL) Transferrin (07/03/2024 9:42 AM CDT) Transferrin 187.0(L) 200.0 - 360.0 mg/dL 07/03/2024 8:43 PM CDT [facility] Blood BLOOD SPECIMEN / Unknown Venipuncture / Unknown 07/03/2024 9:42 AM CDT 07/03/2024 9:42 AM CDT Jes Arrington MD LAB - BLOOD ORDERA BLES Final Result Performing Organization Address City/[facility]/ZIP Co de Phone Number [facility] 500 [facility], [address] [phone] * TSH with free T4 reflex (07/03/2024 9:42 AM CDT) TSH 2.95 0.30 - 4.20 uIU/mL 07/03/2024 10:29 PM CDT [facility] Blood BLOOD SPECIMEN / Unknown Venipuncture / Unknown 07/03/2024 9:42 AM CDT 07/03/2024 9:42 AM CDT Jes Arrington MD LAB - BLOOD ORDERA BLES Final Result Performing Organization Address City/[facility]/ZIP Co de Phone Number U LABORATORY [facility] [address] [facility], [address] [phone] * Phosphorus (07/03/2024 9:42 AM CDT) Phosphorus 2.9 2.5 - 4.5 mg/dL 07/03/2024 8:43 PM CDT [facility] Blood BLOOD SPECIMEN / Unknown Venipuncture / Unknown 07/03/2024 9:42 AM CDT 07/03/2024 9:42 AM CDT Jes Arrington MD LAB - BLOOD ORDERA BLES Final Result U LAB[facility]AT[facility] [address] [facility], [address] [phone] * (ABNORMAL) Iron and iron binding capacity (07/03/2024 9:42 AM CDT) Iron 81 37 - 145 ug/dL 07/03/2024 8:34 PM CDT [facility] Iron Binding Capacity 210(L) 240 - 430 ug/dL 07/03/2024 8:34 PM CDT [facility] Iron Sat Index 39 15 - 46 % 07/03/2024 8:34 PM CDT [facility] Blood BLOOD SPECIMEN / Unknown Venipuncture / Unknown 07/03/2024 9:42 AM CDT 07/03/2024 9:42 AM CDT Jes Arrington MD LAB - BLOOD ORDERA BLES Final Result [facility] [address] [facility], [address] [place] [address], [facility] * Hemoglobin A1c (07/03/2024 9:42 AM CDT) Estimated Average Glucose 74 <117 mg/dL 07/03/2024 9:49 AM CDT LABORATORY Hemoglobin A1C 4.2 0.0 - 5.6 % 07/03/2024 9:49 AM CDT LABORATORY Comment: Normal <5.7% Prediabetes 5.7-6.4% Diabetes 6.5% or higher Note: Adopted from ADA consensus guidelines. Blood BLOOD SPECIMEN / Unknown Venipuncture / Unknown 07/03/2024 9:42 AM CDT 07/03/2024 9:42 AM CDT Jes Arrington MD LAB - BLOOD ORDERA BLES Final Result LABORATORY [facility] [address] [facility] (no room number, 1st floor of clinic) [place] [address], [facility] * Ferritin (07/03/2024 9:42 AM CDT) Ferritin 216 11 - 328 ng/mL 07/03/2024 8:34 PM CDT [facility] Blood BLOOD SPECIMEN / Unknown Venipuncture / Unknown 07/03/2024 9:42 AM CDT 07/03/2024 9:42 AM CDT Jes Arrington MD LAB - BLOOD ORDERA BLES Final Result Performing Organization Address [facility]/ZIP Co de Phone Number [facility] [address] [facility], [address] [phone] * AFP tumor marker (07/03/2024 9:42 AM CDT) [facility] AFP tumor marker 3.4 <=8.3 ng/mL 07/03/2024 8:34 PM CDT [facility] Blood BLOOD SPECIMEN / Unknown Venipuncture / Unknown 07/03/2024 9:42 AM CDT 07/03/2024 9:42 AM CDT Narrative [facility] - 07/03/2024 8:34 PM CDT This result is obtained using the Kurt[employer] Elecsys AFP method on the arjun e801 immunoassay analyzer. Results obtained with different assay methods or kits cannot be used interchangeably. Reference ranges apply to non- females only. Jes Arrington MD LAB - BLOOD ORDERA BLES Final Result Performing Organization Address [facility] Co de Phone Number [facility] [address] [facility], [address] [phone] * (ABNORMAL) Lipid Profile (07/03/2024 9:42 AM CDT) [facility] Cholesterol 203(H) <200 mg/dL 07/03/2024 8:34 PM CDT [facility] Triglycerides 95 <150 mg/dL 07/03/2024 8:34 PM CDT [facility] Direct Measure HDL 59 >=50 mg/dL 07/03/2024 8:34 PM CDT [facility] LDL Cholesterol Calculated 125(H) <100 mg/dL 07/03/2024 8:34 PM CDT [facility] Non HDL Cholesterol 144(H) <130 mg/dL 07/03/2024 8:34 PM CDT [facility] Patient Fasting > 8hrs? No 07/03/2024 8:34 PM CDT [facility] Blood BLOOD SPECIMEN / Unknown Venipuncture / Unknown 07/03/2024 9:42 AM CDT 07/03/2024 9:42 AM CDT Narrative [facility] - 07/03/2024 8:34 PM CDT Cholesterol Desirable: < 200 mg/dL Borderline High: 200 - 239 mg/dL High: >= 240 mg/dL Triglycerides Normal: < 150 mg/dL Borderline High: 150 - 199 mg/dL High: 200-499 mg/dL Very High: >= 500 mg/dL Direct Measure HDL Female: >= 50 mg/dL Male: >= 40 mg/dL LDL Cholesterol Desirable: < 100 mg/dL Above Desirable: 100 - 129 mg/dL Borderline High: 130 - 159 mg/dL High: 160 - 189 mg/dL Very High: >= 190 mg/dL Non HDL Cholesterol Desirable: < 130 mg/dL Above Desirable: 130 - 159 mg/dL Borderline High: 160 - 189 mg/dL High: 190 - 219 mg/dL Very High: >= 220 mg/dL Jes Arrington MD LAB - BLOOD ORDERA BLES Final Result LABORATORY [facility] [address] [facility], [address] [place] [phone] * Phosphatidylethanol (PEth), Whole Blood (07/03/2024 9:42 AM CDT) PEth 16:0/18:1 (POPEth) <10 ng/mL 07/05/2024 11:00 AM CDT [facility] Comment: PEth 16:0/18:1 (POPEth) Less than 10 ng/mL............Not detected Less than 20 ng/mL............Abstinence or light alcohol consumption 20 - 200 ng/mL................Moderate alcohol consumption Greater than 200 ng/mL........Heavy alcohol consumption or chronic alcohol use (Reference: Eligio Day and Dixon Evans 2018 J. Forensic Sci) PEth 16:0/18:2 (PLPEth) <10 ng/mL 07/05/2024 11:00 AM CDT [facility] Comment:Reference ranges are not well established. EER Phosphatidylethanol (PETH) See Note 07/05/2024 11:00 AM T [facility] Comment: Authorized individuals can access the [facility] Enhanced Report with an [facility] Connect account using the following link. Your local lab can assist you in obtaining the patient report if you don't have a Connect account. [email or web address] PEth Interpretation See Comment 07/05/2024 11:00 AM T [facility] Comment: Phosphatidylethanol (PEth) is a group of phospholipids formed in the presence of ethanol, phospholipase D and phosphatidylcholine. PEth is known to be a direct alcohol biomarker. The predominant PEth homologues are PEth 16:0/18:1 (POPEth) and PEth 16:0/18:2 (PLPEth), which account for 37-46% and 26-28% of the total PEth homologues, respectively. PEth is incorporated into the phospholipid membrane of red blood cells and has a general half-life of 4-10 days and a window of detection of 2-4 weeks. However, the window of detection is longer in individuals who chronically or excessively consume alcohol. The limit of quantification is 10 ng/mL. Serial monitoring of PEth may be helpful in monitoring alcohol abstinence over time. PEth results should be interpreted in the context of the patient's clinical and behavioral history. Patients with advanced liver disease may have falsely elevated PEth concentrations (Flavia SCHNEIDER et al 2018, Alcoholism Clinical & Experimental Research). This test was developed and its performance characteristics determined by [facility]. It has not been cleared or approved by the U.S. Food and Drug Administration. This test was performed in a CLIA-certified laboratory and is intended for clinical purposes. Performed By: [facility] [address] [place] [id number] Mason Foreman/Superintendant: Sedrick Santos MD, PhD CLIA Number: [id number] Blood BLOOD SPECIMEN / Unknown Venipuncture / Unknown 07/03/2024 9:42 AM CDT 07/03/2024 9:42 AM CDT us Jes Arrington MD LAB - BLOOD ORDERA BLES Final Result [facility] [address] [place] [address], [facility] [phone] * (ABNORMAL) INR (07/03/2024 9:42 AM CDT) INR 1.66(H) 0.85 - 1.15 07/03/2024 12:45 PM CDT [facility] PT 20.0(H) 11.8 - 14.8 Seconds 07/03/2024 12:45 PM CDT [facility] Blood BLOOD SPECIMEN / Unknown Venipuncture / Unknown 07/03/2024 9:42 AM CDT 07/03/2024 9:42 AM CDT Jes Arrington MD LAB - BLOOD ORDERA BLES Final Result [facility] [address] Lab (no room number, 1st floor of clinic) [place] [address] * (ABNORMAL) Comprehensive metabolic panel (07/03/2024 9:42 AM CDT) Sodium 133(L) 135 - 145 mmol/L 07/03/2024 8:34 PM CDT [facility] Potassium 2.8(L) 3.4 - 5.3 mmol/L 07/03/2024 8:34 PM CDT [facility] Carbon Dioxide (CO2) 26 22 - 29 mmol/L 07/03/2024 8:34 PM CDT [facility] Anion Gap 13 7 - 15 mmol/L 07/03/2024 8:34 PM CDT [facility] Urea Nitrogen 16.8 8.0 - 23.0 mg/dL 07/03/2024 8:34 PM CDT [facility] Creatinine 1.27(H) 0.51 - 0.95 mg/dL 07/03/2024 8:34 PM CDT [facility] GFR Estimate 48(L) >60 mL/min/1.7 3m2 07/03/2024 8:34 PM CDT [facility] Comment:eGFR calculated us2020 CKD-EPI equation. Calcium 8.7(L) 8.8 - 10.4 mg/dL 07/03/2024 8:34 PM CDT [facility] Chloride 94(L) 98 - 107 mmol/L 07/03/2024 8:34 PM CDT [facility] Glucose 137(H) 70 - 99 mg/dL 07/03/2024 8:34 PM CDT [facility] Alkaline Phosphatase 191(H) 40 - 150 U/L 07/03/2024 8:34 PM CDT [facility] AST 40 0 - 45 U/L 07/03/2024 8:34 PM CDT [facility] ALT 19 0 - 50 U/L 07/03/2024 8:34 PM CDT [facility] Protein Total 6.4 6.4 - 8.3 g/dL 07/03/2024 8:34 PM CDT [facility] Albumin 3.0(L) 3.5 - 5.2 g/dL 07/03/2024 8:34 PM CDT [facility] Bilirubin Total 8.3(H) <=1.2 mg/dL 07/03/2024 8:34 PM CDT [facility] Patient Fasting > 8hrs? No 07/03/2024 8:34 PM CDT [facility] Blood BLOOD SPECIMEN / Unknown Venipuncture / Unknown 07/03/2024 9:42 AM CDT 07/03/2024 9:42 AM CDT Jes Arrington MD LAB - BLOOD ORDERA BLES Final Result [facility] [address] [facility], [address] [place] [address], [facility] documented in this encounter Visit Diagnoses Diagnosis Alcoholic cirrhosis (H) Alcoholic cirrhosis of liver Cirrhosis, alcoholic (H) Alcoholic cirrhosis of liver documented in this encounter Additional Health Concerns Assessment Noted Time PHQ-9 Depression Total Score: 8 06/12/19 25 12:56 PM CDT documented as of this encounter Care Teams Buck Swamper Relationship Specialty Start Date End Date Clinic, [facility] [address] [place] [address] PCP - General 08/24/20 Kristen Dockery, RN Registered Nurse Nurse 11/09/23 Kristen Dockery, camera assemblerResin Maker Nurse 05/19/24 Meliza Villaseñor MD [address] [place] [address] Cooler Operator Internal Medicine 05/19/24 Lanny Meléndez APRN [facility] [id number] [facility] [address] [place] [address] Referring Physician Internal Medicine 05/19/24 Gala Fair, [facility] Proposal Manager Writer 05/20/24 Meliza Villaseñor MD [address] [place] [address] Physician Internal Medicine 05/20/24 Trey Abraham MD [address] [facility] [address] [place] [address] Surgery 05/20/[address] [facility] [address] [facility] [address] [place] [address] Registered Dietitian Dietitian, Registered 05/20/24 Dixon Hernandez MD [address] [facility] [address] [place] [address] Cardiovascular Disease 05/20/24 Jes Arrington MD [address] [place] [address] Gastroenterology 06/24/24 documented as of this encounter
--- OUTSIDE RECORDS SUMMARY | 2024-07-06 09:20 | XMS_ITS | Encounter Summary ---
Author Organization [place] Address [address] [place] [address] Care Team Providers Care Ceramic Mold Designer Name Role Phone Clinic, [facility] Primary Care Provider Kristen Dockery RN Unavailable Unavaila Kristen Bermudez RN Unavailable Unavaila Meliza James MD Unavailable [phone] Lanny Meléndez APRN LINUX SYSTEM ENGINEER Unavailable [phone] Gala Fair FREIGHT FORWARDER Unavailable [phone] Meliza Villaseñor MD Unavailable [phone] Trey Abraham MD Unavailable [phone] Unavailable Unavail able Dixon Hernandez MD Unavailable [phone] Jes Arrington MD Unavailable + Encounter Details Date Type Department Care Team (Late st Contact Info) Description 07/06/2024 9:[address] 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 Gender Identity Female 10/31/2023 12:26 PM CDT Sexual Orientation Straight 10/31/2023 12 :26 PM CDT documented as of this encounter Plan of Treatment Upcoming Encounters Date Type Department Care Team (Late st Contact Info) Description 08/05/2024 10:45 AM CDT Lab [facility] Laboratory [address] [place] [address] 08/26/2024 10:30 AM CDT Appointment [facility] [address] [place] [address] Meliza Villaseñor MD [address] [place] [address] 08/26/2024 12:00 PM CDT Appointment [facility] Imaging 500 [place] [address] Meliza Villaseñor MD [address] [place] [address] 09/12/2024 11:00 AM CDT Office Visit [facility] Heart [address] 2nd [place] [phone] Dixon Hernandez MD [address] [place] [phone] 10/01/2024 PRE VISIT [facility] [address] [place] [phone] Dixon Hernandez MD [address] [place] [address] 765235 Previsit documented as of this encounter Procedures Procedure Name Priority Date/Time Associated Diagnosis Comments INR AALIYAH 07/06/2024 9:29 AM CDT Cirrhosis of liver (H) COMPREHENSIVE METABOLIC PANEL [facility] 07/06/2024 9:29 AM CDT Cirrhosis of liver (H) documented in this encounter Results * (ABNORMAL) INR (07/06/2024 9:29 AM CDT) INR 2.06(H) 0.85 - 1.15 07/06/2024 9:45 AM CDT LABORATORY PT 23.0(H) 11.8 - 14.8 Seconds 07/06/2024 9:45 AM CDT LABORATORY Blood STRUCTURE OF RIGHT UPPER LIMB / Unknown Venipuncture / Unknown 07/06/2024 9:29 AM CDT 07/06/2024 9:29 AM CDT Jes Arrington MD LAB - BLOOD ORDERA BLES Final Result LABORATORY [facility] Acute Care Lab [address] Lab (1st floor, no room number) [place] [address] * (ABNORMAL) Comprehensive metabolic panel (07/06/2024 9:29 AM CDT) Sodium 132(L) 135 - 145 mmol/L 07/06/2024 10:03 AM CDT LABORATORY Potassium 3.6 3.4 - 5.3 mmol/L 07/06/2024 10:03 AM CDT LABORATORY Carbon Dioxide (CO2) 27 22 - 29 mmol/L 07/06/2024 10:03 AM CDT LABORATORY Anion Gap 14 7 - 15 mmol/L 07/06/2024 10:03 AM CDT LABORATORY Urea Nitrogen 25.6(H) 8.0 - 23.0 mg/dL 07/06/2024 10:03 AM CDT LABORATORY Creatinine 1.90(H) 0.51 - 0.95 mg/dL 07/06/2024 10:03 AM CDT LABORATORY GFR Estimate 30(L) >60 mL/min/1.7 3m2 07/06/2024 10:03 AM CDT [facility] LAB[facility]ATORY Comment:eGFR calculated usin 2020 CKD-EPI equation. Calcium 8.3(L) 8.8 - 10.4 mg/dL 07/06/2024 10:03 AM CDT LABORATORY Chloride 91(L) 98 - 107 mmol/L 07/06/2024 10:03 AM CDT LABORATORY Glucose 101(H) 70 - 99 mg/dL 07/06/2024 10:03 AM CDT [facility] LAB[facility] Alkaline Phosphatase 208(H) 40 - 150 U/L 07/06/2024 10:03 AM CDT LABORATORY AST 31 0 - 45 U/L 07/06/2024 10:03 AM CDT LABORATORY ALT 17 0 - 50 U/L 07/06/2024 10:03 AM CDT LABORATORY Protein Total 6.1(L) 6.4 - 8.3 g/dL 07/06/2024 10:03 AM CDT LABORATORY Albumin 2.8(L) 3.5 - 5.2 g/dL 07/06/2024 10:03 AM CDT LABORATORY Bilirubin Total 10.7(H) <=1.2 mg/dL 07/06/2024 10:03 AM CDT LABORATORY Blood STRUCTURE OF RIGHT UPPER LIMB / Unknown Venipuncture / Unknown 07/06/2024 9:29 AM CDT 07/06/2024 9:29 AM CDT Jes Arrington MD LAB - BLOOD ORDERA BLES Final Result LABORATORY [facility] Acute Care Lab [address] Lab (1st floor, no room number) [place] [address], [facility] documented in this encounter Visit Diagnoses Diagnosis Cirrhosis of liver (H) Cirrhosis of liver without mention of alcohol documented in this encounter Additional Health Concerns Assessment Noted Time PHQ-9 Depression Total Score: 8 06/12/19 25 12:56 PM CDT documented as of this encounter Care Teams Ceramic Mold Designer Relationship Specialty Start Date End Date Clinic, [facility] [address] [place] [address] PCP - General 08/24/20 Kristen Dockery, RN Registered Nurse Nurse 11/09/23 Kristen Dockery, indirect fire infantrymanAdministrative Medical Director Nurse 05/19/24 Meliza Villaseñor MD [address] [facility] [address] [place] [address] Or Nurse Manager Internal Medicine 05/19/24 Lanny Meléndez APRN LINUX SYSTEM ENGINEER [facility] [address] [place], [place] [address] Referring Physician Internal Medicine 05/19/24 Gala Fair, [facility] Residence Life Director 05/20/24 Meliza Villaseñor MD [address] [place], [place] [address]ware [address] [address] Physician Internal Medicine 05/20/24 Trey Abraham MD 420 [facility] 195 [place] [address] Surgery 05/20/[address] [facility] 420 [facility] 84 [place] [address] Registered Dietitian Dietitian, Registered 05/20/24 Dixon Hernandez MD 420 [facility] 508 [place] [address] Cardiovascular Disease 05/20/24 Jes Arrington MD [address] [place] [address] [address] [place], [place] [address] Gastroenterology 06/24/24 documented as of this encounter
--- OUTSIDE RECORDS SUMMARY | 2024-07-16 07:30 | XMS_ITS | Encounter Summary ---
Author Organization [place] Address [address] [place] [address] Care Team Providers Care Food And Nutrition Services Supervisor Name Role Phone Clinic, [facility] Primary Care Provider Kristen Dockery RN Unavailable Unavaila Kristen Bermudez RN Unavailable Unavaila Meliza James MD Unavailable [phone] Lanny Meléndez APRN [employer] SOURCE INTELLIGENCE Unavailable [phone] Gala Fair TRAM INSPECTOR Unavailable [phone] Meliza Villaseñor MD Unavailable [phone] Trey Abraham MD Unavailable [phone] Unavailable Unavail able Dixon Hernandez MD Unavailable [phone] Jes Arrington MD Unavailable + Encounter Details Date Type Department Care Team (Late st Contact Info) Description 07/16/2024 7:30 AM CDT Lab [facility] [place] [address] 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 Laboratory [address] [place] [phone] 08/26/2024 10:30 AM CDT Appointment [facility] Heart Care 500 [place] [address] Meliza Villaseñor MD [facility] [address] [place] [address] 08/26/2024 12:00 PM CDT Appointment [facility] Imaging 500 [place] [phone] Meliza Villaseñor MD [facility] [address] [place] [address] 09/12/2024 11:00 AM CDT Office Visit [facility] Heart [address] 2nd [place] [phone] Dixon Hernandez MD [address] [place] [address] [place] [address] [phone] 10/01/2024 PRE VISIT [facility] 909 [place] [address] Dixon Hernandez MD 420 [facility] 508 [place] [address] Previsit documented as of this encounter Procedures Procedure Name Priority Date/Time Associated Diagnosis Comments ETHYL GLUCURONIDE SCREEN WITH REFLEX TO CONFIRMATION, URINE Routine 07/16/2024 11:54 AM CDT Cirrhosis of liver with ascites (H) Cirrhosis, alcoholic (H) TYPE AND SCREEN, ADULT Routine 7:23 AM CDT Cirrhosis of liver with ascites (H) Cirrhosis, alcoholic (H) PHOSPHATIDYLETHANOL (PETH), WHOLE BLOOD Routine 07/16/2024 7:23 AM CDT Cirrhosis of liver with ascites (H) Cirrhosis, alcoholic (H) INR Routine 07/16/2024 7:23 AM CDT Cirrhosis of liver with ascites (H) Cirrhosis, alcoholic (H) COMPREHENSIVE METABOLIC PANEL Routine 07/16/2024 7:23 AM CDT Cirrhosis of liver with ascites (H) Cirrhosis, alcoholic (H) ABO/RH TYPE AND SCREEN Routine 7:23 AM CDT Cirrhosis of liver with ascites (H) Cirrhosis, alcoholic (H) CBC WITH PLATELETS Routine 07/16/2024 7: 23 AM CDT Cirrhosis of liver with ascites (H) Cirrhosis, alcoholic (H) documented in this encounter Results * Ethyl Glucuronide Screen with Reflex to Confirmation, Urine (07/16/2024 11:54 AM CDT) Ethyl Glucuronide Urine Negative Cutoff 500 ng/mL 07/17/2024 4:32 PM CDT [facility] Comment: Presumptive Negative by immunoassay. Testing [...] chromatography tandem mass spectrometry (LC-MS/MS). Performed By: [facility] [address] [place] [address] Graduate Student: Sedrick Santos MD, PhD CLIA Number: [id number] Urine URINE SPECIMEN OBTAINED BY CLEAN CATCH PROCEDURE / Unknown Non-blood Collection / Unknown 07/16/2024 11:54 AM CDT 07/16/2024 11:54 AM CDT Jes Arrington MD LAB - URINE ORDERA BLES Final Result [facility] [address] [place] [phone], [facility] [phone] * Adult Type and Screen (07/16/2024 7:23 AM CDT) ABO/RH(D) A POS 07/15/2024 7:00 PM CDT U BLOOD BANK Antibody Screen Negative Negative 07/15/2024 7:00 PM CDT U BLOOD BANK SPECIMEN EXPIRATION DATE 07/19/2024 11:59:00 PM CDT 07/15/2024 7:00 PM CDT BLOOD BANK Blood STRUCTURE OF RIGHT UPPER LIMB / Unknown Venipuncture / Unknown 07/16/2024 7:23 AM CDT 07/16/2024 7:23 AM CDT Jes Arrington MD LAB - BLOOD BANK T EST ORDER Final Result [facility] BLOOD BANK [address] [place] [address] * (ABNORMAL) CBC with platelets (07/16/2024 7:23 AM CDT) WBC Count 4.8 4.0 - 11.0 10e3/uL 07/16/2024 7:38 AM CDT [facility] - CORE LAB RBC Count 2.55(L) 3.80 - 5.20 10e6/uL 07/16/2024 7:38 AM CDT [facility] - CORE LAB Hemoglobin 8.6(L) 11.7 - 15.7 g/dL 07/16/2024 7:38 AM CDT [facility] - CORE LAB Hematocrit 25.3(L) 35.0 - 47.0 % 07/16/2024 7:38 AM CDT [facility] - CORE LAB MCV 99 78 - 100 fL 07/16/2024 7:38 AM CDT [facility] - CORE LAB MCH 33.7(H) 26.5 - 33.0 pg 07/16/2024 7:38 AM CDT [facility] - CORE LAB MCHC 34.0 31.5 - 36.5 g/dL 07/16/2024 7:38 AM CDT [facility] - CORE LAB RDW 16.5(H) 10.0 - 15.0 % 07/16/2024 7:38 AM CDT [facility] - [facility]ORE LAB Platelet Count 127(L) 150 - 450 10e3/uL 07/16/2024 7:38 AM CDT [facility] - [facility]ORE LAB Blood STRUCTURE OF RIGHT UPPER LIMB / Unknown Venipuncture / Unknown 07/16/2024 7:23 AM CDT 07/16/2024 7:23 AM CDT Jes Arrington MD LAB - BLOOD ORDERA BLES Final Result [facility] - CORE LAB [facility] [place] [address] [place] [address] 1st [place] [address] * Phosphatidylethanol (PEth), Whole Blood (07/16/2024 7:23 AM CDT) PEth 16:0/18:1 (POPEth) <10 ng/mL 07/18/2024 5:29 PM CDT [facility] Comment: PEth 16:0/18:1 (POPEth) Less than 10 ng/mL............Not detected Less than 20 ng/mL............Abstinence or light alcohol consumption 20 - 200 ng/mL................Moderate alcohol consumption Greater than 200 ng/mL........Heavy alcohol consumption or chronic alcohol use (Reference: Eligio Day and Dixon Evans 2018 J. Forensic Sci) PEth 16:0/18:2 (PLPEth) <10 ng/mL 07/18/2024 5:29 PM CDT [facility] Comment:Reference ranges are not well established. EER Phosphatidylethanol (PETH) See Note 07/18/2024 5:29 PM CDT [facility] Comment: Authorized individuals can access the [facility] Enhanced Report with an [facility] Connect account using the following link. Your local lab can assist you in obtaining the patient report if you don't have a Connect account. [email or web address] PEth Interpretation See Comment 07/18/2024 5:29 PM CDT [facility] Comment: Phosphatidylethanol (PEth) is a group [...] developed and its performance characteristics determined by [facility]. It has not been cleared or approved by the U.S. Food and Drug Administration. This test was performed in a CLIA-certified laboratory and is intended for clinical purposes. Performed By: [facility] [address] [place] [id number] Graduate Student: Sedrick Santos MD, PhD CLIA Number: [id number] Blood STRUCTURE OF RIGHT UPPER LIMB / Unknown Venipuncture / Unknown 07/16/2024 7:23 AM CDT 07/16/2024 7:23 AM CDT Jes Arrington MD LAB - BLOOD ORDERA BLES Final Result [facility] [address] [place] [id number], [facility] [phone] * (ABNORMAL) INR (07/16/2024 7:23 AM CDT) INR 1.52(H) 0.85 - 1.15 07/16/2024 7:49 AM CDT [facility] PT 18.4(H) 11.8 - 14.8 Seconds 07/16/2024 7:49 AM CDT [facility] Blood STRUCTURE OF RIGHT UPPER LIMB / Unknown Venipuncture / Unknown 07/16/2024 7:23 AM CDT 07/16/2024 7:23 AM CDT Jes Arrington MD LAB - BLOOD ORDERA BLES Final Result [facility] - [facility]ORE LAB [facility] Clinics and Surgery [address] 1st [place] [address] * (ABNORMAL) Comprehensive metabolic panel (07/16/2024 7:23 AM CDT) Sodium 131(L) 135 - 145 mmol/L 07/16/2024 8:13 AM CDT [facility] Potassium 3.4 3.4 - 5.3 mmol/L 07/16/2024 8:13 AM CDT [facility] Carbon Dioxide (CO2) 27 22 - 29 mmol/L 07/16/2024 8:13 AM CDT [facility] Anion Gap 10 7 - 15 mmol/L 07/16/2024 8:13 AM CDT [facility] Urea Nitrogen 16.6 8.0 - 23.0 mg/dL 07/16/2024 8:13 AM CDT [facility] Creatinine 1.07(H) 0.51 - 0.95 mg/dL 07/16/2024 8:13 AM CDT [facility] GFR Estimate 59(L) >60 mL/min/1.7 3m2 07/16/2024 8:13 AM CDT [facility] Comment:eGFR calculated usin 2020 CKD-EPI equation. Calcium 8.6(L) 8.8 - 10.4 mg/dL 07/16/2024 8:13 AM CDT [facility] Chloride 94(L) 98 - 107 mmol/L 07/16/2024 8:13 AM CDT [facility] Glucose 108(H) 70 - 99 mg/dL 07/16/2024 8:13 AM CDT [facility] Alkaline Phosphatase 259(H) 40 - 150 U/L 07/16/2024 8:13 AM CDT [facility] AST 41 0 - 45 U/L 07/16/2024 8:13 AM CDT [facility] ALT 22 0 - 50 U/L 07/16/2024 8:13 AM CDT [facility] Protein Total 6.6 6.4 - 8.3 g/dL 07/16/2024 8:13 AM CDT [facility] Albumin 3.0(L) 3.5 - 5.2 g/dL 07/16/2024 8:13 AM CDT [facility] Bilirubin Total 7.2(H) <=1.2 mg/dL 07/16/2024 8:13 AM CDT [facility] Blood STRUCTURE OF RIGHT UPPER LIMB / Unknown Venipuncture / Unknown 07/16/2024 7:23 AM CDT 07/16/2024 7:23 AM CDT Jes Arrington MD LAB - BLOOD ORDERA BLES Final Result [facility] [address] [place] [address] 1st [place] [address] documented in this encounter Visit Diagnoses Diagnosis Cirrhosis of liver with ascites (H) Cirrhosis, alcoholic (H) Alcoholic cirrhosis of liver documented in this encounter Additional Health Concerns Assessment Noted Time PHQ-9 Depression Total Score: 8 06/12/19 25 12:56 PM CDT documented as of this encounter Care Teams Food And Nutrition Services Supervisor Relationship Specialty Start Date End Date Clinic, [facility] [place] [address] [place] [address] PCP - General 08/24/20 Kristen Dockery, RN Registered Nurse Nurse 11/09/23 Kristen Dockery, family practice nurse practitionerAnalyst Business Analysis Nurse 05/19/24 Meliza Villaseñor MD [address] [place] [address] Inker Machine Internal Medicine 05/19/24 Lanny Meléndez APRN [employer] INTELL[employer] [facility] [address] [place] [address] Referring Physician Internal Medicine 05/19/24 Gala Fair, [facility] Sales Donor Recruitment Representative 05/20/24 Meliza Villaseñor MD [address] [place] [address] Physician Internal Medicine 05/20/24 Trey Abraham MD [address] [facility] [address] [place], [place] 5[address] Surgery 05/20/24 Jena Castano, RAFIQ [facility] [address] [facility] 84 [place] [address] Registered Dietitian Dietitian, Registered 05/20/24 Dixon Hernandez MD [address] [facility] [address] [place] [address] Cardiovascular Disease 05/20/24 Jes Arrington MD [address] [facility] [address] [place], [place] 7309[address] Gastroenterology 06/24/24 documented as of this encounter
--- OUTSIDE RECORDS SUMMARY | 2024-07-16 08:10 | XMS_ITS | Encounter Summary ---
Author Organization [place] Address [address] [place] [address] Care Team Providers Care Cheese Cook Name Role Phone Clinic, [facility] Primary Care Provider Kristen Dockery RN Unavailable Unavaila Kristen Bermudez RN Unavailable Unavaila Meliza James MD Unavailable [phone] Lanny Meléndez APRN DAY HAUL OR FARM CHARTER BUS DRIVER Unavailable [phone] Gala Fair SHOP AND ALTERATION TAILOR Unavailable [phone] Meliza Villaseñor MD Unavailable [phone] Trey Abraham MD Unavailable [phone] Unavailable Unavail able Dixon Hernandez MD Unavailable [phone] Jes Arrington MD Unavailable + Encounter Details Date Type Department Care Team (Late st Contact Info) Description 07/16/2024 8:10 AM CDT Orders Only [facility] [place] [address] [facility] [address] 1st [place] [address] Jes Arrington MD [address] [place], [place] [address] [address] [place] [address] Alcoholic cirrhosis (H); Cirrhosis, alcoholic (H) Social [...] PM CDT Legal Sex Female 3:12 AM GIFT PACKER Gender Identity Female 10/31/2023 12:26 PM CDT Sexual Orientation Straight 10/31/2023 12 :26 PM CDT documented as of this encounter Plan of Treatment Upcoming Encounters Date Type Department Care Team (Late st Contact Info) Description 08/05/2024 10:45 AM CDT Lab [facility] Laboratory [address] [place] [phone] 08/26/2024 10:30 AM CDT Appointment [facility] Heart Care 500 [place] [address] Meliza Villaseñor MD [facility] [address] [place] [address] 08/26/2024 12:00 PM CDT Appointment [facility] Imaging [address] [place] [phone] Meliza Villaseñor MD [facility] [address] [place] [address] 09/12/2024 11:00 AM CDT Office Visit [facility] [address] 2nd [place] [phone] Dixon Hernandez MD [address] [place] [address] [place] [address] [phone] 10/01/2024 PRE VISIT [facility] 909 [place] [phone] Dixon Hernandez MD 420 [facility] [address] [place] [address] Previsit documented as of this encounter Procedures Procedure Name Priority Date/Time Associated Diagnosis Comments EKG 12-LEAD, TRACING ONLY Routine 07/16/2024 7:15 AM CDT Alcoholic cirrhosis (H) Cirrhosis, alcoholic (H) documented in this encounter Results * EKG 12-lead, tracing only [EKG1] (07/16/2024 7:15 AM CDT) Systolic Blood Pressure mmHg RADIOLOGY RESULTS Diastolic Blood Pressure mmHg RADIOLOGY RESULTS Ventricular Rate 91 BPM RAD IOLOGY RESULTS Atrial Rate 91 BPM RADIOLOG Y RESULTS UT Interval 180 ms RADIOLOG Y RESULTS QRS Duration 92 ms RADIOLO GY RESULTS QT 412 ms RADIOLOGY RESULTS QTc 506 ms RADIOLOGY RESULTS P [place] 62 degrees RADIOLOGY RESULTS R AXIS 34 degrees RADIOLOGY RESULTS T [place] 58 degrees RADIOLOGY RESULTS Interpretation ECG Sinus rhythm Prolonged QT Abnormal ECG When compared with ECG of 08-Aug-2006 09:55, Vent. rate has increased by 30 bpm QT has lengthened Confirmed by MD MANDI, CHLOE ([id number]) on 07/16/2024 9:25:03 AM RADIOLOGY RESULTS 07/16/2024 7:15 AM CDT 07/16/2024 9:25 AM CDT us Jes Arrington MD ECG ORDERABLES Ed ited Result - Final RADIOLOGY RESULTS documented in this encounter Visit Diagnoses Diagnosis Alcoholic cirrhosis (H) Alcoholic cirrhosis of liver Cirrhosis, alcoholic (H) Alcoholic cirrhosis of liver documented in this encounter Additional Health Concerns Assessment Noted Time PHQ-9 Depression Total Score: 8 06/12/19 25 12:56 PM CDT documented as of this encounter Care Teams Cheese Cook Relationship Specialty Start Date End Date Clinic, [facility] [place] [address] [place] [address] PCP - General 08/24/20 Kristen Dockery, RN Registered Nurse Nurse 11/09/23 Kristen Dockery, twisting machine operatorWelder Production Line Combination Nurse 05/19/24 Meliza Villaseñor MD [address] [facility] [address] [place] [address] Hand Ii Thermal Cutter Internal Medicine 05/19/24 Lanny Meléndez APRN DAY HAUL OR FARM CHARTER BUS DRIVER [facility] [address] [place] [address] Referring Physician Internal Medicine 05/19/24 Gala Fair, [facility] Lifestyle Block Farmer 05/20/24 Meliza Villaseñor MD [address] [facility] [address] [place] [address] Physician Internal Medicine 05/20/24 Trey Abraham MD 420 [facility] [address] [place] [address] Surgery 05/20/[address] [facility] 420 [facility] [address] [facility] [address] [place] [address] Registered Dietitian Dietitian, Registered 05/20/24 Dixon Hernandez MD [address] [facility] [address] [place] [address] Cardiovascular Disease 05/20/24 Jes Arrington MD 6 [facility] [address]A [place] [address] Gastroenterology 06/24/24 documented as of this encounter
--- OUTSIDE RECORDS SUMMARY | 2024-07-16 08:30 | XMS_ITS | Encounter Summary ---
Author Organization [place] Address [address] [place] [address] Care Team Providers Care Jigger Machine Operator Name Role Phone Clinic, [facility] Primary Care Provider Kristen Dockery RN Unavailable Unavaila Kristen Bermudez RN Unavailable Unavaila Meliza James MD Unavailable [phone] Lanny Meléndez APRN PHYSICAL SECURITY ENGINEER Unavailable [phone] Gala Fair ROLL PANNER Unavailable [phone] Meliza Villaseñor MD Unavailable [phone] Trey Abraham MD Unavailable [phone] Unavailable Unavail able Dixon Hernandez MD Unavailable [phone] Jes Arrington MD Unavailable + Encounter Details Date Type Department Care Team (Late st Contact Info) Description 07/16/2024 8:30 AM CDT Allied Health/Nurse Visit [facility] 9[address] [place] [address] Jes Arrington MD [address] [place] [address] [address] [place], [place] [phone] Alcoholic cirrhosis (H); Cirrhosis, alcoholic (H) Social [...] PM CDT Legal Sex Female 3:12 AM EDUCATION CONSULTANT Gender Identity Female 10/31/2023 12:26 PM CDT Sexual Orientation Straight 10/31/2023 12 :26 PM CDT documented as of this encounter Plan of Treatment Upcoming Encounters Date Type Department Care Team (Late st Contact Info) Description 08/05/2024 10:45 AM CDT Lab [facility] Laboratory [address] [place] [phone] 08/26/2024 10:30 AM CDT Appointment [facility] Heart Care 500 [place] [address] Meliza Villaseñor MD [facility] [address] [place] [address] 08/26/2024 12:00 PM CDT Appointment [facility] Imaging 500 [place] [phone] Meliza Villaseñor MD [facility] [address] [place] [address] 09/12/2024 11:00 AM CDT Office Visit [facility] [address] 2nd [place] [phone] Dixon Hernandez MD [address] [place] [address] [place] [address]12025 10/01/2024 PRE VISIT [facility] 909 [place] [phone] Dixon Hernandez MD [address] [address] [facility] [address] [place], [place] [address] Previsit documented as of this encounter Visit Diagnoses Diagnosis Alcoholic cirrhosis (H) Alcoholic cirrhosis of liver Cirrhosis, alcoholic (H) Alcoholic cirrhosis of liver documented in this encounter Additional Health Concerns Assessment Noted Time PHQ-9 Depression Total Score: 8 06/12/19 25 12:56 PM CDT documented as of this encounter Care Teams Jigger Machine Operator Relationship Specialty Start Date End Date Clinic, [facility] [address] [facility] [address] PCP - General 08/24/20 Kristen Dockery, RN Registered Nurse Nurse 11/09/23 Kristen Dockery, aircraft skin burnisherCoding Technician Nurse 05/19/24 Meliza Villaseñor MD [address] [place] [address] Spot Cleaner Internal Medicine 05/19/24 Lanny Meléndez APRN PHYSICAL SECURITY ENGINEER [facility] [address] [place] [address] Referring Physician Internal Medicine 05/19/24 Gala Fair, [facility] Food Assembler 05/20/24 Meliza Villaseñor MD [address] [place] [address] Physician Internal Medicine 05/20/24 Trey Abraham MD [address] [facility] [address] [facility] [address] [place] [address] Surgery 05/20/24 Jena Castano RAFIQ [facility] 420 [facility] SE [facility] 84 [place] [address] Registered Dietitian Dietitian, Registered 05/20/24 Dixon Hernandez MD [address] [facility] [address] [place] [address] Cardiovascular Disease 05/20/24 Jes Arrington MD 516 [facility] [address] [place] [address] Gastroenterology 06/24/24 documented as of this encounter
--- OUTSIDE RECORDS SUMMARY | 2024-07-16 09:00 | XMS_ITS | Encounter Summary ---
Author Organization [place] Address [address] [place] [address] Care Team Providers Care Electrical Designer Drafter Name Role Phone Clinic, [facility] Primary Care Provider Kristen Dockery RN Unavailable Unavaila Kristen Bermudez RN Unavailable Unavaila Meliza James MD Unavailable [phone] Lanny Meléndez APRN CONTACT CENTER TEAM LEAD Unavailable [phone] Gala Fair PHYSICIANS ASSISTANT Unavailable [phone] Meliza Villaseñor MD Unavailable [phone] Trey Abraham MD Unavailable [phone] Unavailable Unavail able Dixon Hernandez MD Unavailable [phone] Jes Arrington MD Unavailable + Reason for Visit * Reason Comments Social Work Services Encounter Details Date Type Department Care Team (Late st Contact Info) Description 07/16/2024 9:00 AM CDT Allied Health/Nurse Visit [facility] [address] [place] [address] Jes Arrington MD [address] [place] [address] [address] [place] [address] Gala Fair, PHYSICIANS ASSISTANT Social Work Services Social History Tobacco Use Types Packs/Day Years [...] PM CDT Legal Sex Female 3:12 AM ORDER CHECKER PACKER PROCESSER Gender Identity Female 10/31/2023 12:26 PM CDT Sexual Orientation Straight 10/31/2023 12 :26 PM CDT documented as of this encounter Progress Notes * Gala Fair, [facility] - 07/16/2024 9:00 AM CDT Psychosocial Assessment Analia Haas was seen in the Transplant Center as part of her evaluation as a potential liver transplant recipient . She presented with her spouse, Mir today in clinic. Living Situation: Analia is a 63 year old female who lives in a single family home in [place], [place]. Analia resides with her spouse, Mir. She does not report any concerns related to their living environment. Education/Employment: Analia graduated from high school. She is working full-time and has worked [employer] for the past 36 years. Analia is not a . Financial /Income: Analia's primary source of income is through her employment. Her spouse also works full-time. She reports being financially stable. Health Insurance: She has BCBS through her employer. This designer/writer talked with Analia about the financial risks of transplant, particularly about the high cost of transplant related medications and the importance of maintaining adequate health insurance coverage. Family/Social Support: Analia is to Mir, and considers him a primary support. They've been for 27 years. They have one son, Francisco who lives in [place], [place]. She does not have siblings and her parents are . Analia reported that her [id number] is supportive and she has additional friends who would be able to assist. This designer/writer stressed the importance of having a stable and involved support network before and after transplant. Provided Analia with education about the relationship between a stable support system and better surgical and post- transplant outcomes compared to patients with a limited support system. Functional Status: Analia is independent with all ADL/IADLs. She manages their medications. . She continues to drive. Chemical Dependency: Analia reports that her last consumption of alcohol was 09/06/2023. Prior to that she was drinking 2-3 glasses of wine daily, and sometimes more in additional social situation. Sheindicated that her level of consumption increased when additional family members lived in the home.She had been drinking daily for the past 5-6 years. No history of tobacco use, misuse/over use of pain medication or illicit substances. No history of treatment or legal consequences related to substances. She completed a substance use assessment with ALEJANDRO Lincoln on 06/12/2024. He recommended a 1.0 level of care through [facility]. Referral was made at that time. Mental Health: Analia denies any history of being diagnosed with a mental health disorder. she has no history of seeing a therapist or being prescribed medication for her mental health. Analia denies any history of hospitalization for mental health treatment. No history of suicidal thoughts or self-injurious behaviors. Adjustment to Illness: This designer/writer provided Analia with supportive counseling throughout this interview. This designer/writer also encouraged Analia to attend the liver transplant support group for additional support and encouragement. Impression/Recommendations: Analia and Mir verbalizes understanding the psychosocial risks of transplant and teaching provided during this evaluation. Analia last consumption of alcohol was 09/06/2023. Analia meets the sobriety criteria for listing. Shecompleted a substance use assessment on 06/12/2024 and was recommended to engage in a 1.0 level of care through [facility]. I reviewed this recommendation with her today. She is agreeable and will call to initiate services. PETh from today is pending. Analia's primary caregiver will be Mir and additional family/friends. This designer/writer confirmed with Mir their ability and willingness to provide post transplant caregiver support. Analia has adequate finances and health insurance for transplant, and an intact support system. Thiswriter will remain available to assist patient throughout the evaluation process and will follow patient through transplant if she is listed. It was a pleasure to evaluate this patient for liver transplant. Pending engagement in substance use treatment, Analia is an acceptable transplant candidate from a psychosocial perspective. Teaching completed during assessment: 1. Housing and relocation needs post transplant. 2. Caregiver needs post transplant. 3. Financial issues related to transplant. 4. Risks of alcohol use post transplant. 5. Common psychosocial stressors pre/post transplant. 6. Liver Transplant support group availability. 7. Advanced Health Care Directive - She has a health care directive and will send this designer/writer a copy. Psychosocial Risks of Transplant Reviewed: 1. Increased stress related to your emotional, family, social, employment, or financial situation. 2. Affect on work and/or disability benefits. 3. Affect on future health and life insurance. 4. Transplant outcome expectations may not be met. 5. Mental Health risks: anxiety, depression, PTSD, guilt, grief and chronic fatigue. ELIJAH Porter documented in this encounter Plan of Treatment Upcoming Encounters Date Type Department Care Team (Late st Contact Info) Description 08/05/2024 10:45 AM CDT Lab [facility] [address] [place] [address] 08/26/2024 10:30 AM CDT Appointment [facility] Care [address] [place] [address] Meliza Villaseñor MD [address] [place] [address] 08/26/2024 12:00 PM CDT Appointment [facility] Imaging [address] [place] [address] Meliza Villaseñor MD [address] [place] [address] 09/12/2024 11:00 AM CDT Office Visit [address] 2nd [place] [address] Dixon Hernandez MD [address] [place] [id number] 10/01/2024 PRE VISIT [facility] [address] [place] [phone] Dixon Hernandez MD [address] [address] Previsit documented as of this encounter Visit Diagnoses Diagnosis Alcohol use disorder, severe, dependence (H)- Primary documented in this encounter Additional Health Concerns Assessment Noted Time PHQ-9 Depression Total Score: 8 06/12/19 25 12:56 PM CDT documented as of this encounter Care Teams Electrical Designer Drafter Relationship Specialty Start Date End Date [facility], [facility] [address] [facility] [address] PCP - General 08/24/20 Kristen Dockery, RN Registered Nurse Nurse 11/09/23 Kristen Dockery, survey field technicianLead Burner Helper Nurse 05/19/24 Meliza Villaseñor MD [address] [place] [address] Exchange Trouble Shooter Internal Medicine 05/19/24 Lanny Meléndez APRN CONTACT CENTER TEAM LEAD [facility] [address] [place] [address] Referring Physician Internal Medicine 05/19/24 Gala Fair, [facility] Line Walker 05/20/24 Meliza Villaseñor MD [address] [place] [address] Physician Internal Medicine 05/20/24 Trey Abraham MD 420 [facility] [address] [place] [address] Surgery 05/20/24 Jena Castano, RD [facility] [address] [facility] [address] [place] [address] Registered Dietitian Dietitian, Registered 05/20/24 Dixon Hernandez MD [address] [facility] [address] [place] [address] Cardiovascular Disease 05/20/24 Jes Arrington MD [address] [place] [address] Gastroenterology 06/24/24 documented as of this encounter
--- OUTSIDE RECORDS SUMMARY | 2024-07-16 10:00 | XMS_ITS | Encounter Summary ---
Author Organization [place] Address [address] [place] [address] Care Team Providers Care Port Warden Name Role Phone Clinic, [facility] Primary Care Provider Kristen Dockery RN Unavailable Unavaila Kristen Bermudez RN Unavailable Unavaila Meliza James MD Unavailable [phone] Lanny Meléndez APRN [employer]RA[employer]ER [employer]ODUCTION LINE Unavailable [phone] Gala Fair BLUEPRINTER Unavailable [phone] Meliza Villaseñor MD Unavailable [phone] Trey Abraham MD Unavailable [phone] Unavailable Unavail able Dixon Hernandez MD Unavailable [phone] Jes Arrington MD Unavailable + Encounter Details Date Type Department Care Team (Late st Contact Info) Description 07/16/2024 10:00 AM CDT Office Visit [facility] [address] [place] [address] Jes Arrington MD [address] [place] [id number] Alcoholic cirrhosis of liver with ascites (H) (Primary Dx) Social History Tobacco Use Types Packs/Day Years [...] PM CDT Legal Sex 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 She is here for LT evaluation. MELD 24. ABO A+. With regards to potential etiologies of her underlying liver disease this appears to have been a question in the past, suspect the patient is underreporting her prior alcohol use history. H63D heterozygosity and or A1 ATD MS phenotype alone would not explain rapid progression over 5 years from F1 fi brosis to cirrhosis although could have experienced acceleration in hepatic decompensation from a significant risk factor i.e. alcohol. Ascites/GIBRAN She has been on diuretics and paused them. Would recommend re-initiation. EV screening UTD HCC screening overdue. US today. LT evaluation In terms of her liver transplant candidacy, given patient's decompensated cirrhosis, limited options at reversibility of her liver disease, and persistent elevation in her MELD despite several months cessation from alcohol, would proceed with completing her evaluation at this time. Alcohol use Would want more information on her alcohol use history pending SW evaluation; she did undergo ANJEL eval and recommendations made for low intensity programming through [facility] and patients is awaiting scheduling for this. Additional outstanding issues regarding her candidacy are CTA coronaries updated TTE.. Plan: -Transplant social work evaluation -Transplant surgery evaluation -Ultrasound abdomen for HCC screening - Resume diuretics with 20 mg furosemide and 25 mg of Aldactone if lower extremity edema worsens; continue with as needed large-volume paracenteses. - CTA coronaries and TTE RTC in 3-4 months Patient discussed and seen with Staff Dr. Arrington, who is in agreement with the above. JUDY SCHULZ MD Gastroenterology Fellow, PGY-6 [facility] Department of Gastroenterology, Hepatology and Nutrition ATTENDING NOTE HEPATOLOGY I saw and discussed this patient with the fellow and participated in the decision making. I agree with the fellow's note. Jes Arrington MD Residential Tech Hepatology/Liver Transplant Cut Off Saw Grader, Liver Transplantation [facility] Appointments [phone] Clinic Transplant Care [phone] Option 4 Transplant Administrative Office [phone] Administrative HPI: 63 year old female with a hx pertinent for H63D heterozygosity, A1ATD MS phenotype, and alcohol related decompensated cirrhosis who presents to clinic for LT eval. Briefly, patient states that she was first diagnosed with liver disease~2 years prior although on review of EHR it appears that she underwent a liver biopsy in 09/2019 for further workup of abnormal liver tests with liver biopsy demonstrating moderate (35% )steatosis ...stage IA fibrosis; at the time of this liver biopsy patient was denying any alcohol use and despite pattern of liver enzyme elevations being consistent with alcohol related liver injury. In 08/2023 patient states that she developed progressive volume overload and and new jaundice; labs demonstrated elevated AST 114, ALP 197, T. bili 11.6 and normal ALT 34. She was seen by [facility] on 09/2023 and underwent MR elastography that demo nstrated features of portal hypertension including slight ascites in recannulization of the umbilical vein; LSM 12-13.5 kPa consistent with advanced fibrosis/cirrhosis. EGD then done revealed large esophageal varices and PHG patient subsequently underwent EVL. In terms of her ascites, was previously managed with diuretics with 25 mg Aldactone and 20 mg furosemide. She did undergo index and only large-volume paracentesis on 06/14 where 3 L was removed.She did discontinue all diuretics 4 days prior in the setting of electrolyte derangements that she noted on her most recent labs with mild hyponatremia and significant hypokalemia with a potassium of2.8. She is on potassium replacement therapy that she reports adherence to. She reports adherence to a low-sodium diet. She has no history of hepatic encephalopathy. She has no history of esophageal variceal hemorrhage but does have history of esophageal varices; most recent EGD 04/2024 noted small EV. In terms of her alcohol use, appears that there have been inconsistent alcohol intake endorsed per EHR. On questioning today, patient states that at the most she was drinking 1 to 2 glasses of small amounts of wine of low alcohol content may be 3 times a week. She denies any history of withdrawal or legal implications of her alcohol use. She denies any family history of liver disease. PMH: -Cardiac: No known hx of cardiac disease. -Pulm: No history of pulmonary disease. A1 AT ED MS phenotype. No history of tobacco use. - Hypertension PSH: - Cholecystectomy 08/2021. Social: - Lives in [place], [place] with . Works full-time at [employer]. Health Maintenance: - CRC screening: UTD, colonoscopy 03/2024 with 2x 3-4mm polyps removed. - Cervical cancer: Pap smear 03/2024 wnl - Breast cancer: Mammogram 05/2024 WNL. ROS: 10pt ROS performed and otherwise negative. Allergies Allergies Allergies Allergen Reactions Sulfa Antibiotics Itching, Rash and Hives Medications: Current Facility-Administered Medications Current Outpatient Medications Medication Sig Dispense Refill EPINEPHrine (ANY BX GENERIC EQUIV) 0.3 MG/0.3ML injection 2-pack Inject 0.3 mg into the muscle as needed for anaphylaxis (Patient not taking: Reported on 06/12/2024) fluticasone (CUTIVATE) 0.05 % external cream Apply topically 2 times daily as needed (Patient not taking: Reported on 06/12/2024) fluticasone (FLONASE) 50 MCG/ACT nasal spray [place] 2 sprays into both nostrils daily (Patient not taking: Reported on 06/12/2024) furosemide (LASIX) 20 MG tablet Take 20 mg by mouth daily. gabapentin (NEURONTIN) 300 MG capsule Take 300 mg by mouth 3 times daily hydroCHLOROthiazide 12.5 MG tablet Take 12.5 mg by mouth daily. hydrOXYzine HCl (ATARAX) 10 MG tablet Take 10 mg by mouth 3 times daily as needed for itching. loratadine-pseudoePHEDrine (CLARITIN-D 24-HOUR) 10-240 MG 24 hr tablet Take 1 tablet by mouth daily. omalizumab (XOLAIR) 150 MG injection Inject Subcutaneous every 28 days (Patient not taking: Reported on 06/12/2024) Potassium Chloride Ramila ER (KLOR-CON M20 PO) Take 20 mEq by mouth 2 times daily (Patient not taking: Reported on 06/12/2024) spironolactone (ALDACTONE) 25 MG tablet Take 25 mg by mouth daily. triamcinolone (KENALOG) 0.1 % external cream Apply topically 2 times daily as needed for irritation(Patient not taking: Reported on 06/12/2024) No current facility-administered medications for this visit. Surgical History: Past Surgical History Past Surgical History: Procedure Laterality Date BREAST SURGERY Left 2019 localized excisional biopsy CHOLECYSTECTOMY COLONOSCOPY ENT SURGERY T&A @ age 8 ESOPHAGOSCOPY, GASTROSCOPY, DUODENOSCOPY (EGD), COMBINED N/A 08/27/2020 Procedure: ENDOSCOPIC Ultrasound; Surgeon: Jack Alvarez MD; Location: [facility] OR EXPLOSIVE ORDNANCE TECHNICIAN SURGERY 2006 endometrial ablation EXPLOSIVE ORDNANCE TECHNICIAN SURGERY diagnostic laparoscopy LIVER BIOPSY 2019 REFRACTIVE SURGERY Bilateral 1994 radial keratotomy with enhancements Past Medical History: As noted above. Past Medical History Past Medical History: Diagnosis Date ASCUS of cervix with negative high risk HPV Breast mass, left Dermatitis Gastro-esophageal reflux History of abdominal pain History of jaundice Hypertension Insomnia Liver disease, chronic, due to alcohol Restless legs syndrome (RLS) Seasonal allergic rhinitis Sleep apnea on history but patient says she does not have this Social History: Social History Tobacco Use Smoking status: Never Smokeless tobacco: Never Substance Use Topics Alcohol use: Not Currently Comment: two months ago last drink Family History: Family History Family History Problem Relation Age of Onset Rheumatic fever Mother Retinal detachment Mother Hypertension Mother Diabetes Mother Osteoporosis Mother Cerebrovascular Disease Mother Diabetes Father Hypertension Father Hypertension Maternal Grandmother Hypertension Maternal Grandfather Heart Disease Maternal Grandfather Hypertension Paternal Grandmother Hypertension Paternal Grandfather Diabetes Paternal Grandfather Vitals: There were no vitals taken for this visit. There is no height or weight on file to calculate BMI. Physical Examination: Constitutional: Ill Appearing. Sarcopenic. NAD HEENT: Normocephalic. + scleral icterus. Moist oral mucosa. Neck/Lymph: Normal ROM, supple. Cardiac: Regular rate and rhythm. Respiratory: Normal Effort on RA GI: Abdomen distended, No overt hepatosplenomegaly. Skin: Skin is warm and dry. No rash noted. + jaundice. + spider nevi noted. + palmar erythema Peripheral Vascular: + lower extremity edema. Musculoskeletal: ROM intact, decreased muscle bulk Psychiatric: Normal mood and affect. Behavior is normal. Neuro: No asterixis, No tremor Labs: Lab Results Component Value Date NA 131 (L) 07/16/2024 POTASSIUM 3.4 07/16/2024 CHLORIDE 94 (L) 07/16/2024 ANIONGAP 10 07/16/2024 CO2 27 07/16/2024 BUN 16.6 07/16/2024 CR 1.07 (H) 07/16/2024 GFRESTIMATED 59 (L) 07/16/2024 RHODA 8.6 (L) 07/16/2024 Lab Results Component Value Date WBC 4.8 07/16/2024 HGB 8.6 (L) 07/16/2024 HCT 25.3 (L) 07/16/2024 MCV 99 07/16/2024 MCH 33.7 (H) 07/16/2024 MCHC 34.0 07/16/2024 RDW 16.5 (H) 07/16/2024 PLT 127 (L) 07/16/2024 Lab Results Component Value Date ALBUMIN 3.0 (L) 07/16/2024 ALKPHOS 259 (H) 07/16/2024 AST 41 07/16/2024 Lab Results Component Value Date INR 1.52 (H) 07/16/2024 MELD 3.0: 24 at 07/16/2024 7:23 AM MELD-Na: 23 at 07/16/2024 7:23 AM Calculated from: Serum Creatinine: 1.07 mg/dL at 07/16/2024 7:23 AM Serum Sodium: 131 mmol/L at 07/16/2024 7:23 AM Total Bilirubin: 7.2 mg/dL at 07/16/2024 7:23 AM Serum Albumin: 3 g/dL at 07/16/2024 7:23 AM INR(ratio): 1.52 at 07/16/2024 7:23 AM Age at listing (hypothetical): 63 years Sex: Female at 07/16/2024 7:23 AM documented in this encounter Plan of Treatment Upcoming Encounters Date Type Department Care Team (Late st Contact Info) Description 08/05/2024 10:45 AM CDT Lab [facility] Laboratory [address] [place] [address] 08/26/2024 10:[address] [facility] Heart Care [address] [place] [address] Meliza Villaseñor MD [facility] [address] [place] [address] 08/26/2024 12:00 PM CDT Appointment [facility] Imaging [address] [place] [address] Meliza Villaseñor MD [facility] [address] [place] [address] 09/12/2024 11:00 AM CDT Office Visit [facility] [address] [place] [address] 2nd [place] [phone] Dixon Hernandez MD [address] [place] [address] [address] [place], [place] [phone] 10/01/2024 PRE VISIT [facility] [address] [place] [phone] Dixon Hernandez MD [address] [facility] [address] [place] [address] Previsit documented as of this encounter Visit Diagnoses Diagnosis Alcoholic cirrhosis of liver with ascites (H)- Primary Alcoholic cirrhosis of liver documented in this encounter Additional Health Concerns Assessment Noted Time PHQ-9 Depression Total Score: 8 06/12/19 25 12:56 PM CDT documented as of this encounter Care Teams Port Warden Relationship Specialty Start Date End Date [facility] [address] [place] [address] PCP - General 08/24/20 Kristen Dockery, RN Registered Nurse Nurse 11/09/23 Kristen Dockery, labor conciliatorLife Insurance Salesperson Nurse 05/19/24 Meliza Villaseñor MD [address] [place] [address] Electronics Manufacturer Internal Medicine 05/19/24 Lanny Meléndez APRN BRAZER PRODUCTION LINE [facility] [address] [place] [address] Referring Physician Internal Medicine 05/19/24 Gala Fair, [facility] Plumber Assistant 05/20/24 Meliza Villaseñor MD [address] [place] [address] Physician Internal Medicine 05/20/24 Trey Abraham MD [address] [facility] [address] [place] [address] Surgery 05/20/[address] [facility] [address] [facility] [address] [place] [address] Registered Dietitian Dietitian, Registered 05/20/24 Dixon Hernandez MD [address] [facility] [address] [place] [address] Cardiovascular Disease 05/20/24 Jes Arrington MD [address] [facility] [address] [place] [address] Gastroenterology 06/24/24 documented as of this encounter
--- OUTSIDE RECORDS SUMMARY | 2024-07-16 11:00 | XMS_ITS | Encounter Summary ---
Author Organization [facility] Address [address] [place] [address] Care Team Providers Care Cement Rubber Name Role Phone Clinic, [facility] Primary Care Provider Kristen Dockery RN Unavailable UnavailKristen Toussaint RN Unavailable Unavaila Meliza James MD Unavailable [phone] Lanny Meléndez APRN FILTER CHANGER Unavailable [phone] Gala Fair AMORTIZATION CLERK Unavailable [phone] Meliza Villaseñor MD Unavailable [phone] Trey Abraham MD Unavailable [phone] Unavailable Unavail able Dixon Hernandez MD Unavailable [phone] Jes Arrington MD Unavailable + Reason for Visit * Reason Comments Transplant Evaluation Liver eval Encounter Details Date Type Department Care Team (Late st Contact Info) Description 07/16/2024 11:00 AM CDT Office Visit [facility] [address] [facility] [place] [address] Jes Arrington MD [address] [facility] [address] [place] [address] Trey Abraham MD [address] [facility] [address] [place] [address] Encounter for pre-transplant evaluation for liver transplant (Primary Dx); Alcoholic cirrhosis of liver with ascites (H); History of cholecystectomy; Edema, unspecified type Social History Tobacco Use Types Packs/Day Years [...] PM CDT Legal 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 Gender Identity Female 10/31/2023 12:26 PM CDT Sexual Orientation Straight 10/31/2023 12 :26 PM CDT documented as of this encounter Last Filed Vital Signs Vital Sign Reading Time Taken Comments Blood Pressure 124/72 07/16/2024 8:36 AM CDT Pulse 93 07/16/2024 8:36 AM CDT Temperature - - Respiratory Rate - - Oxygen Saturation 96% 07/16/2024 8:36 AM CDT Inhaled Oxygen Concentration - - Weight 65.8 kg (145 lb) 07/16/2024 8:36 AM CDT Height 175.3 cm (5' 9) 07/16/2024 8:36 AM CDT Body Mass Index 21.41 07/16/2024 8:36 AM CDT documented in this encounter Progress Notes * Trey Abraham MD - 07/16/2024 11:00 AM CDT Assessment and Plan: 1. liver transplant evaluation - patient is a good candidate overall. Benefits and surgical risks of a liver transplantation were discussed. 2. 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 Lap kay 2021 4. Allergy, carries epi 5. Hx ASCUS: get metal filer eval if not recent. 6. Prior breast bx get path result >45 min. 10 min review chart and xray, 30 f2f, discussion, explanation, answer questions, 10 docuementation Surgical evaluation: 1. Portal Vein:Patent 2. Hepatic Artery: Open 3. TIPS: absent 4. Previous Abdominal Surgery: Yes 5. Hepatocellular Carcinoma: None 6. Ascites: Present - minimal 7. Costal Angle: wide 8. Portopulmonary Hypertension: absent 9. Hepatopulmonary Syndrome: absent 10. Cardiac Evaluation: adequate 11. Nutritional Status: Moderate 12. Diabetes: no 13.Hypertension no 14. Smoker:no 14: Fraility index:see stitcher operator 15. Meets guidelines to receive Living Donor yes, but not interested at present 16. Potential Living donors No Recommendations: above Patients overall evaluation will be discussed at the Liver Transplant selection committee meeting with a final recommendation on the patients suitability for transplant to be made at that time. Consult Full Details: Analia Haas was seen in consultation for evaluation as a potential liver transplant recipient. Reason for Visit: Analia Haas is a 63 year old year old female with Laennec's, who presents for liver transplantevaluation. HPI: Presenting complaint: Jaundice Past Medical History: Diagnosis Date ASCUS of cervix with negative high risk HPV Breast mass, left Dermatitis Gastro-esophageal reflux History of abdominal pain History of jaundice Hypertension Insomnia Liver disease, chronic, due to alcohol Restless legs syndrome (RLS) Seasonal allergic rhinitis Sleep apnea on history but patient says she does not have this Past Surgical History: Procedure Laterality Date BREAST SURGERY Left 2018 localized excisional biopsy CHOLECYSTECTOMY COLONOSCOPY ENT SURGERY T&A @ age 8 ESOPHAGOSCOPY, GASTROSCOPY, DUODENOSCOPY (EGD), COMBINED N/A 08/27/2020 Procedure: ENDOSCOPIC Ultrasound; Surgeon: Jack Alvarez MD; Location: [facility] 2006 endometrial ablation [facility] diagnostic laparoscopy LIVER BIOPSY 2020 REFRACTIVE SURGERY Bilateral 1994 radial keratotomy with enhancements Past Surgical History: Procedure Laterality Date BREAST SURGERY Left 2019 localized excisional biopsy CHOLECYSTECTOMY COLONOSCOPY ENT SURGERY T&A @ age 8 ESOPHAGOSCOPY, GASTROSCOPY, DUODENOSCOPY (EGD), COMBINED N/A 08/27/2020 Procedure: ENDOSCOPIC Ultrasound; Surgeon: Jack Alvarez MD; Location: [facility] 2006 endometrial ablation [facility] diagnostic laparoscopy LIVER BIOPSY 2020 REFRACTIVE SURGERY Bilateral 1995 radial keratotomy with enhancements Family History Problem Relation Age of Onset Rheumatic fever Mother Retinal detachment Mother Hypertension Mother Diabetes Mother Osteoporosis Mother Cerebrovascular Disease Mother Diabetes Father Hypertension Father Hypertension Maternal Grandmother Hypertension Maternal Grandfather Heart Disease Maternal Grandfather Hypertension Paternal Grandmother Hypertension Paternal Grandfather Diabetes Paternal Grandfather Allergies Allergen Reactions Sulfa Antibiotics Itching, Rash and Hives Prior to Admission medications Medication Sig Start Date End Date Taking? Authorizing Provider furosemide (LASIX) 20 MG tablet Take 20 mg by mouth daily. Yes Reported, Patient gabapentin (NEURONTIN) 300 MG capsule Take 300 mg by mouth 3 times daily Yes Reported, Patient hydrOXYzine HCl (ATARAX) 10 MG tablet Take 10 mg by mouth 3 times daily as needed for itching. Yes Reported, Patient loratadine-pseudoePHEDrine (CLARITIN-D 24-HOUR) 10-240 MG 24 hr tablet Take 1 tablet by mouth daily. Yes Reported, Patient spironolactone (ALDACTONE) 25 MG tablet Take 25 mg by mouth daily. Yes Reported, Patient EPINEPHrine (ANY BX GENERIC EQUIV) 0.3 MG/0.3ML injection 2-pack Inject 0.3 mg into the muscle as needed for anaphylaxis Patient not taking: Reported on 06/12/2024 Reported, Patient fluticasone (CUTIVATE) 0.05 % external cream Apply topically 2 times daily as needed Patient not taking: Reported on 06/12/2024 Reported, Patient fluticasone (FLONASE) 50 MCG/ACT nasal spray [place] 2 sprays into both nostrils daily Patient not taking: Reported on 06/12/2024 Reported, Patient hydroCHLOROthiazide 12.5 MG tablet Take 12.5 mg by mouth daily. Reported, Patient omalizumab (XOLAIR) 150 MG injection Inject Subcutaneous every 28 days Patient not taking: Reported on 06/12/2024 Reported, Patient Potassium Chloride Ramila ER (KLOR-CON M20 PO) Take 20 mEq by mouth 2 times daily Patient not taking: Reported on 06/12/2024 Reported, Patient triamcinolone (KENALOG) 0.1 % external cream Apply topically 2 times daily as needed for irritation Patient not taking: Reported on 06/12/2024 Reported, Patient Previous Transplant Hx: No Cardiovascular Hx: h/o Cardiac Issues: No Exercise Tolerance: no chest pain or shortness of breath with exertion. Potential Donor(s): No ROS: REVIEW OF SYSTEMS (check box if normal) [x] GENERAL [x] PULMONARY [x] GENITOURINARY [x] EXPERIENTIAL THERAPIST [x] CARDIAC [x] ENDOCRINE [x] EARS,NOSE,THROAT [x] GASTROINTESTINAL [x] NEUROLOGIC [x] MUSCLOSKELTAL [x] HEMATOLOGY Examination: Vitals: BP 124/72 Pulse 93 Ht 1.753 m (5' 9) Wt 65.8 kg (145 lb) SpO2 96% BMI 21.41 kg/m?? GENERAL APPEARANCE: alert and no distress EYES: PERRL HENT: mouth without ulcers or lesions NECK: supple, no adenopathy RESP: lungs clear to auscultation - no rales, rhonchi or wheezes CV: regular rhythm, normal rate, no rub ABDOMEN: soft, nontender, no HSM or masses and bowel sounds normal MS: extremities normal- no gross deformities noted, no evidence of inflammation in joints, no muscle tenderness SKIN: no rash NEURO: Normal strength and tone, sensory exam grossly normal, mentation intact and speech normal PSYCH: mentation appears normal. and affect normal/bright Results: Recent Results (from the past week) EKG 12-lead, tracing only [EKG1] Collection Time: 07/16/24 7:15 AM Result Value Ref Range Systolic Blood Pressure mmHg Diastolic Blood Pressure mmHg Ventricular Rate 91 BPM Atrial Rate 91 BPM [place] Interval 180 ms QRS Duration 92 ms QT 412 ms QTc 506 ms P [place] 62 degrees R AXIS 34 degrees T [place] 58 degrees Interpretation ECG Sinus rhythm Prolonged QT Abnormal ECG When compared with ECG of 08-Aug-2006 09:55, Vent. rate has increased by 30 bpm QT has lengthened Confirmed by MD MANDI, CHLOE ([id number]) on 07/16/2024 9:25:03 AM Comprehensive metabolic panel Collection Time: 07/16/24 7:23 AM Result Value Ref Range Sodium 131 (L) 135 - 145 mmol/L Potassium 3.4 3.4 - 5.3 mmol/L Carbon Dioxide (CO2) 27 22 - 29 mmol/L Anion Gap 10 7 - 15 mmol/L Urea Nitrogen 16.6 8.0 - 23.0 mg/dL Creatinine 1.07 (H) 0.51 - 0.95 mg/dL GFR Estimate 59 (L) >60 mL/min/1.73m2 Calcium 8.6 (L) 8.8 - 10.4 mg/dL Chloride 94 (L) 98 - 107 mmol/L Glucose 108 (H) 70 - 99 mg/dL Alkaline Phosphatase 259 (H) 40 - 150 U/L AST 41 0 - 45 U/L ALT 22 0 - 50 U/L Protein Total 6.6 6.4 - 8.3 g/dL Albumin 3.0 (L) 3.5 - 5.2 g/dL Bilirubin Total 7.2 (H) <=1.2 mg/dL INR Collection Time: 07/16/24 7:23 AM Result Value Ref Range INR 1.52 (H) 0.85 - 1.15 PT 18.4 (H) 11.8 - 14.8 Seconds CBC with platelets Collection Time: 07/16/24 7:23 AM Result Value Ref Range WBC Count 4.8 4.0 - 11.0 10e3/uL RBC Count 2.55 (L) 3.80 - 5.20 10e6/uL Hemoglobin 8.6 (L) 11.7 - 15.7 g/dL Hematocrit 25.3 (L) 35.0 - 47.0 % MCV 99 78 - 100 fL MCH 33.7 (H) 26.5 - 33.0 pg MCHC 34.0 31.5 - 36.5 g/dL RDW 16.5 (H) 10.0 - 15.0 % Platelet Count 127 (L) 150 - 450 10e3/uL Adult Type and Screen Collection Time: 07/16/24 7:23 AM Result Value Ref Range ABO/RH(D) A POS Antibody Screen Negative Negative SPECIMEN EXPIRATION DATE 07/19/2024 11:59:00 PM CDT I had a long discussion with the patient regarding liver transplantation which included but was notlimited to the following points: Liver transplant selection committee process. The federal rules for cadaveric waiting list, the size and blood type matching of the organ. The availability of living-related donor transplantation. The types of donors: brain donors, non-heart beating donors, partial liver grafts: splits andliving donor grafts Extended criteria Donors (older age, steasosis) and the increased risk of primary non-function using the extended criteria donors The CDC high risk donors, Risk of donor transmitted infections and donor transmitted malignancy The liver transplant operation and the associated risks and technical complications which can include intraoperative , post operative , Primary non-function, bleeding requiring re-operations, arterial and biliary complications, bowel perforations, and intra abdominal abscess. Some of these complicaitons may require a second operation. The postoperative course, the ICU stay and risk of postoperative complications which can include sepsis, IA, stroke, brain injury, pneumonia, pleural effusions, and renal dysfunction. The current 1 year and 5 year graft and patient survivals. The need for life long immunosuppressive therapy and the side effects of these medications, including the possibility of toxicity, opportunistic infections, risk of cancer including lymphoma, and thepossibility of rejection even if the patient is taking the medication exactly as prescribed. The need for compliance with medications and follow-up visits in the clinic and thereafter. The patient and family understand these risks and wish to proceed to transplantation documented in this encounter Plan of Treatment Upcoming Encounters Date Type Department Care Team (Late st Contact Info) Description 08/05/2024 10:45 AM CDT Lab [facility] [address] [place] [address] 08/26/2024 10:30 AM CDT Appointment [facility] [address] [place] [address] Meliza Villaseñor MD [facility] [address] [address] 08/26/2024 12:00 PM CDT Appointment [facility] [address] [place] [address] Meliza Villaseñor MD [facility] [address] [address] 09/12/2024 11:00 AM CDT Office Visit [facility] [address] [place] [address] [address] [place] [phone] Dixon Hernandez MD [address] [place] [address] [place] [id number] 10/01/2024 PRE VISIT [facility] [address] [place] [address] Dixon Hernandez MD [address] [facility] [address] [place], [place] [id number] Previsit documented as of this encounter Visit Diagnoses Diagnosis Encounter for pre-transplant evaluation for liver transplant- Primary Alcoholic cirrhosis of liver with ascites (H) Alcoholic cirrhosis of liver History of cholecystectomy Other acquired absence of organ Edema, unspecified type documented in this encounter Additional Health Concerns Assessment Noted Time PHQ-9 Depression Total Score: 8 06/12/19 25 12:56 PM CDT documented as of this encounter Care Teams Cement Rubber Relationship Specialty Start Date End Date Clinic, [facility] [address] [place] [address] PCP - General 08/24/20 Kristen Dockery, RN Registered Nurse Nurse 11/09/23 Kristen Dockery multimedia authoring specialistFeed Preparation Operator Nurse 05/19/24 Meliza Villaseñor MD [address] [place] [address] Perinatal Tech Internal Medicine 05/19/24 Lanny Meléndez APRN FILTER CHANGER [facility] [address] [place], [place] [address] Referring Physician Internal Medicine 05/19/24 Gala Fair, [facility] Laborer Salvage 05/20/24 Meliza Villaseñor MD [address] [place] [address] Physician Internal Medicine 05/20/24 Trey Abraham MD [address] [facility] [address] [place], [place] [id number] Surgery 05/20/[address] [employer] [address] [facility] [address] [facility] [address] [place] [address] Registered Dietitian Dietitian, Registered 05/20/24 Dixon Hernandez MD [address] [facility] [address] [place] [address] Cardiovascular Disease 05/20/24 Jes Arrington MD [address] [facility] [address] [place], [place] [address] Gastroenterology 06/24/24 documented as of this encounter
--- OUTSIDE RECORDS SUMMARY | 2024-07-16 12:00 | XMS_ITS | Encounter Summary ---
Author Organization [facility] Address [address] [place] [address] Care Team Providers Care Certified Orthoptist Name Role Phone Clinic, [facility] [place] Primary Care Provider Kristen Dockery RN Unavailable Unavaila Kristen Bermudez RN Unavailable Unavaila Meliza James MD Unavailable [phone] Lanny Meléndez APRN PROSECUTING ATTORNEY Unavailable [phone] Gala Fair PROVIDER RELATIONS REPRESENTATIVE Unavailable [phone] Meliza Villaseñor MD Unavailable [phone] Trey Abraham MD Unavailable [phone] Unavailable Unavail able Dixon Hernandez MD Unavailable [phone] Jes Arrington MD Unavailable + Encounter Details Date Type Department Care Team (Late st Contact Info) Description 07/16/2024 12:00 PM CDT Allied Health/Nurse Visit [facility] [address] [facility] [place] [address] Jes Arrington MD [address] [facility] [address] [place] [address] Jena Castano, RAFIQ [facility] [address] [facility] [address] [facility] [address] [place] [address] Cirrhosis of liver (H) (Primary Dx) Social History Tobacco Use [...] PM CDT 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 The goal is to have a well-maintained nutritional status (or a good nutritional reserve). Once you lose your nutritional buffer or functional status, it is very hard toget back. The more functional you are, the better you will do with recovering from surgery, etc. Functional Status: - Combined with good nutrition, maintaining functional status will help keep you strong enough for surgery. - Do what activity you can tolerate. Please ask your Physician for a Physical Therapy referral if you would find this helpful. Nutrition: - Protein foods are the building blocks of muscle. Try to get protein at each meal and snack time. Including protein before bed is also helpful to carry you through the night when your muscle is moreprone to breakdown. - Sometimes eating protein is more work than drinking liquids. If this is the case, please supplement with a pre-made protein shake or make your own smoothie with protein powder, milk/water, yogurt, fruit, nuts/vidal seeds, etc - Small volume protein supplements: Prostat or Liquacel (can be found on Amazon). 1 ounce drink has15 grams of protein. Sources of Protein For animal proteins (chicken, beef, fish), deck of cards size is approximately 3 ounces or 24 gramsprotein. Food Portion Grams of Protein Animal proteins (chicken, turkey, venison, fish/seafood, red meat) 1 ounce 7-9 Egg 1 6 Cottage cheese 1/4 cup 7 Cheese 1 ounce (1 slice, 1 cheese stick) 6 Milk (cow's) 4 ounces or 1/2 cup 4 Dry skim milk powder 2 Tbsp 4 Ricotta cheese 1/4 cup 7 [place] Instant Breakfast (made with milk) 1/2 cup 7 Pudding 1/2 cup 4 Yogurt (ie Yoplait) 1/2 cup 5 French yogurt 5 oz container 15 Tofu 1/4 cup 5 Soymilk 1/2 cup 3 Tempeh 1/4 cup 8 Lentils 1/4 cup 5 Kidney beans, black beans, etc 1/4 cup 4 Chickpeas 1/4 cup 4 Veggie burger 1 dannielle 7 Soy nuts 1/4 cup 17 Castine seeds 2 Tbsp 8 Peanuts 1 ounce 7 Almonds 15 6 Pistachios 25 6 Peanut/almond butter 2 Tbsp 8 My favorite protein bars are Atkins wafer cookie or Power Crunch protein bars- wafer cookie type texture. Liver Health & Nutrition Visit https://cirrhosiscare.ca to review valuable information about nutrition and exercise Nutrition - For patients with cirrhosis, it is very important to eat the right types and amounts of foods. Werecommend a diet low in carbohydrates/sugars and high in fresh fruits/vegetables, with the right amount of protein. We typically recommend 75-100 grams of protein every day. Your Registered Dietitianwill be able to calculate your estimated protein needs based on your weight and degree of muscle wasting associated with your liver disease. - In regard to protein intake, you can focus on: red meat, poultry, cooked fish and seafood, vegetable-based protein meat products/meat substitutes (Beyond Burgers, etc), tofu and other soy products,eggs, beans/legumes, dairy products (including milk and yogurt and cheese), unsalted nuts, nut butters, etc. - You should eat at least three meals a day and three to four snacks between meals. Your goal is toinclude protein at each meal and snack. Focus on eating protein first, then if still hungry, go forthe vegetables, fruit, starches, etc. - Bedtime snacks are especially important (preferrably something with some protein) - toast or fruit with peanut butter, spoonful of peanut butter, French yogurt, handful of nuts, string cheese stick,boiled egg, protein bar - Patients with malnutrition and/or loss of muscle mass can improve their nutrition and muscle massby drinking at least 2 protein drinks per day. A good time of day to drink one of these is before bed, when your body is preparing to be in the fasted state all night and muscle mass may break downmore readily. Some options include: Ensure, Boost, Glucerna, Premier Protein, FairLife, Orgain, or powdered whey protein (or similar supplements) mixed with milk, yogurt, fruit, peanut butter, etc. - Clear protein drinks: Premier Protein Clear, Ensure Clear, Oyxyfar19, Boost Breeze Clear, Wicked Whey Protein Powder - Please avoid eating raw seafood, especially shellfish, because of risk of serious illness - We recommend all patients with cirrhosis limit their daily sodium intake to less than 2000 mg. Consider tracking your current sodium intake for 3 days on pen/paper or with an jelly like OrangeSlyce to understand where most of your sodium is coming from, what you might need to modify in your diet to remain within the 2000 mg/day budget, etc. Consider a lower sodium frozen meal (Healthy Choice, Lean Cuisine, Smart Ones) in a pinch. Online low sodium store: https://ScaleDB/ Low Sodium Recipe Blogs/Websites https://Lumicity.us/recipe-index/ https://Runivermag.DxTerity/category/dinner-recipes/ https://www.ADCentricity.DxTerity/recipes https://[employer] Technology.DxTerity/recipes Magdalena KEN CCTD Transplant Dietitian documented in this encounter Progress Notes * Jena Castano RD - 07/16/2024 12:00 PM CDT [facility] SOLID ORGAN TRANSPLANT OUTPATIENT MNT: LIVER TRANSPLANT EVALUATION Current BMI: 21.4 (HT 69 in, WT 145 lbs/66 kg) BMI is within recommendation of <45 for liver transplant Handgrip Strength (average of 3 using dominant hand): 16 FraiLT-- Frail (LFI: 5.51)- unable to complete chair stand and tandem balance [email or web address].edu/ Reference Range Robust <3.2 Pre Frail 3.2-4.3 Frail >4.4 Recommendations: - PT vs use treadmill at home to work on physical function - Increase to at least 2 protein drinks/day TIME SPENT: 15 minutes VISIT TYPE: Initial REFERRING PHYSICIAN: Jarad PT ACCOMPANIED BY: self History of previous txp: none NUTRITION ASSESSMENT H/o etoh cirrhosis. - Meal prep & grocery shopping: pt cooks- low sodium diet going well - Appetite: reduced since covid 2 years ago - Food allergies/intolerances: no - Issues chewing or swallowing: none - N/V/D/C: no - Food access concerns: no Vitamins, Supplements, Pertinent Meds: none Herbal Medicines/Supplements: none Protein supplements: 1 Premier Protein/day x 1 year Weight hx // fluid retention: - + ankle edema; 1 para only - last week - prior UBW 160 lbs; muscle loss noted- moderate PHYSICAL ACTIVITY Errands, house work, grocery shopping; has treadmill at home but does not use it - Falls: no - Physical therapy: no - Cane/walker/wheelchair: no DIET RECALL Breakfast Fruit (2 bananas), toast x 1 with PB Lunch Grazes on more fruit, veggies Dinner Salad w/ egg; some pasta, tacos, etc Has an animal protein/meat 3x/week (not as appealing as it once was) Snacks Fruit Beverages A few V8 energy drinks/week, water w/ splash of diet cranberry juice Dining out 1x/month NUTRITION DIAGNOSIS Predicted suboptimal nutrient intake (protein) r/t increased needs w/ liver disease, lower affinityfor protein-rich foods. NUTRITION INTERVENTION Nutrition education provided: Discussed sodium intake (low sodium foods and drinks, seasoning food without salt and tips for low sodium diet). Reviewed adequate protein intake. Encouraged receiving protein from both animal and plant based sources. Encouraged 2 protein drinks/day, as her overall protein consumption appears lower and less consistent. Encouraged pairing fruit with a protein source, such as French yogurt, nuts, peanut butter, etc. Encouraged doing some routine physical activity (has treadmill at home) VS formal PT. Reviewed why functional status is critical to maintain vs improve. Reviewed post txp diet guidelines in brief (will review in further detail post txp): (1) Review of proper food safety measures d/t immunosuppressant therapy post-op and increased risk for food-borne illness (2) Avoid the following post txp d/t risk for rejection, unknown effects on the organs, and/or potential interactions with immunosuppressants: - Herbal, Upper Sorbian, holistic, chiropractic, natural, alternative medicines and supplements - Detoxes and cleanses - Weight loss pills - Protein powders or other products with extracts or herbs (ie green tea extract) (3) Med regimen and possible side effects Patient Understanding: Pt verbalized understanding of education provided. Expected Engagement: Good Follow-Up Plans: PRN NUTRITION GOALS Increase to 2 protein supplements/day Magdalena Castano RD, LD, CCTD documented in this encounter Plan of Treatment Upcoming Encounters Date Type Department Care Team (Late st Contact Info) Description 08/05/2024 10:45 AM CDT Lab [facility] [address] [place] [phone] 08/26/2024 10:30 AM CDT Appointment [facility] Care [address] [place] [phone] Meliza Villaseñor MD [facility] [address] [address] 08/26/2024 12:00 PM CDT Appointment [facility] Imaging [address] [place] [phone] Meliza Villaseñor MD [facility] [address] [place] [place] [address] 09/12/2024 11:00 AM CDT Office Visit [facility] [address] 2nd [place] [phone] Dixon Hernandez MD [address] [address] 10/01/2024 PRE VISIT [facility] [address] [place] [phone] Dixon Hernandez MD [address] [address] Previsit documented as of this encounter Visit Diagnoses Diagnosis Cirrhosis of liver (H)- Primary Cirrhosis of liver without mention of alcohol documented in this encounter Additional Health Concerns Assessment Noted Time PHQ-9 Depression Total Score: 8 06/12/19 25 12:56 PM CDT documented as of this encounter Care Teams Certified Orthoptist Relationship Specialty Start Date End Date [facility], [facility] [address] [facility] [place] [address] PCP - General 08/24/20 Kristen Dockery, RN Registered Nurse Nurse 11/09/23 Kristen Dockery, lion tamerAssociate Buyer Nurse 05/19/24 Meliza Villaseñor MD [address] [place] [address] [address] [place], [place] [address] Manager Field Sales Internal Medicine 05/19/24 Lanny Meléndez APRN PROSECUTING ATTORNEY [facility] [address] [place], [place] [address] Referring Physician Internal Medicine 05/19/24 Gala Fair, [facility] Information Security Director 05/20/24 Meliza Villaseñor MD [address] [facility] [address] [place] [address] Physician Internal Medicine 05/20/24 Trey Abraham MD [address] [facility] [address] [place] [address] Surgery 05/20/24 Jena Castano, RAFIQ [facility] [address] [facility] [address] [facility] [place] [address] [place] [address] Registered Dietitian Dietitian, Registered 05/20/24 Dixon Hernandez MD [address] [facility] [address] [place] [address] Cardiovascular Disease 05/20/24 Jes Arrington MD [address] [facility] [address] [place] [address] Gastroenterology 06/24/24 documented as of this encounter
--- OUTSIDE RECORDS SUMMARY | 2024-07-16 12:50 | XMS_ITS | Encounter Summary ---
Author Organization [facility] Address [address] [place] [address] Care Team Providers Care [place] Name Role Phone Clinic, [facility] [place] [place] Primary Care Provider Kristen Dockery RN Unavailable Unavaila Kristen Bermudez RN Unavailable Unavaila Meliza James MD Unavailable [phone] Lanny Meléndez APRN RHEUMATOLOGY SPECIALIST Unavailable [phone] Gala Fair LIABILITY CLAIMS EXAMINER Unavailable [phone] Meliza Villaseñor MD Unavailable [phone] Trey Abraham MD Unavailable [phone] Unavailable Unavail able Dixon Hernandez MD Unavailable [phone] Jes Arrington MD Unavailable + Reason for Visit * Diagnostic Imaging Ultrasound (Routine) - Pending Review Specialty Diagnoses / Procedures Referred By Contac t Referred To Contact Radiology. Diagnoses Alcoholic cirrhosis (H) Cirrhosis, alcoholic (H) Procedures US Abdomen Complete w Doppler Complete Jes Arrington MD [address] [facility] [address] [place] [address] Phone: tel: fax: Referral ID Status Reason Start Date Expiration Date V isits Requested Visits Authorized [id number] Pending Review 06/24/2024 06/24/2025 1 1 Encounter Details Date Type Department Care Team (Latest Contact Info) Description 07/16/2024 12:50 PM CDT Ancillary Procedure [facility] [place] [address] [facility] [address] 1st [place] [phone] Jes Arrington MD [address] [place] [address] Alcoholic cirrhosis (H); Cirrhosis, alcoholic (H) Social [...] PM CDT 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 Gender Identity Female 10/31/2023 12:26 PM CDT Sexual Orientation Straight 10/31/2023 12 :26 PM CDT documented as of this encounter Plan of Treatment Upcoming Encounters Date Type Department Care Team (Late st Contact Info) Description 08/05/2024 10:45 AM CDT Lab [facility] [address] [place] [phone] 08/26/2024 10:30 AM CDT Appointment [facility] Heart Care [address] [place] [phone] Meliza Villaseñor MD [address] [place] [address] 08/26/2024 12:00 PM CDT Appointment [facility] Imaging [address] [place] [phone] Meliza Villaseñor MD [address] [place] [phone] 09/12/2024 11:00 AM CDT Office Visit [facility] [address] [facility] 2nd [place] [phone] Dixon Hernandez MD [address] [phone] 10/01/2024 PRE VISIT [facility] [address] [place] [address] Dixon Hernandez MD [address] [address] Previsit documented as of this encounter Procedures Procedure Name Priority Date/Time Associated Diagnosis Comments US ABDOMEN COMPLETE WITH DOPPLER COMPLETE Routine 07/16/2024 12:43 PM CDT Alcoholic cirrhosis (H) Cirrhosis, alcoholic (H) documented in this encounter Results * US Abdomen Complete w Doppler Complete (07/16/2024 12:43 PM CDT) Anatomical Region Laterality Modality Abdomen/Pelvis, Vascular Ultraso und Impressions 07/16/2024 4:08 PM CDT Impression: 1. Cirrhosis with evidence of portal hypertension including mild splenomegaly, a recannulized paraumbilical vein and moderate to large volume ascites. 2. Patent Doppler assessment of the hepatic vasculature. I have personally reviewed the examination and initial interpretation and I agree with the findings. TEVIN MONK MD [facility] 07/16/2024 4:08 PM CDT EXAMINATION: US ABDOMEN COMPLETE WITH DOPPLER COMPLETE 07/16/2024 12:43 PM COMPARISON: CT 09/08/2023 HISTORY: Alcoholic cirrhosis TECHNIQUE: The abdomen was scanned in standard fashion with specialized ultrasound transducer(s) using both marte-scale, color Doppler, and spectral flow techniques. Findings: Liver: Echogenic liver parenchyma with nodularity of the hepatic capsule. No suspicious mass. The liver measures 10.4 cm. Recanalized paraumbilical vein. Extrahepatic portal vein flow is antegrade at 47 cm/s. Right portal vein flow is antegrade, measuring 36 cm/s. Left portal vein flow is antegrade, measuring 43 cm/s. Flow in the hepatic artery is towards the liver and: 58 cm/s peak systolic 0.77 resistive index. The splenic vein is patent and flow is towards the liver. The left, middle, and right hepatic veins are patent with flow towards the IVC. The IVC is patent with flow towards the heart. The visualized aorta is not dilated. Gallbladder: Surgically absent. Bile Ducts: Both the intra- and extrahepatic biliary system are of normal caliber. The common bile duct measures 6 mm. Pancreas: Visualized portions of the head and body of the pancreas are unremarkable. Kidneys: Both kidneys are of normal echotexture, without mass or hydronephrosis. Renal lengths: right- 9.8 cm, left- 9.1 cm. Spleen: The spleen measures 13.3 cm in length. Fluid: Moderate to large volume ascites. Procedure Note Tevin Monk MD - 07/16/2024 EXAMINATION: US ABDOMEN COMPLETE WITH DOPPLER COMPLETE 07/16/2024 12:43 PM COMPARISON: CT 09/08/2023 HISTORY: Alcoholic cirrhosis TECHNIQUE: The abdomen was scanned in standard fashion with specialized ultrasound transducer(s) using both marte-scale, color Doppler, and spectral flow techniques. Findings: Liver: Echogenic liver parenchyma with nodularity of the hepatic capsule. No suspicious mass. The liver measures 10.4 cm. Recanalized paraumbilical vein. Extrahepatic portal vein flow is antegrade at 47 cm/s. Right portal vein flow is antegrade, measuring 36 cm/s. Left portal vein flow is antegrade, measuring 43 cm/s. Flow in the hepatic artery is towards the liver and: 58 cm/s peak systolic 0.77 resistive index. The splenic vein is patent and flow is towards the liver. The left, middle, and right hepatic veins are patent with flow towards the IVC. The IVC is patent with flow towards the heart. The visualized aorta is not dilated. Gallbladder: Surgically absent. Bile Ducts: Both the intra- and extrahepatic biliary system are of normal caliber. The common bile duct measures 6 mm. Pancreas: Visualized portions of the head and body of the pancreas are unremarkable. Kidneys: Both kidneys are of normal echotexture, without mass or hydronephrosis. Renal lengths: right- 9.8 cm, left- 9.1 cm. Spleen: The spleen measures 13.3 cm in length. Fluid: Moderate to large volume ascites. Impression: 1. Cirrhosis with evidence of portal hypertension including mild splenomegaly, a recannulized paraumbilical vein and moderate to large volume ascites. 2. Patent Doppler assessment of the hepatic vasculature. I have personally reviewed the examination and initial interpretation and I agree with the findings. TEVIN MONK MD us Jes Arrington MD G US ORDERABLES Final Result documented in this encounter Visit Diagnoses Diagnosis Alcoholic cirrhosis (H) Alcoholic cirrhosis of liver Cirrhosis, alcoholic (H) Alcoholic cirrhosis of liver documented in this encounter Additional Health Concerns Assessment Noted Time PHQ-9 Depression Total Score: 8 06/12/19 25 12:56 PM CDT documented as of this encounter Care Teams [place] Relationship Specialty Start Date End Date [facility], [facility] [place] [address] [facility] [place] [address] PCP - General 08/24/20 Kristen Dockery, RN Registered Nurse Nurse 11/09/23 Kristen Dockery, manager of broadcast contentDoor Patcher Nurse 05/19/24 Meliza Villaseñor MD [address] [facility] [address] [place] [address] Ergonomic Specialist Internal Medicine 05/19/24 Lanny Meléndez APRN RHEUMATOLOGY SPECIALIST [facility] [address] [place] [address] Referring Physician Internal Medicine 05/19/24 Gala Fair, [facility] Demo Event Specialist 05/20/24 Meliza Villaseñor MD [address] [facility] [address] [place] [address] Physician Internal Medicine 05/20/24 Trey Abraham MD [address] [facility] [address] [place], [place] [address] Surgery 05/20/[address] [facility] [address] [facility] [address] [place] [address] Registered Dietitian Dietitian, Registered 05/20/24 Dixon Hernandez MD [address] [facility] [address] [place] [address] Cardiovascular Disease 05/20/24 Jes Arrington MD [address] [facility] [address] [place] [address] Gastroenterology 06/24/24 documented as of this encounter
--- OUTSIDE RECORDS SUMMARY | 2024-07-16 13:50 | XMS_ITS | Encounter Summary ---
Author Organization [place] Address [address] [place] [address] Care Team Providers Care Hydraulics Teacher Name Role Phone Clinic, [facility] Primary Care Provider Kristen Dockery RN Unavailable Unavaila Kristen Bermudez RN Unavailable Unavaila Meliza James MD Unavailable [phone] Lanny Meléndez APRN GROUP EXERCISE MANAGER Unavailable [phone] Gala Fair ADVANCED PRACTICE REGISTERED NURSE Unavailable [phone] Meliza Villaseñor MD Unavailable [phone] Trey Abraham MD Unavailable [phone] Unavailable Unavail able Dixon Hernandez MD Unavailable [phone] Jes Arrington MD Unavailable + Reason for Visit * Diagnostic Imaging XR (Routine) - Pending Review Specialty Diagnoses / Procedures Referred By Contac t Referred To Contact Radiology. Diagnoses Alcoholic cirrhosis (H) Cirrhosis, alcoholic (H) Procedures X-ray Chest 2 vws [IMG36] Jes Arrington MD 6 [facility] 2A [place] [address] Phone: tel: fax: Referral ID Status Reason Start Date Expiration Date V isits Requested Visits Authorized [id number] Pending Review 06/24/2024 06/24/2025 1 1 Encounter Details Date Type Department Care Team (Latest Contact Info) Description 07/16/2024 1:50 PM CDT Ancillary Procedure [facility] [address] 1st [place] [phone] Jes Arrington MD [address] [place], [place] [phone] Alcoholic cirrhosis (H); Cirrhosis, alcoholic (H) Social [...] PM CDT Legal 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 [address] [place] [phone] Meliza Villaseñor MD [address] [place] [address] 08/26/2024 12:00 PM CDT Appointment [facility] 500 [place] [phone] Meliza Villaseñor MD [address] [place] [address] 696347 09/12/2024 11:00 AM CDT Office Visit [facility] [address] 2nd [place] [phone] Dixon Hernandez MD [address] [id number] 10/01/2024 PRE VISIT [facility] [address] [place] [phone] Dixon Hernandez MD [address] [id number] Previsit documented as of this encounter Procedures Procedure Name Priority Date/Time Associated Diagnosis Comments XR CHEST 2 VIEWS Routine 07/16/2024 12:1 2 PM CDT Alcoholic cirrhosis (H) Cirrhosis, alcoholic (H) documented in this encounter Results * X-ray Chest 2 vws [IMG36] (07/16/2024 12:12 PM CDT) Anatomical Region Laterality Modality Chest Digital Radiogra phy Impressions 07/16/2024 12:15 PM CDT IMPRESSION: Subsegmental atelectasis posterior lung base on lateral view. BRANDY NEWMAN MD Narrative 07/16/2024 12:15 PM CDT Chest 2 views INDICATION: Alcoholic cirrhosis. COMPARISON: None Heart size and shape normal. Cosmetic angles are reasonably sharp. No obvious hepatic hydrothorax. Lungs and pulmonary vasculature appeared grossly unremarkable. Superimposed vasculature overlying the right lower lung zone on the PA view with linear subsegmental atelectasis posteriorly on the lateral view. Procedure Note Brandy Newman MD - 07/16/2024 Chest 2 views INDICATION: Alcoholic cirrhosis. COMPARISON: None Heart size and shape normal. Cosmetic angles are reasonably sharp. No obvious hepatic hydrothorax. Lungs and pulmonary vasculature appeared grossly unremarkable. Superimposed vasculature overlying the right lower lung zone on the PA view with linear subsegmental atelectasis posteriorly on the lateral view. IMPRESSION: Subsegmental atelectasis posterior lung base on lateral view. BRANDY NEWMAN MD Jse Arrington MD IMG DIAGNOSTIC AL GING ORDERABLES Final Result documented in this encounter Visit Diagnoses Diagnosis Alcoholic cirrhosis (H) Alcoholic cirrhosis of liver Cirrhosis, alcoholic (H) Alcoholic cirrhosis of liver documented in this encounter Additional Health Concerns Assessment Noted Time PHQ-9 Depression Total Score: 8 06/12/19 25 12:56 PM CDT documented as of this encounter Care Teams Hydraulics Teacher Relationship Specialty Start Date End Date Clinic, [facility] [address] [facility] [place], [place] [phone] PCP - General 08/24/20 Kristen Dockery, RN Registered Nurse Nurse 11/09/23 Kristen Dockery stock workerBoat Outfitter Nurse 05/19/24 Meliza Villaseñor MD [address] [place] [address] Commercial Loan Closer Internal Medicine 05/19/24 Lanny Meléndez APRN GROUP EXERCISE MANAGER [facility] [address] [place], [place] [address] Referring Physician Internal Medicine 05/19/24 Gala Fair, [facility] Head Filter Press Tender 05/20/24 Meliza Villaseñor MD [address] [place] [address] Physician Internal Medicine 05/20/24 Trey Abraham MD [address] [place] [address] 195 [place], [place] 869[address] Surgery 05/20/[address] [facility] 420 [facility] SE [facility] 84 [place] [address] Registered Dietitian Dietitian, Registered 05/20/24 Dixon Hernandez MD 420 [facility] 508 [place] [address] Cardiovascular Disease 05/20/24 Jes Arrington MD 516 [facility] [address] [place], [place] [phone] Gastroenterology 06/24/24 documented as of this encounter
--- OUTSIDE RECORDS SUMMARY | 2024-07-16 14:30 | XMS_ITS | Encounter Summary ---
Author Organization [place] Address [address] [place] [address] Care Team Providers Care Database Management Specialist Name Role Phone Clinic, [facility] Primary Care Provider Kristen Dockery RN Unavailable Unavaila Kristen Bermudez RN Unavailable Unavaila Meliza James MD Unavailable [phone] Lanny Meléndez APRN LACQUER POLISHER Unavailable [phone] Gala Fair CONE BAKER MACHINE Unavailable [phone] Meliza Villaseñor MD Unavailable [phone] Trey Abraham MD Unavailable [phone] Unavailable Unavail able Dixon Hernandez MD Unavailable [phone] Jes Arrington MD Unavailable + Reason for Visit * Diagnostic Imaging Dexa (Routine) - Pending Review Specialty Diagnoses / Procedures Referred By Contac t Referred To Contact Radiology. Diagnoses Alcoholic cirrhosis (H) Cirrhosis, alcoholic (H) Procedures Dexa hip/pelvis/spine [OPF8911] > 40 years or previous steroid use. Bone age for pediatric patients. Jes Arrington MD 6 [facility] 2A [place] [address] Phone: tel: fax: Referral ID Status Reason Start Date Expiration Date V isits Requested Visits Authorized [id number] Pending Review 06/24/2024 06/24/2025 1 1 Encounter Details Date Type Department Care Team (Latest Contact Info) Description 07/16/2024 2:30 PM CDT Ancillary Procedure [facility] [address] 1st [place] [phone] Jes Arrington MD [address] [place] [address] [address] [place] [address] [phone] Alcoholic cirrhosis (H); Cirrhosis, alcoholic (H) Social [...] PM CDT 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 Female 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 Gender Identity Female 10/31/2023 12:26 PM CDT Sexual Orientation Straight 10/31/2023 12 :26 PM CDT documented as of this encounter Plan of Treatment Upcoming Encounters Date Type Department Care Team (Late st Contact Info) Description 08/05/2024 10:45 AM CDT Lab [facility] [address] [place] [phone] 08/26/2024 10:30 AM CDT Appointment [facility] 500 [place] [phone] Meliza Villaseñor MD [address] [place], [place] [address] [place] [address] 08/26/2024 12:00 PM CDT Appointment [facility] Imaging 500 [place] [phone] Meliza Villaseñor MD [address] [place] [address] 09/12/2024 11:00 AM CDT Office Visit [facility] Heart [address] 2nd [place] [phone] Dixon Hernandez MD [address] [place] [address] [phone] 10/01/2024 PRE VISIT [address] [phone] Dixon Hernandez MD [address] [place] [address] [phone] Previsit documented as of this encounter Procedures Procedure Name Priority Date/Time Associated Diagnosis Comments DX AXIAL AND PERIPHERAL Routine 07/16/2024 2:32 PM CDT Alcoholic cirrhosis (H) Cirrhosis, alcoholic (H) documented in this encounter Results * DX AXIAL AND PERIPHERAL (07/16/2024 2:32 PM CDT) Anatomical Region Laterality Modality Dexa Bone Mineral Den sity Narrative 07/18/2024 8:49 AM CDT Images from the original result were not included. [facility] - [address], [place] [address] Phone: Fax: Impression Based on BMD diagnosis is consistent with normal bone density 1,2,5. Results Lumbar Spine T-score -0.6 (L1-2), BMD is 1.090 g/cm2. Left femoral neck T-score 0.2 Right femoral neck T-score 0.6 Left Total hip T-score 0.1 , BMD is 1.025 g/cm2 Right total hip T-score -0.1, BMD is 0.996 g/cm2. . Interval change 3 No prior study available for comparison. Fracture risk 4 Bone density is normal, fracture risk calculation is not indicated Repeat Recommend repeat DXA in 5 years. Clinical correlation recommended. For patients eligible for Medicare, routine testing is allowed once every 2 years. Testing frequency can be increased for patients on corticosteroids. Principal result hourly sign language interpreter: Karon Suarez MD, [facility] Division of Endocrinology and Diabetes Department of Medicine Technical quality Satisfactory. Abnormal vertebrae may be excluded from analysis if there is more than a 1.0 T-score difference between the vertebrae in question and adjacent vertebrae. Note the wide range in BMD values and T-scores within the lumbar spine. In the circumstances, the lumbar spine is represented by L1-L2 References: 1. WHO categories: T-score > -1.0 = normal . T-score -1.0 to -2.5 = low bone density T-score < -2.5 = osteoporosis . 2. 2015 ISCD official position statements: www.iscd.org. 3. Today's examination is compared to the technically similar prior study of the total hip and femur if available. Only changes deemed likely to be significant based on historical data are reported. According to the ISCD position statements, total hip rather than femoral neck regions are to be compared because larger areas give better precision. LSC = least significant changes at the [facility] Imaging Center (historical data) AP spine = 0.032 g/cm2 (08/08/2006) Left hip = 0.029 g/cm2 (07/28/2006) Right hip = 0.018 g/cm2 (07/28/2006) Left mid radius = 0.043 g/cm2 (08/08/2006) 4 Fracture risk is calculated in patients aged 40 to 90 years old with low bone density not on osteoporosis treatment. A 10 year fracture risk of 3% and higher for hip fracture and 20% and higher for major osteoporotic fracture is considered higher than acceptable risk and might be an indication for medical treatment. 5. By definition, osteoporosis may be diagnosed in the presence or with the history of a low trauma or fragility fracture. Fragility and low trauma fracture is defined as a fracture resulting from the force of a fall from a standing height or less or a bone that breaks under conditions that would not cause a normal bone to break. 6. NOF Physician's Guideline Website address: www.nof.org. us Jes Arrington MD IMG DEXA ORDERABLE S Final Result documented in this encounter Visit Diagnoses Diagnosis Alcoholic cirrhosis (H) Alcoholic cirrhosis of liver Cirrhosis, alcoholic (H) Alcoholic cirrhosis of liver documented in this encounter Additional Health Concerns Assessment Noted Time PHQ-9 Depression Total Score: 8 06/12/19 25 12:56 PM CDT documented as of this encounter Care Teams Database Management Specialist Relationship Specialty Start Date End Date Clinic, [facility] [place] [address] [facility] [place] [address] PCP - General 08/24/20 Kristen Dockery, RN Registered Nurse Nurse 11/09/23 Kristen Dockery, hand bindery assembly workerCertified Wellness Program Coordinator Nurse 05/19/24 Meliza Villaseñor MD [address] [place] [address] Calibration Checker Internal Medicine 05/19/24 Lanny Meléndez APRN LACQUER POLISHER [facility] [address] [place], [place] [address] Referring Physician Internal Medicine 05/19/24 Gala Fair, [facility] American Indian Studies Professor 05/20/24 Meliza Villaseñor MD [address] [place] [address] Physician Internal Medicine 05/20/24 Trey Abraham MD 420 [place] [address] [facility] 195 [place], [place] 5294[address] Surgery 05/20/[address] [facility] 420 [facility] SE [facility] 84 [place] [address] Registered Dietitian Dietitian, Registered 05/20/24 Dixon Hernandez MD 420 [facility] 508 [place], [place] 2334[address] Cardiovascular Disease 05/20/24 Jes Arrington MD 516 [facility] [address] [place], [place] [address] Gastroenterology 06/24/24 documented as of this encounter
--- OUTSIDE RECORDS SUMMARY | 2024-07-26 10:30 | XMS_ITS | Encounter Summary ---
Author Organization [place] Address [address] [place] [address] Care Team Providers Care Director Technical Name Role Phone [facility], [facility] Primary Care Provider Kristen Dockery RN Unavailable Unavaila Kristen Bermudez RN Unavailable Unavaila Meliza James MD Unavailable [phone] Lanny Meléndez APRN COPPERSMITH HELPER Unavailable [phone] Gala Fair JELLY FILTER TENDER Unavailable [phone] Meliza Villaseñor MD Unavailable [phone] Trey Abraham MD Unavailable [phone] Unavailable Unavail able Dixon Hernandez MD Unavailable [phone] Jes Arrington MD Unavailable + Encounter Details Date Type Department Care Team (Late st Contact Info) Description 07/26/2024 10:30 AM CDT Lab [facility] [address] [place] [phone] Cirrhosis of liver (H) Social History Tobacco [...] PM CDT Legal Sex Female 3:12 AM 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 Imaging [address] [place] [phone] Meliza Villaseñor MD [address] [place] [address] 09/12/2024 11:00 AM CDT Office Visit [facility] Heart [address] 2nd [place] [phone] Dixon Hernandez MD [address] [place] [address] 917855 10/01/[address] [facility] 9[address] [place] [phone] Dixon Hernandez MD [address] [place] [address] [phone] Previsit documented as of this encounter Procedures Procedure Name Priority Date/Time Associated Diagnosis Comments PHOSPHATIDYLETHANOL (PETH), WHOLE BLOOD Routine 07/26/2024 10:46 AM CDT Cirrhosis of liver (H) COMPREHENSIVE METABOLIC PANEL Routine 07/26/2024 10:46 AM CDT Cirrhosis of liver (H) documented in this encounter Results * Phosphatidylethanol (PEth), Whole Blood (07/26/2024 10:46 AM CDT) PEth 16:0/18:1 (POPEth) <10 ng/mL 07/28/2024 11:38 AM CDT [facility] Comment: PEth 16:0/18:1 (POPEth) Less than 10 ng/mL............Not detected Less than 20 ng/mL............Abstinence or light alcohol consumption 20 - 200 ng/mL................Moderate alcohol consumption Greater than 200 ng/mL........Heavy alcohol consumption or chronic alcohol use (Reference: Eligio Day and Dixon Evans 2018 J. Forensic Sci) PEth 16:0/18:2 (PLPEth) <10 ng/mL 07/28/2024 11:38 AM CDT [facility] Comment:Reference ranges are not well established. EER Phosphatidylethanol (PETH) See Note 07/28/2024 11:38 AM CDT [facility] Comment: Authorized individuals can access the [facility] Enhanced Report with an [facility] account using the following link. Your local lab can assist you in obtaining the patient report if you don't have a Connect account. [email or web address] PEth Interpretation See Comment 07/28/2024 11:38 AM CDT [facility] Comment: Phosphatidylethanol (PEth) is a group [...] developed and its performance characteristics determined by [facility]. It has not been cleared or approved by the U.S. Food and Drug Administration. This test was performed in a CLIA-certified laboratory and is intended for clinical purposes. Performed By: [facility] [address] [place] [address] Industrial Laborer: Sedrick Santos MD, PhD CLIA Number: [id number] Blood BLOOD SPECIMEN / Unknown Venipuncture / Unknown 07/26/2024 10:46 AM CDT 07/26/2024 10:46 AM CDT us Jes Arrington MD LAB - BLOOD ORDERA BLES Final Result [facility] [employer] [facility] [address] [place] [phone], [facility] [phone] * (ABNORMAL) Comprehensive metabolic panel (07/26/2024 10:46 AM CDT) Sodium 134(L) 135 - 145 mmol/L 07/26/2024 8:41 PM CDT [facility] Potassium 3.3(L) 3.4 - 5.3 mmol/L 07/26/2024 8:41 PM CDT [facility] Carbon Dioxide (CO2) 26 22 - 29 mmol/L 07/26/2024 8:41 PM CDT [facility] Anion Gap 10 7 - 15 mmol/L 07/26/2024 8:41 PM CDT [facility] Urea Nitrogen 11.2 8.0 - 23.0 mg/dL 07/26/2024 8:41 PM CDT [facility] Creatinine 0.93 0.51 - 0.95 mg/dL 07/26/2024 8:41 PM CDT [facility] GFR Estimate 70 >60 mL/min/1.7 3m2 07/26/2024 8:41 PM CDT [facility] Comment:eGFR calculated us2020 CKD-EPI equation. Calcium 8.9 8.8 - 10.4 mg/dL 07/26/2024 8:41 PM CDT [facility] Chloride 98 98 - 107 mmol/L 07/26/2024 8:41 PM CDT [facility] Glucose 115(H) 70 - 99 mg/dL 07/26/2024 8:41 PM CDT [facility] Alkaline Phosphatase 178(H) 40 - 150 U/L 07/26/2024 8:41 PM CDT [facility] AST 46(H) 0 - 45 U/L 07/26/2024 8:41 PM CDT [facility] ALT 22 0 - 50 U/L 07/26/2024 8:41 PM CDT [facility] Protein Total 6.7 6.4 - 8.3 g/dL 07/26/2024 8:41 PM CDT [facility] Albumin 3.1(L) 3.5 - 5.2 g/dL 07/26/2024 8:41 PM CDT [facility] Bilirubin Total 7.3(H) <=1.2 mg/dL 07/26/2024 8:41 PM CDT [facility] Blood BLOOD SPECIMEN / Unknown Venipuncture / Unknown 07/26/2024 10:46 AM CDT 07/26/2024 10:46 AM CDT Jes Arrington MD LAB - BLOOD ORDERA BLES Final Result [facility] 500 [facility], Room [address] [place] [phone], [facility] documented in this encounter Visit Diagnoses Diagnosis Cirrhosis of liver (H) Cirrhosis of liver without mention of alcohol documented in this encounter Additional Health Concerns Assessment Noted Time PHQ-9 Depression Total Score: 8 06/12/19 25 12:56 PM CDT documented as of this encounter Care Teams Director Technical Relationship Specialty Start Date End Date Clinic, [facility] [place] [address] [place] [address] PCP - General 08/24/20 Kristen Dockery, RN Registered Nurse Nurse 11/09/23 Kristen Dockery, chimney builder brickProfessor Of Journalism Nurse 05/19/24 Meliza Villaseñor MD [address] [place] [address] Director Emergency Department Internal Medicine 05/19/24 Lanny Meléndez APRN COPPERSMITH HELPER [facility] [address] [place] [address] Referring Physician Internal Medicine 05/19/24 Gala Fair, [facility] Property Utilization Manager 05/20/24 Meliza Villaseñor MD [address] [place] [address] Physician Internal Medicine 05/20/24 Trey Abraham MD [address] [place] [address] [facility] 195 [place] [address] Surgery 05/20/[address] [facility] [address] [facility] 84 [place] [address] Registered Dietitian Dietitian, Registered 05/20/24 Dixon Hernandez MD 420 [facility] [address] [place] [address] Cardiovascular Disease 05/20/24 Jes Arrington MD 6 [facility] 2[address] [place] [address] Gastroenterology 06/24/24 documented as of this encounter
--- OUTSIDE RECORDS SUMMARY | 2024-07-31 06:27 | XMS_ITS | Continuity of Care Document ---
Author Organization [facility] Address [address] [address] [place] [address] Phone Care Team Providers Care Floor Technician Name Role Phone Johanny Taylor Unavailable Unavailabl e Allergies, Adverse Reactions, Alerts Substance Reaction Status Criticality Sulfa (Sulfonamide Antibiotics) Active No Information Medications Medication Instructions Dosage Effective Dates (start - stop) Status Comments furosemide 20 mg tablet take 0.5 tablet (10mg) by oral route every day - Active cholestyramine (with sugar) 4 gram oral powder take 1 scoop by oral route 2 times every day dissolved in 2 to 6 ounces of water or noncarbonated beverage 4 G - Active spironolactone 25 mg tablet take 1 tablet by oral route every day 25 MG - Active HYDROXYZINE HCL (unknown strength) Not Available - Active gabapentin 100 mg capsule take 1 capsule by oral route every day 100 MG - Active Procedures Procedure Date Routine Serum Collection Routine Serum Collection Ugi Endo; W/bx 1/mx Level Iv-surg Path Gross/micro Routine Serum Collection Offic/outpt E&m Estab Mod-hi 2 Routine Serum Collection Complex e/m visit add on Colonoscopy Flex; W/remov Les- Level Iv-surg Path Gross/micro Ugi Endo; W/band Lig Varices Offic/outpt E&m Estab Mod-hi 2 Routine Serum Collection Hemorrhoid Banding Colonoscopy Flex; W/remov Les- Colonoscopy Flex; W/bx 1/mx Level Iv-surg Path Gross/micro Immunocytochemistry, Each Antibody Immunohistochemistry, each add''l antibo dy Routine Serum Collection Ugi Endo; W/bx 1/mx Level Iv-surg Path Gross/micro Immunocytochemistry, Each Antibody 0 Routine Serum Collection Offic/outpt E&m Estab Mod-hi 2 Routine Serum Collection Ugi Endo; W/endo Ultrasound Ex Routine Serum Collection Routine Serum Collection Gg; Iga, Igd, Igg, Igm, Ea Ferritin Hepatic Function Panel Iron Iron Binding Capacity Virtual Visit E&m New Mod 30-44 Min Advance Directives Directive Yes / No Effective Date File Name No Information Encounters Encounter Description Practice Location Reason(s) For Visit Diagnoses Date Provider Providers Copied on Encounter [facility] RAFITA ZABAL[address] [address], [place], [id number], [place] tel:[phone] [facility] No Information 5 David Orlando . [address] [facility], [place], [id number] , [place]. tel: [phone] [facility] RAFITA ZABALA [address] [address], [place], [id number], [place] tel:[phone] [facility] Unspecified cirrhosis of liver 5 David Orlando . [address] [facility], [address], [place], [id number] , [place]. tel:[phone] [facility], [address] [address], [place], [address], [place] tel:[phone] [facility] Unspecified cirrhosis of liver 0 5 David Orlando . [address], [place], [address] , [place]. tel: [phone] Referring Provider: Referral Self, USE FOR SELF REFERRALS. [facility], [address] [address], [place], [place], [address], [place] tel:[phone] [facility] No Information 5 David Orlando . [address], [place], [address] , [place]. tel: [phone] [facility], [address] [address], [place], [address], [place] tel:[phone] [facility] Unspecified cirrhosis of liver 5 David Orlando . [address], [place], [address] , [place]. tel: [phone] [facility], [address] [address], [place], [address], [place] tel:[phone] [facility] Unspecified cirrhosis of liverHepatic failure, unspecified without coma 5 David Orlando . [address], [place], [address] , [place]. tel: [phone] Referring Provider: Referral Self, USE FOR SELF REFERRALS. [facility], [address] [address], [place], [address], [place] tel:[phone] [facility] Unspecified cirrhosis of liver 5 David Orlando . [address], [place], [address] , [place]. tel: [phone] [facility], [address] [address], [place], [address], [place] tel:[phone] [facility] No Information 5 David Orlando . [address] [facility], [address], [place], [address] , [place]. [phone] Referring Provider: Johanny Fernandes, [address] [facility] [address], [place], [address]. tel:[phone] [facility] [place], [address] [address], [place], [address], [place] tel:[phone] [facility] No Information 5 Daivd Orlando . [address] [facility], [address], [place], [address] , [place]. [phone] [facility] [place], [address] [address], [place], [address], [place] tel:[phone] [facility] Unspecified cirrhosis of liverPortal hypertensionSecond jorge esophageal varices without bleedingUnspecifie d cirrhosis of liverPortal hypertension 5 Jasen Laureano. [address] [facility], [address], [place] [address] , [place]. [phone] Consulting Provider: Johanny FINK, [address] [facility] [address], [place], [address]. tel:[phone] ring Provider: Referral Self, USE FOR SELF REFERRALS. [facility] [place], [address] [address], [place], [address], [place] tel:[phone] [facility] Unspecified cirrhosis of liver Apr- 5 David Orlando . [address] [facility], [address], [place], [address] , [place]. [phone] Referring Provider: Referral Self, USE FOR SELF REFERRALS. [facility] [place], [address] [address], [place], [address], [place] tel:[phone] [facility] Elevated serum creatinineCirrhosi s of liver with ascites, unspecified hepatic cirrhosis typeOther ascites Fe202 5 David Orlando . [address], [place], [address] , [place]. tel:[phone] Offic/outpt E&m Estab Mod-hi 2 [facility], [address] [address], [place], [address], [place] tel:[phone] [facility] GI Symptoms or Concerns (chief complaint) Unspecified cirrhosis of liverSecondary esophageal varices without bleeding 5 David ALEKS Orlando . [address], [place], [address] , [place]. tel:[phone] Referring Provider: Referral Self, USE FOR SELF REFERRALS. [facility] [place], [address] [address], [place], [address], [place] tel:[phone] [facility] Colorectal polypsHemorrhoids, internalEncounter for screening for malignant neoplasm of colonPersonal history of adenomatous and serrated colon polypsBenign neoplasm of ascending colon 5 Gaurang Mayorga. [address] [facility], [address], [place], [address] , [place]. tel:[phone] Referring Provider: Referral Self, USE FOR SELF REFERRALS. [facility] [place], [address] [address], [place], [address], [place] tel:[phone] [facility] Decompensated liver diseaseUnspecified cirrhosis of liver 5 Medhat Ca. [address], [place], [address] , [place]. [phone] [facility] [place], [address] [address], [place], [address], [place] tel:[phone] [facility] Unspecified cirrhosis of liverSecondary esophageal varices without bleedingPortal hypertensive gastropathyBenign fundic gland polyps of stomachOther diseases of stomach and duodenumUnspecifie d cirrhosis of liverSecondary esophageal varices without bleeding 4 Brian Magana. [address], [place], [address] , [place]. tel: [phone] Referring Provider: Referral Self, USE FOR SELF REFERRALS. [facility], [address] [address], [place], [address], [place] tel:[phone] [facility] Cirrhosis of liver with ascites, unspecified hepatic cirrhosis typeOther ascitesHepatic steatosis Oct- 4 Medhat Ca. [address], [place], [address] , [place]. tel: [phone] [facility], [address] [address], [place], [address], [place] tel:[phone] [facility] Cirrhosis of liver with ascites, unspecified hepatic cirrhosis typeOther ascites 4 Medhat Ca. [address], [place], [address] , [place]. tel: [phone] [facility], [address] [address], [place], [address], [place] tel:[phone] [facility] Elevated liver enzymes 4 Medhat Ca. [address], [place], [address] , [place]. tel: [phone] [facility], [address] [address], [place], [address], [place] tel:[phone] [facility] Portal hypertensionAnemia , unspecified type 4 David FINK Johanny . [address], [place], [address] , [place]. tel: [phone] Offic/outpt E&m Estab Mod-hi 2 [facility], [address] [address], [place], [address], [place] tel:[phone] [facility] GI Symptoms or Concerns (chief complaint) Elevated liver enzymesJaundicePal pitationLower extremity edemaPortal hypertensionOther ascitesDietary counseling and surveillanceElevat ed blood-pressure reading, w/o diagnosis of htn 4 Medhat Nicolasvitha. [address] [facility], [facility] [place], [address] , [place]. tel: [phone] Referring Provider: Manuel Gardner, [address] [place], [address]. tel:[phone] [facility], [address] [address], [place], [address], [place] tel:[phone] [facility] No Information 4 Vikas Hamlin. [address] [facility], [facility] [place], [address] , [place]. tel: [phone] [facility], [address] [address], [place], [address], [place] tel:[phone] [facility] Residual hemorrhoidal skin tags 4 Eugenio Walker. [address] [facility], [address], [place], [address] , [place]. tel: [phone] Referring Provider: Referral Self, USE FOR SELF REFERRALS. [facility], [address] [address], [place], [address], [place] tel:[phone] [facility] Colorectal polypsDiarrhea, unspecified typeHematocheziaIn ternal and external hemorrhoids without complicationBenign neoplasm of ascending colonBenign neoplasm of transverse colonDiarrhea, unspecifiedBenign neoplasm of transverse colonBenign neoplasm of ascending colonMelena 3 Jasen Laureano. [address] [facility], [facility] [address], [facility], [place], [address] , [place]. tel: [phone] Referring Provider: Referral Self, USE FOR SELF REFERRALS. [facility], [address] [address], [place], [address], [place] tel:[phone] [facility] Nausea with vomiting, unspecified 3 Jasen Laureano. [address] [facility], [facility] [place], [address] , [place]. tel:[phone] Referring Provider: Referral Self, USE FOR SELF REFERRALS. [facility] [place], [address] [address], [place], [address], [place] tel:[phone] [facility] Nausea and vomiting in adultOther gastritis without bleedingLymphocyto sis (symptomatic)Polyp of stomach and duodenum 3 Jasen Laureano. [address] [facility], [facility] [place], [address] , [place]. [phone] Referring Provider: Referral Self, USE FOR SELF REFERRALS. [facility] [place], [address] [address], [place], [address], [place] tel:[phone] [facility] Other specified abnormal findings of blood chemistry 3 Jasen Laureano. [address] [facility], [facility] [address], [facility] [place], [address] , [place]. [phone] Referring Provider: Referral Self, USE FOR SELF REFERRALS. [facility] [place], [address] [address], [place], [address], [place] tel:[phone] [facility] Abnormal LFTs 3 Jasen Laureano. [address] [facility], [facility] [address], [facility] [place], [address] , [place]. tel:[phone] Offic/outpt E&m Estab Mod-hi 2 [facility] [place], [address] [address], [place], [address], [place] tel:[phone] [facility] GI Symptoms or Concerns (chief complaint) BloatingNausea 3 Jasen Laureano. [address] [facility], [address], [facility] [place], [address] , [place]. tel:[phone] Referring Provider: Meliza Mesa, [address], [place], [address]. tel:[phone] [facility], [address] [address], [place], [address], [place] tel:[phone] [facility] No Information 3 Vikas Hamlin. [address] [facility], [place], [address] , [place]. tel: [phone] [facility], [address] [address], [place], [address], [place] tel:[phone] [facility] No Information 1 Kim Santiago. [address] [facility], [address], [place], [address] , [place]. tel: [phone] Referring Provider: Jack Alvarez MD, [address] [facility] [address], [place], [address]. tel:[phone] [facility], [address] [address], [place], [address], [place] tel:[phone] [facility] Elevated bilirubin 1 Amelia Yañez. [address] [facility], [address], [place], [address] , [place]. tel: [phone] [facility], [address] [address], [place], [address], [place] tel:[phone] [facility] Other specified abnormal findings of blood chemistry Aug-0 0 Devaughn Pugh. [address] [facility], [place], [address] , [place]. tel: [phone] Referring Provider: Referral Self, USE FOR SELF REFERRALS. [facility], [address] [address], [place], [address], [place] tel:[phone] [facility] Elevated ferritin Aug-0 2-202 0 Devaughn Pugh. [address] [facility], [address], [place], [address] , [place]. tel: [phone] [facility], [address] [address], [place], [address], [place] tel:[phone] [facility] Abnormal results of liver function studies 0 Devaughn Ballardahim. [address] [facility], [facility] [address], [place], [address] , [place]. [phone] Referring Provider: Stephanie Hernandez MD, [address] [place], [address]. tel:[phone] Virtual Visit E&m New Mod 30-44 Min [facility], [address] [address], [place], [id number], [place] tel:[phone] [facility] GI Symptoms or Concerns (chief complaint) Abnormal LFTs 0 Devaughn Pugh. [address] [facility], [facility] [address], [facility] [place], [address] , [place]. tel:[phone] Referring Provider: Pierre Green MD, [address] [place], [address]. tel:[phone] [facility], [address] [address], [place], [address], [place] tel:[phone] [facility] No Information 0 Pearl Abarca. [address] [facility], [facility] [address], [facility] [place], [address] , [place]. [phone] Family History Family Member Type Diagnosis Age At Onset Father Problem Diabetes mellitus Mother Problem Cholelithiasis Mother Problem Diabetes mellitus Immunizations Vaccine Date Status Comments SARS-COV-2 (COVID-19) vaccin e, vector non-replicating, recombinant spike protein-Ad26, preservative free, 0.5 mL administered Note: [facility] bi- directional interface ; Source: Other Registry tetanus toxoid, reduced diphtheria toxoid, and acellular pertussis vaccine, adsorbed administered Note: [facility] b i-directional interface ; Source: Other Registry zoster vaccine recombinant administered N ote: [facility] bi-directional interface ; Source: Other Registry zoster vaccine recombinant administered N ote: [facility] bi-directional interface ; Source: Other Registry Influenza, split virus, trivalent, injectable, contains preservative administered Note: [facility] bi-direct ional interface ; Source: Other Registry Influenza, seasonal, injectable administe red Note: [facility] bi- directional interface ; Source: Other Registry tetanus toxoid, reduced diphtheria toxoid, and acellular pertussis vaccine, adsorbed administered Note: [facility] b i-directional interface ; Source: Other Registry Influenza, split virus, trivalent, injectable, preservative free administered Note: [facility] bi-direct ional interface ; Source: Other Registry Influenza, seasonal, injecta ble, preservative free administered Note: [facility] bi-direct ional interface ; Source: Other Registry Payers Payer name Insurance type Covered green party ID Authoriza tion(s) No Information Social History Type Description Quantity Date Captured Comments Alcohol Use Details Unknown Caffeine Use Details Unknown Tobacco Use Status No Information Smoking Status No Information Sex Female Chief Complaint And Reason For Visit No Information Reason For Referral Reason For Referral No Information Plan Of Treatment Date Type Action Status Goal Lifestyle education regardin g diet completed Referral Ordered: Hepatoma Protocol Appointment date/timeframe: First Available ordered Referral Ordered: Ultrasound Liver Appointment date/timeframe: 04/24/2024 ordered Referral Ordered: referred to Transplant Surgery Decompensated liver disease, MAFLD Appointment date/timeframe: 12/11/2023 ordered Referral Ordered: MRI Elastography Liver WITHOUT And WITH Contrast Appointment date/timeframe: 10/12/2023 ordered Referral Ordered: Paracentesis Abdominal WITH Ultrasound Guidance; Diagnostic and Therapeutic Appointment date/timeframe: 10/16/2023 ordered Referral Ordered: Echocardiogram, Transthoracic, Complete Appointment date/timeframe: 10/20/2023 ordered Referral Ordered: Hemorrhoid Banding Appointment date/timeframe: 03/28/2023 ordered Referral Ordered: follow-up visit for Hemorrhoid Banding Appointment date/timeframe: 02/28/2023 ordered Referral Ordered: Celiac: DGP IgA/G + TTG +IgA Appointment date/timeframe: 12/20/2022 ordered Referral Ordered: Ultrasound Abdomen Appointment date/timeframe: 12/26/2022 ordered Referral Ordered: EGD Appointment date/timeframe: 12/16/2022 ordered Referral Ordered: Colonoscopy Appointment date/timeframe: 02/03/2023 ordered Referral Ordered: Hemochromatosis, DNA Gene Test Appointment date/timeframe: -today ordered Referral Ordered: Liver Biopsy With Ultrasound Guidance Appointment date/timeframe: 09/27/2019 ordered Referral Ordered: Iron/TIBC Appointment date/timeframe: 08/14/2019 ordered Referral Ordered: Ferritin Appointment date/timeframe: 08/14/2019 ordered Referral Ordered: Hepatic Function Panel Appointment date/timeframe: 08/14/2019 ordered Referral Ordered: Immunoglobulin G, Qn, Serum Appointment date/timeframe: 08/14/2019 ordered Referral Ordered: Antimitochondrial Ab (AMA), Qn Appointment date/timeframe: 08/14/2019 ordered Referral Ordered: Bohaq-1-Wpkbcgudgsu Phenotype Appointment date/timeframe: 08/14/2019 ordered Referral Ordered: Celiac: TTG IgA + Total IgA Appointment date/timeframe: 08/14/2019 ordered Referral Ordered: Actin (Smooth Muscle) Antibody Appointment date/timeframe: 08/14/2019 ordered Future Order: Lab Order PT/INR, Whole Blood ([id number]), Body Site: Right Antecubital Fossa, Collected on: , Sent on: Sent Future Order: Lab Order Antimito chondrial Ab (AMA), Qn ([id number]), Body Site: Right Antecubital Fossa, Appointment on: Ordered History Of Present Illness Encounter Date Complaint History Of Prese nt Illness GI Symptoms or Concerns Analia cortes is a 63-year-old female seen today for follow-up of cirrhosis.Patient was previously seen by my colleague Lanny Meléndez NP on 09/28/2023 for concern of jaundice and portal hypertension. Prior to this she had been seen by our office in 2019 for evaluation of elevated liver enzymes. 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 She underwent a liver biopsy on 09/27/2019 which noted moderate steatosis with minimal inflammatory activity and mild zone 3 para sinusoidal fibrosis stage Ia of 4 with no evidence of superimposed liver disease.Imaging in the summer 2023 noted a normal-appearing liver morphology with evidence of mild splenomegaly antiradial cannulized umbilical vein along with small volume ascites. Prior to this she was noted to have a substantial elevation in bilirubin above 11 along with alkaline phosphatase and AST elevation. Follow-up with labs in September 2023 showed improvement in total bilirubin to 5.4 alkaline phosphatase was normal ALT 35 AST 56 she was noted to be anemic and thrombocytopenic with an elevated MCV of 104. Patient underwent an echocardiogram on 2423 which noted a normal EF of 65% and no significant valvular disease.he subsequently underwent an MRI of the abdomen with elastography on 10/12/2023 which noted elevated elastography measurements ranging from 12.0 to 13.5 kPa consistent with cirrhosis of the liver.Patient underwent an EGD on 10/24/2023 for variceal screening which noted large esophageal varices treated with 3 bands along with evidence of portal hypertensive gastropathy. Repeat EGD was recommended in 6 weeks. More recently patient underwent a colonoscopy on 04/04/2024 which revealed internal hemorrhoids without bleeding and a inflammatory polyp as well as a hyperplastic polyp in the ascending colon.Most recently patient underwent laboratory testing on 03/01/2024 which included a BMP which noted a sodium of 134 creatinine 0.7 hepatic function panel noted increase in total bilirubin to 6.7 AST 41 ALT 29 albumin 3.6 lipid profile noted an elevated cholesterol 357 LDL of 235 HDL of 95.Patient also showed [place] records of some labs including a CBC which noted pancytopenia with a hemoglobin of 10.1 white count of 3.2 and platelet count of 97.Patient is currently taking furosemide 40 mg daily and spironolactone 50 mg daily and notes resolution of her prior abdominal distention or lower extremity edema. She is following a high-protein, low sodium diet with little to no sugar and no processed foods. She reports following her last visit she was scheduled for paracentesis however there was not enough fluid to be removed.She has been avoiding alcohol completely since August 2023. Prior to that reports consumption of alcohol perhaps 1 glass of wine per night but not every night.She does note some issues with pruritus related to jaundice. She was started on hydroxyzine which has been helpful for itching. She denies any issues with confusion or balance. Denies any nausea, vomiting, melena or hematochezia. She has not started any new medications within the last year aside from diuretics. She does not take any herbal supplements.PRIOR SEROLOGIES08/14/2019IgA normal with a negative tissue transglutaminase antibody. IgG within normal limits. Elevated ferritin of 866 with elevated iron saturation of 59SMA n egativeAlpha-1 antitrypsin?MS phenotype level [id number]/20/2019Hereditary hemochromatosis gene test s raad copy of H63D mutation identified. GI Symptoms or Concerns This is a 62-year-old female patient seen in the clinic today for an evaluation of jaundice, and portal hypertension.Per chart review, she was previously seen in our practice for elevated liver enzymes and had extended evaluation. Labs completed at that time including alpha 1 antitrypsin level, ASMA, her due to hemochromatosis were unremarkable. She went ahead and had liver biopsy in 2019 and this was notable for 35% steatosis, stage I of 4 fibrosis, and negative for any other superimposed liver disease.I reviewed several pages of records received from her primary care clinic in August, Labs notable for total bilirubin of 11.6, direct bilirubin 5.0, AST 114, ALT 34, alkaline phosphatase 197, lipase 53. INR 1.4. Sodium 134, potassium 3.4, chloride 96, creatinine 0.6, and BUN 5. Ionized calcium was low at 1.08, glucose 106. Cross-sectional imaging completed on September 07 is notable for normal liver morphology no suspicious mass. However, showed mild splenomegaly, recanalized umbilical vein, small volume abdominal ascites, and pelvic ascites. Status post cholecystectomy. Repeat labs on September 11 shows improvement in bilirubin level, but other liver enzymes remains elevated. Hep viral serologies were completed but I do not have the results available for review.She was seen in dermatology for pruritus and was started on prednisone. She is on a taper dose at this point. She was started on 20 mg for 5 days, 15 mg for 5 days, 10 mg for 5 days and 5 mg for 5 days.Today, patient denies excessive alcohol use. No recent antibiotic use. She eats healthy. She has no history of diabetes. Does have a history of hypertension. No prior history of primary cancers, chemotherapy or radiation. She has no specific GI symptoms that needs to be addressed. No black or bloody stools. Having bowel movements on a regular basis. Her main concern is bilateral lower extremity edema and weight gain of 6 pounds. GI Symptoms or Concerns Very ple asant 62-year-old female who presents with symptoms of dyspepsia, generalized abdominal discomfort, fatigue and weight loss. She is seen here at the request of her primary care doctor Dr. Meliza Crawford. Patient has a past medical history significant for cholelithiasis status postcholecystectomy 2020. She has previously also seen us in August 2019 for abnormal liver function tests in the setting of which she underwent extensive testing including liver biopsy. Findings were only consistent for some steatohepatitis and she was advised weight loss. Please refer to Dr. Cantor's notes for further details.She reports that she was overall feeling well until a few months ago when she started noticing worsening dyspepsia and intolerance to a large variety of foods. She has only limited herself to ingesting tea, apples, and occasionally crackers. She is unable to consume anything in large amounts and due to limited oral intake, has lost 18 pounds of weight this year. She was empirically prescribed some antibiotics recently with which her symptoms have not improved. Her H. pylori testing was negative but she did receive PPI, tetracycline and amoxicillin. With the amoxicillin she had some loose stools which have resolved. GI Symptoms or Concerns This is a 58 year old woman consents for telephone consultation of abnormal LFTs. Consult requested by Dr Pierre Hatch. Patient remained at baseline state of health until August 2018 when she developed itching in the back of neck and progressed to arms. She went to see Dermatology Dr Hatch and underwent skin biopsy that revealed Urticaria. She was prescribed a course of prednisone which led to complete resolution of itching. She is currently on prednisone taper per Dr Hatch. Work-up performed by Dermatology incidentally showed an evidence of abnormal LFTs. Labs in 12/2018 revealed ALK 147, AST 146, and ALT 144. Follow up labs 07/2019 while on prednisone showed ALK 158, AST 224, and ALT 194. Bilirubin is normal at 1.1. Albumin normal at 4.5. Renal function is preserved. PLT count within normal limits at 198,000. No known prior history of liver disease. No family history of liver disease. No history of diabetes, or hyperlipidemia. She has hypertension controlled with medical therapy. She does not drink alcohol. No tattoos. Weight is ideal. She weighs No herbs. No other medications other than prednisone taper. Beside itching, patient is asymptomatic from liver standpoints. JUANY negative. HCV antibody negativeHepatitis B surface antigen negative. Functional Status Date Functional Assessmen t No Information Instructions Date Instruction Additional Infor ramsey Colon Cancer Prevention Related to Colorectal polyps Colon Polyps Related to Color ectal polyps Hemorrhoids Related to Color ectal polyps 1. Low sodium 2 gram s daily2. Start diuretics as prescribed. 3. Repeat kidney function test in one week 4. We will call to schedule paracentesis and echocardiogram. 5. Follow-up in two months or sooner if needed. Related to Elevated liver enzymes Lifestyle education regarding di et Related to Dietary counseling and surveillance Colon Cancer Prevention Related to Hematochezia Colon Polyps Related to Hemat ochezia High Fiber Diet Related to Hemat ochezia Colon Cancer Prevention Related to Hematochezia Colon Polyps Related to Hemat ochezia High Fiber Diet Related to Hemat ochezia Hemorrhoids (External) Related t o Hematochezia Hemorrhoids (Internal) Related t o Hematochezia Colon Cancer Prevention Related to Hematochezia Colon Polyps Related to Hemat ochezia Therefore we agreed on the following plan.1. CBC, CMP, TSH, HbA1c, CRP.2. Upper endoscopy with gastric and duodenal biopsies as well as colonoscopy to rule out any mass lesions given that it has been more than 5 years since her last colonoscopy.3. we will start with an ultrasound abdomen to specifically evaluate the liver and for any ascites in addition to other organs and then consider CT scan or additional imaging if continued weight loss. Related to Bloating Gas Pain and Bloating Related to Bloating FODMAP diet Related to Bloat ing Assessments Type Assessment Date No Information Patient Care Teams Name Effective Dates (start - stop) Status Members No Information
[2024-08-01] VITALS (9 sets, daily range): BP systolic 105–127; BP diastolic 56–76; PULSE 98–104; RESP 12–16; TEMP 36.4; O2SAT 96–100; BMI 23.7
--- OUTSIDE RECORDS SUMMARY | 2024-08-01 07:50 | XMS_ITS | Encounter Summary ---
Author Organization [place] Address [address] [place] [address] Care Team Providers Care Private Secretary Name Role Phone Clinic, [facility] Primary Care Provider Kristen Dockery RN Unavailable Unavaila Kristen Bermudez RN Unavailable Unavaila Meliza James MD Unavailable [phone] Lanny Meléndez APRN ELECTRONICS UTILITY WORKER Unavailable [phone] Gala Fair DINKEY ENGINE OPERATOR Unavailable [phone] Meliza Villaseñor MD Unavailable [phone] Trey Abraham MD Unavailable [phone] Unavailable Unavail able Dixon Hernandez MD Unavailable [phone] Jes Arrington MD Unavailable + Encounter Details Date Type Department Care Team (Late st Contact Info) Description 07/01/2024 MyC Medical Advice [facility] [address] [place] [address] Kristen Dockery RN Social History [...] PM CDT Legal Sex Female 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 Gender Identity Female 10/31/2023 12:26 PM CDT Sexual Orientation Straight 10/31/2023 12 :26 PM CDT documented as of this encounter Plan of Treatment Upcoming Encounters Date Type Department Care Team (Late st Contact Info) Description 08/05/2024 10:45 AM CDT Lab [facility] [address] [place] [address] 08/26/2024 10:30 AM CDT Appointment [facility] Heart Care [address] [place] [address] Meliza Villaseñor MD [address] [place] [address] 08/26/2024 12:00 PM CDT Appointment [facility] Imaging [address] [place] [phone] Meliza Villaseñor MD [address] [place] [address] 09/12/2024 11:00 AM CDT Office Visit [facility] [address] 2nd [place] [phone] Dixon Hernandez MD [address] [place] [address] 87[address] 10/01/2024 PRE VISIT [facility] [address] [place] [phone] Dixon Hernandez MD [address] [place] [address] 507415 Previsit documented as of this encounter Visit Diagnoses Not on filedocumented in this encounter Additional Health Concerns Assessment Noted Time PHQ-9 Depression Total Score: 8 06/12/19 25 12:56 PM CDT documented as of this encounter Care Teams Private Secretary Relationship Specialty Start Date End Date Clinic, [facility] [address] [place], [place] [phone] PCP - General 08/24/20 Kristen Dockery, RN Registered Nurse Nurse 11/09/23 Kristen Dockery, vehicle monitor technicianSurgical Specialist Nurse 05/19/24 Meliza Villaseñor MD [address] [place] [address] Internal Corrosion Specialist Internal Medicine 05/19/24 Lanny Meléndez APRN ELECTRONICS UTILITY WORKER [facility] [address] [place] [address] Referring Physician Internal Medicine 05/19/24 Gala Fair, [facility] Corporation Pilot 05/20/24 Meliza Villaseñor MD [address] [place] [address] Physician Internal Medicine 05/20/24 Trey Abraham MD [address] [facility] [address] [place] [address] Surgery 05/20/[address] [facility] [address] [facility] 84 [place] [address] Registered Dietitian Dietitian, Registered 05/20/24 Dixon Hernandez MD [address] [facility] [address] [place] [address] Cardiovascular Disease 05/20/24 Jes Arrington MD 6 [facility] [place], [place] [address] Gastroenterology 06/24/24 documented as of this encounter
--- OUTSIDE RECORDS SUMMARY | 2024-08-01 07:50 | XMS_ITS | Encounter Summary ---
Author Organization [place] Address [address] [place] [address] Care Team Providers Care Manager Of Pharmacy Name Role Phone Clinic, [facility] Primary Care Provider Kristen Dockery RN Unavailable Unavaila Kristen Bermudez RN Unavailable Unavaila Meliza James MD Unavailable [phone] Lanny Meléndez APRN TEACHER OF THE HANDICAPPED Unavailable [phone] Gala Fair LEAD TANK MECHANIC Unavailable [phone] Meliza Villaseñor MD Unavailable [phone] Trey Abraham MD Unavailable [phone] Unavailable Unavail able Dixon Hernandez MD Unavailable [phone] Jes Arrington MD Unavailable + Encounter Details Date Type Department Care Team (Late st Contact Info) Description 07/02/2024 Telephone [facility] [address] [place] [address] Kristen Dockery RN Social History [...] PM CDT Legal Sex Female 3:12 AM ENGAGEMENT MANAGER Gender Identity Female 10/31/2023 12:26 PM [...] Info) Description 08/05/2024 10:45 AM CDT Lab [facility] Laboratory [address] [place] [address] 08/26/2024 10:30 AM CDT Appointment [facility] Heart Care [address] [place] [address] Meliza Villaseñor MD [facility] [address] [address] 08/26/2024 12:00 PM CDT Appointment [facility] Imaging [address] [place] [address] Meliza Villaseñor MD [facility] [address] [address] 09/12/2024 11:00 AM CDT Office Visit [facility] [address]nd [place] [address] Dixon Hernandez MD [address] [phone] 10/01/2024 PRE VISIT [facility] [place] [address] [place] [phone] Dixon Hernandez MD [address] [place] [address] 099785 Previsit documented as of this encounter Visit Diagnoses Not on filedocumented in this encounter Additional Health Concerns Assessment Noted Time PHQ-9 Depression Total Score: 8 06/12/19 25 12:56 PM CDT documented as of this encounter Care Teams Manager Of Pharmacy Relationship Specialty Start Date End Date [facility], [facility] [address] [facility] [place] [address] PCP - General 08/24/20 Kristen Dockery, RN Registered Nurse Nurse 11/09/23 Kristen Dockery, decating machine operatorTaxonomy Teacher Nurse 05/19/24 Meliza Villaseñor MD [address] [place] [address] Insole Stiffener Internal Medicine 05/19/24 Lanny Meléndez APRN TEACHER OF THE HANDICAPPED [facility] [address] [place] [address] Referring Physician Internal Medicine 05/19/24 Gala Fair, [facility] Hammer Adjuster 05/20/24 Meliza Villaseñor MD [address] [place] [address] Physician Internal Medicine 05/20/24 Trey Abraham MD 420 [facility] [address] [place] [address] Surgery 05/20/24 Jena Castano, RD [facility] [address] [facility] [address] [facility] 84 [place] [address] Registered Dietitian Dietitian, Registered 05/20/24 Dixon Hernandez MD [address] [facility] [address] [place] [address] Cardiovascular Disease 05/20/24 Jes Arrington MD [address] [facility] [place] [address] Gastroenterology 06/24/24 documented as of this encounter
--- OUTSIDE RECORDS SUMMARY | 2024-08-01 07:50 | XMS_ITS | Encounter Summary ---
Author Organization [place] Address [address] [place] [address] Care Team Providers Care Furniture Assembler And Installer Name Role Phone Clinic, [facility] Primary Care Provider Kristen Dockery RN Unavailable Unavaila Kristen Bermudez RN Unavailable Unavaila Meliza James MD Unavailable [phone] Lanny Meléndez APRN SUPERINTENDENT OIL FIELD DRILLING Unavailable [phone] Gala Fair CALCULATION CLERK Unavailable [phone] Meliza Villaseñor MD Unavailable [phone] Trey Abraham MD Unavailable [phone] Unavailable Unavail able Dixon Hernandez MD Unavailable [phone] Jes Arrington MD Unavailable + Encounter Details [...] PM CDT Legal Sex Female 3:12 AM TIE BINDER Gender Identity Female 10/31/2023 12:26 PM CDT Sexual Orientation Straight 10/31/2023 12 :26 PM CDT documented as of this encounter Plan of Treatment Upcoming Encounters Date Type Department Care Team (Late st Contact Info) Description 08/05/2024 10:45 AM CDT Lab [facility] [address] [place] [address] 08/26/2024 10:30 AM CDT Appointment [facility] Heart Care [address] [place] [address] Meliza Villaseñor MD [address] [place] [address] 08/26/2024 12:00 PM CDT Appointment [facility] Imaging [address] [place] [address] Meliza Villaseñor MD [address] [place] [address] 09/12/2024 11:00 AM CDT Office Visit [facility] Heart [address] 2nd [place] [address] Dixon Hernandez MD [address] [place] [address] 848805 10/01/2024 PRE VISIT [facility] [address] [place] [phone] Dixon Hernandez MD [address] [place] [address] Previsit documented as of this encounter Visit Diagnoses Not on filedocumented in this encounter Additional Health Concerns Assessment Noted Time PHQ-9 Depression Total Score: 8 06/12/19 12:56 PM CDT documented as of this encounter Care Teams Furniture Assembler And Installer Relationship Specialty Start Date End Date Clinic, [facility] [place] [address] [place], [place] [phone] PCP - General 08/24/20 Kristen Dockery, RN Registered Nurse Nurse 11/09/23 Kristen Dockery, algorithm design engineerTomb Maker Helper Nurse 05/19/24 Meliza Villaseñor MD [address] [place] [address] Hospital Food Service Worker Internal Medicine 05/19/24 Lanny Meléndez APRN SUPERINTENDENT OIL FIELD DRILLING [facility] [address] [place] [address] Referring Physician Internal Medicine 05/19/24 Gala Fair, [facility] Pellet Machine Operator 05/20/24 Meliza Villaseñor MD [address] [place] [address] Physician Internal Medicine 05/20/24 Trey Abraham MD 420 [facility] 195 [place] [address] Surgery 05/20/[address] [facility] [address] [facility] 84 [place] [address] Registered Dietitian Dietitian, Registered 05/20/24 Dixon Hernandez MD [address] [facility] [address] [place] [address] Cardiovascular Disease 05/20/24 Jes Arrington MD 6 [facility] 2[address] [place] [address] Gastroenterology 06/24/24 documented as of this encounter
--- OUTSIDE RECORDS SUMMARY | 2024-08-01 07:50 | XMS_ITS | Encounter Summary ---
Author Organization [place] Address [address] [place] [address] Care Team Providers Care School Physical Therapist Name Role Phone Clinic, [facility] Primary Care Provider Kristen Dockery RN Unavailable Unavaila Kristen Bermudez RN Unavailable Unavaila Meliza James MD Unavailable [phone] Lanny Meléndez APRN DICER MACHINE OPERATOR Unavailable [phone] Gala Fair CURRICULUM DIRECTOR Unavailable [phone] Meliza Villaseñor MD Unavailable [phone] Trey Abraham MD Unavailable [phone] Unavailable Unavail able Dixon Hernandez MD Unavailable [phone] Jes Arrington MD Unavailable + Encounter Details Date Type Department Care Team (Late st Contact Info) Description 07/04/2024 Results Follow-Up [facility] [address] [place] [address] Kristen Dockery RN Social History [...] PM CDT 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 Female 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 Gender Identity Female 10/31/2023 12:26 PM CDT Sexual Orientation Straight 10/31/2023 12 :26 PM CDT documented as of this encounter Plan of Treatment Upcoming Encounters Date Type Department Care Team (Late st Contact Info) Description 08/05/2024 10:45 AM CDT Lab [facility] [address] [place] [address] 08/26/2024 10:30 AM CDT Appointment [facility] Heart Care [address] [place] [address] Meliza Villaseñor MD [address] [place] [address] 08/26/2024 12:00 PM CDT Appointment [facility] Imaging [address] [place] [address] Meliza Villaseñor MD [address] [place] [address] 09/12/2024 11:00 AM CDT Office Visit [facility] Heart [address] [place] [address] Dixon Hernandez MD [address] [place] [address] 10/01/2024 PRE VISIT [facility] [address] [place] [address] Dixon Hernandez MD [address] [place] [address] Previsit documented as of this encounter Visit Diagnoses Not on filedocumented in this encounter Additional Health Concerns Assessment Noted Time PHQ-9 Depression Total Score: 8 06/12/19 25 12:56 PM CDT documented as of this encounter Care Teams School Physical Therapist Relationship Specialty Start Date End Date Clinic, [facility] [place] [address] [place] [address] PCP - General 08/24/20 Kristen Dockery, RN Registered Nurse Nurse 11/09/23 Kristen Dockery, superintendent of schoolsDirector Of Research Nurse 05/19/24 Meliza Villaseñor MD [address] [place] [address] Air Compressor Engineer Internal Medicine 05/19/24 Lanny Meléndez APRN DICER MACHINE OPERATOR [facility] [address] [place] [address] Referring Physician Internal Medicine 05/19/24 Gala Fair, [facility] Chute Greaser 05/20/24 Meliza Villaseñor MD [address] [place] [address] Physician Internal Medicine 05/20/24 Trey Abraham MD [address] [facility] 195 [place] [address] Surgery 05/20/[address] [facility] [address] [facility] [address] [place] [address] Registered Dietitian Dietitian, Registered 05/20/24 Dixon Hernandez MD [address] [facility] [address] [place] [address] Cardiovascular Disease 05/20/24 Jes Arrington MD 516 [facility] [address] [place], [place] [address] Gastroenterology 06/24/24 documented as of this encounter
--- OUTSIDE RECORDS SUMMARY | 2024-08-01 07:50 | XMS_ITS ---
Author Organization [place] Address [address] [place] [address] Care Team Providers Care Applied Anthropologist Name Role Phone [facility], [facility] Primary Care Provider Kristen Dockery RN Unavailable Unavaila Kristen Bermudez RN Unavailable Unavaila Meliza James MD Unavailable [phone] Lanny Meléndez APRN GENERAL PURCHASING AGENT Unavailable [phone] Gala Fair RECONCILIATION COORDINATOR Unavailable [phone] Meliza Villaseñor MD Unavailable [phone] Trey Abraham MD Unavailable [phone] Unavailable Unavail able Dixon Hernandez MD Unavailable [phone] Jes Arrington MD Unavailable + Transplant Episode Liver Candidate [facility] ([place], [place]) - [facility] Evaluation began on 07/16/2024 Marked as Active on 07/23/2024 Liver CoordinatorCatbisi Dockery RN Phone: N/A Fax: N/A Email: [email or web address] [email or web address] Score Value Updated Expires Exceptions/Lacey sons CPRA Not available UNOS MELD Not available MELD (Calc) 24 07/16/2024 [place] Organ Diagnosis 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 Care Team Name Role Phone Fax Email Kristen Dockery RN Liver Coordinator N/A N/A [email or web address] Kristen Dockery RN Terminal Gauger Supervisor N/A N/A [email or web address] Meliza Villaseñor MD Wardrobe Coordinator [phone] N/A Lanny Meléndez APRN GENERAL PURCHASING AGENT Referring Physician [phone] N/A Fernanda Figueroa LPN Tour Guide N/A N/A N/A Events Pre-Transplant Referred: 10/30/2023 Evaluation began: 07/16/2024 Committee: 07/16/2024 Appointments (07/01/2024 - 08/31/2024) When With Visit Type Description 07/11/2024 Gastro - Gaby, E New General Liver Cancele d (Other) 07/16/2024 SOT SOT Care Coordin ator Eval 07/16/2024 SOT - Dixon Castano Nutrition Visit Cirrh osis of liver (H) (Primary Dx) 07/16/2024 SOT - Lavinia Abraham Liver Eval Surg Encounter for pre-transplant evaluation for liver transplant (Primary Dx); Alcoholic cirrhosis of liver with ascites (H); History of cholecystectomy; Edema, unspecified type 07/16/2024 SOT - Mahnaz Arrington Liver Eval Hept Alcohol ic cirrhosis of liver with ascites (H) (Primary Dx) 07/16/2024 SOT - Dom Fair Social Work Eval Socia l Work Services 07/16/2024 SOT Nurse Only Alcoholic cirrh osis (H); Cirrhosis, alcoholic (H)
--- OUTSIDE RECORDS SUMMARY | 2024-08-01 07:50 | XMS_ITS | Encounter Summary ---
Author Organization [place] Address [address] [place] [address] Care Team Providers Care Glaze Grinder Name Role Phone Clinic, [facility] Primary Care Provider Kristen Dockery RN Unavailable Unavaila Kristen Bermudez RN Unavailable Unavaila Meliza James MD Unavailable [phone] Lanny Meléndez APRN SENIOR SOFTWARE QA ENGINEER Unavailable [phone] Gala Fair RECORD TABULATING CLERK Unavailable [phone] Meliza Villaseñor MD Unavailable [phone] Trey Abraham MD Unavailable [phone] Unavailable Unavail able Dixon Hernandez MD Unavailable [phone] Jes Arrington MD Unavailable + Encounter Details Date Type Department Care Team (Late st Contact Info) Description 07/05/2024 Telephone [facility] [address] [place] [address] Kristen Dockery RN Social History [...] CDT Legal Sex Female 3:12 AM DIRECTOR SMB SALES Gender Identity Female 10/31/2023 12:26 PM CDT [...] Info) Description 08/05/2024 10:45 AM CDT Lab [facility] [address] [place] [phone] 08/26/2024 10:30 AM CDT Appointment [facility] [address] [place] [address] Meliza Villaseñor MD [email or web address] [address] 08/26/2024 12:00 PM CDT Appointment [facility] [address] [place] [address] Meliza Villaseñor MD [email or web address] [address] 09/12/2024 11:00 AM CDT Office Visit [facility] Heart [address] [place] [phone] Dixon Hernandez MD [address] [id number] 10/01/2024 PRE VISIT [facility] Heart [facility] [address] [place] [phone] Dixon Hernandez MD [address] [address]09[address] Previsit documented as of this encounter Visit Diagnoses Not on filedocumented in this encounter Additional Health Concerns Assessment Noted Time PHQ-9 Depression Total Score: 8 06/12/19 25 12:56 PM CDT documented as of this encounter Care Teams Glaze Grinder Relationship Specialty Start Date End Date [facility], [facility] [address] [place] [address] PCP - General 08/24/20 Kristen Dockery, RN Registered Nurse Nurse 11/09/23 Kristen Dockery, metal polisher and buffer apprenticeArchitectural Model Maker Nurse 05/19/24 Meliza Villaseñor MD [address] [place] [address] Paper Cone Maker Internal Medicine 05/19/24 Lanny Meélndez APRN SENIOR SOFTWARE QA ENGINEER [facility] [address] [place] [address] Referring Physician Internal Medicine 05/19/24 Gala Fair, [facility] Paint Mixer Machine 05/20/24 Meliza Villaseñor MD [address] [place] [address] Physician Internal Medicine 05/20/24 Trey Abraham MD 420 [facility] 195 [place], [place] [address] Surgery 05/20/[address] [facility] 420 [facility] SE [facility] [address] [place] [address] Registered Dietitian Dietitian, Registered 05/20/24 Dixon Hernandez MD 420 [facility] [address] [place] [address] Cardiovascular Disease 05/20/24 Jes Arrington MD [address] [facility] [address] [place] [address] Gastroenterology 06/24/24 documented as of this encounter
--- OUTSIDE RECORDS SUMMARY | 2024-08-01 07:50 | XMS_ITS | Encounter Summary ---
Author Organization [place] Address [address] [place] [address] Care Team Providers Care Automotive Sales Manager Name Role Phone Clinic, [facility] Primary Care Provider Kristen Dockery RN Unavailable Unavaila Kristen Bermudez RN Unavailable Unavaila Meliza James MD Unavailable [phone] Lanny Meléndez APRN ELECTRICAL PROSPECTING SUPERVISOR Unavailable [phone] Gala Fair AUTO SERVICE DISPATCHER Unavailable [phone] Meliza Villaseñor MD Unavailable [phone] Trey Abraham MD Unavailable [phone] Unavailable Unavail able Dixon Hernandez MD Unavailable [phone] Jes Arrington MD Unavailable + Encounter Details [...] PM CDT Legal Sex Female 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 WALLPAPER 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 Gender Identity Female 10/31/2023 12:26 PM CDT Sexual Orientation Straight 10/31/2023 12 :26 PM CDT documented as of this encounter Plan of Treatment Upcoming Encounters Date Type Department Care Team (Late st Contact Info) Description 08/05/2024 10:45 AM CDT Lab [facility] [address] [place] [phone] 08/26/2024 10:30 AM CDT Appointment [facility] [address] [place] [address] Meliza Villaseñor MD [address] [place] [address] 08/26/2024 12:00 PM CDT Appointment [facility] [address] [place] [address] Meliza Villaseñor MD [address] [place] [address] 09/12/2024 11:00 AM CDT Office Visit [facility] Heart [address] [place] [phone] Dixon Hernandez MD [address] [place] [address] 10/01/2024 PRE VISIT [facility] [address] [place] [phone] Dixon Hernandez MD [address] [place] [id number] Previsit documented as of this encounter Visit Diagnoses Not on filedocumented in this encounter Additional Health Concerns Assessment Noted Time PHQ-9 Depression Total Score: 8 06/12/19 12:56 PM CDT documented as of this encounter Care Teams Automotive Sales Manager Relationship Specialty Start Date End Date Clinic, [facility] [address] [facility] [place] [address] PCP - General 08/24/20 Kristen Dockery, RN Registered Nurse Nurse 11/09/23 Kristen Dockery, juice testerArts Education Teacher Nurse 05/19/24 Meliza Villaseñor MD [address] [place] [address] Field Tech Internal Medicine 05/19/24 Lanny Meléndez APRN ELECTRICAL PROSPECTING SUPERVISOR [facility] [address] [place], [place] [address] Referring Physician Internal Medicine 05/19/24 Gala Fair, [facility] Insole Buffer 05/20/24 Meliza Villaseñor MD [address] [place] [address] Physician Internal Medicine 05/20/24 Trey Abraham MD 420 [facility] 195 [place] [address] Surgery 05/20/24 Jena Castano, [facility] [address] [facility] SE [facility] [address] [place] [address] Registered Dietitian Dietitian, Registered 05/20/24 Dixon Hernandez MD 420 [facility] [address] [place] [address] Cardiovascular Disease 05/20/24 Jes Arrington MD [address] [address] Gastroenterology 06/24/24 documented as of this encounter
--- OUTSIDE RECORDS SUMMARY | 2024-08-01 07:50 | XMS_ITS | Encounter Summary ---
Author Organization [place] Address [address] [place] [address] Care Team Providers Care Tree Care Foreman Name Role Phone Clinic, [facility] Primary Care Provider Kristen Dockery RN Unavailable Unavaila Kristen Bermudez RN Unavailable Unavaila Meliza James MD Unavailable [phone] Lanny Meléndez APRN PACKAGER MACHINE Unavailable [phone] Gala Fair WRINGER MACHINE OPERATOR Unavailable [phone] Meliza Villaseñor MD Unavailable [phone] Trey Abraham MD Unavailable [phone] Unavailable Unavail able Dixon Hernandez MD Unavailable [phone] Jes Arrington MD Unavailable + Reason for Referral * Diagnostic Imaging Dexa (Routine) - Pending Review Specialty Diagnoses / Procedures Referred By Contac t Referred To Contact Radiology. Diagnoses Alcoholic cirrhosis (H) Cirrhosis, alcoholic (H) Procedures Dexa hip/pelvis/spine [[id number]] > 40 years or previous steroid use. Bone age for pediatric patients. Jes Arrington MD [address] [facility] [address] [place] [address] Phone: tel: fax: Referral ID Status Reason Start Date Expiration Date V isits Requested Visits Authorized [id number] Pending Review 06/24/2024 06/24/2025 1 1 * Diagnostic Imaging Ultrasound (Routine) - Pending Review Specialty Diagnoses / Procedures Referred By Paz noble Referred To Contact Radiology. Diagnoses Alcoholic cirrhosis (H) Cirrhosis, alcoholic (H) Procedures US Abdomen Complete w Doppler Complete Jes Arrington MD [address] [place] [address] Phone: tel: fax: Referral ID Status Reason Start Date Expiration Date V isits Requested Visits Authorized [id number] Pending Review 06/24/2024 06/24/2025 1 1 * Diagnostic Imaging XR (Routine) - Pending Review Specialty Diagnoses / Procedures Referred By Paz noble Referred To Contact Radiology. Diagnoses Alcoholic cirrhosis (H) Cirrhosis, alcoholic (H) Procedures X-ray Chest 2 vws [IMG36] Jes Arrington MD [address] [place] [address] Phone: tel: fax: Referral ID Status Reason Start Date Expiration Date V isits Requested Visits Authorized [id number] Pending Review 06/24/2024 06/24/2025 1 1 Reason for Visit * Reason Onset Date Comments Cancel/Reschedule 06/24/2024 Encounter Details Date Type Department Care Team (Late st Contact Info) Description 06/24/2024 Telephone [facility] [address] [place] [address] Kristen Dockery RN Cancel/Reschedule Social [...] PM CDT Legal Sex Female 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 She plans to get at [facility], asked her to get AALIYAH and see PCP re: COVID sx, discussed higher risk of complications with cirrhosis. * Telephone Encounter - Renetta Paul - 06/24/2024 9:01 AM CDT Patient Call: General Route to HIM ANALYST Reason for call: Pt called to cancel [...] Department Care Team (Shannan Contact Info) Description 08/05/2024 10:45 AM CDT Lab [facility] [address] [place] [phone] 08/26/2024 10:30 AM CDT Appointment [facility] [address] [place] [phone] Meliza Villaseñor MD [address] [place] [address] 08/26/2024 12:00 PM CDT Appointment [facility] [address] [place] [phone] Meliza Villaseñor MD [facility] [address] [facility] [address] [place] [address] 09/12/2024 11:00 AM CDT Office Visit [facility] [address] 2nd [place] [phone] Dixon Hernandez MD [address] [place] [address] 10/01/2024 PRE VISIT [address] [phone] Dixon Hernandez MD [address] [place] [address] Previsit documented as of this encounter Results * DX AXIAL AND PERIPHERAL (07/16/2024 2:32 PM CDT) Anatomical Region Laterality Modality Dexa Bone Mineral Den sity Narrative 07/18/2024 8:49 AM CDT Images from the original result were not included. [facility] [address] [address] Phone: Fax: Impression Based on BMD diagnosis [...] increased for patients on corticosteroids. Principal result raimann machine operator: Karon Suarez MD, [facility] Division of Endocrinology and Diabetes Department of [...] LSC = least significant changes at the [facility] Imaging Center (historical data) AP [...] MD IMG DEXA ORDERABLE S Final Result * US Abdomen Complete w Doppler Complete [...] agree with the findings. TEVIN MONK MD Narrative 07/16/2024 4:08 PM CDT EXAMINATION: US ABDOMEN COMPLETE WITH DOPPLER COMPLETE 07/16/2024 12:43 PM COMPARISON: CT 09/08/2023 HISTORY: Alcoholic cirrhosis TECHNIQUE: The abdomen was scanned in standard fashion with specialized ultrasound transducer(s) using both amrte-scale, color Doppler, and spectral flow techniques. Findings: [...] agree with the findings. TEVIN MONK MD Jes Arrington MD [facility] US ORDERABLES Final Result * X-ray Chest 2 vws [IMG36] (07/16/2024 [...] base on lateral view. BRANDY NEWMAN MD Jes Arrington MD IMG DIAGNOSTIC AL GING ORDERABLES Final Result * EKG 12-lead, tracing only [EKG1] (07/16/2024 7:15 AM CDT) Systolic Blood Pressure mmHg RADIOLOGY RESULTS Diastolic Blood Pressure mmHg RADIOLOGY RESULTS Ventricular Rate 91 BPM RAD IOLOGY RESULTS Atrial Rate 91 BPM RADIOLOG Y RESULTS TX Interval 180 ms RADIOLOG Y RESULTS QRS Duration 92 ms RADIOLO GY RESULTS QT 412 ms RADIOLOGY RESULTS QTc 506 ms RADIOLOGY RESULTS P Topton 62 degrees RADIOLOGY RESULTS R AXIS 34 degrees RADIOLOGY RESULTS T [place] 58 degrees RADIOLOGY RESULTS Interpretation ECG Sinus rhythm Prolonged QT Abnormal ECG When compared with ECG of 08-Aug-2006 09:55, Vent. rate has increased by 30 bpm QT has lengthened Confirmed by MD MANDI, CHLOE ([id number]) on 07/16/2024 9:25:03 AM RADIOLOGY RESULTS 07/16/2024 7:15 AM CDT 07/16/2024 9:25 AM CDT Jes Arrington MD ECG ORDERABLES Ed ited Result - Final RADIOLOGY RESULTS * Nicotine and Mets, Urn, Quant (07/03/2024 2:36 PM CDT) Cotinine Confirm <15 ng/mL 07/08/19 11:38 AM CDT [facility] Nicotine Confirmation Urine <15 ng/mL 07/07/2024 11:38 AM CDT [facility] Comment: INTERPRETIVE INFORMATION: Nicotine and Metabolites, Urine, Quantitative Methodology: Quantitative Liquid Chromatography-Tandem Mass Spectrometry Positive cutoff: Nicotine 15 ng/mL Cotinine 15 ng/mL 3-ID-Vqcljsnx 50 ng/mL Anabasine 5 ng/mL For medical [...] developed and its performance characteristics determined by [employer]. It has not been cleared or approved by the US Food and Drug Administration. This test was performed in a CLIA certified laboratory and is intended for clinical purposes. Performed By: [employer] [address] [place] [address] Travel Trailer Components Assembler: Sedrick Santos MD, PhD CLIA Number: [id number], Urn, Quant <50 ng/mL 07/07/2024 11:38 AM CDT [facility] Anabasine, Urn, Quant <5 ng/mL 07/07/2024 11:38 AM CDT [facility] Urine URINE SPECIMEN OBTAINED BY CLEAN CATCH PROCEDURE / Unknown Non-blood Collection / Unknown 07/03/2024 2:36 PM CDT 07/03/2024 2:36 PM CDT Jes Arrington MD LAB - URINE ORDERA BLES Final Result Performing Organization Address [facility] Co de Phone Number [address] [address], [facility] [phone] * Ethyl Glucuronide Urine (07/03/2024 2:36 PM CDT) Ethyl Glucuronide Urine Negative Cutoff 500 ng/mL 07/05/2024 2:51 AM CDT [facility] Comment: Presumptive Negative by immunoassay. Testing [...] chromatography tandem mass spectrometry (LC-MS/MS). Performed By: [facility] [employer] [address] [place], [place] [id number] Travel Trailer Components Assembler: Sedrick Santos MD, PhD CLIA Number: [id number] Urine URINE SPECIMEN OBTAINED BY CLEAN CATCH PROCEDURE / Unknown Non-blood Collection / Unknown 07/03/2024 2:36 PM CDT 07/03/2024 2:36 PM CDT Jes Arrington MD LAB - URINE ORDERA BLES Final Result Performing Organization Address [facility]/ZIP Co de Phone Number [address] [address], [facility] [phone] * (ABNORMAL) UA Macroscopic with reflex to Microscopic and Culture (07/03/2024 2:36 PM CDT) Color Urine Fabienne(A) Colorless, Straw, Light Yellow, Yellow 07/03/2024 2:41 PM CDT LABORATORY Appearance Urine Clear Clear 07/04/19 2:41 PM CDT LABORATORY Glucose Urine Negative Negative mg/dL 07/03/2024 2:41 PM CDT LABORATORY Bilirubin Urine Small(A) Negative 2:41 PM CDT LABORATORY Ketones Urine Negative Negative mg/dL 07/03/2024 2:41 PM CDT RM LABORATORY Specific [place] Urine 1.015 1.003 - 1.035 07/03/2024 2:41 PM CDT RM LABORATORY Blood Urine Negative Negative 07/03/2024 2:41 PM CDT LABORATORY pH Urine 5.5 5.0 - 7.0 07/03/2024 2:41 PM CDT RM LABORATORY Protein Albumin Urine Negative Negative mg/dL 07/03/2024 2:41 PM CDT LABORATORY Urobilinogen Urine 2.0(A) 0.2, 1.0 E.U./dL 07/03/2024 2:41 PM CDT RM LABORATORY Nitrite Urine Negative Negative 07/03/2024 2:41 PM CDT LABORATORY Leukocyte Esterase Urine Moderate(A) Negative 07/03/2024 2:41 PM CDT LABORATORY Urine URINE SPECIMEN OBTAINED BY CLEAN CATCH PROCEDURE / Unknown Non-blood Collection / Unknown 07/03/2024 2:36 PM CDT 07/03/2024 2:36 PM CDT Jes Arrington MD LAB - URINE ORDERA BLES Final Result LABORATORY [facility] [place] [facility] [address] [facility] (no room number, 1st floor of clinic) [place] [address], [facility] * Protein random urine (07/03/2024 2:36 PM [...] URINE ORDERA BLES Final Result PH LABORATORY [facility] [address] [facility] (Main level, no room number) [place] [address], [facility] * DRUG SCREEN 9, SER/DEIDRE W/RFLX TO [...] ng/mL 07/05/2024 1:37 PM CDT [facility] Comment: If the screen is positive, then confirmation by mass spectrometry will be added. Additional charges will apply. Unconfirmed positive may be useful for medical purposes, but does not meet forensic standards. Drug Screen Comments, Serum or Plasma See Note 07/05/2024 1:37 PM CDT [facility] Comment: INTERPRETIVE INFORMATION: Drug Screen 9 Panel, [...] developed and its performance characteristics determined by [employer]. It has not been cleared or approved by the US Food and Drug Administration. This test was performed in a CLIA certified laboratory and is intended for clinical purposes. Performed By: [employer] [address] [place] [address] Travel Tra[employer] Components Assembler: Sedrick Santos MD, PhD CLIA Number: [id number] Cannabinoids Qual Negative Cutoff 20 ng/mL 07/05/2024 1:37 PM CDT [facility] Blood BLOOD SPECIMEN / Unknown Venipuncture / Unknown 07/03/2024 9:42 AM CDT 07/03/2024 9:42 AM CDT Jes Arrington MD LAB - BLOOD ORDERA BLES Final Result [address] [address], [facility] [phone] * (ABNORMAL) Treponema Abs w Reflex to [...] 9:42 AM CDT 07/03/2024 9:42 AM CDT [facility] SPECIALTY CORE/PROT/ENDO - 07/03/2024 11:35 PM CDT [...] Final Result SPECIALTY CORE/PROT/ENDO Specialty Core/Prot/Endo [address] [facility], Room 3-[address] SPECIALTY LABS Specialty Lab [address] [facility], Room [address] [phone] * HIV Antigen Antibody Combo Pretransplant [place] (07/03/2024 9:42 AM CDT) HIV Antigen Antibody [...] BLOOD ORDERA BLES Final Result U LABORATORY [facility] [address] [facility], Room [address] [phone] * Hepatitis C antibody (07/03/2024 9:42 AM CDT) Pathologist [facility] Hepatitis C Antibody Nonreactive Nonreactive 07/03/2024 8:46 PM CDT U LABORATORY Comment:A nonreactive screen ing test result [...] - BLOOD ORDERA BLES Final Result LABORATORY [facility] [address] [facility], Room [address] * Hepatitis B surface antigen (07/03/2024 9:42 AM CDT) Hepatitis B Surface Antigen Nonreactive Nonreactive 07/03/2024 8:46 PM CDT U LABORATORY Blood BLOOD SPECIMEN / Unknown Venipuncture / Unknown 07/03/2024 9:42 AM CDT 07/03/2024 9:42 AM CDT Jes Arrington MD LAB - BLOOD ORDERA BLES Final Result Performing Organization Address [facility] Co de Phone Number LABORATORY [facility] Core Lab [address] [place] [address], Room [address] [place] [address] * Hepatitis B Surface Antibody (07/03/2024 9:42 AM CDT) [facility] Hepatitis B Surface Antibody Nonreactive 07/03/2024 8:54 PM CDT U LABORATORY Comment:Nonreactive results, defined as anti-HBs levels of less than 8.5 mIU/mL, indicate a lack of recovery from acute or chronic hepatitis B or inadequate immune response to HBV vaccination. Hepatitis B Surface Antibody Instrument Value <3.50 <8.5 m[IU]/mL 07/03/2024 8:54 PM CDT U LABORATORY Blood BLOOD SPECIMEN / Unknown Venipuncture / Unknown 07/03/2024 9:42 AM CDT 07/03/2024 9:42 AM CDT Jes Arrington MD LAB - BLOOD ORDERA BLES Final Result LABORATORY [facility] Core Lab [address] [facility], Room [address] * Hepatitis B core antibody (07/03/2024 9:42 [...] BLOOD ORDERA BLES Final Result UU LABORATORY [facility] [address] [facility], Room 3[address] [place] [phone] [place] [address] * Hepatitis A Antibody Total (07/03/2024 9:42 [...] BLOOD ORDERA BLES Final Result UU LABORATORY [facility] [address] [facility], Room [address] * (ABNORMAL) EBV Capsid Antibody IgG (07/03/2024 9:42 AM CDT) EBV Capsid Gaby IgG Instrument Value 407.0(H) <18.0 U/mL 07/03/2024 11:22 PM CDT [facility] SPECIALTY CORE/PROT/EN DO EBV Capsid Antibody IgG Positive( A) No detectable antibody. 07/03/2024 11:22 PM CDT [facility] Comment:Suggests recent or p ast exposure. Blood BLOOD SPECIMEN / Unknown Venipuncture / Unknown 07/03/2024 9:42 AM CDT 07/03/2024 9:42 AM CDT Jes Arrington MD LAB - BLOOD ORDERA BLES Final Result Performing Organization Address City/[facility]/ZIP Co de Phone Number SPECIALTY CORE/PROT/ENDO Specialty Core/Prot/Endo [address] [facility], Room [address] SPECIALTY LABS Specialty Lab 500 [facility], Room [address] [place] [address] * CMV Antibody IgG (07/03/2024 9:42 AM [...] UM SPECIALTY CORE/PROT/ENDO [facility] Specialty Core/Prot/Endo [address] [facility] [address], Room 3[address]580 [place], [place] [address] SPECIALTY LABS Specialty Lab [address] [facility] [address], Room [address] [place] [address], [facility] * (ABNORMAL) CBC with platelets (07/03/2024 9:42 AM CDT) [facility] WBC Count 4.4 4.0 - 11.0 10e3/uL 07/03/2024 10:18 AM CDT RM LABORATORY RBC Count 2.50(L) 3.80 - 5.20 10e6/uL 07/03/2024 10:18 AM CDT RM LABORATORY Hemoglobin 8.4(L) 11.7 - 15.7 g/dL [...] AM CDT Verified by repeat analysis DA us Jes Arrington MD LAB - BLOOD ORDERA BLES Final Result LABORATORY [facility] [place] [facility] [address] [facility] Lab (no room number, 1st floor of clinic) [place] [address] * (ABNORMAL) Vitamin D Deficiency (07/03/2024 [...] intake, and treatment affect the concentration of 30-puqjcus-Lqcaxfo D. Values may decrease during winter months and increase during summer months. Vitamin D determination is routinely performed by an immunoassay specific for 25 hydroxyvitamin D3. If an individual is on vitamin D2(ergocalciferol) supplementation, please specify 25 OH vitamin D2 and D3 level determination by LCMSMS test VITD23. Jes Arrington MD LAB - BLOOD ORDERA BLES Final Result LABORATORY [facility] [address] [facility], Room [address] [address] * (ABNORMAL) Transferrin (07/03/2024 9:42 AM CDT) Transferrin 187.0(L) 200.0 - 360.0 mg/dL 07/03/2024 8:43 PM CDT UU LABORATORY Blood BLOOD SPECIMEN / Unknown Venipuncture / Unknown 07/03/2024 9:42 AM CDT 07/03/2024 9:42 AM CDT Jes Arrington MD LAB - BLOOD ORDERA BLES Final Result LABORATORY [facility] [address] [facility], [address] [address] * TSH with free T4 reflex (07/03/2024 9:42 AM CDT) TSH 2.95 0.30 - 4.20 uIU/mL 07/03/2024 10:29 PM CDT UU LABORATORY Blood BLOOD SPECIMEN / Unknown Venipuncture / Unknown 07/03/2024 9:42 AM CDT 07/03/2024 9:42 AM CDT Jes Arrington MD LAB - BLOOD ORDERA BLES Final Result UU LABORATORY [facility] [address] [facility], [address] * Phosphorus (07/03/2024 9:42 AM CDT) Phosphorus 2.9 2.5 - 4.5 mg/dL 07/03/2024 8:43 PM CDT [facility] LABORATORY Blood BLOOD SPECIMEN / Unknown Venipuncture / Unknown 07/03/2024 9:42 AM CDT 07/03/2024 9:42 AM CDT Jes Arrington MD LAB - BLOOD ORDERA BLES Final Result UU LABORATORY [facility] [address] [facility], [address] * (ABNORMAL) Iron and iron binding [...] - BLOOD ORDERA BLES Final Result LABORATORY [facility] 500 [facility] Building, Room 3[address] [place] [address], [facility] * Hemoglobin A1c (07/03/2024 9:42 AM CDT) Pathologist [facility] Estimated Average Glucose 74 <117 mg/dL 07/03/2024 [...] - BLOOD ORDERA BLES Final Result LABORATORY [facility] [place] [facility] [address] [facility] (no room number, 1st floor of clinic) [place] [address], [facility] * Ferritin (07/03/2024 9:42 AM CDT) [facility] Ferritin 216 11 - 328 ng/mL 07/03/2024 8:34 PM CDT LABORATORY Blood BLOOD SPECIMEN / Unknown Venipuncture / Unknown 07/03/2024 9:42 AM CDT 07/03/2024 9:42 AM CDT Jes Arrington MD LAB - BLOOD ORDERA BLES Final Result LABORATORY [facility] [address] [facility], Room [address] [place] [address], [facility] * AFP tumor marker (07/03/2024 9:42 AM CDT) [facility] AFP tumor marker 3.4 <=8.3 ng/mL [...] Reference ranges apply to non- females only. us Jes Arrington MD LAB - BLOOD ORDERA BLES Final Result UU LABORATORY [facility] [address] [facility], [address] [address] * (ABNORMAL) Lipid Profile (07/03/2024 9:42 AM CDT) [facility] Cholesterol 203(H) <200 mg/dL 07/03/2024 8:34 [...] BLOOD ORDERA BLES Final Result [facility]U LABORATORY [facility] [address] [facility], [address] [address] documented in this encounter Visit Diagnoses Diagnosis Alcoholic cirrhosis (H)- Primary Alcoholic cirrhosis of liver Cirrhosis, alcoholic (H) Alcoholic cirrhosis of liver Alcoholic cirrhosis (H) Alcoholic cirrhosis of liver Cirrhosis, alcoholic (H) Alcoholic cirrhosis of liver Alcoholic cirrhosis (H) Alcoholic cirrhosis of liver Cirrhosis, alcoholic (H) Alcoholic cirrhosis of liver Alcoholic cirrhosis (H) Alcoholic cirrhosis of liver Cirrhosis, alcoholic (H) Alcoholic cirrhosis of liver documented in this encounter Additional Health Concerns Assessment Noted Time PHQ-9 Depression Total Score: 8 06/12/19 25 12:56 PM CDT documented as of this encounter Care Teams Tree Care Foreman Relationship Specialty Start Date End Date [facility] [address] [place] [address] PCP - General 08/24/20 Kristen Dockery, RN Registered Nurse Nurse 11/09/23 Kristen Dockery, firearms expertResidence Hall Director Nurse 05/19/24 Meliza Villaseñor MD [address] [place] [address] Software Developer Manager Internal Medicine 05/19/24 Lanny Meléndez APRN PACKAGER MACHINE [facility] [address] [place] [address] Referring Physician Internal Medicine 05/19/24 Gala Fair, [facility] Periodontist 05/20/24 Meliza Villaseñor MD [address] [place] [address] [address] [place] [address] Physician Internal Medicine 05/20/24 Trey Abraham MD [address] [facility] [address] [place] [address] Surgery 05/20/[address] [facility] [address] [facility] [address] [place] [address] Registered Dietitian Dietitian, Registered 05/20/24 Dixon Hernandez MD [address] [facility] [address] [place] [address] Cardiovascular Disease 05/20/24 Jes Arrington MD [address] [place] [address] [address] [place], [place] [address] Gastroenterology 06/24/24 documented as of this encounter
--- OUTSIDE RECORDS SUMMARY | 2024-08-01 07:50 | XMS_ITS | Encounter Summary ---
Author Organization [place] Address [address] [place] [address] Care Team Providers Care Vocational Counselor Name Role Phone Clinic, [facility] Primary Care Provider Kristen Dockery RN Unavailable Unavaila Kristen Bermudez RN Unavailable Unavaila Meliza James MD Unavailable [phone] Lanny Meléndez APRN ADULT EDUCATOR Unavailable [phone] Gala Fair CHARGING MACHINE OPERATOR Unavailable [phone] Meliza Villaseñor MD Unavailable [phone] Trey Abraham MD Unavailable [phone] Unavailable Unavail able Dixon Hernandez MD Unavailable [phone] Jes Arrington MD Unavailable + Encounter Details [...] PM CDT 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 Heart Care [address] [place] [address] Meliza Villaseñor MD [address] [place] [address] 08/26/2024 12:00 PM CDT Appointment [facility] Imaging [address] [place] [phone] Meliza Villaseñor MD [address] [place] [address] 09/12/2024 11:00 AM CDT Office Visit [facility] Heart [address] 2nd [place] [phone] Dixon Hernandez MD [address] [place] [address]22945 10/01/2024 PRE VISIT [facility] [address] [place] [phone] Dixon Hernandez MD [address] [place] [address] Previsit documented as of this encounter Visit Diagnoses Not on filedocumented in this encounter Care Teams Vocational Counselor Relationship Specialty Start Date End Date Clinic, [facility] [address] [place] [address] PCP - General 08/24/20 Kristen Dockery, RN Registered Nurse Nurse 11/09/23 Kristen Dockery, toy designerOutcomes Manager Nurse 05/19/24 Meliza Villaseñor MD [address] [facility] [address] [place] [address] Orthopaedic Surgeon Internal Medicine 05/19/24 Lanny Meléndez APRN ADULT EDUCATOR [facility] [address] [place] [address] Referring Physician Internal Medicine 05/19/24 Gala Fair, [facility] Education Consultant 05/20/24 Meliza Villaseñor MD [address] [place], [place] [address] [address] Physician Internal Medicine 05/20/24 Trey Abraham MD 420 [facility] 195 [place] [address] Surgery 05/20/[address] [facility] 420 [facility] 84 [place] [address] Registered Dietitian Dietitian, Registered 05/20/24 Dixon Hernandez MD 420 [facility] 508 [place] [address] Cardiovascular Disease 05/20/24 Jes Arrington MD [address] [place] [address] [address] [place], [place] [phone] Gastroenterology 06/24/24 documented as of this encounter
--- OUTSIDE RECORDS SUMMARY | 2024-08-01 07:51 | XMS_ITS | Encounter Summary ---
Author Organization [place] Address [address] [place] [address] Care Team Providers Care Marketing Representative Name Role Phone Clinic, [facility] Primary Care Provider Kristen Dockery RN Unavailable UnavailKristen Toussaint RN Unavailable Unavaila Meliza James MD Unavailable [phone] Lanny Meléndez APRN TURBINE INSPECTOR Unavailable [phone] Gala Fair CLEAT MAKER Unavailable [phone] Meliza Villaseñor MD Unavailable [phone] Trey Abraham MD Unavailable [phone] Unavailable Unavail able Dixon Hernandez MD Unavailable [phone] Jes Arrington MD Unavailable + Encounter Details Date Type Department Care Team (Late st Contact Info) Description 05/30/2024 External Order Results [facility] [address] [place] [address] Outside, Provider Social History Tobacco Use Types [...] PM CDT Legal Sex Female 3:12 AM SLIP PRESSER Gender Identity Female 10/31/2023 12:26 PM CDT Sexual Orientation Straight 10/31/2023 12 :26 PM CDT documented as of this encounter Plan of Treatment Upcoming Encounters Date Type Department Care Team (Late st Contact Info) Description 08/05/2024 10:45 AM CDT Lab [facility] [address] [place] [address] 08/26/2024 10:30 AM CDT Appointment [facility] Heart Care [address] [place] [address] Meliza Villaseñor MD [address] [place] [address] 08/26/2024 12:00 PM CDT Appointment [facility] Imaging 500 [place] [address] Meliza Villaseñor MD [address] [place] [address] 09/12/2024 11:00 AM CDT Office Visit [facility] Heart [address] 2nd [place] [phone] Dixon Hernandez MD [address] [place] [address] [phone] 10/01/2024 PRE VISIT [facility] Heart [facility] 9[address] [place] [phone] Dixon Hernandez MD [address] [place] [address] 805195 Previsit documented as of this encounter Procedures Procedure Name Priority Date/Time Associated Diagnosis Comments HEPATITIS B CORE ANTIBODY Routine 05/30/2024 8:38 AM CDT BASIC METABOLIC PANEL Routine 05/30/2024 8:38 AM CDT HEPATIC FUNCTION PANEL Routine 04/15/2024 8:27 AM SLIP PRESSER BASIC METABOLIC PANEL Routine 04/15/2024 8:27 AM SLIP PRESSER INR Routine 04/09/2024 9:36 AM SLIP PRESSER HEPATIC FUNCTION PANEL Routine 04/09/2024 9:36 AM SLIP PRESSER AFP TUMOR MARKER Routine 04/09/2024 9:36 AM SLIP PRESSER BASIC METABOLIC PANEL Routine 04/09/2024 9:36 AM SLIP PRESSER CBC WITH PLATELETS Routine 04/09/2024 9: 36 AM SLIP PRESSER documented in this encounter Results * Hepatitis B core antibody (05/30/2024 8:38 AM CDT) Pathologist [facility] Hepatitis B Core Gaby (External) Negative Negative NON-INTERFACE D (ONBASE SCANS) Blood BLOOD SPECIMEN / Unknown 05/30/2024 8:38 AM CDT Hansa REYNOLDSTERRABonita PFT - 07/09/2024 8:16 AM CDT Verified by Isaac Rodrigues on 07/09/2024. us Provider Outside LAB - BLOOD ORDERABLES Edited R esult - Final TUSHAR PFT NON-INTERFACED (ONBASE SCANS) * (ABNORMAL) Basic metabolic panel (05/30/2024 8:38 AM CDT) Urea Nitrogen (External) 13 8 - 27 mg/dL NON-INTERFACE D (ONBASE SCANS) BUN/Creatinine Ratio (External) 12 12 - 28 NON-INTERFACE D (ONBASE SCANS) CO2 (External) 21 20 - 29 mmol/L NON-INTERFACE D (ONBASE SCANS) Calcium (External) 8.6(L) 8.7 - 10.3 mg/dL NON-INTERFACE D (ONBASE SCANS) Chloride (External) 100 96 - 106 mmol/L NON-INTERFACE D (ONBASE SCANS) Creatinine (External) 1.09(H) 0.57 - 1.00 mg/dL NON-INTERFACE D (ONBASE SCANS) GFR Estimated (External) 58(L) >59 ml/min/1.7 3m2 NON-INTERFACE D (ONBASE SCANS) Glucose (External) 106(H) 70 - 99 mg/dL NON-INTERFACE D (ONBASE SCANS) Potassium (External) 3.5 3.5 - 5.2 mmol/L NON-INTERFACE D (ONBASE SCANS) Sodium (External) 135 134 - 144 mmol/L NON-INTERFACE D (ONBASE SCANS) Blood BLOOD SPECIMEN / Unknown 05/30/2024 8:38 AM CDT Narrative TUSHAR PFT - 07/09/2024 8:16 AM CDT Verified by Isaac Rodrigues on 07/09/2024. us Provider Outside LAB - BLOOD ORDERABLES Edited R esult - Final TUSHAR PFT NON-INTERFACED (ONBASE SCANS) * (ABNORMAL) Hepatic function panel (04/15/2024 8:27 AM SLIP PRESSER) Bilirubin Total (External) 6.9(H) 0.0 - 1.2 mg/dL NON-INTERFACE D (ONBASE SCANS) Bilirubin Direct (External) 3.29(H) 0.00 - 0.40 mg/dL NON-INTERFACE D (ONBASE SCANS) AST (External) 49(H) 0 - 40 IU/L NON-INTERFACE D (ONBASE SCANS) ALT (External) 24 0 - 32 IU/L NON-INTERFACE D (ONBASE SCANS) Albumin (External) 3.5(L) 3.9 - 4.9 g/dL NON-INTERFACE D (ONBASE SCANS) Alk Phosphatase (External) 138(H) 44 - 121 IU/L NON-INTERFACE D (ONBASE SCANS) Protein Total (External) 6.3 6.0 - 8.5 g/dL NON-INTERFACE D (ONBASE SCANS) Blood BLOOD SPECIMEN / Unknown 04/15/2024 8:27 AM SLIP PRESSER Narrative BREEZE PFT - 07/09/2024 8:31 AM CDT Verified by Isaac Rodrigues on 07/09/2024. Provider Outside LAB - BLOOD ORDERABLES Edited R Pure[employer] - Final BREERICKSON PFT NON-INTERFACED (ONBASE SCANS) * (ABNORMAL) Basic metabolic panel (04/15/2024 8:27 AM SLIP PRESSER) Urea Nitrogen (External) 10 8 - 27 mg/dL NON-INTERFACE D (ONBASE SCANS) BUN/Creatinine Ratio (External) 10(L) 12 - 28 NON-INTERFACE D (ONBASE SCANS) CO2 (External) 26 20 - 29 mmol/L NON-INTERFACE D (ONBASE SCANS) Calcium (External) 9.5 8.7 - 10.3 mg/dL NON-INTERFACE D (ONBASE SCANS) Chloride (External) 101 96 - 106 mmol/L NON-INTERFACE D (ONBASE SCANS) Creatinine (External) 1.01(H) 0.57 - 1.00 mg/dL NON-INTERFACE D (ONBASE SCANS) GFR Estimated (External) 63 >59 ml/min/1.7 3m2 NON-INTERFACE D (ONBASE SCANS) Glucose (External) 113(H) 70 - 99 mg/dL NON-INTERFACE D (ONBASE SCANS) Potassium (External) 3.8 3.5 - 5.2 mmol/L NON-INTERFACE D (ONBASE SCANS) Sodium (External) 138 134 - 144 mmol/L NON-INTERFACE D (ONBASE SCANS) Blood BLOOD SPECIMEN / Unknown 04/15/2024 8:27 AM SLIP PRESSER Narrative TUSHAR PFT - 07/09/2024 8:31 AM CDT Verified by Isaac Rodrigues on 07/09/2024. Provider Outside LAB - BLOOD ORDERABLES Edited R esult - Final TUSHAR PFT NON-INTERFACED (ONBASE SCANS) * AFP tumor marker (04/09/2024 9:36 AM SLIP PRESSER) Pathologist [facility] Alpha Fetoprotein Nonpreg (External) 5.2 0.0 - 9.2 NG/Ml NON-INTERFACED (ONBASE SCANS) Blood BLOOD SPECIMEN / Unknown 04/09/2024 9:36 AM SLIP PRESSER Narrative TUSHAR PFT - 07/09/2024 8:31 AM CDT Verified by Isaac Rodrigues on 07/09/2024. Provider Outside LAB - BLOOD ORDERABLES Edited R esult - Final TUSHAR PFT NON-INTERFACED (ONBASE SCANS) * (ABNORMAL) CBC with platelets (04/09/2024 9:36 AM SLIP PRESSER) Pathologist [facility] Hematocrit (External) 31.7(L) 34.0 - 46.6 % NON-INTERFACE D (ONBASE SCANS) Hemoglobin (External) 11.1 11.1 - 15.9 g/dL NON-INTERFACE D (ONBASE SCANS) MCH (External) 31.7 26.6 - 33.0 pg NON-INTERFACE D (ONBASE SCANS) MCHC (External) 35.0 31.5 - 35.7 g/dL NON-INTERFACE D (ONBASE SCANS) MCV (External) 91 79 - 97 fL NON- INTERFACE D (ONBASE SCANS) Platelet Count (External) 137(L) 150 - 450 x10E3/uL NON-INTERFACE D (ONBASE SCANS) RBC Count (External) 3.50(L) 3.77 - 5.28 x10E6/uL NON-INTERFACE D (ONBASE SCANS) RDW (External) 14.0 11.7 - 15.4 % NON-INTERFACE D (ONBASE SCANS) WBC Count (External) 4.0 3.4 - 10.8 x10E3/uL NON-INTERFACE D (ONBASE SCANS) Blood BLOOD SPECIMEN / Unknown 04/09/2024 9:36 AM SLIP PRESSER Narrative TUSHAR PFT - 07/09/2024 8:31 AM CDT Verified by Isaac Rodrigues on 07/09/2024. Provider Outside LAB - BLOOD ORDERABLES Edited R [email or web address] - Final TUSHAR PFT NON-INTERFACED (ONBASE SCANS) * (ABNORMAL) Basic metabolic panel (04/09/2024 9:36 AM SLIP PRESSER) Urea Nitrogen (External) 15 8 - 27 mg/dL NON-INTERFACE D (ONBASE SCANS) BUN/Creatinine Ratio (External) 10(L) 12 - 28 NON-INTERFACE D (ONBASE SCANS) CO2 (External) 26 20 - 29 mmol/L NON-INTERFACE D (ONBASE SCANS) Calcium (External) 9.8 8.7 - 10.3 mg/dL NON-INTERFACE D (ONBASE SCANS) Chloride (External) 96 96 - 106 mmol/L NON-INTERFACE D (ONBASE SCANS) Creatinine (External) 1.48(H) 0.57 - 1.00 mg/dL NON-INTERFACE D (ONBASE SCANS) GFR Estimated (External) 40(L) >59 ml/min/1.7 3m2 NON-INTERFACE D (ONBASE SCANS) Glucose (External) 106(H) 70 - 99 mg/dL NON-INTERFACE D (ONBASE SCANS) Potassium (External) 3.7 3.5 - 5.2 mmol/L NON-INTERFACE D (ONBASE SCANS) Sodium (External) 138 134 - 144 mmol/L NON-INTERFACE D (ONBASE SCANS) Blood BLOOD SPECIMEN / Unknown 04/09/2024 9:36 AM SLIP PRESSER Narrative TUSHAR PFT - 07/09/2024 8:31 AM CDT Verified by Isaac Rodrigues on 07/09/2024. Provider Outside LAB - BLOOD ORDERABLES Edited R [email or web address] - [employer] TUSHAR PFT NON-INTERFACED (ONBASE SCANS) * (ABNORMAL) Hepatic function panel (04/09/2024 9:36 AM SLIP PRESSER) Bilirubin Total (External) 7.8(H) 0.0 - 1.2 mg/dL NON-INTERFACE D (ONBASE SCANS) AST (External) 50(H) 0 - 40 IU/L NON-INTERFACE D (ONBASE SCANS) ALT (External) 26 0 - 32 IU/L NON-INTERFACE D (ONBASE SCANS) Albumin (External) 4.0 3.9 - 4.9 g/dL NON-INTERFACE D (ONBASE SCANS) Alk Phosphatase (External) 147 44 - 121 IU/L NON-INTERFACE D (ONBASE SCANS) Protein Total (External) 6.7 6.0 - 8.5 g/dL NON-INTERFACE D (ONBASE SCANS) Blood BLOOD SPECIMEN / Unknown 04/09/2024 9:36 AM SLIP PRESSER Narrative BREEZE PFT - 07/09/2024 8:31 AM CDT Verified by Isaac Rodrigues on 07/09/2024. Provider Outside LAB - BLOOD ORDERABLES Edited R [employer] BREEZE PFT NON-INTERFACED (ONBASE SCANS) * (ABNORMAL) INR (04/09/2024 9:36 AM SLIP PRESSER) INR (External) 1.3(H) 0.9 - 1.2 NON-I NTERFACE D (ONBASE SCANS) PT - Prothrombine Time (External) 14.9(H) 9.1 - 12.0 sec NON-INTERFACE D (ONBASE SCANS) Blood BLOOD SPECIMEN / Unknown 04/09/2024 9:36 AM SLIP PRESSER Narrative BREEZE PFT - 07/09/2024 8:31 AM CDT Verified by Isaac Rodrigeus on 07/09/2024. us Provider Outside LAB - BLOOD ORDERABLES Edited [employer] logo BREEZE PFT NON-INTERFACED (ONBASE SCANS) documented in this encounter Visit Diagnoses Not on filedocumented in this encounter Care Teams Marketing Representative Relationship Specialty Start Date End Date [facility], [facility] [place] [address] [place], [place] [id number] PCP - General 08/24/20 Kristen Dockery, RN Registered Nurse Nurse 11/09/23 Kristen Dockery, tree doctorOperations Processor Nurse 05/19/24 Meliza Villaseñor MD [address] [facility] [address] [place] [address] Motor Equipment Sergeant Internal Medicine 05/19/24 Lanny Meléndez APRN TURBINE INSPECTOR [facility] [address] [place] [address] Referring Physician Internal Medicine 05/19/24 Gala Fair, [facility] Business Development Sales Executive 05/20/24 Meliza Villaseñor MD [address] [facility] [address] [place] [address] Physician Internal Medicine 05/20/24 Trey Abraham MD 420 [facility] 195 [place] [address] Surgery 05/20/[address] [facility] 420 [facility] 84 [place] [address] Registered Dietitian Dietitian, Registered 05/20/24 Dixon Hernandez MD [address] [facility] 508 [place] [address] Cardiovascular Disease 05/20/24 Jes Arrington MD 6 [facility] 2[address] [place] [address] Gastroenterology 06/24/24 documented as of this encounter
--- OUTSIDE RECORDS SUMMARY | 2024-08-01 07:51 | XMS_ITS | Encounter Summary ---
Author Organization [place] Address [address] [place] [address] Care Team Providers Care Junior Systems Engineer Name Role Phone [facility] Primary Care Provider Kristen Dockery RN Unavailable Unavaila Kristen Bermudez RN Unavailable Unavaila Meliza James MD Unavailable [phone] Lanny Meléndez APRN TOOL AND PRODUCTION PLANNER Unavailable [phone] Gala Fair PUMP OILER Unavailable [phone] Meliza Villaseñor MD Unavailable [phone] Trey Abraham MD Unavailable [phone] Unavailable Unavail able Dixon Hernandez MD Unavailable [phone] Jes Arrington MD Unavailable + Encounter Details Date Type Department Care Team (Late st Contact Info) Description 11/13/2023 MyC Medical Advice [facility] [address] [place] [address] Kristen Dockery RN Social History [...] PM CDT Legal Sex Female 3:12 AM CASE INVESTIGATOR Gender Identity Female 10/31/2023 12:26 PM CDT Sexual Orientation Straight 10/31/2023 12 :26 PM CDT documented as of this encounter Plan of Treatment Upcoming Encounters Date Type Department Care Team (Late st Contact Info) Description 08/05/2024 10:45 AM CDT Lab [facility] Laboratory [address] [place] [address] 08/26/2024 10:[address] [facility] Heart Care [address] [place] [address] Meliza Villaseñor MD [address] [place] [address] 08/26/2024 12:00 PM CDT Appointment [facility] Imaging [address] [place] [address] Meliza Villaseñor MD [address] [place] [address] 09/12/2024 11:00 AM CDT Office Visit [facility] Heart [address] 2nd [place] [phone] Dixon Hernandez MD [address] [place] [phone] 10/01/2024 PRE VISIT [facility] Heart [facility] [address] [place] [phone] Dixon Hernandez MD [address] [place] [address] 759885 Previsit documented as of this encounter Visit Diagnoses Not on filedocumented in this encounter Care Teams Junior Systems Engineer Relationship Specialty Start Date End Date Clinic, [facility] [address] [place] [address] PCP - General 08/24/20 Kristen Dockery, RN Registered Nurse Nurse 11/09/23 Kristen Dockery, clam shuckerXerox Machine Assembler Nurse 05/19/24 Meliza Villaseñor MD [address] [place] [address] Housing Assistant Internal Medicine 05/19/24 Lanny Meléndez APRN TOOL AND PRODUCTION PLANNER [facility] [address] [place] [address] Referring Physician Internal Medicine 05/19/24 Gala Fair, [facility] Peoplesoft Developer 05/20/24 Meliza Villaseñor MD [address] [place] [address] Physician Internal Medicine 05/20/24 Trey bAraham MD 420 [facility] 195 [place] [address] Surgery 05/20/24 Jena Castano, RAFIQ [facility] 420 [facility] SE [facility] 84 [place] [address] Registered Dietitian Dietitian, Registered 05/20/24 Dixon Hernandez MD 420 [facility] 508 [place] [address] Cardiovascular Disease 05/20/24 Jes Arrington MD 516 [facility] [address] [place] [address] Gastroenterology 06/24/24 documented as of this encounter
--- OUTSIDE RECORDS SUMMARY | 2024-08-01 07:51 | XMS_ITS | Encounter Summary ---
Author Organization [place] Address [address] [place] [address] Care Team Providers Care Powertrain Design Engineer Name Role Phone Clinic, [facility] Primary Care Provider Kristen Dockery RN Unavailable Unavaila Kristen Bermudez RN Unavailable Unavaila Meliza James MD Unavailable [phone] Lanny Meléndez APRN ASBESTOS MICROSCOPIST Unavailable [phone] Gala Fair ALLIANCE MANAGER Unavailable [phone] Meliza Villaseñor MD Unavailable [phone] Trey Abraham MD Unavailable [phone] Unavailable Unavail able Dixon Hernandez MD Unavailable [phone] Jes Arrington MD Unavailable + Encounter Details Date Type Department Care Team (Late st Contact Info) Description 07/10/2024 MyC Medical Advice Initial Department Kristen Dockery [...] PM CDT Legal Sex Female 3:12 AM LIFE CARE PLANNER Gender Identity Female 10/31/2023 12:26 PM CDT Sexual Orientation Straight 10/31/2023 12 :26 PM CDT documented as of this encounter Plan of Treatment Upcoming Encounters Date Type Department Care Team (Late st Contact Info) Description 08/05/2024 10:[address] [facility] Laboratory [address] [place] [phone] 08/26/2024 10:30 AM CDT Appointment [facility] Heart Care [address] [place] [address] Meliza Villaseñor MD [address] [place] [address] 08/26/2024 12:00 PM CDT Appointment [facility] [address] [place] [address] Meliza Villaseñor MD [address] [place] [address] 09/12/2024 11:00 AM CDT Office Visit [facility] Heart [address] 2nd [place] [phone] Dixon Hernandez MD [address] [place] [address] [phone] 10/01/2024 PRE VISIT [facility] Heart [facility] [address] [place] [phone] Dixon Hernandez MD [address] [place] [address] 970405 Previsit documented as of this encounter Visit Diagnoses Not on filedocumented in this encounter Additional Health Concerns Assessment Noted Time PHQ-9 Depression Total Score: 8 06/12/19 12:56 PM CDT documented as of this encounter Care Teams Powertrain Design Engineer Relationship Specialty Start Date End Date Clinic, [facility] [place] [address] [facility] [address] PCP - General 08/24/20 Kristen Dockery, RN Registered Nurse Nurse 11/09/23 Kristen Dockery, insurance assistantAssembler Trim Nurse 05/19/24 Meliza Villaseñor MD [address] [place] [address] Station Captain Internal Medicine 05/19/24 Lanny Meléndez APRN ASBESTOS MICROSCOPIST [facility] [address] [place], [place] [address] Referring Physician Internal Medicine 05/19/24 Gala Fair, [facility] Bead Forming Machine Set Up Operator 05/20/24 Meliza Villaseñor MD [address] [place] [address] Physician Internal Medicine 05/20/24 Trey Abraham MD 420 [facility] 195 [place] [address] Surgery 05/20/24 Jena Castano, RAFIQ [facility] 420 [facility] SE [facility] 84 [place] [address] Registered Dietitian Dietitian, Registered 05/20/24 Dixon Hernandez MD 420 [facility] 508 [place] [address] Cardiovascular Disease 05/20/24 Jes Arrington MD [address] [address] Gastroenterology 06/24/24 documented as of this encounter
--- OUTSIDE RECORDS SUMMARY | 2024-08-01 07:51 | XMS_ITS | Encounter Summary ---
Author Organization [place] Address [address] [place] [address] Care Team Providers Care Pulp Tester Name Role Phone Clinic, [facility] Primary Care Provider Kristen Dockery RN Unavailable UnavailKristen Toussaint RN Unavailable Unavaila Meliza James MD Unavailable [phone] Lanny Meléndez APRN MARKETING AND PROMOTIONS MANAGER Unavailable [phone] Gala Fair TAX ACCOUNTING MANAGER Unavailable [phone] Meliza Villaseñor MD Unavailable [phone] Trey Abraham MD Unavailable [phone] Unavailable Unavail able Dixon Hernandez MD Unavailable [phone] Jes Arrington MD Unavailable + Encounter Details Date Type Department Care Team (Late st Contact Info) Description 07/02/2024 External Order Results [facility] [place] [facility] [address] [place] [address] Outside, Provider Social History Tobacco Use Types [...] PM CDT Legal Sex Female 3:12 AM SPINNING LATHE OPERATOR Gender Identity Female 10/31/2023 12:26 PM CDT Sexual Orientation Straight 10/31/2023 12 :26 PM CDT documented as of this encounter Plan of Treatment Upcoming Encounters Date Type Department Care Team (Late st Contact Info) Description 08/05/2024 10:[address] [facility] [address] [place] [address] 08/26/2024 10:[address] [facility] Heart Care [address] [place] [address] Meliza Villaseñor MD [address] [place] [address] 08/26/2024 12:00 PM CDT Appointment [facility] Imaging 500 [place] [address] Meliza Villaseñor MD [address] [place] [address] 09/12/2024 11:00 AM CDT Office Visit [facility] Heart [address] 2nd [place] [phone] Dixon Hernandez MD [address] [place] [address] 9764[address] 10/01/2024 PRE VISIT [facility] 909 [place] [phone] Dixon Hernandez MD [address] [place] [address] 038275 Previsit documented as of this encounter Procedures Procedure Name Priority Date/Time Associated Diagnosis Comments BASIC METABOLIC PANEL Routine 07/02/2024 8:47 AM CDT documented in this encounter Results * (ABNORMAL) Basic metabolic panel (07/02/2024 8:47 AM CDT) Urea Nitrogen (External) 16 8 - 27 mg/dL NON-INTERFACE D (ONBASE SCANS) BUN/Creatinine Ratio (External) 12 12 - 28 Ratio NON-INTERFACE D (ONBASE SCANS) CO2 (External) 23 20 - 29 mmol/L NON-INTERFACE D (ONBASE SCANS) Calcium (External) 8.4(L) 8.7 - 10.3 mg/dL NON-INTERFACE D (ONBASE SCANS) Chloride (External) 95(L) 96 - 106 mmol/L NON-INTERFACE D (ONBASE SCANS) Creatinine (External) 1.32(H) 0.57 - 1.00 mg/dL NON-INTERFACE D (ONBASE SCANS) GFR Estimated (External) 46(L) >59 mL/min NON-INTERFACE D (ONBASE SCANS) Glucose (External) 91 70 - 99 mg/dL NON-INTERFACE D (ONBASE SCANS) Potassium (External) 3.5 3.5 - 5.2 mmol/L NON-INTERFACE D (ONBASE SCANS) Sodium (External) 134 134 - 144 mmol/L NON-INTERFACE D (ONBASE SCANS) Blood BLOOD SPECIMEN / Unknown 07/02/2024 8:47 AM CDT Narrative TUSHAR PFT - 07/09/2024 8:43 AM CDT Verified by Marylin Finley on 07/09/2024. us Provider Outside LAB - BLOOD ORDERABLES Edited R esult - Final TUSHAR PFT NON-INTERFACED (ONBASE SCANS) documented in this encounter Visit Diagnoses Not on filedocumented in this encounter Additional Health Concerns Assessment Noted Time PHQ-9 Depression Total Score: 8 06/12/19 25 12:56 PM CDT documented as of this encounter Care Teams Pulp Tester Relationship Specialty Start Date End Date Clinic, [facility] [address] [place] [address] PCP - General 08/24/20 Kristen Dockery, RN Registered Nurse Nurse 11/09/23 Kristen Dockery, sagger makerStore Deli Manager Nurse 05/19/24 Meliza Villaseñor MD [address] [place] [address] Survey Analyst Internal Medicine 05/19/24 Lanny Meléndez APRN MARKETING AND PROMOTIONS MANAGER [facility] [address] [place], [place] [address] Referring Physician Internal Medicine 05/19/24 Gala Fair, [facility] Surgical Assistant 05/20/24 Meliza Villaseñor MD [facility] [address] [place] [address] Physician Internal Medicine 05/20/24 Trey Abraham MD [address] [facility] 195 [place] [address] Surgery 05/20/[address] [facility] 420 [facility] 84 [place] [address] Registered Dietitian Dietitian, Registered 05/20/24 Dixon Hernandez MD [address] [facility] [address] [place] [address] Cardiovascular Disease 05/20/24 Jes Arrington MD 6 [facility] 2A [place] [address] Gastroenterology 06/24/24 documented as of this encounter
--- OUTSIDE RECORDS SUMMARY | 2024-08-01 07:51 | XMS_ITS | Encounter Summary ---
Author Organization [place] Address [address] [place] [address] Care Team Providers Care Director Enterprise Data Architecture Name Role Phone Clinic, [facility] Primary Care Provider Kristen Dockery RN Unavailable UnavailKristen Toussaint RN Unavailable Unavaila Meliza James MD Unavailable [phone] Lanny Meléndez APRN EMPLOYEE WELFARE MANAGER Unavailable [phone] Gala Fair FUEL TANK SEALER AND TESTER Unavailable [phone] Meliza Villaseñor MD Unavailable [phone] Trey Abraham MD Unavailable [phone] Unavailable Unavail able Dixon Hernandez MD Unavailable [phone] Jes Arrington MD Unavailable + Encounter Details Date Type Department Care Team (Late st Contact Info) Description 03/15/2024 External Order Results [facility] [address] [place] [address] Outside, Provider Social History Tobacco Use Types [...] PM CDT Legal Sex Female 3:12 AM FEED PROJECT ENGINEER Gender Identity Female 10/31/2023 12:26 PM CDT Sexual Orientation Straight 10/31/2023 12 :26 PM CDT documented as of this encounter Plan of Treatment Upcoming Encounters Date Type Department Care Team (Late st Contact Info) Description 08/05/2024 10:45 AM CDT Lab [facility] [address] [place] [address] 08/26/2024 10:30 AM CDT Appointment [facility] Heart Care 500 [place] [address] Meliza Villaseñor MD [address] [place] [address] 08/26/2024 12:00 PM CDT Appointment [facility] Imaging 500 [place] [address] Meliza Villaseñor MD [facility] [address] [place] [address] 09/12/2024 11:00 AM CDT Office Visit [facility] Heart [address] 2nd [place] [phone] Dixon Hernandez MD [address] [place] [address] 944455 10/01/2024 PRE VISIT [facility] [address] [place] [phone] Dixon Hernandez MD [address] [place] [address]165 Previsit documented as of this encounter Procedures Procedure Name Priority Date/Time Associated Diagnosis Comments INR Routine 03/29/2024 9:00 AM FEED PROJECT ENGINEER CBC WITH PLATELETS Routine 03/15/2024 8: 30 AM FEED PROJECT ENGINEER documented in this encounter Results * (ABNORMAL) INR (03/29/2024 9:00 AM FEED PROJECT ENGINEER) Pathologist [facility] INR (External) 1.38(H) 0.91 - 1.10 NON-INTERFACED (ONBASE SCANS) Blood BLOOD SPECIMEN / Unknown 03/29/2024 9:00 AM FEED PROJECT ENGINEER Narrative JACOBE PFT - 04/09/2024 2:14 PM FEED PROJECT ENGINEER Verified by Leah Gimenez on 04/09/2024. us Provider Outside LAB - BLOOD ORDERABLES Edited R esult - Final TUSHAR PFT NON-INTERFACED (ONBASE SCANS) * (ABNORMAL) CBC with platelets (03/15/2024 8:30 AM FEED PROJECT ENGINEER) Pathologist [facility] WBC Count (External) 3.28(L) 4.50 - 11.00 [...] BLOOD SPECIMEN / Unknown 03/15/2024 8:30 AM FEED PROJECT ENGINEER Narrative GAILEZE PFT - 03/15/2024 8:30 AM FEED PROJECT ENGINEER Verified by Dm Hernandez on 03/26/2024. us Provider Outside LAB - BLOOD ORDERABLES Edited R esult - Final TUSHAR PFT NON-INTERFACED (ONBASE SCANS) documented in this encounter Visit Diagnoses Not on filedocumented in this encounter Care Teams Director Enterprise Data Architecture Relationship Specialty Start Date End Date Clinic, [facility] [place] [address] [place], [place] [phone] PCP - General 08/24/20 Kristen Dockery, RN Registered Nurse Nurse 11/09/23 Kristen Dockery, line driverSenior Sql Developer Nurse 05/19/24 Meliza Villaseñor MD [address] [place] [address] Director Of Promotions Internal Medicine 05/19/24 Lanny Meléndez APRN EMPLOYEE WELFARE MANAGER [facility] [address] [place] [address] Referring Physician Internal Medicine 05/19/24 Gala Fair, [facility] Human Performance Consultant 05/20/24 Meliza Villaseñor MD [address] [place] [address] Physician Internal Medicine 05/20/24 Trey Abraahm MD [address] [place] [facility] 195 [place], [place] [address] Surgery 05/20/[address] [facility] [address] [facility] 84 [place] [address] Registered Dietitian Dietitian, Registered 05/20/24 Dixon Hernandez MD 420 [facility] 508 [place], [place] [address] Cardiovascular Disease 05/20/24 Jes Arrington MD 516 [facility] [address] [place], [place] [address] Gastroenterology 06/24/24 documented as of this encounter
--- OUTSIDE RECORDS SUMMARY | 2024-08-01 07:51 | XMS_ITS | Encounter Summary ---
Author Organization [place] Address [address] [place] [address] Care Team Providers Care Mobile Equipment Servicer Name Role Phone Clinic, [facility] Primary Care Provider Kristen Dockery RN Unavailable Unavaila Kristen Bermudez RN Unavailable Unavaila Meliza James MD Unavailable [phone] Lanny Meléndez APRN END TOUCHING MACHINE OPERATOR Unavailable [phone] Gala Fair AUTOMATIC SERGING MACHINE OPERATOR Unavailable [phone] Meliza Villaseñor MD Unavailable [phone] Trey Abraham MD Unavailable [phone] Unavailable Unavail able Dixon Hernandez MD Unavailable [phone] Jes Arrington MD Unavailable + Encounter Details [...] PM CDT Legal Sex Female 3:12 AM COST ESTIMATING MANAGER Gender Identity Female 10/31/2023 12:26 PM CDT Sexual Orientation Straight 10/31/2023 12 :26 PM CDT documented as of this encounter Plan of Treatment Upcoming Encounters Date Type Department Care Team (Late st Contact Info) Description 08/05/2024 10:45 AM CDT Lab [facility] [address] [place] [phone] 08/26/2024 10:30 AM CDT Appointment [facility] Heart Care [address] [place] [address] Meliza Villaseñor MD [address] [place] [address] 08/26/2024 12:00 PM CDT Appointment [facility] Imaging 500 [place] [phone] Meliza Villaseñor MD [address] [place] [address] 09/12/2024 11:00 AM CDT Office Visit [facility] Heart [address] 2nd [place] [phone] Dixon Hernandez MD [address] [place] [address] 678565 10/01/2024 PRE VISIT [facility] 909 [place] [phone] Dixon Hernandez MD [address] [place] [address] Previsit documented as of this encounter Visit Diagnoses Not on filedocumented in this encounter Care Teams Mobile Equipment Servicer Relationship Specialty Start Date End Date Clinic, [facility] [address] [place] [address] PCP - General 08/24/20 Kristen Dockery, RN Registered Nurse Nurse 11/09/23 Kristen Dockery, rd mechanical engineerManaged Care Provider Nurse 05/19/24 Meliza Villaseñor MD [address] [facility] [address] [place] [address] Corporate Receptionist Internal Medicine 05/19/24 Lanny Meléndez APRN END TOUCHING MACHINE OPERATOR [facility] [address] [place] [address] Referring Physician Internal Medicine 05/19/24 Gala Fair, [facility] Metallurgical Specialist 05/20/24 Meliza Villaseñor MD [address] [place], [place] [address] [address] [address] Physician Internal Medicine 05/20/24 Trey Abraham MD 420 [facility] [address] [place] [address] Surgery 05/20/[address] [facility] 420 [facility] 84 [place] [address] Registered Dietitian Dietitian, Registered 05/20/24 Dixon Hernandez MD 420 [facility] [address] [place] [address] Cardiovascular Disease 05/20/24 Jes Ar[place] MD [address] [place] [address] [address] [place], [place] [address] Gastroenterology 06/24/24 documented as of this encounter
--- OUTSIDE RECORDS SUMMARY | 2024-08-01 07:51 | XMS_ITS | Encounter Summary ---
Author Organization [place] Address [address] [place] [address] Care Team Providers Care Product Manager Medical Device Name Role Phone Clinic, [facility] Primary Care Provider Kristen Dockery RN Unavailable Unavaila Kristen Bermudez RN Unavailable Unavaila Meliza Jmaes MD Unavailable [phone] Lanny Meléndez APRN FLARER Unavailable [phone] Gala Fair PROOF PASSER Unavailable [phone] Meliza Villaseñor MD Unavailable [phone] Trey Abraham MD Unavailable [phone] Unavailable Unavail able Dixon Hernandez MD Unavailable [phone] Jes Arrington MD Unavailable + Encounter Details [...] PM CDT Legal Sex Female 3:12 AM HAIR DESIGNER Gender Identity Female 10/31/2023 12:26 PM CDT Sexual Orientation Straight 10/31/2023 12 :26 PM CDT documented as of this encounter Plan of Treatment Upcoming Encounters Date Type Department Care Team (Late st Contact Info) Description 08/05/2024 10:45 AM CDT Lab [facility] [address] [place] [phone] 08/26/2024 10:30 AM CDT Appointment [facility] Care 500 [place] [address] Meliza Villaseñor MD [address] [place] [address] 08/26/2024 12:00 PM CDT Appointment [facility] Imaging 500 [place] [phone] Meliza Villaseñor MD [address] [place] [address] 09/12/2024 11:00 AM CDT Office Visit [facility] Heart [address] 2nd [place] [phone] Dixon Hernandez MD [address] [place] [address] 10/01/2024 PRE VISIT [facility] 909 [place] [phone] Dixon Hernandez MD [address] [place] [address] Previsit documented as of this encounter Visit Diagnoses Not on filedocumented in this encounter Care Teams Product Manager Medical Device Relationship Specialty Start Date End Date Clinic, [facility] [address] [place] [address] PCP - General 08/24/20 Kristen Dockery, RN Registered Nurse Nurse 11/09/23 Kristen Dockery, wooden boat builderArt Therapy Specialist Nurse 05/19/24 Meliza Villaseñor MD [address] [facility] 2A [place] [address] Bending Machine Set Up Operator Internal Medicine 05/19/24 Lanny Meléndez APRN FLARER [facility] [address] [place] [address] Referring Physician Internal Medicine 05/19/24 Gala Fair, [facility] Chef Concierge 05/20/24 Meliza Villaseñor MD [address] [place], [place] [address]ware [address] [address] Physician Internal Medicine 05/20/24 Trey Abraham MD 420 [facility] 195 [place] [address] Surgery 05/20/[address] [facility] 420 [facility] 84 [place] [address] Registered Dietitian Dietitian, Registered 05/20/24 Dixon Hernandez MD 420 [facility] 508 [place] [address] Cardiovascular Disease 05/20/24 Jes Ar[place] MD [address] [place] [address] 2[address] [place], [place] [address] Gastroenterology 06/24/24 documented as of this encounter
--- OUTSIDE RECORDS SUMMARY | 2024-08-01 07:51 | XMS_ITS | Encounter Summary ---
Author Organization [place] Address [address] [place] [address] Care Team Providers Care Planning Official Name Role Phone Clinic, [facility] Primary Care Provider Kristen Dockery RN Unavailable UnavailKristen Toussaint RN Unavailable Unavaila Meliza James MD Unavailable [phone] Lanny Meléndez APRN SOMMELIER Unavailable [phone] Gala Fair HOME ASSESSMENT NURSE Unavailable [phone] Meliza Villaseñor MD Unavailable [phone] Trey Abraham MD Unavailable [phone] Unavailable Unavail able Dixon Hernandez MD Unavailable [phone] Jes Arrington MD Unavailable + Encounter Details Date Type Department Care Team (Late st Contact Info) Description 03/01/2024 External Order Results [facility] Laboratories [address] [place] [address] Outside, Provider Social History Tobacco Use Types [...] PM CDT Legal Sex Female 3:12 AM HEALTH CARE FACILITY ADMINISTRATOR Gender Identity Female 10/31/2023 12:26 PM CDT Sexual Orientation Straight 10/31/2023 12 :26 PM CDT documented as of this encounter Plan of Treatment Upcoming Encounters Date Type Department Care Team (Late st Contact Info) Description 08/05/2024 10:45 AM CDT Lab [facility] Laboratory [address] [place] [address] 08/26/2024 10:30 AM CDT Appointment [facility] Care [address] [place] [address] Meliza Villaseñor MD [address] [place] [address] 08/26/2024 12:00 PM CDT Appointment [facility] Imaging 500 [place] [address] Meliza Villaseñor MD [address] [place] [address] 09/12/2024 11:00 AM CDT Office Visit [facility] Heart [address] 2nd [place] [phone] Dixon Hernandez MD [address] [place] [address]22[address] 10/01/2024 PRE VISIT [facility] Heart [facility] 909 [place] [phone] Dixon Hernandez MD [address] [place] [address] 055235 Previsit documented as of this encounter Procedures Procedure Name Priority Date/Time Associated Diagnosis Comments LIPID PROFILE Routine 03/01/2024 4:25 PM HEALTH CARE FACILITY ADMINISTRATOR HEPATITIS C ANTIBODY Routine 03/01/2024 4:25 PM HEALTH CARE FACILITY ADMINISTRATOR HEPATIC FUNCTION PANEL Routine 03/01/2024 4:25 PM HEALTH CARE FACILITY ADMINISTRATOR BASIC METABOLIC PANEL Routine 03/01/2024 4:25 PM HEALTH CARE FACILITY ADMINISTRATOR documented in this encounter Results * (ABNORMAL) Basic metabolic panel (03/01/2024 4:25 PM HEALTH CARE FACILITY ADMINISTRATOR) Sodium (External) 134(L) 135 - 149 mmol/L [...] BLOOD SPECIMEN / Unknown 03/01/2024 4:25 PM HEALTH CARE FACILITY ADMINISTRATOR Narrative TUSHAR PFT - 03/05/2024 9:55 AM HEALTH CARE FACILITY ADMINISTRATOR Verified by Param Katz on 03/05/2024. us Meliza Crawford MD LAB - BLOOD ORDERABLES Ed ited Result - Final [place] PFLavinia NON-INTERFACED (ONBASE SCANS) * (ABNORMAL) Hepatic function panel (03/01/2024 4:25 PM HEALTH CARE FACILITY ADMINISTRATOR) Pathologist [facility] Protein Total (External) 6.7 6.0 - 8.3 [...] BLOOD SPECIMEN / Unknown 03/01/2024 4:25 PM HEALTH CARE FACILITY ADMINISTRATOR Narrative TUSHAR PFT - 03/05/2024 9:55 AM HEALTH CARE FACILITY ADMINISTRATOR Verified by Param Katz on 03/05/2024. us Meliza Crawford MD LAB - BLOOD ORDERABLES Ed ited Result - Final Performing Organization Address [facility] de Phone Number GAILEZE PFT NON-INTERFACED (ONBASE SCANS) * (ABNORMAL) Lipid Profile (03/01/2024 4:25 PM HEALTH CARE FACILITY ADMINISTRATOR) [facility] Triglycerides (External) 136 40 - 149 mg/dL NON-INTERFACE D (ONBASE SCANS) Cholesterol (External) 357(H) 90 - 199 mg/dL NON-INTERFACE D (ONBASE SCANS) LDL Cholesterol Calculated (External) 235(H) <100 mg/dL NON-INTERFACE D (ONBASE SCANS) HDL Cholesterol (External) 95 >=50 mg/dL NON-INTERFACE D (ONBASE SCANS) Blood BLOOD SPECIMEN / Unknown 03/01/2024 4:25 PM HEALTH CARE FACILITY ADMINISTRATOR Narrative TUSHAR PFT - 03/05/2024 9:55 AM HEALTH CARE FACILITY ADMINISTRATOR Verified by Param Katz on 03/05/2024. us Meliza Crawford MD LAB - BLOOD ORDERABLES Ed ited Result - Final Performing Organization Address [facility] Co de Phone Number TUSHAR PFT NON-INTERFACED (ONBASE SCANS) * Hepatitis C antibody (03/01/2024 4:25 PM HEALTH CARE FACILITY ADMINISTRATOR) Hepatitis C Antibody (External) Negative Negative NON-INTERFACE D (ONBASE SCANS) Blood BLOOD SPECIMEN / Unknown 03/01/2024 4:25 PM HEALTH CARE FACILITY ADMINISTRATOR Narrative TUSHAR PFT - 03/05/2024 9:55 AM HEALTH CARE FACILITY ADMINISTRATOR Verified by Param Katz on 03/05/2024. us Meliza Crawford MD LAB - BLOOD ORDERABLES Ed ited Result - Final TUSHAR PFT NON-INTERFACED (ONBASE SCANS) documented in this encounter Visit Diagnoses Not on filedocumented in this encounter Care Teams Planning Official Relationship Specialty Start Date End Date [facility] [address] [facility] [place] [address] PCP - General 08/24/20 Kristen Dockery, RN Registered Nurse Nurse 11/09/23 Kristen Dockery, inspecting engineerRegistrar Assistant Nurse 05/19/24 Meliza Villaseñor MD [address] [place], [place] [address] Line Out Man Internal Medicine 05/19/24 Lanny Meléndez APRN SOMMELIER [facility] [address] [place], [place] [address] Referring Physician Internal Medicine 05/19/24 Gala Fair, [facility] Shift Boss 05/20/24 Meliza Villaseñor MD [address] [place], [place] [address] Physician Internal Medicine 05/20/24 Trey Abraham MD 420 [facility] 195 [place] [address] Surgery 05/20/[address] [facility] 420 [facility] 84 [place] [address] Registered Dietitian Dietitian, Registered 05/20/24 Dixon Hernanedz MD 420 [facility] 508 [place] [address] Cardiovascular Disease 05/20/24 Jes [place] MD [facility] [place] [address] Gastroenterology 06/24/24 documented as of this encounter
--- OUTSIDE RECORDS SUMMARY | 2024-08-01 07:51 | XMS_ITS | Encounter Summary ---
Author Organization [place] Address [address] [place] [address] Care Team Providers Care Unishear Operator Name Role Phone Clinic, [facility] Primary Care Provider Kristen Dockery RN Unavailable Unavaila Kristen Bermudez RN Unavailable Unavaila Meliza James MD Unavailable [phone] Lanny Meléndez APRN MANUFACTURING RECRUITER Unavailable [phone] Gala Fair STATION INSPECTOR Unavailable [phone] Meliza Villaseñor MD Unavailable [phone] Trey Abraham MD Unavailable [phone] Unavailable Unavail able Dixon Hernandez MD Unavailable [phone] Jes Arrington MD Unavailable + Encounter Details Date Type Department Care Team (Latest Contact Info) Description 07/13/2024 Travel Social History Tobacco Use Types Packs/Day [...] PM CDT Legal Sex Female 3:12 AM PREMIUM AUDITOR Gender Identity Female 10/31/2023 12:26 PM CDT Sexual Orientation Straight 10/31/2023 12 :26 PM CDT documented as of this encounter Plan of Treatment Upcoming Encounters Date Type Department Care Team (Late st Contact Info) Description 08/05/2024 10:45 AM CDT Lab [facility] Laboratory [address] [place] [address] 08/26/2024 10:30 AM CDT Appointment [facility] [address] [place] [address] Meliza Villaseñor MD [address] [place] [address] 08/26/2024 12:00 PM CDT Appointment LTAC, located within [facility] Imaging [address] [place] [address] Meliza Villaseñor MD [address] [place] [address] 09/12/2024 11:00 AM CDT Office Visit [facility] Heart [address] 2nd [place] [phone] Dixon Hernandez MD [address] [place] [address] 514775 10/01/2024 PRE VISIT [facility] [address] [place] [phone] Dixon Hernandez MD [address] [place] [address] Previsit documented as of this encounter Visit Diagnoses Not on filedocumented in this encounter Additional Health Concerns Assessment Noted Time PHQ-9 Depression Total Score: 8 06/12/19 12:56 PM CDT documented as of this encounter Care Teams Unishear Operator Relationship Specialty Start Date End Date Clinic, [facility] [address] [place], [place] [phone] PCP - General 08/24/20 Kristen Dockery, RN Registered Nurse Nurse 11/09/23 Kristen Dockery, mortgage bankerMachine Icer Nurse 05/19/24 Meliza Villaseñor MD [address] [place] [address] Pharmacy Picking Tech Internal Medicine 05/19/24 Lanny Meléndez APRN MANUFACTURING RECRUITER [facility] [address] [place] [address] Referring Physician Internal Medicine 05/19/24 Gala Fair, [facility] Industrial Sweeper Cleaner 05/20/24 Meliza Villasñeor MD [address] [place] [address] Physician Internal Medicine 05/20/24 Trey Abraham MD 420 [facility] 195 [place] [address] Surgery 05/20/[address] [facility] [address] [facility] [address] [place] [address] Registered Dietitian Dietitian, Registered 05/20/24 Dixon Hernandez MD [address] [facility] [address] [place] [address] Cardiovascular Disease 05/20/24 Jes Arrington MD 6 [facility] [address] [place] [address] Gastroenterology 06/24/24 documented as of this encounter
--- OUTSIDE RECORDS SUMMARY | 2024-08-01 07:51 | XMS_ITS | Clinical Summary ---
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 patient. INDICATION FOR EXAM: Mammogram Screening. TECHNIQUE: CC & MLO views were obtained. This digital study was evaluated with the assistance of Computer-Aided Detection. COMPARISON FILM: Yes 05/03/18 Zopa 10/26/12 Zopa FINDINGS: Mammographically, the breast tissue has scattered fibroglandular densities. There are no dominant masses, suspicious micro calcifications or areas of architectural distortion. Emely Jimenez MD MAMMO Final Resul t * (ABNORMAL) SECURITY SYSTEM ADMINISTRATOR THIN PREP PAP SCREEN IMAGED (10/22/2019 2:01 PM CDT) Case Report Gynecologic Cytology Report Case: [id number] Authorizing Provider: Melonie Savage NP Collected: 10/22/2019 1401 Ordering Location: [facility] Received: 10/22/2019 1427 [facility] First Screen: Remi Whittington Pathologist: Albina Cortes MD Specimen: SECURITY SYSTEM ADMINISTRATOR ThinPrep Vial Screening, Cervical 10/31/2019 3:04 PM CDT [facility] INTERPRETATION/ RESULT ATYPICAL SQUAMOUS CELLS OF UNDETERMINED SIGNIFICANCE (ASCUS)(A) (none) 10/31/2019 3:04 PM CDT [facility] at 1504 CDT SPECIMEN ADEQUACY Satisfactory for evaluation Endocervical component present 10/31/2019 3:04 PM CDT [facility] HPV REQUEST HPV if ASCUS 10/31/2019 3:04 PM CDT [facility] Date of LMP postmenopausal 0 3:04 PM CDT [facility] Last Pap Date 201210/31/2019 3:04 PM CDT [facility] Last Pap Result NIL 0 3:04 PM CDT [facility] Abnormal Pap or [place] Bx in last 5 years No 10/31/2019 3:04 PM CDT [facility] Menstrual Status Postmenopausal 10/31/2019 3:04 PM CDT [facility] [place] Bx Done Today No 10/31/2019 3:04 PM CDT [facility] Additional Information None given 10/31/2019 3:04 PM CDT [facility] Comment: Cytology is screened at [facility] - [address], [place] [address] and [facility] - [address], [place] [address] and [facility] - [address] [place] [address] Interpreted at [facility] - [address], [place] [address] Automated Review Successful 10/31/2019 3:04 PM CDT [facility] Comment:Specimen processed s uccessfully by automated pharmacy technician infusion device, ThinPrep Imaging System, [employer] ANCILLARY TESTING SECURITY SYSTEM ADMINISTRATOR HPV Ordered, Please see separate report 10/31/2019 3:04 PM CDT [facility] Note The pap test is a [...] and malignant lesions. 10/31/2019 3:04 PM CDT [facility] Other (Cervical) Non-Blood / Unknown 10/22/2019 2:01 PM CDT 10/22/2019 2:27 PM CDT Melonie Savage PHOTO CHECKER AND ASSEMBLER PATHOLOGY/CYTOLOGY Final Res ult [facility] [address] [place] [address], [place] * (ABNORMAL) LIPID PANEL (10/10/2019 8:28 AM CDT) CHOLESTEROL,TOTAL 279(H) 100 - 199 mg/dL 10/10/2019 3:56 PM CDT [facility] TRIGLYCERIDES 112 <150 mg/dL 10/10/2019 3:56 PM CDT [facility] HDL CHOLESTEROL 88 >40 mg/dL 0 3:56 PM CDT [facility] NON-HDL CHOLESTEROL 191(H) <145 mg/dl 10/10/2019 3:56 PM CDT [facility] CHOL/HDL RATIO 3.17 <4.50 10/10/2019 3:56 PM CDT [facility] LDL CHOLESTEROL 169(H) <=130 mg/dL 10/10/2019 3:56 PM CDT [facility] PROVIDER ORDERED STATUS RANDOM 10/10/2019 3:56 PM CDT [facility] Blood BLOOD SPECIMEN / Unknown Venipuncture / Unknown 10/10/2019 8:28 AM CDT 10/10/2019 8:28 AM CDT us Emely Jimenez MD CHEMISTRY Final Resul t [facility] [address] [place] [address], from Last 3 Months or Most Recently Relevant to Health Maintenance Insurance [facility] OF NON-NE-ITS [employer]HICLE INS Advance Directives * Full Code (Latest Code Status on File) Date Activated Date Inactivated Comments 06/29/2018 11:16 AM 06/29/2018 6:20 PM Care Teams Cementer Oil Well Relationship Specialty Start Date End Date Meliza Crawford MD [address] [place] [phone] PCP - General 10/09/23
--- OUTSIDE RECORDS SUMMARY | 2024-08-01 07:51 | XMS_ITS | Encounter Summary ---
Author Organization [place] Address [address] [place] [address] Care Team Providers Care Weaving Machine Operator Name Role Phone [facility], [facility] Primary Care Provider Kristen Dockery RN Unavailable Unavaila Kristen Bermudez RN Unavailable Unavaila Meliza James MD Unavailable [phone] Lanny Meléndez APRN WIRER HELPER Unavailable [phone] Gala Fair CASE REVIEWER Unavailable [phone] Meliza Villaseñor MD Unavailable [phone] Trey Abraham MD Unavailable [phone] Unavailable Unavail able Dixon Hernandez MD Unavailable [phone] Jes Arrington MD Unavailable + Reason for Visit * Reason Onset Date Comments *-*INCOMING RECORDS*-* 07/11/2024 Encounter Details Date Type Department Care Team (Late st Contact Info) Description 07/11/2024 PRE VISIT [facility] [place] [id number] [place] [address] Shanthi Griffin MD [address] [place] [address] *-*INCOMING RECORDS*-* Social History Tobacco Use Types Packs/Day Years [...] PM CDT Legal Sex Female 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 Gender Identity Female 10/31/2023 12:26 PM CDT Sexual Orientation Straight 10/31/2023 12 :26 PM CDT documented as of this encounter Plan of Treatment Upcoming Encounters Date Type Department Care Team (Late st Contact Info) Description 08/05/2024 10:45 AM CDT Lab [facility] Laboratory [address] [place] [address] 08/26/2024 10:30 AM CDT Appointment [facility] Heart Care [address] [place] [address] Meliza Villaseñor MD [facility] [address] [place] [address] 08/26/2024 12:00 PM CDT Appointment [facility] Imaging [address] [place] [phone] Meliza Villaseñor MD [facility] [address] [place] [address] 09/12/2024 11:00 AM CDT Office Visit [facility] Heart [facility] [address] [place] [address] 2nd [place] [phone] Dixon Hernandez MD [address] [place] [address]27[address] 10/01/2024 PRE VISIT [facility] Heart [facility] [address] [place] [phone] Dixon Hernandez MD [address] [facility] 508 [place], [place] [address] Previsit documented as of this encounter Visit Diagnoses Not on filedocumented in this encounter Additional Health Concerns Assessment Noted Time PHQ-9 Depression Total Score: 8 06/12/19 25 12:56 PM CDT documented as of this encounter Care Teams Weaving Machine Operator Relationship Specialty Start Date End Date Clinic, [facility] [address] [place] [address] PCP - General 08/24/20 Kristen Dockery, RN Registered Nurse Nurse 11/09/23 Kristen Dockery, fruit cutterEnvironmental Auditor Nurse 05/19/24 Meliza Villaseñor MD [address] [place] [address] Pharmacy Laboratory Technician Internal Medicine 05/19/24 Lanny Meléndez APRN WIRER HELPER [facility] [address] [place], [place] [address] Referring Physician Internal Medicine 05/19/24 Gala Fair, [facility] Electro Mechanical Technician 05/20/24 Meliza Villaseñor MD [address] [place] [address] Physician Internal Medicine 05/20/24 Trey Abraham MD [address] [facility] 195 [place] [address] Surgery 05/20/[address] [facility] 420 [facility] 84 [place] [address] Registered Dietitian Dietitian, Registered 05/20/24 Dixon Hernandez MD [address] [facility] 508 [place] [address] Cardiovascular Disease 05/20/24 Jes Arrington MD [address] [facility] [address] [place], [place] [address] Gastroenterology 06/24/24 documented as of this encounter
--- OUTSIDE RECORDS SUMMARY | 2024-08-01 07:52 | XMS_ITS | Encounter Summary ---
Author Organization [facility] Address [address] [place] [address] Care Team Providers Care Refinery Operator Light Ends Recovery Name Role Phone Clinic, [facility] Primary Care Provider Kristen Dockery RN Unavailable Unavaila Kristen Bermudez RN Unavailable Unavaila Meliza James MD Unavailable [phone] Lanny Meléndez APRN GENERAL MANAGER FOOD Unavailable [phone] Gala Fair DEMI CHEF Unavailable [phone] Meliza Villaseñor MD Unavailable [phone] Trey Abraham MD Unavailable [phone] Unavailable Unavail able Dixon Hernandez MD Unavailable [phone] Jes Arrington MD Unavailable + Encounter Details Date Type Department Care Team (Late st Contact Info) Description 11/15/2022 External Order Results [facility] Laboratories [address] [place] [address] Outside, Provider Social History Tobacco Use Types Packs/Day Years Used Date Smoking Tobacco: Never Smokeless Tobacco: Never Alcohol Use Standard Drinks/Week Comments Yes 0 (1 standard drink = 0.6 oz pur e alcohol) few times a year Comments No Sex and Gender Information Value Date Recorded Sex Assigned at Female 10/31/2023 12:26 PM CDT 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 Gender Identity Female 10/31/2023 12:26 PM CDT Sexual Orientation Straight 10/31/2023 12 :26 PM CDT documented as of this encounter Plan of Treatment Upcoming Encounters Date Type Department Care Team (Late st Contact Info) Description 08/05/2024 10:45 AM CDT Lab [facility] [address] [place] [address] 08/26/2024 10:30 AM CDT Appointment [facility] Heart Care [address] [place] [address] Meliza Villaseñor MD [address] [place] [address] 08/26/2024 12:00 PM CDT Appointment [facility] Imaging [address] [place] [address] Meliza Villaseñor MD [facility] [address] [place] [address] 09/12/2024 11:00 AM CDT Office Visit [address] [phone] Dixon Hernandez MD [address] [place] [address] 901165 10/01/2024 PRE VISIT [facility] [address] [place] [phone] Dixon Hernandez MD [address] [place] [address] Previsit documented as of this encounter Procedures [...] Outside LAB - BLOOD ORDERABLES Edited R Screenhero Performing Organization Address City/State/[facility] Co de Phone Number TUSHAR PFT NON-INTERFACED [...] Outside LAB - BLOOD ORDERABLES Edited R Clarassanceult - Final Performing Organization Address City/State/[facility] de Phone Number BREEZE PFT NON-INTERFACED (ONBASE SCANS) * (ABNORMAL) Hepatic [...] Provider Outside LAB - BLOOD ORDERABLES Edited Apos Therapy Performing Organization Address [facility] de Phone Number GAILEZE PFT NON-INTERFACED (ONBASE SCANS) * Hepatitis B surface antigen (09/12/2023 10:45 AM CDT) Pathologist [facility] Hep B Surface Agn (External) Negative Negative NON-INTERFACE D (ONBASE SCANS) Blood BLOOD SPECIMEN / Unknown 09/12/2023 10:45 AM CDT Narrative BREEZE PFT - 11/09/2023 11:42 AM CDT Verified by Isaac Rodrigues on 11/09/2023. Provider Outside LAB - BLOOD ORDERABLES Edited [employer] Performing Organization Address [facility]/State/ZIP Co de Phone Number BREEZE PFT NON-INTERFACED (ONBASE SCANS) * Hepatitis B core antibody (09/12/2023 10:45 AM CDT) Hepatitis B Core Gaby (External) Negative Negative NON-INTERFACE D (ONBASE SCANS) Blood BLOOD SPECIMEN / Unknown 09/12/2023 10:45 AM CDT Narrative BREEZE PFT - 11/09/2023 11:42 AM CDT Verified by Isaac Rodrigues on 11/09/2023. us Provider Outside LAB - BLOOD ORDERABLES Edited R esult - Final Performing Organization Address [facility] Co de Phone Number BREEZE PFT NON-INTERFACED [...] Edited Result - Final Performing Organization Address [facility] [address]/[facility] Co de Phone Number BREEZE PFT NON-INTERFACED (ONBASE SCANS) * Hepatitis C antibody (09/12/2023 10:45 AM CDT) Hepatitis C Antibody (External) Negative Negative NON-INTERFACE D (ONBASE SCANS) Blood BLOOD SPECIMEN / Unknown 09/12/2023 10:45 AM CDT Narrative BREEZE PFT - 11/09/2023 11:42 AM CDT Verified by Isaac Rodrigues on 11/09/2023. us Provider Outside LAB - BLOOD ORDERABLES Edited R esult - Final Performing Organization Address [facility]/State/ZIP Co de Phone Number BREEZE PFT NON-INTERFACED (ONBASE SCANS) * INR (09/06/2023 1:33 PM CDT) INR (External) 1.4 0.8 - 1.4 NON-I NTERFACED (ONBASE SCANS) Blood BLOOD SPECIMEN / Unknown 09/06/2023 1:33 PM CDT Narrative BREEZE PFT - 11/09/2023 11:43 AM CDT Verified by Dm Hernandez on 11/09/2023. Provider Outside LAB - BLOOD ORDERABLES Edited Apos Therapy Performing Organization Address City/[facility] [address]/ZIP Co de Phone Number BREEZE PFT NON-INTERFACED (ONBASE SCANS) * (ABNORMAL) Hepatic [...] Outside LAB - BLOOD ORDERABLES Edited R [employer]bon - [employer] BREEZE PFT NON-INTERFACED (ONBASE SCANS) * Lipase (09/06/2023 1:33 PM CDT) Lipase Level Low Scale (External) 53 23 - 300 U/L NON-INTERFACED (ONBASE SCANS) Blood BLOOD SPECIMEN / Unknown 09/06/2023 1:33 PM CDT Narrative BREEZE PFT - 11/09/2023 11:43 AM CDT Verified by Dm Hernandez on 11/09/2023. Provider Outside LAB - BLOOD ORDERABLES Edited R [employer] BREEZE PFT NON-INTERFACED (ONBASE SCANS) * (ABNORMAL) Calcium Ionized Whole Blood Birgit (09/06/2023 1:33 PM CDT) Pathologist [facility] Calcium Ionized (External) 1.08(L) 1.11 - 1.33 mmol/L NON-INTERFACED (ONBASE SCANS) Blood BLOOD SPECIMEN / Unknown 09/06/2023 1:33 PM CDT Narrative BREEZE PFT - 11/09/2023 11:43 AM CDT Verified by Dm Hernandez on 11/09/2023. Provider Outside LAB - BLOOD ORDERABLES Edited [employer] JACOBE PFT NON-INTERFACED (ONBASE SCANS) * (ABNORMAL) Basic [...] on filedocumented in this encounter Care Teams Refinery Operator Light Ends Recovery Relationship Specialty Start Date End Date [facility], [facility] [address] [place] [address] PCP - General 08/24/20 Kristen Dockery, RN Registered Nurse Nurse 11/09/23 Kristen Dockery, marine radio installer and servicerShoe Trimmer Nurse 05/19/24 Meliza Villaseñor MD [address] [place] [address] Senior Policy Analyst Internal Medicine 05/19/24 Lanny Meléndez APRN GENERAL MANAGER FOOD [facility] [address] [place] [address] Referring Physician Internal Medicine 05/19/24 Gala Fair, [facility] Public Health Aides Teacher 05/20/24 Meliza Villaseñor MD [address] [place] [address] [address] [place] [address] Physician Internal Medicine 05/20/24 Trey Abraham MD 420 [facility] 195 [place] [address] Surgery 05/20/24 Jena Castano, RAFIQ [facility] 420 [facility] 84 [place] [address] Registered Dietitian Dietitian, Registered 05/20/24 Dixon Hernandez MD 420 [facility] 508 [place] [address] Cardiovascular Disease 05/20/24 Jes Arrington MD [address] [place] [address] [address] [place] [address] Gastroenterology 06/24/24 documented as of this encounter
--- OUTSIDE RECORDS SUMMARY | 2024-08-01 07:52 | XMS_ITS | Encounter Summary ---
Author Organization [place] Address [address] [place] [address] Care Team Providers Care Dental Surgery Doctor Name Role Phone Clinic, [facility] Primary Care Provider Kristen Dockery RN Unavailable Unavaila Kristen Bermudez RN Unavailable Unavaila Meliza James MD Unavailable [phone] Lanny Meléndez APRN SOFTWARE BUILD ENGINEER Unavailable [phone] Gala Fair MANAGER INTERMEDIATE Unavailable [phone] Meliza Villaseñor MD Unavailable [phone] Trey Abraham MD Unavailable [phone] Unavailable Unavail able Dixon Hernandez MD Unavailable [phone] Jes Arrington MD Unavailable + Encounter Details Date Type Department Care Team (Late st Contact Info) Description 07/29/2024 MyC Medical Advice [facility] [address] [place] [address] Kristen Dockery RN Social History [...] PM CDT 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 Gender Identity Female 10/31/2023 12:26 PM CDT Sexual Orientation Straight 10/31/2023 12 :26 PM CDT documented as of this encounter Plan of Treatment Upcoming Encounters Date Type Department Care Team (Late st Contact Info) Description 08/05/2024 10:45 AM CDT Lab [facility] Laboratory [address] [place] [address] 08/26/2024 10:30 AM CDT Appointment [facility] Heart Care [address] [place] [address] Meliza Villaseñor MD [address] [place] [address] 08/26/2024 12:00 PM CDT Appointment [facility] Imaging 500 [place] [phone] Meliza Villaseñor MD [address] [place] [address] 09/12/2024 11:00 AM CDT Office Visit [facility] Heart [address] 2nd [place] [phone] Dixon Hernandez MD [address] [place] [address] 905485 10/01/2024 PRE VISIT [facility] [address] [place] [phone] Dixon Hernandez MD [address] [place] [address] 274015 Previsit documented as of this encounter Visit Diagnoses Not on filedocumented in this encounter Additional Health Concerns Assessment Noted Time PHQ-9 Depression Total Score: 8 06/12/19 25 12:56 PM CDT documented as of this encounter Care Teams Dental Surgery Doctor Relationship Specialty Start Date End Date Clinic, [facility] [address] [place], [place] [phone] PCP - General 08/24/20 Kristen Dockery, RN Registered Nurse Nurse 11/09/23 Kristen Dockery, washhouse workerGlycerin Operator Nurse 05/19/24 Meliza Villaseñor MD [address] [place] [address] Land Leasing Information Clerk Internal Medicine 05/19/24 Lanny Meléndez APRN SOFTWARE BUILD ENGINEER [facility] [address] [place] [address] Referring Physician Internal Medicine 05/19/24 Gala Fair, [facility] Cover Stripper 05/20/24 Meliza Villaseñor MD [address] [place] [address] Physician Internal Medicine 05/20/24 Trey Abraham MD [address] [facility] 195 [place] [address] Surgery 05/20/[address] [facility] [address] [facility] 84 [place] [address] Registered Dietitian Dietitian, Registered 05/20/24 Dixon Hernandez MD [address] [facility] 508 [place] [address] Cardiovascular Disease 05/20/24 Jes Arrington MD 6 [facility] 2A [place], [place] 4628[address] Gastroenterology 06/24/24 documented as of this encounter
--- OUTSIDE RECORDS SUMMARY | 2024-08-01 07:52 | XMS_ITS | Encounter Summary ---
Author Organization [place] Address [address] [place] [address] Care Team Providers Care Remote Recruiter Name Role Phone Clinic, [facility] Primary Care Provider Kristen Dockery RN Unavailable UnavailKristen Toussaint RN Unavailable Unavaila Meliza James MD Unavailable [phone] Lanny Meléndez APRN SUPPLIER SPECIALIST Unavailable [phone] Gala Fair PROCESSOR SOLID PROPELLANT Unavailable +[phone] Meliza Villaseñor MD Unavailable [phone] Trey Abraham MD Unavailable [phone] Unavailable Unavail able Dixon Hernandez MD Unavailable [phone] Jes Arrington MD Unavailable + Encounter Details Date Type Department Care Team (Late st Contact Info) Description 09/12/2023 External Order Results [facility] Special[facility] Laboratories [address] [place] [address] Outside, Provider Social History Tobacco Use Types [...] PM CDT 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 Gender Identity Female 10/31/2023 12:26 PM CDT Sexual Orientation Straight 10/31/2023 12 :26 PM CDT documented as of this encounter Plan of Treatment Upcoming Encounters Date Type Department Care Team (Late st Contact Info) Description 08/05/2024 10:45 AM CDT Lab [facility] Laboratory [address] [place] [address] 08/26/2024 10:30 AM CDT Appointment [facility] Heart Care [address] [place] [address] Meliza Villaseñor MD [address] [place] [address] 08/26/2024 12:00 PM CDT Appointment [facility] Imaging [address] [place] [phone] Meliza Villaseñor MD [facility] [address] [place] [address] 09/12/2024 11:00 AM CDT Office Visit [facility] Heart [address] 2nd [place] [phone] Dixon Hernandez MD [address] [place] [address] 817175 10/01/2024 PRE VISIT [facility] Heart [facility] 9[address] [place] [phone] Dixon Hernandez MD [address] [place] [address] 562165 Previsit documented as of this encounter Procedures [...] Edited Result - Final Performing Organization Address City/[facility]/ZIP Co de Phone Number BREEZE PFT NON-INTERFACED [...] on filedocumented in this encounter Care Teams Remote Recruiter Relationship Specialty Start Date End Date Clinic, [facility] [place] [address] [place] [address] PCP - General 08/24/20 Kristen Dockery, RN Registered Nurse Nurse 11/09/23 Kristen Dockery, rate inserterAircraft Life Support Fitter Nurse 05/19/24 Meliza Villaseñor MD [address] [facility] 2[address] [place] [address] Crime Data Specialist Internal Medicine 05/19/24 Lanny Meléndez APRN SUPPLIER SPECIALIST [facility] [address] [place] [address] Referring Physician Internal Medicine 05/19/24 Gala Fair, [facility] Political Worker 05/20/24 Meliza Villaseñor MD [address] [facility] 2A [place] [address] Physician Internal Medicine 05/20/24 Trey Abraham MD 420 [facility] 195 [place] [address] Surgery 05/20/[address] [facility] 420 [facility] 84 [place] [address] Registered Dietitian Dietitian, Registered 05/20/24 Dixon Hernandez MD 420 [facility] 508 [place] [address] Cardiovascular Disease 05/20/24 Jes Arrington MD 6 [facility] 2A [place] [address] Gastroenterology 06/24/24 documented as of this encounter
--- OUTSIDE RECORDS SUMMARY | 2024-08-01 07:52 | XMS_ITS | Encounter Summary ---
Author Organization [place] Address [address] [place] [address] Care Team Providers Care Design Architect Name Role Phone Clinic, [facility] Primary Care Provider Kristen Dockery RN Unavailable Unavaila Kristen Bermudez RN Unavailable Unavaila Meliza James MD Unavailable [phone] Lanny Meléndez APRN RESIDENTIAL GLAZIER Unavailable [phone] Gala Fair CREDIT OR LOANS OFFICER Unavailable [phone] Meliza Villaseñor MD Unavailable [phone] Trey Abraham MD Unavailable [phone] Unavailable Unavail able Dixon Hernandez MD Unavailable [phone] Jes Arrington MD Unavailable + Encounter Details [...] PM CDT Legal Sex Female 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 WELDER FITTER APPRENTICE Gender Identity Female 10/31/2023 12:26 PM CDT Sexual Orientation Straight 10/31/2023 12 :26 PM CDT documented as of this encounter Plan of Treatment Upcoming Encounters Date Type Department Care Team (Late st Contact Info) Description 08/05/2024 10:45 AM CDT Lab [facility] Laboratory [address] [place] [phone] 08/26/2024 10:30 AM CDT Appointment [facility] Heart Care [address] [place] [address] Meliza Villaseñor MD [address] [place] [address] 08/26/2024 12:00 PM CDT Appointment [facility] Imaging 500 [place] [phone] Meliza Villaseñor MD [address] [place] [address] 09/12/2024 11:00 AM CDT Office Visit [facility] Heart [address] 2nd [place] [address] Dixon Hernandez MD [address] [place] [address] 255905 10/01/2024 PRE VISIT [facility] 909 [place] [phone] Dixon Hernandez MD [address] [place] [address] Previsit documented as of this encounter Visit Diagnoses Not on filedocumented in this encounter Care Teams Design Architect Relationship Specialty Start Date End Date Clinic, [facility] [address] [place] [address] PCP - General 08/24/20 Kristen Dockery, RN Registered Nurse Nurse 11/09/23 Kristen Dockery, power press supervisorGrinder Set Up Operator Thread Tool Nurse 05/19/24 Meliza Villaseñor MD [address] [facility] 2[address] [place] [address] Retail Cashier Internal Medicine 05/19/24 Lanny Meléndez APRN RESIDENTIAL GLAZIER [facility] [address] [place] [address] Referring Physician Internal Medicine 05/19/24 Gala Fair, [facility] Supervisor Pit And Auxiliaries 05/20/24 Meliza Villaseñor MD [address] [place], [place] [address]ware [address] [address] Physician Internal Medicine 05/20/24 Trey Abraham MD [address] [facility] 195 [place] [address] Surgery 05/20/[address] [facility] 420 [facility] 84 [place] [address] Registered Dietitian Dietitian, Registered 05/20/24 Dixon Hernandez MD [address] [facility] 508 [place] [address] Cardiovascular Disease 05/20/24 Jes Arrington MD [address] [place] [address] 2[address] [place], [place] [address] Gastroenterology 06/24/24 documented as of this encounter
--- OUTSIDE RECORDS SUMMARY | 2024-08-01 07:52 | XMS_ITS | Encounter Summary ---
Author Organization [place] Address [address] [place] [address] Care Team Providers Care Hospitality Associate Name Role Phone Clinic, [facility] Primary Care Provider Kristen Dockery RN Unavailable UnavailKristen Toussaint RN Unavailable Unavaila Meliza James MD Unavailable [phone] Lanny Meléndez APRN BIKE DESIGNER Unavailable [phone] Gala Fair COMMUNITY OUTREACH MANAGER Unavailable [phone] Meliza Villaseñor MD Unavailable [phone] Trey Abraham MD Unavailable [phone] Unavailable Unavail able Dixon Hernandez MD Unavailable [phone] Jes Arrington MD Unavailable + Encounter Details Date Type Department Care Team (Late st Contact Info) Description 10/19/2023 External Order Results [facility] Specialty Laboratories [address] [place] [address] Outside, Provider Social History Tobacco Use Types [...] PM CDT Legal Sex Female 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 AM CAMERA TECHNICIAN Gender Identity Female 10/31/2023 12:26 PM CDT Sexual Orientation Straight 10/31/2023 12 :26 PM CDT documented as of this encounter Plan of Treatment Upcoming Encounters Date Type Department Care Team (Late st Contact Info) Description 08/05/2024 10:45 AM CDT Lab [facility] Laboratory [address] [place] [address] 08/26/2024 10:30 AM CDT Appointment [facility] Heart Care [address] [place] [address] Meliza Villaseñor MD [address] [place] [address] 08/26/2024 12:00 PM CDT Appointment [facility] Imaging 500 [place] [phone] Meliza Villaseñor MD [address] [place] [address] 09/12/2024 11:00 AM CDT Office Visit [facility] Heart [address] 2nd [place] [address] Dixon Hernandez MD [address] [place] [address] 087835 10/01/2024 PRE VISIT [facility] Heart [facility] 909 [place] [phone] Dixon Hernandez MD [address] [place] [address] 133575 Previsit documented as of this encounter Visit Diagnoses Not on filedocumented in this encounter Care Teams Hospitality Associate Relationship Specialty Start Date End Date Clinic, [facility] [address] [place] [address] PCP - General 08/24/20 Kristen Dockery, RN Registered Nurse Nurse 11/09/23 Kristen Dockery, enzyme chemistElectric Power Line Examiner Nurse 05/19/24 Meliza Villaseñor MD [address] [place] [address] Rn Vascular Internal Medicine 05/19/24 Lanny Meléndez APRN BIKE DESIGNER [facility] [address] [place] [address] Referring Physician Internal Medicine 05/19/24 Gala Fair, [facility] Animal Care Supervisor 05/20/24 Meliza Villaseñor MD [address] [place] [address] Physician Internal Medicine 05/20/24 Trey Abraham MD [address] [facility] 195 [place], [place] 6[address] Surgery 05/20/[address] [facility] [address] [facility] 84 [place] [address] Registered Dietitian Dietitian, Registered 05/20/24 Dixon Hernandez MD [address] [facility] 508 [place] [address] Cardiovascular Disease 05/20/24 Jes Arrington MD [address] [place] [address] Gastroenterology 06/24/24 documented as of this encounter
--- OUTSIDE RECORDS SUMMARY | 2024-08-01 07:52 | XMS_ITS | Encounter Summary ---
Author Organization [place] Address [address] [place] [address] Care Team Providers Care Servicer Coin Machines Name Role Phone Clinic, [facility] Primary Care Provider Kristen Dockery RN Unavailable UnavailKristen Toussaint RN Unavailable Unavaila Meliza James MD Unavailable +[phone] Lanny Meléndez APRN SENIOR LEAD PROJECT MANAGER Unavailable [phone] Gala Fair WOUND CARE PHYSICIAN Unavailable [phone] Meliza Villaseñor MD Unavailable [phone] Trey Abraham MD Unavailable [phone] Unavailable Unavail able Dixon Hernandez MD Unavailable [phone] Jes Arrington MD Unavailable + Encounter Details Date Type Department Care Team (Late st Contact Info) Description 09/28/2023 External Order Results [facility] Specialty Laboratories [address] [place] [address] Outside, Provider Social History Tobacco Use Types [...] CDT Legal Sex Female 3:12 AM SUPERVISOR PUMPING STATION Gender Identity Female 10/31/2023 12:26 PM CDT Sexual Orientation Straight 10/31/2023 12 :26 PM CDT documented as of this encounter Plan of Treatment Upcoming Encounters Date Type Department Care Team (Late st Contact Info) Description 08/05/2024 10:45 AM CDT Lab [facility] Laboratory [address] [place] [address] 08/26/2024 10:30 AM CDT Appointment [facility] Heart Care [address] [place] [address] Meliza Villaseñor MD [address] [place] [address] 08/26/2024 12:00 PM CDT Appointment [facility] Imaging 500 [place] [phone] Meliza Villaseñor MD [facility] [address] [place] [address] 09/12/2024 11:00 AM CDT Office Visit [facility] Heart [address] 2nd [place] [phone] Dixon Hernandez MD [address] [place] [address] 701945 10/01/2024 PRE VISIT [facility] Heart [facility] 909 [place] [phone] Dixon Hernandez MD [address] [place] [address] 229415 Previsit documented as of this encounter Procedures [...] / Unknown 09/28/2023 11:39 AM CDT Narrative TUSHAR NEVILLET - 02/27/2024 1:38 PM SUPERVISOR PUMPING STATION Verified by Leah Gimenez on 02/27/2024. us Provider Outside LAB - BLOOD ORDERABLES Edited R esult - Final TUSHAR PFLavinia NON-INTERFACED (ONBASE SCANS) * (ABNORMAL) Basic metabolic [...] / Unknown 09/28/2023 11:39 AM CDT Narrative TUSHAR PFT - 02/27/2024 1:38 PM SUPERVISOR PUMPING STATION Verified by Leah Gimenez on 02/27/2024. us Provider Outside LAB - BLOOD ORDERABLES Edited R esult - Final TUSHAR JONES NON-INTERFACED (ONBASE SCANS) * (ABNORMAL) CBC with [...] Narrative BREEZE PFT - 02/27/2024 1:38 PM SUPERVISOR PUMPING STATION Verified by Leah Gimenez on 02/27/2024. us Provider Outside LAB - BLOOD ORDERABLES Edited R esult - Final BREEZE PFT NON-INTERFACED (ONBASE SCANS) * External Lab Results (09/28/2023 11:39 AM CDT) Scan Lab Results (External) See scanned report NON-INTERFACE D (ONBASE SCANS) Comment:Anti-Mitochondrial A b by IFA 09/28/2023 11:3 9 AM CDT Narrative BREEZE PFT - 02/27/2024 1:38 PM SUPERVISOR PUMPING STATION Verified by Leah Gimenez on 02/27/2024. us Provider Outside LABORATORY Edited Result - Final BREEZE PFT NON-INTERFACED (ONBASE SCANS) documented in this encounter Visit Diagnoses Not on filedocumented in this encounter Care Teams Servicer Coin Machines Relationship Specialty Start Date End Date [facility], [facility] [place] [address] [place] [address] PCP - General 08/24/20 Kristen Dockery, RN Registered Nurse Nurse 11/09/23 Kristen Dockery, triage register nurseDocumentation Nurse Nurse 05/19/24 Meliza Villaseñor MD [address] [place] [address] International Marketing Coordinator Internal Medicine 05/19/24 Lanny Meléndez APRN CNP [facility] [address] [place] [address] Referring Physician Internal Medicine 05/19/24 Gala Fair, [facility] Wheelman 05/20/24 Meliza Villaseñor MD [address] [place] [address] Physician Internal Medicine 05/20/24 Trey Abraham MD 420 [facility] 195 [place] [address] Surgery 05/20/[address] [facility] 420 [facility] 84 [place] [address] Registered Dietitian Dietitian, Registered 05/20/24 Dixon Hernandez MD 420 [facility] 508 [place] [address] Cardiovascular Disease 05/20/24 Jes Arrington MD [address] [place] [address] Gastroenterology 06/24/24 documented as of this encounter
--- OUTSIDE RECORDS SUMMARY | 2024-08-01 07:52 | XMS_ITS | Encounter Summary ---
Author Organization [place] Address [address] [place] [address] Care Team Providers Care Jogger Operator Name Role Phone Clinic, [facility] Primary Care Provider Kristen Dockery RN Unavailable UnavailKristen Toussaint RN Unavailable Unavaila Meliza James MD Unavailable [phone] Lanny Meléndez APRN SEWAGE RETICULATION DRAFTING OFFICER Unavailable [phone] Gala Fair CORPORATE ASSOCIATE Unavailable [phone] Meliza Villaseñor MD Unavailable [phone] Trey Abraham MD Unavailable [phone] Unavailable Unavail able Dixon Hernandez MD Unavailable [phone] Jes Arrington MD Unavailable + Encounter Details Date Type Department Care Team (Late st Contact Info) Description 09/08/2023 External Order Results [facility] Specialty Laboratories [address] [place] [address] Outside, Provider Social History Tobacco Use Types [...] PM CDT Legal Sex Female 3:12 AM MEDICAL AFFAIRS LEADER Gender Identity Female 10/31/2023 12:26 PM CDT Sexual Orientation Straight 10/31/2023 12 :26 PM CDT documented as of this encounter Plan of Treatment Upcoming Encounters Date Type Department Care Team (Late st Contact Info) Description 08/05/2024 10:45 AM CDT Lab [facility] Laboratory [address] [place] [address] 08/26/2024 10:30 AM CDT Appointment [facility] Heart Care 500 [place] [address] Meliza Villaseñor MD [address] [place] [address] 08/26/2024 12:00 PM CDT Appointment [facility] Imaging 500 [place] [address] Meliza Villaseñor MD [facility] [address] [place] [address] 09/12/2024 11:00 AM CDT Office Visit [facility] Heart [address] 2nd [place] [phone] Dixon Hernandez MD [address] [place] [address] 560795 10/01/2024 PRE VISIT [facility] Heart [facility] 9[address] [place] [phone] iDxon Hernandez MD [address] [place] [address] 750575 Previsit documented as of this encounter Procedures [...] Narrative TUSHAR PFT - 03/05/2024 9:44 AM MEDICAL AFFAIRS LEADER Verified by Isaac Rodrigues on 03/05/2024. us Provider Outside LAB - BLOOD ORDERABLES Edited R esult - Final TUSHAR PFT NON-INTERFACED (ONBASE SCANS) documented in this encounter Visit Diagnoses Not on filedocumented in this encounter Care Teams Jogger Operator Relationship Specialty Start Date End Date [facility], [facility] [address] [place] [address] PCP - General 08/24/20 Kristen Dockery, RN Registered Nurse Nurse 11/09/23 Kristen Dockery, automotive light mechanicPowerhouse Mechanic Supervisor Nurse 05/19/24 Meliza Villaseñor MD [address] [place], [place] [address] Chief Knowledge Officer Internal Medicine 05/19/24 Lanny Meléndez APRN SEWAGE RETICULATION DRAFTING OFFICER [facility] [address] [place], [place] [address] Referring Physician Internal Medicine 05/19/24 Gala Fair, [facility] Material Combiner 05/20/24 Meliza Villaseñor MD [address] [place] [address] Physician Internal Medicine 05/20/24 Trey Abraham MD 420 [facility] 195 [place] [address] Surgery 05/20/[address] [facility] 420 [facility] 84 [place] [address] Registered Dietitian Dietitian, Registered 05/20/24 Dixon Hernandez MD 420 [facility] 508 [place] [address] Cardiovascular Disease 05/20/24 Jes Arrington MD [address] [facility] [address] [place] [address] Gastroenterology 06/24/24 documented as of this encounter
--- OUTSIDE RECORDS SUMMARY | 2024-08-01 07:52 | XMS_ITS | Encounter Summary ---
Author Organization [place] Address [address] [place] [address] Care Team Providers Care Quality Control Head Name Role Phone Clinic, [facility] Primary Care Provider Kristen Dockery RN Unavailable Unavaila Kristen Bermudez RN Unavailable Unavaila Meliza James MD Unavailable [phone] Lanny Meléndez APRN INSPECTOR CASING Unavailable [phone] Gala Fair HEMODIALYSIS TECHNICIAN Unavailable [phone] Meliza Villaseñor MD Unavailable [phone] Trey Abraham MD Unavailable [phone] Unavailable Unavail able Dixon Hernandez MD Unavailable [phone] Jes Arrington MD Unavailable + Encounter Details Date Type Department Care Team (Late st Contact Info) Description 08/14/2019 External Order Results [facility] [address] [place] [address] Outside, Provider Social History Tobacco Use Types Packs/Day Years Used Date Smoking Tobacco: Never Assessed Comments Unknown Sex and Gender Information Value Date Recorded Sex Assigned at Female 10/31/2023 12:26 PM CDT Legal Sex Female 3:12 AM RESEARCH PHLEBOTOMIST Gender Identity Female 10/31/2023 12:26 PM CDT Sexual Orientation Straight 10/31/2023 12 :26 PM CDT documented as of this encounter Plan of Treatment Upcoming Encounters Date Type Department Care Team (Late st Contact Info) Description 08/05/2024 10:45 AM CDT Lab [facility] Laboratory [address] [place] [address] 08/26/2024 10:30 AM CDT Appointment [facility] Heart Care 500 [place] [address] Meliza Villaseñor MD [address] [place] [address] 08/26/2024 12:00 PM CDT Appointment [facility] Imaging 500 [place] [address] Meliza Villaseñor MD [address] [place] [address] 09/12/2024 11:00 AM CDT Office Visit [address] 2nd [place] [address] Dixon Hernandez MD [address] [place] [address] [id number] 10/01/2024 PRE VISIT [facility] 9[address] [place] [phone] Dixon Hernandez MD [address] [place] [address] [id number] Previsit documented as of this encounter Procedures Procedure Name Priority Date/Time Associated Diagnosis Comments EXTERNAL LAB RESULTS Routine 08/14/2019 10:22 AM CDT documented in this encounter Results * External Lab Results (08/14/2019 10:22 AM CDT) Scan Lab Results (External) See Scanned Report NON-INTERFACE D (ONBASE SCANS) Comment:MITOCHONDRIAL ANTIBO DY 08/14/2019 10:2 2 AM CDT Narrative TUSHAR PFT - 02/27/2024 1:23 PM RESEARCH PHLEBOTOMIST Verified by Isaac Rodrigues on 02/27/2024. us Provider Outside LABORATORY Edited Result - Final TUSHAR PFT NON-INTERFACED (ONBASE SCANS) documented in this encounter Visit Diagnoses Not on filedocumented in this encounter Care Teams Quality Control Head Relationship Specialty Start Date End Date Clinic, [facility] [address] [facility] [place], [place] [id number] PCP - General 08/24/20 Kristen Dockery, RN Registered Nurse Nurse 11/09/23 Kristen Dockery, contract managerDistribution Tech Nurse 05/19/24 Meliza Villaseñor MD [address] [place] [address] Riverboat Captain Internal Medicine 05/19/24 Lanny Meléndez APRN INSPECTOR CASING [facility] [address] [place], [place] [address] Referring Physician Internal Medicine 05/19/24 Gala Fair, [facility] Acoustic Warfare Analyst 05/20/24 Meliza Villaseñor MD [address] [place], [place] 5639[address] Physician Internal Medicine 05/20/24 Trey Abraham MD [address] [place] [address] [facility] 195 [place], [place] 7[address] Surgery 05/20/[address] [facility] [address] [facility] 84 [place] [address] Registered Dietitian Dietitian, Registered 05/20/24 Dixon Hernandez MD 420 [facility] 508 [place], [place] 626325 Cardiovascular Disease 05/20/24 Jes Arrington MD [address] [facility] [place], [place] 0[address] Gastroenterology 06/24/24 documented as of this encounter
--- OUTSIDE RECORDS SUMMARY | 2024-08-01 07:52 | XMS_ITS | Encounter Summary ---
Author Organization [place] Address [address] [place] [address] Care Team Providers Care Electrical Development Engineer Name Role Phone [facility] Primary Care Provider Kristen Dockery RN Unavailable Unavaila Kristen Bermudez RN Unavailable Unavaila Meliza James MD Unavailable [phone] Lanny Meléndez APRN ELECTRICAL MAINTENANCE SUPERVISOR Unavailable [phone] Gala Fair CUT OFF SAW OPERATOR METAL Unavailable [phone] Meliza Villaseñor MD Unavailable [phone] Trey Abraham MD Unavailable [phone] Unavailable Unavail able Dixon Hernandez MD Unavailable [phone] Jes Arrington MD Unavailable + Encounter Details Date Type Department Care Team (Late st Contact Info) Description 07/29/2024 Orders Only [facility] [address] [place] [address] Kristen Dockery RN Alcoholic cirrhosis (H) (Primary Dx) Social History Tobacco Use [...] PM CDT Legal Sex Female 3:12 AM MANAGER INTERNET Gender Identity Female 10/31/2023 12:26 PM CDT Sexual Orientation Straight 10/31/2023 12 :26 PM CDT documented as of this encounter Plan of Treatment Upcoming Encounters Date Type Department Care Team (Late st Contact Info) Description 08/05/2024 10:45 AM CDT Lab [facility] [address] [place] [address] 08/26/2024 10:30 AM CDT Appointment [facility] Heart Care 500 [place] [address] Meliza Villaseñor MD [address] [place] [address] 08/26/2024 12:00 PM CDT Appointment [facility] Imaging 500 [place] [phone] Meliza Villaseñor MD [address] [place] [address] 09/12/2024 11:00 AM CDT Office Visit [facility] [address] 2nd [place] [address] Dixon Hernandez MD [address] [place] [address] 590815 10/01/2024 PRE VISIT [facility] [address] [place] [address] Dixon Hernandez MD [address] [place] [address] 387075 Previsit documented as of this encounter Visit Diagnoses Diagnosis Alcoholic cirrhosis (H)- Primary Alcoholic cirrhosis of liver documented in this encounter Additional Health Concerns Assessment Noted Time PHQ-9 Depression Total Score: 8 06/12/19 25 12:56 PM CDT documented as of this encounter Care Teams Electrical Development Engineer Relationship Specialty Start Date End Date Clinic, [facility] [address] [place] [address] PCP - General 08/24/20 Kristen Dockery, RN Registered Nurse Nurse 11/09/23 Kristen Dockery, internal communications managerMedia Center Director School Nurse 05/19/24 Meliza Villaseñor MD [address] [place] [address] Or First Assist Registered Nurse Internal Medicine 05/19/24 Lanny Meléndez APRN CNP [facility] [address] [place] [address] Referring Physician Internal Medicine 05/19/24 Gala Fair, [facility] Practice Or Student Teacher 05/20/24 Meliza Villaseñor MD [address] [place] [address] Physician Internal Medicine 05/20/24 Trey Abraham MD [address] [facility] 195 [place], [place] 4904[address] Surgery 05/20/[address] [facility] 420 [facility] SE [facility] 84 [place] [address] Registered Dietitian Dietitian, Registered 05/20/24 Dixon Hernandez MD [address] [facility] [address] [place] [address] Cardiovascular Disease 05/20/24 Jes Arrington MD 516 [facility] [address] [place], [place] 6[address] Gastroenterology 06/24/24 documented as of this encounter
--- OUTSIDE RECORDS SUMMARY | 2024-08-01 07:52 | XMS_ITS | Encounter Summary ---
Author Organization [place] Address [address] [place] [address] Care Team Providers Care Wind Instrument Repairer Name Role Phone Clinic, [facility] Primary Care Provider Kristen Dockery RN Unavailable Unavaila Kristen Bermudez RN Unavailable Unavaila Meliza James MD Unavailable [phone] Lanny Meléndez APRN GALVANOMETER ASSEMBLER Unavailable [phone] Gala Fair IT PROGRAM AUDITOR Unavailable [phone] Meliza Villaseñor MD Unavailable [phone] Trey Abraham MD Unavailable [phone] Unavailable Unavail able Dixon Hernandez MD Unavailable [phone] Jes Arrington MD Unavailable + Encounter Details Date Type Department Care Team (Late st Contact Info) Description 07/25/2024 MyC Medical Advice Initial Department Kristen Dockery [...] PM CDT Legal Sex Female 3:12 AM PASTE UP WORKER Gender Identity Female 10/31/2023 12:26 PM CDT Sexual Orientation Straight 10/31/2023 12 :26 PM CDT documented as of this encounter Plan of Treatment Upcoming Encounters Date Type Department Care Team (Late st Contact Info) Description 08/05/2024 10:[address] [facility] Laboratory [address] [place] [address] 08/26/2024 10:[address] [facility] Heart Care [address] [place] [address] Meliza Villaseñor MD [address] [place] [address] 08/26/2024 12:00 PM CDT Appointment [facility] Imaging 500 [place] [address] Meliza Villaseñor MD [address] [place] [address] 09/12/2024 11:00 AM CDT Office Visit [facility] Heart [address] 2nd [place] [address] Dixon Hernandez MD [address] [place] [address] 494[address] 10/01/2024 PRE VISIT [facility] Heart [facility] 9[address] [place] [phone] Dixon Hernandez MD [address] [place] [address]645 Previsit documented as of this encounter Visit Diagnoses Not on filedocumented in this encounter Additional Health Concerns Assessment Noted Time PHQ-9 Depression Total Score: 8 06/12/19 12:56 PM CDT documented as of this encounter Care Teams Wind Instrument Repairer Relationship Specialty Start Date End Date Clinic, [facility] [place] [address] [facility] [place] [address] PCP - General 08/24/20 Kristen Dockery, RN Registered Nurse Nurse 11/09/23 Kristen Dockery, surveillance technicianElectric Dolly Operator Nurse 05/19/24 Meliza Villaseñor MD [address] [place] [address] Mri Supervisor Internal Medicine 05/19/24 Lanny Meléndez APRN GALVANOMETER ASSEMBLER [facility] [address] [place], [place] [address] Referring Physician Internal Medicine 05/19/24 Gala Fair, [facility] Recreational Director 05/20/24 Meliza Villaseñor MD [address] [place] [address] Physician Internal Medicine 05/20/24 Trey Abraham MD 420 [facility] 195 [place] [address] Surgery 05/20/24 Jena Castano, [facility] 420 [facility] 84 [place] [address] Registered Dietitian Dietitian, Registered 05/20/24 Dixon Hernandez MD 420 [facility] 508 [place] [address] Cardiovascular Disease 05/20/24 Jes Arrington MD [address] [address] Gastroenterology 06/24/24 documented as of this encounter
--- OUTSIDE RECORDS SUMMARY | 2024-08-01 07:52 | XMS_ITS | Encounter Summary ---
Author Organization [place] Address [address] [place] [address] Care Team Providers Care Manager Bar Name Role Phone Clinic, [facility] Primary Care Provider Kristen Dockery RN Unavailable Unavaila Kristen Bermudez RN Unavailable Unavaila Meliza James MD Unavailable [phone] Lanny Meléndze APRN RECOVERY RN Unavailable [phone] Gala Fair TECHNOLOGY TEACHER Unavailable [phone] Meliza Villaseñor MD Unavailable [phone] Trey Abraham MD Unavailable [phone] Unavailable Unavail able Dixon Hernandez MD Unavailable [phone] Jes Arrington MD Unavailable + Encounter Details Date Type Department Care Team (Latest Contact Info) Description 07/26/2024 Travel Social History Tobacco Use Types Packs/Day [...] CDT Legal Sex Female 3:12 AM ASSEMBLER FOR PULLER OVER HAND Gender Identity Female 10/31/2023 12:26 PM CDT Sexual Orientation Straight 10/31/2023 12 :26 PM CDT documented as of this encounter Plan of Treatment Upcoming Encounters Date Type Department Care Team (Late st Contact Info) Description 08/05/2024 10:45 AM CDT Lab [facility] Laboratory [address] [place] [address] 08/26/2024 10:30 AM CDT Appointment [facility] Heart Care 500 [place] [address] Meliza Villaseñor MD [address] [place] [address] 08/26/2024 12:00 PM CDT Appointment [facility] Imaging [address] [place] [address] Meliza Villaseñor MD [address] [place] [address] 09/12/2024 11:00 AM CDT Office Visit [facility] Heart [address] 2nd [place] [address] Dixon Hernandez MD [address] [place] [address] 411735 10/01/[address] [facility] [address]09 [place] [phone] Dixon Hernandez MD [address] [place] [address] Previsit documented as of this encounter Visit Diagnoses Not on filedocumented in this encounter Additional Health Concerns Assessment Noted Time PHQ-9 Depression Total Score: 8 06/12/19 12:56 PM CDT documented as of this encounter Care Teams Manager Bar Relationship Specialty Start Date End Date Clinic, [facility] [place] [address] [place], [place] [phone] PCP - General 08/24/20 Kristen Dockery, RN Registered Nurse Nurse 11/09/23 Kristen Dockery, chisel grinderHeavy Duty Mechanic Nurse 05/19/24 Meliza Villaseñor MD [address] [place] [address] Center Machine Operator Internal Medicine 05/19/24 Lanny Meléndez APRN RECOVERY RN [facility] [address] [place] [address] Referring Physician Internal Medicine 05/19/24 Gala Fair, [facility] Video Clerk 05/20/24 Meliza Villaseñor MD [address] [place] [address] Physician Internal Medicine 05/20/24 Trey Abraham MD 420 [facility] 195 [place] [address] Surgery 05/20/[address] [facility] [address] [facility] 84 [place] [address] Registered Dietitian Dietitian, Registered 05/20/24 Dixon Hernandez MD [address] [place] [facility] 508 [place] [address] Cardiovascular Disease 05/20/24 Jes Arrington MD 6 [facility] 2A [place] [address] Gastroenterology 06/24/24 documented as of this encounter
--- OUTSIDE RECORDS SUMMARY | 2024-08-01 07:52 | XMS_ITS | Encounter Summary ---
Author Organization [place] Address [address] [place] [address] Care Team Providers Care Marketing Production Manager Name Role Phone Clinic, [facility] Primary Care Provider Kristen Dockery RN Unavailable Unavaila Kristen Bermudez RN Unavailable Unavaila Meliza James MD Unavailable [phone] Lanny Meléndez APRN INTERNET SALESPERSON Unavailable [phone] Gala Fair DRAW OPERATOR Unavailable [phone] Meliza Villaseñor MD Unavailable [phone] Trey Abraham MD Unavailable [phone] Unavailable Unavail able Dixon Hernandez MD Unavailable [phone] Jes Arrington MD Unavailable + Encounter Details Date Type Department Care Team (Latest Contact Info) Description 07/16/2024 Travel Social History Tobacco Use Types Packs/Day [...] PM CDT Legal Sex Female 3:12 AM CHILD MONITOR Gender Identity Female 10/31/2023 12:26 PM CDT Sexual Orientation Straight 10/31/2023 12 :26 PM CDT documented as of this encounter Plan of Treatment Upcoming Encounters Date Type Department Care Team (Late st Contact Info) Description 08/05/2024 10:45 AM CDT Lab [facility] [address] [place] [address] 08/26/2024 10:30 AM CDT Appointment [facility] Heart Care [address] [place] [address] Meliza Villaseñor MD [address] [place] [address] 08/26/2024 12:00 PM CDT Appointment [facility] Imaging 500 [place] [address] Meliza Villaseñor MD [address] [place] [address] 09/12/2024 11:00 AM CDT Office Visit [facility] Heart [address] 2nd [place] [address] Dixon Hernandez MD [address] [place] [address] 228575 10/01/2024 PRE VISIT [facility] 909 [place] [phone] Dixon Hernandez MD [address] [place] [address] Previsit documented as of this encounter Visit Diagnoses Not on filedocumented in this encounter Additional Health Concerns Assessment Noted Time PHQ-9 Depression Total Score: 8 06/12/19 12:56 PM CDT documented as of this encounter Care Teams Marketing Production Manager Relationship Specialty Start Date End Date Clinic, [facility] [place] [address] [place], [place] [phone] PCP - General 08/24/20 Kristen Dockery, RN Registered Nurse Nurse 11/09/23 Kristen Dockery, clinical data programmerHogshead Press Operator Nurse 05/19/24 Meliza Villaseñor MD [address] [place] [address] Jig Fitter Internal Medicine 05/19/24 Lanny Meléndez APRN INTERNET SALESPERSON [facility] [address] [place] [address] Referring Physician Internal Medicine 05/19/24 Gala Fair, [facility] Hooker Laster 05/20/24 Meliza Villaseñor MD [address] [place] [address] Physician Internal Medicine 05/20/24 Trey Abraham MD 420 [facility] 195 [place] [address] Surgery 05/20/[address] [facility] [address] [facility] 84 [place] [address] Registered Dietitian Dietitian, Registered 05/20/24 Dixon Hernandez MD [address] [place] [address] [facility] 508 [place] [address] Cardiovascular Disease 05/20/24 Jes Arrington MD 6 [facility] 2A [place] [address] Gastroenterology 06/24/24 documented as of this encounter
--- OUTSIDE RECORDS SUMMARY | 2024-08-01 07:52 | XMS_ITS | Encounter Summary ---
Author Organization [place] Address [address] [place] [address] Care Team Providers Care Perinatal Tech Name Role Phone Clinic, [facility] Primary Care Provider Kristen Dockery RN Unavailable UnavailKristen Toussaint RN Unavailable Unavaila Meliza James MD Unavailable [phone] Lanny Meléndez APRN HORTICULTURAL MANAGER Unavailable [phone] Gala Fair DRY BOSS Unavailable [phone] Meliza Villaseñor MD Unavailable [phone] Trey Abraham MD Unavailable [phone] Unavailable Unavail able Dixon Hernandez MD Unavailable [phone] Jes Arrington MD Unavailable + Encounter Details Date Type Department Care Team (Late st Contact Info) Description 09/08/2023 External Order Results [facility] Special[facility] Laboratories [address] [place] [address] Outside, Provider Social History Tobacco Use Types [...] PM CDT Legal Sex Female 3:[address]TER Gender Identity Female 10/31/2023 12:26 PM CDT Sexual Orientation Straight 10/31/2023 12 :26 PM CDT documented as of this encounter Plan of Treatment Upcoming Encounters Date Type Department Care Team (Late st Contact Info) Description 08/05/2024 10:45 AM CDT Lab [facility] Laboratory [address] [place] [address] 08/26/2024 10:30 AM CDT Appointment [facility] Heart Care 500 [place] [address] Meliza Villaseñor MD [address] [place] [address] 08/26/2024 12:00 PM CDT Appointment [facility] Imaging 500 [place] [address] Meliza Villaseñor MD [facility] [address] [place] [address] 09/12/2024 11:00 AM CDT Office Visit [facility] Heart [address] 2nd [place] [address] Dixon Hernandez MD [address] [place] [address] 522775 10/01/2024 PRE VISIT [facility] Heart [facility] 909 [place] [phone] Dixon Hernandez MD [address] [place] [address] 457785 Previsit documented as of this encounter Procedures Procedure Name Priority Date/Time Associated Diagnosis Comments CREATININE Routine 09/08/2023 9:50 AM CDT documented in this encounter Results * Creatinine (09/08/2023 9:50 AM CDT) GFR Estimated (External) 107 ml/min NON-INTERFACED (ONBASE SCANS) Creatinine (External) 0.5 0.5 - 1.5 mg/dL NON-INTERFACED (ONBASE SCANS) Blood BLOOD SPECIMEN / Unknown 09/08/2023 9:50 AM CDT Narrative TUSHAR PFT - 11/09/2023 11:42 AM CDT Verified by Leah Gimenez on 11/09/2023. us Manuel Riggins MD LAB - BLOOD ORDERABLES Edited Result - Final TUSHAR PFT NON-INTERFACED (ONBASE SCANS) documented in this encounter Visit Diagnoses Not on filedocumented in this encounter Care Teams Perinatal Tech Relationship Specialty Start Date End Date [facility], [facility] [address] [facility] [place] [address] PCP - General 08/24/20 Kristen Dockery, RN Registered Nurse Nurse 11/09/23 Kristen Dockery, delinquent tax collectorGeospatial Scientist Nurse 05/19/24 Meliza Villaseñor MD [address] [place], [place] [address] Library Services Dean Internal Medicine 05/19/24 Lanny Meléndez APRN HORTICULTURAL MANAGER [facility] [address] [place] [address] Referring Physician Internal Medicine 05/19/24 Gala Fair, [facility] Medical Care Evaluation Specialist 05/20/24 Meliza Villaseñor MD [address] [place] [address] Physician Internal Medicine 05/20/24 Trey Abraham MD 420 [facility] 195 [place] [address] Surgery 05/20/[address] [facility] 420 [facility] 84 [place] [address] Registered Dietitian Dietitian, Registered 05/20/24 Dixon Hernandez MD 420 [facility] 508 [place] [address] Cardiovascular Disease 05/20/24 Jes Arrington MD [address] [address] Gastroenterology 06/24/24 documented as of this encounter
--- OUTSIDE RECORDS SUMMARY | 2024-08-01 07:52 | XMS_ITS | Encounter Summary ---
Author Organization [place] [place] Address [address] [place] [address] Care Team Providers Care Solid State Tester Name Role Phone [facility], [facility] Primary Care Provider Kristen Dockery RN Unavailable Unavaila Kristen Bermudez RN Unavailable Unavaila Meliza James MD Unavailable [phone] Lanny Meléndez APRN VERMIN EXTERMINATOR Unavailable [phone] Gala Fair BLOCK OUT MACHINE OPERATOR Unavailable [phone] Meliza Villaseñor MD Unavailable [phone] Trey Abraham MD Unavailable [phone] Unavailable Unavail able Dixon Hernandez MD Unavailable [phone] Jes Arrington MD Unavailable + Encounter Details Date Type Department Care Team (Late st Contact Info) Description 01/08/2024 MyC Medical Advice [facility] Trans[facility] Clinic [address] [place] [address] Kristen Dockery RN Social History [...] PM CDT Legal Sex Female 3:12 AM CIVIL ENGINEERING SPECIALIST Gender Identity Female 10/31/2023 12:26 PM CDT Sexual Orientation Straight 10/31/2023 12 :26 PM CDT documented as of this encounter Plan of Treatment Upcoming Encounters Date Type Department Care Team (Late st Contact Info) Description 08/05/2024 10:45 AM CDT Lab [facility] [address] [place] [address] 08/26/2024 10:30 AM CDT Appointment [facility] Heart Care [address] [place] [address] Meliza Villaseñor MD [address] [place] [address] 08/26/2024 12:00 PM CDT Appointment [facility] Imaging [address] [place] [address] Meliza Villaseñor MD [address] [place] [address] 09/12/2024 11:00 AM CDT Office Visit [facility] Heart [address] 2nd [place] [address] Dixon Hernandez MD [address] [place] [address] [id number] 10/01/2024 PRE VISIT [facility] Heart [facility] [address] [place] [phone] Dixon Hernandez MD [address] [place] [address] 639095 Previsit documented as of this encounter Visit Diagnoses Not on filedocumented in this encounter Care Teams Solid State Tester Relationship Specialty Start Date End Date Clinic, [facility] [address] [place] [address] PCP - General 08/24/20 Kristen Dockery, RN Registered Nurse Nurse 11/09/23 Kristen Dockery, personal lines advisorArchitectural Administrative Assistant Nurse 05/19/24 Meliza Villaseñor MD [address] [place] [address] Benefits Administrator Internal Medicine 05/19/24 Lanny Meléndez APRN VERMIN EXTERMINATOR [facility] [address] [place] [address] Referring Physician Internal Medicine 05/19/24 Gala Fair, [facility] System Support Technician 05/20/24 Meliza Villaseñor MD [address] [place] [address] Physician Internal Medicine 05/20/24 Trey Abraham MD 420 [facility] 195 [place] [address] Surgery 05/20/24 Jena Castano, RAFIQ [facility] [address] [facility] [address] [facility] 84 [place] [address] Registered Dietitian Dietitian, Registered 05/20/24 Dixon Hernandez MD 420 [facility] 508 [place] [address] Cardiovascular Disease 05/20/24 Jes Arrington MD 516 [facility] [address] [place] [address] Gastroenterology 06/24/24 documented as of this encounter
--- OUTSIDE RECORDS SUMMARY | 2024-08-01 07:52 | XMS_ITS | Encounter Summary ---
Author Organization [place] Address [address] [place] [address] Care Team Providers Care Supervisor Plating And Point Assembly Name Role Phone Clinic, [facility] Primary Care Provider Kristen Dockery RN Unavailable UnavailKristen Toussaint RN Unavailable Unavaila Meliza James MD Unavailable [phone] Lanny Meléndez APRN IT NETWORK ADMINISTRATOR Unavailable [phone] Gala Fair CRYOGENIC TRANSPORT DRIVER Unavailable [phone] Meliza Villaseñor MD Unavailable [phone] Trey Abraham MD Unavailable [phone] Unavailable Unavail able Dixon Hernandez MD Unavailable [phone] Jes Arrington MD Unavailable + Encounter Details Date Type Department Care Team (Late st Contact Info) Description 07/29/2024 Results Follow-Up [facility] Transplant Clinic [address] [place] [address] Kristen Dockery RN Subj: Meds Social History Tobacco Use Types Packs/Day Years [...] PM CDT Legal Sex Female 3:12 AM SPARK PLUG ASSEMBLER Gender Identity Female 10/31/2023 12:26 PM CDT Sexual Orientation Straight 10/31/2023 12 :26 PM CDT documented as of this encounter Plan of Treatment Upcoming Encounters Date Type Department Care Team (Late st Contact Info) Description 08/05/2024 10:45 AM CDT Lab [facility] Laboratory [address] [place] [address] 08/26/2024 10:30 AM CDT Appointment [facility] Heart Care [address] [place] [address] Meliza Villaseñor MD [address] [place] [address] 08/26/2024 12:00 PM CDT Appointment [facility] [address] [place] [phone] Meliza Villaseñor MD [address] [place] [address] 09/12/2024 11:00 AM CDT Office Visit [facility] Heart [address] 2nd [place] [address] Dixon Hernandez MD [address] [place] [address] [phone] 10/01/2024 PRE VISIT [facility] Heart [facility] [address] [place] [phone] Dixon Hernandez MD [address] [place] [address] [phone] Previsit documented as of this encounter Visit Diagnoses Not on filedocumented in this encounter Additional Health Concerns Assessment Noted Time PHQ-9 Depression Total Score: 8 06/12/19 25 12:56 PM CDT documented as of this encounter Care Teams Supervisor Plating And Point Assembly Relationship Specialty Start Date End Date Clinic, [facility] [address] [place] [address] PCP - General 08/24/20 Kristen Dockery, RN Registered Nurse Nurse 11/09/23 Kristen Dockery, counselor nurses' associationPunch Operator Nurse 05/19/24 Meliza Villaseñor MD [address] [place] [address] Cement Truck Loader Internal Medicine 05/19/24 Lanny Meléndez APRN IT NETWORK ADMINISTRATOR [facility] [address] [place] [address] Referring Physician Internal Medicine 05/19/24 Gala Fair, [facility] Supervisory Examiner 05/20/24 Meliza Villaseñor MD [address] [place] [address] Physician Internal Medicine 05/20/24 Trey Abraham MD [address] [facility] 195 [place] [address] Surgery 05/20/[address] [facility] [address] [facility] [address] [place] [address] Registered Dietitian Dietitian, Registered 05/20/24 Dixon Hernandez MD [address] [facility] [address] [place] [address] Cardiovascular Disease 05/20/24 Jes Arrington MD 516 [facility] [address] [place] [address] Gastroenterology 06/24/24 documented as of this encounter
--- OUTSIDE RECORDS SUMMARY | 2024-08-01 07:52 | XMS_ITS | Encounter Summary ---
Author Organization [place] Address [address] [place] [address] Care Team Providers Care Floral Designer Salesperson Name Role Phone [facility], [facility] Primary Care Provider Kristen Dockery RN Unavailable Unavaila Kristen Bermudez RN Unavailable Unavaila Meliza James MD Unavailable [phone] Lanny Meléndez APRN HEALTH AND WELLNESS INSTRUCTOR Unavailable [phone] Gala Fair COMMUNICATIONS DEPARTMENT CHAIRPERSON Unavailable [phone] Meliza Villaseñor MD Unavailable [phone] Trey Abraham MD Unavailable [phone] Unavailable Unavail able Dixon Hernandez MD Unavailable [phone] Jes Arrington MD Unavailable + Encounter Details Date Type Department Care Team (Late st Contact Info) Description 07/25/2024 MyC Medical Advice [facility] Transplant Clinic [address] [place] [address] Gala Fair, COMMUNICATIONS DEPARTMENT CHAIRPERSON Social History Tobacco Use Types Packs/Day Years [...] PM CDT Legal Sex Female 3:12 AM DRILLER'S OFFSIDER Gender Identity Female 10/31/2023 12:26 PM CDT Sexual Orientation Straight 10/31/2023 12 :26 PM CDT documented as of this encounter Plan of Treatment Upcoming Encounters Date Type Department Care Team (Late st Contact Info) Description 08/05/2024 10:45 AM CDT Lab [facility] Laboratory [address] [place] [address] 08/26/2024 10:30 AM CDT Appointment [facility] Heart Care [address] [place] [address] Meliza Villaseñor MD [address] [place] [address] 08/26/2024 12:00 PM CDT Appointment [facility] Imaging [address] [place] [phone] Meliza Villaseñor MD [address] [place] [address] 09/12/2024 11:00 AM CDT Office Visit [facility] Heart [address] 2nd [place] [address] Dixon Hernandez MD [address] [place] [address] 795565 10/01/2024 PRE VISIT [facility] Heart [facility] [address] [place] [phone] iDxon Hernandez MD [address] [place] [address] 028185 Previsit documented as of this encounter Visit Diagnoses Not on filedocumented in this encounter Additional Health Concerns Assessment Noted Time PHQ-9 Depression Total Score: 8 06/12/19 25 12:56 PM CDT documented as of this encounter Care Teams Floral Designer Salesperson Relationship Specialty Start Date End Date Clinic, [facility] [address] [place] [address] PCP - General 08/24/20 Kristen Dockery, RN Registered Nurse Nurse 11/09/23 Kristen Dockery, bean sorterSong And Dance Performer Nurse 05/19/24 Meliza Villaseñor MD [address] [place] [address] Executive Sales Manager Internal Medicine 05/19/24 Lanny Meléndez APRN HEALTH AND WELLNESS INSTRUCTOR [facility] [address] [place] [address] Referring Physician Internal Medicine 05/19/24 Gala Fair, [facility] Graphics Specialist 05/20/24 Meliaz Villaseñor MD [address] [place] [address] Physician Internal Medicine 05/20/24 Trey Abraham MD [address] [facility] 195 [place], [place] [address] Surgery 05/20/[address] [facility] [address] [facility] 84 [place] [address] Registered Dietitian Dietitian, Registered 05/20/24 Dixon Hernandez MD 420 [facility] [address] [place] [address] Cardiovascular Disease 05/20/24 Jes Arrington MD 516 [facility] [address] [place] [address] Gastroenterology 06/24/24 documented as of this encounter
--- OUTSIDE RECORDS SUMMARY | 2024-08-01 07:52 | XMS_ITS | Encounter Summary ---
Author Organization [place] Address [address] [place] [address] Care Team Providers Care Tooling Specialist Name Role Phone [facility], [facility] Primary Care Provider Kristen Dockery RN Unavailable Unavaila Kristen Bermudez RN Unavailable Unavaila Meliza James MD Unavailable [phone] Lanny Meléndez APRN COOLER TENDER Unavailable [phone] Gala Fair GOODYEAR STITCHER Unavailable [phone] Meliza Villaseñor MD Unavailable [phone] Trey Abraham MD Unavailable [phone] Unavailable Unavail able Dixon Hernandez MD Unavailable [phone] Jes Arrington MD Unavailable + Encounter Details Date Type Department Care Team (Late st Contact Info) Description 07/16/2024 MyC Medical Advice [facility] Transplant Clinic [address] [place] [address] Gala Fair, GOODYEAR STITCHER Social History Tobacco Use Types Packs/Day Years [...] PM CDT Legal Sex Female 3:12 AM NICKEL OPERATOR Gender Identity Female 10/31/2023 12:26 PM CDT Sexual Orientation Straight 10/31/2023 12 :26 PM CDT documented as of this encounter Plan of Treatment Upcoming Encounters Date Type Department Care Team (Late st Contact Info) Description 08/05/2024 10:45 AM CDT Lab [facility] Laboratory [address] [place] [address] 08/26/2024 10:30 AM CDT Appointment [facility] Heart Care [address] [place] [address] Meliza Villaseñor MD [address] [place] [address] 08/26/2024 12:00 PM CDT Appointment [facility] Imaging [address] [place] [phone] Meliza Villaseñor MD [address] [place] [address] 09/12/2024 11:00 AM CDT Office Visit [facility] Heart [address] 2nd [place] [address] Dixon Hernandez MD [address] [place] [address] 290515 10/01/2024 PRE VISIT [facility] Heart [facility] [address] [place] [address] Dixon Hernandez MD [address] [place] [address] [phone] Previsit documented as of this encounter Visit Diagnoses Not on filedocumented in this encounter Additional Health Concerns Assessment Noted Time PHQ-9 Depression Total Score: 8 06/12/19 25 12:56 PM CDT documented as of this encounter Care Teams Tooling Specialist Relationship Specialty Start Date End Date Clinic, [facility] [address] [place] [address] PCP - General 08/24/20 Kristen Dockery, RN Registered Nurse Nurse 11/09/23 Kristen Dockery, supervisor accounts receivableGeneral Superintendent Nurse 05/19/24 Meliza Villaseñor MD [address] [place] [address] Electronics Engineering Technician Internal Medicine 05/19/24 Lanny Meléndez APRN COOLER TENDER [facility] [address] [place] [address] Referring Physician Internal Medicine 05/19/24 Gala Fair, [facility] Upholsterer Outside 05/20/24 Meliza Villaseñor MD [address] [place] [address] Physician Internal Medicine 05/20/24 Trey Abraham MD [address] [facility] 195 [place], [place] [address] Surgery 05/20/[address] [facility] [address] [facility] 84 [place] [address] Registered Dietitian Dietitian, Registered 05/20/24 Dixon Hernandez MD 420 [facility] [address] [place] [address] Cardiovascular Disease 05/20/24 Jes Arrington MD 516 [facility] [address] [place] [address] Gastroenterology 06/24/24 documented as of this encounter
--- OUTSIDE RECORDS SUMMARY | 2024-08-01 07:52 | XMS_ITS | Encounter Summary ---
Author Organization [facility] Address [address] [place] [address] Care Team Providers Care Icd 9 Coder Name Role Phone [facility], [facility] Primary Care Provider Kristen Dockery RN Unavailable UnavailKristen Toussaint RN Unavailable Unavaila Meliza James MD Unavailable [phone] Lanny Meléndez APRN READING COACH Unavailable [phone] Gala Fair SOFTWOOD FALLER Unavailable [phone] Meliza Villaseñor MD Unavailable [phone] Trey Abraham MD Unavailable [phone] Unavailable Unavail able Dixon Hernandez MD Unavailable [phone] Jes Arrington MD Unavailable + Encounter Details Date Type Department Care Team (Late st Contact Info) Description 07/25/2024 Documentation Only [facility] Transplant Clinic [address] [place] [address] Kristen Dockery RN Cirrhosis of liver (H) (Primary Dx) Social [...] CDT Legal Sex Female 3:12 AM ASSISTANT HEALTH EDUCATOR Gender Identity Female 10/31/2023 12:26 PM CDT Sexual Orientation Straight 10/31/2023 12 :26 PM CDT documented as of this encounter Plan of Treatment Upcoming Encounters Date Type Department Care Team (Late st Contact Info) Description 08/05/2024 10:45 AM CDT Lab [facility] Laboratory [address] [place] [address] 08/26/2024 10:30 AM CDT Appointment [facility] Heart Care [address] [place] [address] Meliza Villaseñor MD [address] [place] [address] 08/26/2024 12:00 PM CDT Appointment [facility] Imaging [address] [place] [phone] Meliza Villaseñor MD [address] [place] [address] 09/12/2024 11:00 AM CDT Office Visit [facility] Heart [address] 2nd [place] [phone] Dixon Hernandez MD [address] [place] [address] 017205 10/01/2024 PRE VISIT [facility] Heart [facility] [address] [place] [address] Dixon Hernandez MD [address] [place] [address] [phone] Previsit Scheduled Orders Name Type Priority Associated Diagnoses Orde r Schedule Comprehensive metabolic panel Lab Routine Cirrhosis of liver (H) Weekly for 60 Occurrences starting 07/25/2024 until 07/25/2025, 1 completed INR Lab Routine Cirrhosis of liver (H) Weekly for 60 Occurrences starting 07/25/2024 until 07/25/2025 Phosphatidylethanol (PEth), Whole Blood Lab Routine Cirrhosis of liver (H) Monthly for 20 Occurrences starting 07/25/2024 until 07/25/2025, 1 completed documented as of this encounter Results * Phosphatidylethanol (PEth), Whole Blood (07/26/2024 10:46 AM CDT) PEth 16:0/18:1 (POPEth) <10 ng/mL 07/28/2024 11:38 AM CDT [facility] Comment: PEth 16:0/18:1 (POPEth) Less than 10 ng/mL............Not detected Less than 20 ng/mL............Abstinence or light alcohol consumption 20 - 200 ng/mL................Moderate alcohol consumption Greater than 200 ng/mL........Heavy alcohol consumption or chronic alcohol use (Reference: Eligio Day and Dixon Evans 2018 J. Forensic Sci) PEth 16:0/18:2 (PLPEth) <10 ng/mL 07/28/2024 11:38 AM CDT [facility] Comment:Reference ranges are not well established. EER Phosphatidylethanol (PETH) See Note 07/28/2024 11:38 AM CDT [facility] Comment: Authorized individuals can access the [facility] Enhanced Report with an [facility] account using the following link. Your local lab can assist you in obtaining the patient report if you don't have a Connect account. [email or web address] PEth Interpretation See Comment 07/28/2024 11:38 AM CDT [facility] Comment: Phosphatidylethanol (PEth) is a group [...] developed and its performance characteristics determined by [facility]. It has not been cleared or approved by the U.S. Food and Drug Administration. This test was performed in a CLIA-certified laboratory and is intended for clinical purposes. Performed By: [facility] [address] [place] [address] Poultry Culler: Sedrick Santos MD, PhD CLIA Number: [id number] Blood BLOOD SPECIMEN / Unknown Venipuncture / Unknown 07/26/2024 10:46 AM CDT 07/26/2024 10:46 AM CDT Jes Arrington MD LAB - BLOOD ORDERA BLES Final Result [facility] [address] [place] [phone], [facility] [phone] * (ABNORMAL) Comprehensive metabolic panel (07/26/2024 10:46 [...] 8:41 PM CDT [facility] Comment:eGFR calculated 2020 CKD-EPI equation. Calcium 8.9 8.8 - 10.4 [...] BLOOD ORDERA BLES Final Result [facility] [address] [facility] J [facility], Room 3-[address] [place] [address] documented in this encounter Visit Diagnoses Diagnosis Cirrhosis of liver (H)- Primary Cirrhosis of liver without mention of alcohol documented in this encounter Additional Health Concerns Assessment Noted Time PHQ-9 Depression Total Score: 8 06/12/19 25 12:56 PM CDT documented as of this encounter Care Teams Icd 9 Coder Relationship Specialty Start Date End Date Clinic, [facility] [address] [facility] [place] [address] PCP - General 08/24/20 Kristen Dockery, RN Registered Nurse Nurse 11/09/23 Kristen Dockery, venereal disease investigatorHand Alterations Tailor Nurse 05/19/24 Meliza Villaseñor MD [address] [place] [address] Advertising Assistant Manager Internal Medicine 05/19/24 Lanny Meléndez APRN CNP [facility] [address] [place] [address] Referring Physician Internal Medicine 05/19/24 Gala Fair, [facility] College Associate 05/20/24 Meliza Villaseñor MD [address] [place] [address] Physician Internal Medicine 05/20/24 Trey Abraham MD [address] [facility] 195 [place] [address] Surgery 05/20/[address] [facility] [address] [facility] 84 [place] [address] Registered Dietitian Dietitian, Registered 05/20/24 Dixon Hernandez MD [address] [facility] [address] [place], [place] 9429[address] Cardiovascular Disease 05/20/24 Jes Arrington MD [address] [facility] [address] [place], [place] 39[address] Gastroenterology 06/24/24 documented as of this encounter
--- OUTSIDE RECORDS SUMMARY | 2024-08-01 07:53 | XMS_ITS | Encounter Summary ---
Author Organization [place] Address [address] [place] [address] Care Team Providers Care Resource Technician Name Role Phone Clinic, [facility] Primary Care Provider Kristen Dockery RN Unavailable Unavaila Kristen Bermudez RN Unavailable Unavaila Meliza James MD Unavailable [phone] Lanny Meléndez APRN PROGRAM ENGAGEMENT DIRECTOR Unavailable [phone] Gala Fair UX ENGINEER Unavailable [phone] Meliza Villaseñor MD Unavailable [phone] Trey Abraham MD Unavailable [phone] Unavailable Unavail able Dixon Hernandez MD Unavailable [phone] Jes Arrington MD Unavailable + Encounter Details Date Type Department Care Team (Late st Contact Info) Description 07/05/2024 Telephone [facility] [address] [place] [address] Kristen Dockery RN Social History [...] PM CDT Legal 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 Discussed with infectious sx or anybleeding documented in this encounter Plan of Treatment Upcoming Encounters Date Type Department Care Team (Late st Contact Info) Description 08/05/2024 10:45 AM CDT Lab [facility] [address] [place] [phone] 08/26/2024 10:30 AM CDT Appointment [facility] [address] [place] [phone] Meliza Villaseñor MD [address] [place] [address] 08/26/2024 12:00 PM CDT Appointment [facility] Imaging [address] [place] [phone] Meliza Villaseñor MD [address] [place], [place] [id number] 09/12/2024 11:00 AM CDT Office Visit [facility] [address] [facility] [address] 2nd [place] [address] Dixon Hernandez MD [address] [address] 10/01/2024 PRE VISIT [facility] [address] [place] [phone] Dixon Hernandez MD [address] [place] [address] Previsit documented as of this encounter Results * (ABNORMAL) INR (07/06/2024 9:29 AM CDT) Pathologist [facility] INR 2.06(H) 0.85 - 1.15 07/06/2024 9:45 AM CDT LABORATORY PT 23.0(H) 11.8 - 14.8 Seconds 07/06/2024 9:45 AM CDT LABORATORY Blood STRUCTURE OF RIGHT UPPER LIMB / Unknown Venipuncture / Unknown 07/06/2024 9:29 AM CDT 07/06/2024 9:29 AM CDT us Jes Arrington MD LAB - BLOOD ORDERA BLES Final Result LABORATORY [facility] Lab [address] [facility] Lab (1st floor, no room number) [place] [address], [facility] * (ABNORMAL) Comprehensive metabolic panel (07/06/2024 9:29 AM CDT) Pathologist [facility] Sodium 132(L) 135 - 145 mmol/L 07/06/2024 10:03 AM [facility] Potassium 3.6 3.4 - 5.3 mmol/L 07/06/2024 10:03 AM [facility] Carbon Dioxide (CO2) 27 22 - 29 mmol/L 07/06/2024 10:03 AM [facility] Anion Gap 14 7 - 15 mmol/L 07/06/2024 10:03 AM [facility] Urea Nitrogen 25.6(H) 8.0 - 23.0 mg/dL 07/06/2024 10:03 AM [facility] Creatinine 1.90(H) 0.51 - 0.95 mg/dL 07/06/2024 10:03 AM [facility] GFR Estimate 30(L) >60 mL/min/1.7 3m2 07/06/2024 10:03 AM [facility] Comment:eGFR calculated usin 2020 CKD-EPI equation. Calcium 8.3(L) 8.8 - 10.4 mg/dL 07/06/2024 10:03 AM [facility] Chloride 91(L) 98 - 107 mmol/L 07/06/2024 10:03 AM [facility] Glucose 101(H) 70 - 99 mg/dL 07/06/2024 10:03 AM [facility] Alkaline Phosphatase 208(H) 40 - 150 U/L 07/06/2024 10:03 AM [facility] AST 31 0 - 45 U/L 07/06/2024 10: AM [facility] ALT 17 0 - 50 U/L 07/06/2024 10:03 AM [facility] Protein Total 6.1(L) 6.4 - 8.3 g/dL 07/06/2024 10:03 AM [facility] Albumin 2.8(L) 3.5 - 5.2 g/dL 07/06/2024 10:03 AM [facility] Bilirubin Total 10.7(H) <=1.2 mg/dL 07/06/2024 10: AM [facility] Blood STRUCTURE OF RIGHT UPPER LIMB / Unknown Venipuncture / Unknown 07/06/2024 9:29 AM CDT 07/06/2024 9:29 AM CDT us Jes Arrington MD LAB - BLOOD ORDERA BLES Final Result [facility] Acute [facility] Lab [address] Lab (1st floor, no room number) [place] [address], [facility] documented in this encounter Visit Diagnoses Diagnosis Cirrhosis of liver (H)- Primary Cirrhosis of liver without mention of alcohol documented in this encounter Additional Health Concerns Assessment Noted Time PHQ-9 Depression Total Score: 8 06/12/19 25 12:56 PM CDT documented as of this encounter Care Teams Resource Technician Relationship Specialty Start Date End Date Clinic, [facility] [address] [place], [place] [phone] PCP - General 08/24/20 Kristen Dockery, RN Registered Nurse Nurse 11/09/23 Kristen Dockery data examination clerkLaser Beam Trim Operator Nurse 05/19/24 Meliza Villaseñor MD [address] [place] [address] Drafting Detailer Internal Medicine 05/19/24 Lanny Meléndez APRN PROGRAM ENGAGEMENT DIRECTOR [facility] [address] [place], [place] [address] Referring Physician Internal Medicine 05/19/24 Gala Fair, [facility] Information Technology Program Manager 05/20/24 Meliza Villaseñor MD [address] [place], [place] [address] Physician Internal Medicine 05/20/24 Trey Abraham MD [address] [place] [address] [address] [place], [place] [phone] Surgery 05/20/[address] [facility] [address] [facility] [address] [facility] [address] [place] [address] Registered Dietitian Dietitian, Registered 05/20/24 Dixon Hernandez MD [address] [facility] [address] [place] [address] Cardiovascular Disease 05/20/24 Jes Arrington MD [address] [facility] [address] [place], [place] [phone] Gastroenterology 06/24/24 documented as of this encounter
--- OUTSIDE RECORDS SUMMARY | 2024-08-01 07:53 | XMS_ITS | Encounter Summary ---
Author Organization [place] Address [address] [place] [address] Care Team Providers Care Window Draper Name Role Phone Clinic, [facility] Primary Care Provider Kristen Dockery RN Unavailable Unavaila Kristen Bermudez RN Unavailable Unavaila Meliza James MD Unavailable [phone] Lanny Meléndez APRN LAY OUT WORKER Unavailable [phone] Gala Fair TOOLROOM ATTENDANT Unavailable [phone] Meliza Villaseñor MD Unavailable [phone] Trey Abraham MD Unavailable [phone] Unavailable Unavail able Dixon Hernandez MD Unavailable [phone] Jes Arrington MD Unavailable + Encounter Details [...] PM CDT 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 [address] [place] [address] Meliza Villaseñor MD [address] [place] [address] 08/26/2024 12:00 PM CDT Appointment [facility] Imaging [address] [place] [address] Meliza Villaseñor MD [address] [place] [address] 09/12/2024 11:00 AM CDT Office Visit [facility] [address] 2nd [place] [phone] Dixon Hernandez MD [address] [place] [phone] 10/01/2024 PRE VISIT [facility] [address] [place] [phone] Dixon Hernandez MD [address] [place] [address] Previsit documented as of this encounter Visit Diagnoses Not on filedocumented in this encounter Additional Health Concerns Assessment Noted Time PHQ-9 Depression Total Score: 8 06/12/19 12:56 PM CDT documented as of this encounter Care Teams Window Draper Relationship Specialty Start Date End Date Clinic, [facility] [address] [place], [place] [phone] PCP - General 08/24/20 Kristen Dockery, RN Registered Nurse Nurse 11/09/23 Kristen Dockery, cream haulerAstronomy Instructor Nurse 05/19/24 Meliza Villaseñor MD [address] [place] [address] Rehab Therapist Internal Medicine 05/19/24 Lanny Meléndez APRN LAY OUT WORKER [facility] [address] [place] [address] Referring Physician Internal Medicine 05/19/24 Gala Fair, [facility] Patternmaker 05/20/24 Meliza Villaseñor MD [address] [place] [address] Physician Internal Medicine 05/20/24 Trey Abraham MD [address] [facility] [address] [place] [address] Surgery 05/20/[address] [facility] [address] [facility] [address] [place] [address] Registered Dietitian Dietitian, Registered 05/20/24 Dixon Hernandez MD [address] [facility] [address] [place] [address] Cardiovascular Disease 05/20/24 Jes Arrington MD 6 [facility] [address] [place] [address] Gastroenterology 06/24/24 documented as of this encounter
--- OUTSIDE RECORDS SUMMARY | 2024-08-01 07:53 | XMS_ITS | Clinical Summary ---
Author Organization [facility] Address [address] [place] [address] Care Team Providers Care Care Assistant Name Role Phone Clinic, Formerly [facility] Primary Care Provider Kristen Dockery RN Unavailable Unavaila Kristen Bermudez RN Unavailable Unavaila Meliza James MD Unavailable [phone] Lanny Meléndez APRN DIRECTOR OF CORPORATE COMMUNICATIONS Unavailable [phone] Gala Fair TRIM MACHINE OPERATOR Unavailable [phone] Meliza Vilalseñor MD Unavailable [phone] Trey Abraham MD Unavailable [phone] Unavailable Unavail able Dixon Hernandez MD Unavailable [phone] Jes [place] MD Unavailable + Allergies Active Allergy Reactions Criticality Noted Date Comments Sulfa Antibiotics Itching,Rash,Hives Low 05/27/2005 Medications * This document contains information received from the source organization and may not represent a complete record from that organization. gabapentin (NEURONTIN) 300 MG capsule Take 300 mg by mouth 3 times daily Active Potassium Chloride Ramila ER (KLOR-CON M20 PO) Take 20 mEq by mouth 2 times daily Active loratadine-ps eudoePHEDrine (CLARITIN-D 24-HOUR) 10-240 MG 24 hr tablet Take 1 tablet by mouth daily. Active hydrOXYzine HCl (ATARAX) 10 MG tablet Take 10 mg by mouth 3 times daily as needed for itching. Active furosemide (LASIX) 20 MG tablet Take 20 mg by mouth daily. Active spironolacton e (ALDACTONE) 25 MG tabletIndicat ions:Alcoholi c cirrhosis (H) Take 2 tablets (50 mg) by mouth daily. 120 tablet 1 07/30/19 25 Active EPINEPHrine (ANY BX GENERIC EQUIV) 0.3 MG/0.3ML injection 2-pack Inject 0.3 mg into the muscle as needed for anaphylaxis 025 Discontinued fluticasone (CUTIVATE) 0.05 % external cream Apply topically 2 times daily as needed 025 Discontinued fluticasone (FLONASE) 50 MCG/ACT nasal spray [place] 2 sprays into both nostrils daily 025 Discontinued triamcinolone (KENALOG) 0.1 % external cream Apply topically 2 times daily as needed for irritation 025 Discontinued omalizumab (XOLAIR) 150 MG injection Inject Subcutaneous every 28 days 025 Discontinued hydroCHLOROth iazide 12.5 MG tablet Take 12.5 mg by mouth daily. 025 Discontinued spironolacton e (ALDACTONE) 25 MG tablet Take 50 mg by mouth daily. 025 Discontinued(R eorder (No AVS)) Active Problems Problem Noted Date Diagnosed Date [...] organization. Date Type Department Care Team Description 07/29/2024 MyC Medical Advice [facility] Transplant [address] [phone] Kristen Dockery RN 07/29/2024 Orders Only [facility] Transplant [address] [phone] Kristen Dockery RN Alcoholic cirrhosis (H) (Primary Dx) 07/29/2024 Results Follow-Up [address] [phone] Kristen Dockery RN Subj: Meds 07/26/2024 10:30 AM CDT Lab [facility] [address] [place] [address] Cirrhosis of liver (H) 07/26/2024 Travel 07/25/2024 MyC Medical Advice [address] [phone] Gala Fair LICSW 07/25/2024 Documentation Only [facility] Transplant [address] [phone] Kristen Dockery RN Cirrhosis of liver (H) (Primary Dx) 07/25/2024 MyC Medical Advice Initial Department Kristen Dockery RN 07/16/2024 2:30 PM CDT Ancillary Procedure [facility] [address] [place] [phone] Jes [place] MD Alcoholic cirrhosis (H); Cirrhosis, alcoholic (H) 07/16/2024 1:50 PM CDT Ancillary Procedure [facility] Xray [address] [phone] Jes [place] MD Alcoholic cirrhosis (H); Cirrhosis, alcoholic (H) 07/16/2024 12:50 PM CDT Ancillary Procedure [address] [phone] Jes [place] MD Alcoholic cirrhosis (H); Cirrhosis, alcoholic (H) 07/16/2024 12:00 PM CDT Allied Health/Nurse Visit [facility] Transplant [address] [phone] Jes [place] MD Kondziolka, Katherine, RAFIQ Cirrhosis of liver (H) (Primary Dx) 07/16/2024 11:00 AM CDT Office Visit [facility] Transplant [address] [phone] Jes [place] MD Pruett, Trey Calvillo MD Encounter for pre-transplant evaluation for liver transplant (Primary Dx); Alcoholic cirrhosis of liver with ascites (H); History of cholecystectomy; Edema, unspecified type 07/16/2024 10:00 AM CDT Office Visit [address] [phone] Jes [place] MD Alcoholic cirrhosis of liver with ascites (H) (Primary Dx) 07/16/2024 9:00 AM CDT Allied Health/Nurse Visit [facility] Transplant [address] [phone] Jes [place] MD Debronsky, Leah P, [facility] Social Work Services 07/16/2024 8:30 AM CDT Allied Health/Nurse Visit [facility] Transplant [address] [phone] Jes [place] MD Alcoholic cirrhosis (H); Cirrhosis, alcoholic (H) 07/16/2024 8:10 AM CDT Orders Only [facility] [address] [phone] Jes [place] MD Alcoholic cirrhosis (H); Cirrhosis, alcoholic (H) 07/16/2024 7:30 AM CDT Lab [address] [phone] Jes [place] MD Cirrhosis of liver with ascites (H); Cirrhosis, alcoholic (H) 07/16/2024 MyC Medical Advice [facility] Trans[facility] Clinic [address] [place] [phone] Gala Fair, TRIM MACHINE OPERATOR 07/16/2024 Travel 07/13/2024 Travel 07/11/2024 PRE VISIT [facility] Hepatology [facility] [address] [phone] Shanthi Griffin MD *-*INCOMING RECORDS*-* 07/10/2024 MyC Medical Advice Initial Department Kristen Dockery RN 07/06/2024 9:20 AM CDT Lab [facility] [address] [place] [phone] Cirrhosis of liver (H) 07/06/2024 Travel 07/05/2024 Telephone [facility] Trans[facility] Clinic [address] [place] [phone] Kristen Dockery RN 07/05/2024 Telephone [facility] Transplant Clinic [address] [place] [phone] Kristen Dockery RN 07/04/2024 Results Follow-Up [facility] Transplant [address] [phone] Kristen Dockery RN 07/03/2024 9:30 AM CDT Lab [facility] [address] [place] [phone] Alcoholic cirrhosis (H); Cirrhosis, alcoholic (H) 07/03/2024 MyC Medical Advice Initial Department Kristen Dockery RN 07/03/2024 Travel 07/02/2024 External Order Results [facility] [address] [place] [address] Outside, Provider 07/02/2024 Telephone [facility] Transplant Clinic [address] [place] [phone] Kristen Docekry RN 07/01/2024 MyC Medical Advice [facility] Transplant Clinic [address] [place] [phone] Kristen Dockery RN 06/24/2024 Telephone [facility] Transplant Clinic [address] [place] [phone] Kristen Dockery RN Cancel/Reschedule 06/11/2024 Travel 06/03/2024 MyC Medical Advice Initial Department Kristen Dockery RN 06/03/2024 Telephone [facility] [address] [place], [place] [address]e [address] [place] [phone] Neftali Elizabeth MD 05/30/2024 External Order Results [facility] [address] [place] [address] Outside, Provider 05/09/2024 MyC Medical Advice Initial Department Kristen Dockery RN from Last 3 Months Immunizations Immunization Administration Dates Next Due Influenza (IIV3) PF 12/18/2009 Influenza, Split Virus, Triv alent, Pf (Fluzone\Fluarix) 12/15/2008 TDAP (Adacel,Boostrix) 08/25/2020,02/13/2009 Zoster recombinant adjuvanted (Shingrix) 018,08/22/2017 Family History Medical History Relation Comments Diabetes [...] PM CDT Legal Sex 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 Gender Identity Female 10/31/2023 12:26 PM CDT Sexual Orientation Straight 10/31/2023 12 :26 PM CDT Last Filed Vital Signs Vital Sign Reading Time Taken Comments Blood Pressure 124/72 07/16/2024 8:36 AM CDT Pulse 93 07/16/2024 8:36 AM CDT Temperature 36.4 C (97.6 F) 08/27/2020 4:46 PM CDT Respiratory Rate 12 08/27/2020 4:46 PM CDT Oxygen Saturation 96% 07/16/2024 8:36 AM CDT Inhaled Oxygen Concentration - - Weight 65.8 kg (145 lb) 07/16/2024 8:36 AM CDT Height 175.3 cm (5' 9) 07/16/2024 8:36 AM CDT Body Mass Index 21.41 07/16/2024 8:36 AM CDT Plan of Treatment Upcoming Encounters Date Type Department Care Team (Late st Contact Info) Description 08/05/2024 10:45 AM CDT Lab [facility] [address] [place] [address] 08/26/2024 10:30 AM CDT Appointment [facility] [address] [place] [phone] Meliza Villaseñor MD [facility] [address] 08/26/2024 12:00 PM CDT Appointment [facility] [address] [place] [phone] Meliza Villaseñor MD [address] [place] [address] 09/12/2024 11:00 AM CDT Office Visit [facility] Heart [address] 2nd [place] [phone] Dixon Hernandez MD [address] [facility] [address] [place] [address] 10/01/2024 PRE VISIT [facility] [address] [facility] [place] [phone] Dixon Hernandez MD [address] [place] [address] Previsit Health Maintenance Due Date Last Done Comments ADVANCE CARE PLANNING 1960 ANNUAL REVIEW OF HM ORDERS 1960 CT COLONOGRAPHY 1962 FIT 1960 FLEX SIG 1962 sDNA (Cologuard) 1960 YEARLY PREVENTIVE VISIT 10/21/2020 10/22/2019 COVID-19 VACCINE (2 - Roma risk series) 12/25/2020 11/27/2020 RSV VACCINE (1 - Risk 60-74 years 1-dose series) 2022 HEPATITIS B VACCINE (2 of 3 - Risk 3-dose series) 08/16/2024 07/19/2024 INFLUENZA VACCINE (Season Ended) 2024 12/18/2009, 12/15/2008 HEPATITIS A VACCINE (2 of 2 - Risk 2-dose series) 01/18/2025 07/19/2024 BMP 07/26/2025 07/26/2024, 0604/2024, 07/06/2024, Additional history exists MAMMO SCREENING 05/20/2026 05/20/2024, 10/14, 11/21/2008, Additional history exists DIABETES SCREENING 07/27/2027 07/26/2024, 0 07/16/2024, 07/06/2024, Additional history exists HPV TEST 03/01/2029 03/01/2024 PAP 03/01/2029 03/01/2024, 02/13, 10/22/2019 COLONOSCOPY 04/04/2029 04/04/2024, 03/17, 02/03/2023, Additional history exists COLORECTAL CANCER SCREENING 04/04/2029 LIPID 07/03/2029 07/03/2024, 03/01/2024 DTAP/TDAP/TD VACCINE (3 - Td or Tdap) 08/25/2030 08/25/2020, 02/13/2009 ZOSTER VACCINE Completed 11/03/2017, 08/22/2017 PHQ-2 (once per calendar year) Completed 06/12/2024, 06/12/2024 HEPATITIS C SCREENING Completed 07/03/2024 , 03/01/2024, 09/12/2023 HIV SCREENING Completed 07/03/2024 PNEUMOCOCCAL VACCINE 50+ YEARS Completed 07/24/2024 HPV VACCINE Aged Out No longer eligi ble based on patient's age to complete this topic MENINGITIS VACCINE Aged Out No longer eligible based on patient's age to complete this topic Procedures Procedure Name Priority Date/Time Associated Diagnosis Comments PHOSPHATIDYLETHANOL (PETH), WHOLE BLOOD Routine 07/26/2024 10:46 AM CDT Cirrhosis of liver (H) COMPREHENSIVE METABOLIC PANEL Routine 07/26/2024 10:46 AM CDT Cirrhosis of liver (H) DX AXIAL AND PERIPHERAL Routine 07/17/19 2:32 PM CDT Alcoholic cirrhosis (H) Cirrhosis, alcoholic (H) US ABDOMEN COMPLETE WITH DOPPLER COMPLETE Routine 07/16/2024 12:43 PM CDT Alcoholic cirrhosis (H) Cirrhosis, alcoholic (H) XR CHEST 2 VIEWS Routine 07/16/2024 12:1 [...] liver with ascites (H) Cirrhosis, alcoholic (H) EKG 12-LEAD, TRACING ONLY Routine 2024 7:15 AM CDT Alcoholic cirrhosis (H) Cirrhosis, alcoholic (H) INR AALIYAH 07/06/2024 9:29 AM CDT Cirrhosis [...] 07/03/2024 9:42 AM CDT Alcoholic cirrhosis (H) BASIC METABOLIC PANEL Routine 07/02/2024 8:47 AM CDT HEPATITIS B CORE ANTIBODY Routine 2024 8:38 AM CDT BASIC METABOLIC PANEL Routine 05/30/2024 8:38 AM CDT MAMMOGRAM - HIM SCAN 05/20/2024 12:00 AM CDT COLONOSCOPY - HIM SCAN 12:00 AM CARTOGRAPHY TECHNICIAN ABSTRACT PAP ([facility] EXTERNAL RESULT) Routine 03/01/2024 3:40 PM CARTOGRAPHY TECHNICIAN ABSTRACT HPV ([facility] EXTERNAL RESULT) Routine 03/01/2024 3:40 PM CARTOGRAPHY TECHNICIAN from Last 3 Months or Most Recently Relevant to Health Maintenance Results * Phosphatidylethanol (PEth), Whole Blood (07/26/2024 10:46 AM CDT) Only the most recent of3 resultswithin the time period is included. PEth 16:0/18:1 (POPEth) <10 ng/mL 07/28/2024 11:38 AM CDT [facility] Comment: PEth 16:0/18:1 (POPEth) Less than 10 ng/mL............Not detected Less than 20 ng/mL............Abstinence or light alcohol consumption 20 - 200 ng/mL................Moderate alcohol consumption Greater than 200 ng/mL........Heavy alcohol consumption or chronic alcohol use (Reference: Eligio Day and Dixon Evans 2018 J. Forensic Sci) PEth 16:0/18:2 (PLPEth) <10 ng/mL 07/28/2024 11:38 AM [facility] Comment:Reference ranges are not well established. EER Phosphatidylethanol (PETH) See Note 07/28/2024 11:38 AM [facility] Comment: Authorized individuals can access the [facility] Enhanced Report with an [facility] Connect account using the following link. Your local lab can assist you in obtaining the patient report if you don't have a Connect account. [email or web address] PEth Interpretation See Comment 07/28/2024 11:38 AM [facility] Comment: Phosphatidylethanol (PEth) is a group [...] developed and its performance characteristics determined by [facility]. It has not been cleared or approved by the U.S. Food and Drug Administration. This test was performed in a CLIA-certified laboratory and is intended for clinical purposes. Performed By: [facility] [address] [place] [address] Rehab Specialist: Sedrick Santos MD, PhD CLIA Number: [id number] Blood BLOOD SPECIMEN / Unknown Venipuncture / Unknown 07/26/2024 10:46 AM CDT 07/26/2024 10:46 AM CDT us Jes [place] MD LAB - BLOOD ORDERA BLES Final Result [facility] [address] [place] [address], [facility] [phone] * (ABNORMAL) Comprehensive metabolic panel (07/26/2024 10:46 AM CDT) Only the most recent of4 resultswithin the time period is included. Sodium 134(L) 135 - 145 mmol/L 07/26/2024 [...] BLOOD ORDERA BLES Final Result [facility] [address] [facility], Room [address] [phone] * DX AXIAL AND PERIPHERAL (07/16/2024 2:32 PM CDT) Anatomical Region Laterality Modality Dexa Bone Mineral Den sity Narrative 07/18/2024 8:49 AM CDT Images from the original result were not included. [facility] - [address], [place] [address] Phone: Fax: Impression Based on BMD diagnosis [...] increased for patients on corticosteroids. Principal result spanish interpreter: Karon Suarez MD, [facility] Division of Endocrinology and Diabetes Department [...] LSC = least significant changes at the [facility] Imaging Center (historical data) AP [...] findings. TEVIN MONK MD Jes [place] MD [facility] [place] ORDERABLES Final Result * X-ray Chest [...] DIAGNOSTIC AL GING ORDERABLES Final Result * Ethyl Glucuronide Screen with Reflex to Confirmation, Urine (07/16/2024 11:54 AM CDT) Only the most recent of2 resultswithin the time period is included. Ethyl Glucuronide Urine Negative Cutoff 500 ng/mL 07/17/2024 4:32 PM CDT [employer] [facility] Comment: Presumptive Negative by immunoassay. Testing by [...] chromatography tandem mass spectrometry (LC-MS/MS). Performed By: [facility] [address] [place] [address] Rehab Specialist: Sedrick Santos MD, PhD CLIA Number: [id number] Urine URINE SPECIMEN OBTAINED BY CLEAN CATCH PROCEDURE / Unknown Non-blood Collection / Unknown 07/16/2024 11:54 AM CDT 07/16/2024 11:54 AM CDT us Jes [place] MD LAB - URINE ORDERA BLES Final Result [facility] [address] [place] [address], [facility] [phone] * Adult Type and Screen (07/16/2024 7:23 AM CDT) Only the most recent of2 resultswithin the time period is included. ABO/RH(D) A POS 07/15/2024 7:00 PM CDT BLOOD BANK Antibody Screen Negative Negative 07/15/2024 7:00 PM CDT BLOOD BANK SPECIMEN EXPIRATION DATE 07/19/2024 11:59:00 PM CDT 07/15/2024 7:00 PM CDT BLOOD BANK Blood STRUCTURE OF RIGHT UPPER LIMB / Unknown Venipuncture / Unknown 07/16/2024 7:23 AM CDT 07/16/2024 7:23 AM CDT us Jes [place] MD LAB - BLOOD BANK T EST ORDER Final Result Performing Organization Address City/[facility] Co de Phone Number BLOOD BANK [address] [place] [address] * (ABNORMAL) INR (07/16/2024 7:23 AM CDT) Only the most recent of3 resultswithin the time period is included. INR 1.52(H) 0.85 - 1.15 07/16/2024 7:49 AM CDT [facility] PT 18.4(H) 11.8 - 14.8 Seconds 07/16/2024 7:49 AM CDT [facility] Blood STRUCTURE OF RIGHT UPPER LIMB / Unknown Venipuncture / Unknown 07/16/2024 7:23 AM CDT 07/16/2024 7:23 AM CDT Jes [place] MD LAB - BLOOD ORDERA BLES Final Result [facility] [place] - [address] 1st [place] [address] * (ABNORMAL) CBC with platelets (07/16/2024 7:23 AM CDT) Only the most recent of2 resultswithin the time period is included. WBC Count 4.8 4.0 - 11.0 10e3/uL 07/16/2024 7:38 AM CDT [facility] RBC Count 2.55(L) 3.80 - 5.20 10e6/uL 07/16/2024 7:38 AM CDT [facility] Hemoglobin 8.6(L) 11.7 - 15.7 g/dL 07/16/2024 7:38 AM CDT [facility] Hematocrit 25.3(L) 35.0 - 47.0 % 07/16/2024 7:38 AM CDT [facility] MCV 99 78 - 100 fL 07/16/2024 7:38 AM CDT [facility] MCH 33.7(H) 26.5 - 33.0 pg 07/16/2024 7:38 AM CDT [facility] MCHC 34.0 31.5 - 36.5 g/dL 07/16/2024 7:38 AM CDT [facility] RDW 16.5(H) 10.0 - 15.0 % 07/16/2024 7:38 AM CDT [facility] Platelet Count 127(L) 150 - 450 10e3/uL 07/16/2024 7:38 AM CDT [facility] Blood STRUCTURE OF RIGHT UPPER LIMB / Unknown Venipuncture / Unknown 07/16/2024 7:23 AM CDT 07/16/2024 7:23 AM CDT Jes [place] MD LAB - BLOOD ORDERA BLES Final Result [facility] [place] - [address] 1st [place] [address] * EKG 12-lead, tracing only [EKG1] (07/16/2024 7:15 AM CDT) Systolic Blood Pressure mmHg RADIOLOGY RESULTS Diastolic Blood Pressure mmHg RADIOLOGY RESULTS Ventricular Rate 91 BPM RAD IOLOGY RESULTS Atrial Rate 91 BPM RADIOLOG Y RESULTS WV Interval 180 ms RADIOLOG Y RESULTS QRS Duration 92 ms RADIOLO GY RESULTS QT 412 ms RADIOLOGY RESULTS QTc 506 ms RADIOLOGY RESULTS P [place] 62 degrees RADIOLOGY RESULTS R AXIS 34 degrees RADIOLOGY RESULTS T [place] 58 degrees RADIOLOGY RESULTS Interpretation ECG Sinus [...] cutoff: Nicotine 15 ng/mL Cotinine 15 ng/mL 1-RN-Dfreaixr 50 ng/mL Anabasine 5 ng/mL For medical [...] developed and its performance characteristics determined by [facility]. It has not been cleared or approved by the US Food and Drug Administration. This test was performed in a CLIA certified laboratory and is intended for clinical purposes. Performed By: [facility] [address] [place] [address] Rehab Specialist: Sedrick Santos MD, PhD CLIA Number: [id number] [id number]-Prfsakii, Urn, Quant <50 ng/mL 07/07/2024 11:38 AM CDT [facility] Anabasine, Urn, Quant <5 ng/mL 07/07/2024 11:38 AM CDT [facility] Urine URINE SPECIMEN OBTAINED BY CLEAN CATCH PROCEDURE / Unknown Non-blood Collection / Unknown 07/03/2024 2:36 PM CDT 07/03/2024 2:36 PM CDT Jes [place] MD LAB - URINE ORDERA BLES Final Result [address] [address], [facility] [phone] * (ABNORMAL) UA Macroscopic with reflex to [...] mg/dL 07/03/2024 2:41 PM CDT LABORATORY [facility] Urine 1.015 1.003 - 1.035 07/03/2024 2:41 [...] - URINE ORDERA BLES Final Result LABORATORY [facility] [address] [facility] (no room number, 1st floor of clinic) [place] [address] * Protein random urine (07/03/2024 2:36 PM [...] - URINE ORDERA BLES Final Result LABORATORY [facility] Acute [facility] Lab [address] [facility] Lab (Main level, no room number) [place] [address], [place] * (ABNORMAL) Urine Microscopic Exam (07/03/2024 2:36 [...] - URINE ORDERA BLES Final Result LABORATORY [facility] [place] [facility] [address] [facility] Lab (no room number, 1st floor of clinic) [place] [address], [facility] * Urine Culture (07/03/2024 2:36 PM CDT) Culture <10,000 CFU/mL Mixture of Urogenital Zakia 07/05/2024 5:38 AM CDT [facility] Urine URINE SPECIMEN OBTAINED BY CLEAN CATCH PROCEDURE / Unknown Non-blood Collection / Unknown 07/03/2024 2:36 PM CDT 07/03/2024 2:41 PM CDT us Jes [place] MD LAB - MICRO GENERA L ORDERABLES Final Result [facility] Inf. Diseases Diag. Lab [address] [facility], [address] * Quantiferon TB Gold Plus (07/03/2024 9:42 AM CDT) [facility] Quantiferon-TB Gold Plus Negative Negative 07/04/2024 [...] Result 1.03 IU/mL 07/04/2024 2:22 PM CDT SPECIALTY CORE/PROT/END O Nil Result 0.05 IU/mL 07/04/2024 2:22 PM CDT SPECIALTY CORE/PROT/END O Blood BLOOD SPECIMEN / Unknown Venipuncture / Unknown 07/03/2024 9:42 AM CDT 07/03/2024 2:29 PM CDT us Jes [place] MD LAB - MICRO GENERA L ORDERABLES Final Result SPECIALTY CORE/PROT/ENDO Specialty Core/Prot/Endo 500 [facility], Room 3[address] * Quantiferon TB Gold Plus Purple Tube (07/03/2024 9:42 AM CDT) [facility]on Mitogen 1.08 IU/mL 07/04/2024 12:05 PM CDT [facility] SPECIALTY CORE/PROT/ENDO Blood BLOOD SPECIMEN / Unknown Venipuncture / Unknown 07/03/2024 9:42 AM CDT 07/03/2024 2:29 PM CDT Jse [place] MD LAB - MICRO GENERA L ORDERABLES Final Result [facility] SPECIALTY CORE/PROT/ENDO [facility] Specialty Core/Prot/Endo [address] [facility], Room [address] * Quantiferon TB Gold Plus Yellow Tube (07/03/2024 9:42 AM CDT) Quantiferon TB2 Tube 0.05 07/04/2024 12:56 PM CDT SPECIALTY CORE/PROT/ENDO Blood BLOOD SPECIMEN / Unknown Venipuncture / Unknown 07/03/2024 9:42 AM CDT 07/03/2024 2:29 PM CDT Jes [place] MD LAB - MICRO GENERA L ORDERABLES Final Result [facility] SPECIALTY CORE/PROT/ENDO Specialty Core/Prot/Endo 500 [facility], Room [address] * Quantiferon TB Gold Plus Green Tube (07/03/2024 9:42 AM CDT) Quantiferon TB1 Tube 0.04 IU/mL 07/04/2024 12:56 PM CDT SPECIALTY CORE/PROT/ENDO Blood BLOOD SPECIMEN / Unknown Venipuncture / Unknown 07/03/2024 9:42 AM CDT 07/03/2024 2:29 PM CDT Jes [place] MD LAB - MICRO GENERA L ORDERABLES Final Result [facility] SPECIALTY CORE/PROT/ENDO UM Specialty Core/Prot/Endo 500 [facility], Room 3[address] * Quantiferon TB Gold Plus Estevez Tube (07/03/2024 9:42 AM CDT) [facility] Nil Tube 0.05 IU/mL 07/04/2024 12:57 PM CDT [facility] SPECIALTY CORE/PROT/ENDO Blood BLOOD SPECIMEN / Unknown Venipuncture / Unknown 07/03/2024 9:42 AM CDT 07/03/2024 2:29 PM CDT Jes [place] MD LAB - MICRO GENERA L ORDERABLES Final Result Performing Organization Address City/[facility] Co de Phone Number UM SPECIALTY CORE/PROT/ENDO Specialty Core/Prot/Endo 500 [facility], Room [address] * Hepatitis A Antibody Total (07/03/2024 [...] Final Result Performing Organization Address [place] [facility] Co de Phone Number LABORATORY [facility] Core Lab [address] [place] [address], Room [address] [place], [place] [phone] * Hepatitis B Surface Antibody (07/03/2024 9:42 AM CDT) [facility] Hepatitis B Surface Antibody Nonreactive 07/03/2024 [...] ORDERA BLES Final Result Performing Organization Address City/[facility]/ZIP Co de Phone Number LABORATORY [facility] Core Lab [address] [place] [address], [place] [phone] * (ABNORMAL) EBV Capsid Antibody IgG (07/03/2024 9:42 AM CDT) [facility] EBV Capsid Gaby IgG Instrument Value [...] UM SPECIALTY CORE/PROT/ENDO UM Specialty Core/Prot/Endo [address] [facility] [address], Room [id number] [place] [address] SPECIALTY LABS UM Specialty Lab 500 [facility] [address] Building, Room [address] [phone] * CMV Antibody IgG (07/03/2024 9:42 AM CDT) [facility] CMV Gaby IgG Instrument Value <0.20 [...] UM SPECIALTY CORE/PROT/ENDO UM Specialty Core/Prot/Endo 500 [facility] [address] Building, Room [phone] [place] [address] SPECIALTY LABS Specialty Lab 500 [facility] Unit [facility], Room [address] [phone], [facility] * Rapid Plasma Reagin w Rflx to TITER (07/03/2024 9:42 AM CDT) [facility] Rapid Plasma Reagin Nonreactive Nonreactive 07/04/2024 11:40 AM CDT SPECIALTY CORE/PROT/EN DO Comment:Specimen sent to ARU P(Associated Replaced By [facility]) for confirmation. Blood BLOOD SPECIMEN [...] Final Result SPECIALTY CORE/PROT/ENDO Specialty Core/Prot/Endo 500 [facility], Room 3-[address] * (ABNORMAL) Treponema Abs w Reflex to RPR and Titer (07/03/2024 9:42 AM CDT) Pathologist [facility] Treponema Antibody Total Reactive( A) Nonreactive 07/03/2024 [...] Final Result Performing Organization Address [facility] Co de Phone Number UM SPECIALTY CORE/PROT/ENDO UM Specialty Core/Prot/Endo 500 [facility], Room [address] [place] [address] UM SPECIALTY LABS Specialty Lab 500 [facility], Room [address] [place] [address] * Quantiferon TB Gold Plus Collection (07/03/2024 9:42 AM CDT) Blood BLOOD SPECIMEN / Unknown Venipuncture / Unknown 07/03/2024 9:42 AM CDT 07/03/2024 9:42 AM CDT Jes Arrington MD LAB - MICRO GENERA L ORDERABLES Final Result Performing Organization Address City/[facility] Co de Phone Number UM SPECIALTY CORE/PROT/ENDO Specialty Core/Prot/Endo 500 [facility], Room [address] * Quantiferon TB Gold Plus Primary (07/03/2024 9:42 AM CDT) Blood BLOOD SPECIMEN / Unknown Venipuncture / Unknown 07/03/2024 9:42 AM CDT 07/03/2024 2:29 PM CDT Jes Arrington MD LAB - MICRO GENERA L ORDERABLES Final Result Performing Organization Address City/[facility] Co de Phone Number UM SPECIALTY CORE/PROT/ENDO UM Specialty Core/Prot/Endo 500 [facility], Room 3-580 [place] [address], [place] * HIV Antigen Antibody Combo Pretransplant [place] (07/03/2024 9:42 AM CDT) HIV Antigen Antibody [...] - BLOOD ORDERA BLES Final Result LABORATORY [facility] [place] Core Lab 500 [facility], Room [address] [phone] * Treponema pallidum antibody confirm (07/03/2024 9:42 AM CDT) [facility] T Pallidum by SAL conf Non Reactive Non Reactive 07/06/2024 11:07 PM CDT [employer] Comment: Performed By: [facility] [address] [place] [address] Rehab Specialist: Sedrick Santos MD, PhD CLIA Number: [id number] Blood BLOOD SPECIMEN / Unknown Venipuncture / Unknown 07/03/2024 9:42 AM CDT 07/04/2024 11:40 AM CDT Jes Arrington MD LAB - BLOOD ORDERA BLES Final Result Performing Organization Address City/[facility]/ZIP Co de Phone Number [employer] [address] [place] [phone], [facility] [phone] * Amphetamines Confirmation (07/03/2024 9:42 AM CDT) Amphetamine <20 ng/mL 07/10/2024 1:02 AM CDT [facility] Comment: INTERPRETIVE INFORMATION: Amphetamines, Serum or [...] developed and its performance characteristics determined by [facility]. It has not been cleared or approved by the US Food and Drug Administration. This test was performed in a CLIA certified laboratory and is intended for clinical purposes. Methamphetamine Confirm <20 ng/mL 07/10/2024 1:02 AM CDT [facility] MDA <20 ng/mL 07/10/2024 1:02 AM CDT [facility] MDMA <20 ng/mL 07/10/2024 1:02 AM CDT [facility] MDEA <20 ng/mL 07/10/2024 1:02 AM CDT [facility] Comment: Performed By: [facility] [address] [place] [address] Rehab Specialist: Sedrick Santos MD, PhD CLIA Number: [id number] Blood BLOOD SPECIMEN / Unknown Venipuncture / Unknown 07/03/2024 9:42 AM CDT 07/03/2024 9:42 AM CDT us Jes Arrington MD LAB - BLOOD ORDERA BLES Final Result [employer] [address] [place] [phone], [facility] [phone] * DRUG SCREEN 9, SER/DEIDRE W/RFLX TO [...] Plasma See Note 07/05/2024 1:37 PM CDT [facility] Comment: INTERPRETIVE INFORMATION: Drug Screen 9 [...] developed and its performance characteristics determined by [facility]. It has not been cleared or approved by the US Food and Drug Administration. This test was performed in a CLIA certified laboratory and is intended for clinical purposes. Performed By: [facility] [address] [place] [address] Rehab Specialist: Sedrick Santos MD, PhD CLIA Number: [id number] Cannabinoids Qual Negative Cutoff 20 ng/mL 07/05/2024 1:37 PM CDT [facility] [employer] Blood BLOOD SPECIMEN / Unknown Venipuncture / Unknown 07/03/2024 9:42 AM CDT 07/03/2024 9:42 AM CDT Jes Arrington MD LAB - BLOOD ORDERA BLES Final Result Performing Organization Address City/[facility]/ZIP Co de Phone Number [address] [phone] [phone] * (ABNORMAL) Vitamin D Deficiency (07/03/2024 9:42 AM CDT) [facility] Vitamin D, Total (25-Hydroxy) 15(L) 20 - 50 ng/mL 07/03/2024 8:43 PM CDT U LABORATORY Comment:mild to moderate def iciency Blood BLOOD SPECIMEN / Unknown Venipuncture / Unknown 07/03/2024 9:42 AM CDT 07/03/2024 9:42 AM CDT Narrative LABORATORY - 07/03/2024 8:43 PM CDT Season, race, dietary intake, and treatment affect the concentration of 10-urahjja-Ifkzmfk D. Values may decrease during winter months and increase during summer months. Vitamin D determination is routinely performed by an immunoassay specific for 25 hydroxyvitamin D3. If an individual is on vitamin D2(ergocalciferol) supplementation, please specify 25 [place] vitamin D2 and D3 level determination by LCMSMS test VITD23. Jes Arrington MD LAB - BLOOD ORDERA BLES Final Result LABORATORY [facility] [place] Core Lab 500 [facility], [address] * TSH with free T4 reflex (07/03/2024 9:42 AM CDT) TSH 2.95 0.30 - 4.20 uIU/mL 07/03/2024 10:29 PM CDT [facility] LABORATORY Blood BLOOD SPECIMEN / Unknown Venipuncture / Unknown 07/03/2024 9:42 AM CDT 07/03/2024 9:42 AM CDT Jes Arrington MD LAB - BLOOD ORDERA BLES Final Result LABORATORY [facility] Core Lab 500 [facility], Room [address] [place] [address] * (ABNORMAL) Transferrin (07/03/2024 9:42 AM CDT) Transferrin 187.0(L) 200.0 - 360.0 mg/dL 07/03/2024 8:43 PM CDT [facility] LAB[facility]ATORY Blood BLOOD SPECIMEN / Unknown Venipuncture / Unknown 07/03/2024 9:42 AM CDT 07/03/2024 9:42 AM CDT Jes Arrington MD LAB - BLOOD ORDERA BLES Final Result U LABORATORY [facility] [place] Core Lab [address] [facility], [address] * Phosphorus (07/03/2024 9:42 AM CDT) Phosphorus 2.9 2.5 - 4.5 mg/dL 07/03/2024 8:43 PM CDT [facility] LABORATORY Blood BLOOD SPECIMEN / Unknown Venipuncture / Unknown 07/03/2024 9:42 AM CDT 07/03/2024 9:42 AM CDT Jes Arrington MD LAB - BLOOD ORDERA BLES Final Result [facility] LABORATORY [facility] [place] Core Lab [address] [facility], Room [address] [place] [address] * (ABNORMAL) Lipid Profile (07/03/2024 9:42 AM CDT) [facility] Cholesterol 203(H) <200 mg/dL 07/03/2024 8:34 [...] ORDERA BLES Final Result Performing Organization Address City/[facility] Co de Phone Number U LABORATORY [facility] [place] Core Lab 500 [facility], [address] * (ABNORMAL) Iron and iron binding capacity (07/03/2024 9:42 AM CDT) Pathologist [facility] Iron 81 37 - 145 ug/dL 07/03/2024 [...] ORDERA BLES Final Result Performing Organization Address [facility] de Phone Number LABORATORY [facility] Core Lab [address] [facility], [address] * Hepatitis C antibody (07/03/2024 9:42 AM CDT) [facility] Hepatitis C Antibody Nonreactive Nonreactive 07/03/2024 8:46 [...] BLOOD ORDERA BLES Final Result U LABORATORY [facility] [place] Core Lab 500 [facility], [address] [phone] * Hepatitis B surface antigen (07/03/2024 9:42 AM CDT) [facility] Hepatitis B Surface Antigen Nonreactive Nonreactive 07/03/2024 8:46 PM CDT LABORATORY Blood BLOOD SPECIMEN / Unknown Venipuncture / Unknown 07/03/2024 9:42 AM CDT 07/03/2024 9:42 AM CDT Jes Arrington MD LAB - BLOOD ORDERA BLES Final Result Performing Organization Address [facility]/ZIP Co de Phone Number LABORATORY [facility] Core Lab 500 [facility], [address] * Hepatitis B core antibody (07/03/2024 9:42 AM CDT) Only the most recent of2 resultswithin the time period is included. [facility] Hepatitis B Core Antibody Total Nonreactive [...] - BLOOD ORDERA BLES Final Result LABORATORY [facility] [place] Core Lab [address] [facility], [address] [phone] [place] [address] * Hemoglobin A1c (07/03/2024 9:42 AM CDT) Pathologist [facility] Estimated Average Glucose 74 <117 mg/dL 07/03/2024 [...] - BLOOD ORDERA BLES Final Result LABORATORY [facility] [place] Lab [address] [facility] (no room number, 1st floor of clinic) [place] [address], [facility] * Ferritin (07/03/2024 9:42 AM CDT) Ferritin 216 11 - 328 ng/mL 07/03/2024 8:34 PM CDT [facility] LABORATORY Blood BLOOD SPECIMEN / Unknown Venipuncture / Unknown 07/03/2024 9:42 AM CDT 07/03/2024 9:42 AM CDT Jes Arrington MD LAB - BLOOD ORDERA BLES Final Result U LABORATORY [facility] [place] Core Lab [address] [facility], Room [address] [place] [address] * (ABNORMAL) Bilirubin direct (07/03/2024 9:42 AM [...] Final Result Performing Organization Address [facility]/ZIP Co de Phone Number LABORATORY [facility] Core Lab [address] [facility], [facility] [address] [phone] * AFP tumor marker (07/03/2024 9:42 AM CDT) [facility] AFP tumor marker 3.4 <=8.3 ng/mL [...] Final Result Performing Organization Address [facility] Co de Phone Number LABORATORY [facility] Core Lab [address] [place] [address], [facility] [address] [phone] * (ABNORMAL) Basic metabolic panel (07/02/2024 8:47 AM CDT) Only the most recent of2 resultswithin the time period is included. [facility] Urea Nitrogen (External) 16 8 - 27 [...] / Unknown 07/02/2024 8:47 AM CDT Narrative [facility] - 07/09/2024 8:43 AM CDT Verified by Marylin Finley on 07/09/2024. us Provider Outside LAB - BLOOD ORDERABLES Edited R esult - Final TUSHAR PFLavinia NON-INTERFACED (ONBASE SCANS) * Mammogram - HIM Scan (05/20/2024 12:00 AM CDT) Anatomical Region Laterality Modality Other 05/20/2024 us Provider Outside IMG MAMMOGRAPHY ORDERABLES Krissy l Result * Colonoscopy - HIM Scan (04/04/2024 12:00 AM CARTOGRAPHY TECHNICIAN) 04/04/2024 us Provider Outside PROCEDURES Final Result * Abstract HPV ([facility] External Result) (03/01/2024 3:40 PM CARTOGRAPHY TECHNICIAN) HPV Abstract See Scanned Document [facility] 03/01/2024 3:40 PM CARTOGRAPHY TECHNICIAN Narrative [facility] - 03/01/2024 3:40 PM CARTOGRAPHY TECHNICIAN [facility] - External Lab Results us Provider Outside LAB - HIM EXTERNAL RESULT Final Result [employer] [address] [place] [address], [facility] [phone] * Abstract PAP (HIM External Result) (03/01/2024 3:40 PM CARTOGRAPHY TECHNICIAN) PAP-ABSTRACT See Scanned Document [facility] 03/01/2024 3:40 PM CARTOGRAPHY TECHNICIAN Narrative [facility] - 03/01/2024 3:40 PM CARTOGRAPHY TECHNICIAN [facility] - External Lab Results us Provider Outside LAB - HIM EXTERNAL RESULT Final Result Performing Organization Address City/State/[facility] Co de Phone Number [facility] [employer] [address] [place] [address], [facility] [phone] from Last 3 Months or Most Recently Relevant to Health Maintenance [place] [facility] Care Teams Care Assistant Relationship Specialty Start Date End Date [facility] [address] [place] [address] PCP - General 08/24/20 Kristen Dockery, RN Registered Nurse Nurse 11/09/23 Kristen Dockery [email or web address] Development Advisor Nurse 05/19/24 Meliza Villaseñor MD [address] [facility] [address] [place] [address] Operations Research Scientist Internal Medicine 05/19/24 Lanny Meléndez APRN DIRECTOR OF CORPORATE COMMUNICATIONS [facility] [address] [place], [place] [address] Referring Physician Internal Medicine 05/19/24 Gala Fair, [facility] Information Technology Specialist 05/20/24 Meliza Villaseñor MD [address] [place] [address] Physician Internal Medicine 05/20/24 Trey Abraham MD [address] [place] [address] [address] [place] [address] Surgery 05/20/[address] [facility] [address] [facility] [address] [place] [address] Registered Dietitian Dietitian, Registered 05/20/24 Dixon Hernandez MD [address] [facility] [address] [place] [address] Cardiovascular Disease 05/20/24 Jes Arrington MD [address] [facility] [address] [place] [address] Gastroenterology 06/24/24
--- NOTE | 2024-08-01 08:58 | ED_ITS ---
HPI - General Adult General Chief complaint: Unspecified Complaint, Adult Stated complaint: Drain Time Seen by Provider: 08/01/24 08:43 Source: patient Mode of arrival: ambulatory Limitations: no limitations History of Present Illness HPI narrative: 63-year-old female presenting today with abdominal distension and discomfort. Patient has a history of liver disease, unclear etiology. She has had extensive workup, and is currently undergoing continued workup. She was seen here on the 07 of July where she had a paracentesis done in 2.8 L of fluid was pulled. She is requesting another paracentesis today and she felt immediate relief after her last 1. She denies any chest pain, fevers or chills. No nausea or vomiting. She does have a significant swelling of the extremities and they just increased her Lasix 2 days ago to 40 mg daily. Related Data Home Medications ?Medication ?Instructions ?Recorded ?Confirmed furosemide 20 mg tablet 20 mg PO DAILY 02/20/2407/14 spironolactone 50 mg tablet 50 mg PO DAILY 02/20/24 loratadine-pseudoephedrine ER 10 1 tab PO QDAY PRN 08/01/24 mg-240 mg tablet,extended [id number] (lorata-dine D) Previous Rx's ?Medication ?Instructions ?Recorded gabapentin 300 mg capsule 300 mg PO 3XD PRN for itch # 270 03/01/24 caps citalopram 10 mg tablet 10 mg PO QDAY #90 tabs 07/11 hydroxyzine HCl 25 mg tablet 25 - 50 mg (1 - 2 x 25 mg ) PO TID 07/11/24 PRN itching #120 tabs Allergies Allergy/AdvReac Type Severity Reaction Status Date / Time Sulfa (Sulfonamide Allergy Mild Hives Verified 08/01/24 08:21 Antibiotics) Review of Systems Status of ROS: Reports: 10 or more systems reviewed and unremarkable except as noted in History and below [facility] Surgical History History of tonsillectomy and adenoidectomy ?Z90.89 - Acquired absence of other organs (ICD-10) History of liver biopsy ?Z98.890 - Other specified postprocedural states (ICD-10) History of endometrial ablation ?Z98.890 - Other specified postprocedural states (ICD-10) History of cholecystectomy ?Z90.49 - Acquired absence of other specified parts of digestive tract (ICD- 10) History of breast biopsy ?Z98.890 - Other specified postprocedural states (ICD-10) Family History Other Cardiovascular disease Diabetes Stroke Social History Narrative: 1 child non smoker Smoking Status: Never smoker Non-prescribed substance use: denies use Exam Narrative: Exam Narrative: Well-nourished well-developed patient in no acute distress. Alert and oriented. Answers questions appropriately. Mood and affect are appropriate. Thoughts are goal oriented and rational. No tangential or magical thinking noted. Patient speaks in full sentences without needing to catch her breath. Jaundiced. HEENT: Normocephalic atraumatic. Pupils are equally round reactive to light. Extraocular muscles are intact. Conjunctivae are moist with icterus. Moist mucous membranes. Cardiovascular: Heart is regular rate and rhythm. Lungs: Clear to auscultation bilaterally no wheezes rhonchi or rales are appreciated. Abdomen: Soft, distended. Normal bowel sounds. No tenderness. No guarding or rebound tenderness. Extremities: Bilateral lower extremities show 2+ pitting edema, skin is tight. Edema extends into the thighs. Skin: Well perfused, jaundiced. Const: Vital Signs, click to edit/add: Vital Signs - 24 hr 08/01/24 08:23 Temperature 97.5 F L Pulse Rate [Pulse Oximeter] 102 H Respiratory Rate 16 Blood Pressure [Ri ght Upper Arm] 127/70 Pulse Oximetry 96 Oxygen Delivery Me thod Room Air Course Course ED Course: Spoke to Dr. Arboleda who will proceed with paracentesis. In the meanwhile we did draw some labs: Hemoglobin 8.5, platelet count is 110. INR is 1.56. Sodium and potassium are both low at 128 and 3.1. Chloride low at 92. Total bili elevated at 9.1, AST 55, ALT 28, alkaline phosphatase 192. CRP is 1.3. Albumin is low at 3. Paracentesis was done-see Dr. Arboleda's note. 2.8 L drawn out. Ultrasound also done. 40 mEq oral potassium x1 given in the ED today. Vital Signs Vital signs: Initial Vital Signs Temperature 97.5 F L 08/01/24 08:23 Temperature Source Temporal Artery Scan 08/01/24 08:23 Pulse Rate 102 H 08/01/24 08:23 Pulse Rhythm Regular 08/01/24 08:23 Respiratory Rate 16 08/01/24 08:23 Blood Pressure 127/70 08/01/24 08:23 Blood Pressure Mean 89 08/01/24 08:23 Blood Pressure Position Sitting 08/01/24 08:23 Pulse Oximetry 96 08/01/24 08:23 Oxygen Delivery Method Room Air 08/01/24 08:23 Vital Signs Temperature 97.5 F L 08/01/24 08:23 Pulse Rate 102 H 08/01/24 08:23 Respiratory Rate 16 08/01/24 08:23 Blood Pressure 127/70 08/01/24 08:23 Pulse Oximetry 96 08/01/24 08:23 Oxygen Delivery Method Room Air 08/01/24 08:23 Temperature 97.5 F L 08/01/24 08:23 Pulse Rate 102 H 08/01/24 08:23 Respiratory Rate 16 08/01/24 08:23 Blood Pressure 127/70 08/01/24 08:23 Pulse Oximetry 96 08/01/24 08:23 Oxygen Delivery Method Room Air 08/01/24 08:23 Medical Decision Making MDM Narrative Medical decision making narrative: 63-year-old female with cirrhosis, recurrent ascites status post paracentesis today. Patient will speak to her primary care provider to put in a standing order for repeat paracentesis. Hyponatremia which has been chronic but slowly getting worse, hypokalemia also chronic getting worse. Recommend a repeat check on Monday with primary care. Medical Records Medical records reviewed: Yes I reviewed the patient's medical records Lab Data Lab results reviewed: Yes I reviewed the patient's lab results Labs: Lab Results 08/01/24 08/01/24 Range/Units 09:12 09:42 WBC 4.96 (4.50-11.00) K/uL RBC 2.56 L (4.00-5.20) m/uL Hgb 8.5 L (12.0-16.0) gm/dL Hct 25.3 L (33.0-51.0) % MCV 99 (80-100) fL MCH 33 (26-34) pg MCHC 34 (32-36) gm/dL RDW Coeff of Monika 16.5 H (11.5-15.5) % Plt Count 110 L (140-440) K/uL Neut % (Auto) 57.1 (42.0-72.0) % Lymph % (Auto) 24.2 (20-44) % Kent % (Auto) 12.1 H (0.0-11.0) % Eos % (Auto) 5.8 (0.0-7.0) % Baso % (Auto) 0.6 (0.0-3.0) % Neut # (Auto) 2.83 (1.7-7.0) K/uL Lymph # (Auto) 1.20 (0.90-2.90) K/uL Kent # (Auto) 0.60 (0.00-0.90) K/UL Eos # (Auto) 0.29 (0.00-0.50) K/uL Baso # (Auto) 0.03 (0.00-0.30) K/uL Abs Immat Gran (auto) 0.01 (0.00-0.30) K/uL Imm/Tot Granulo (auto) 0.2 % Diff Slide Review Acceptable Review (Acceptable) INR 1.56 H (0.91-1.10) Sodium 128 L (135-149) mmol/L Potassium 3.1 L (3.6-5.1) mmol/L Chloride 92 L (96-114) mmol/L Carbon Dioxide 29 (20-32) mmol/L Anion Gap 7 (7-15) mEq/L BUN 21 (7-30) mg/dL Creatinine 1.1 (0.5-1.5) mg/dL Estimated Creat Clear 56.13 Estimated GFR 57 ml/min Glucose 100 (60-115) mg/dL Calcium 8.6 (8.4-10.6) mg/dL Magnesium 1.5 (1.5-2.6) mg/dL Total Bilirubin 9.1 H (0.1-1.5) mg/dL Direct Bilirubin 3.9 H (0.0-0.5) mg/dL AST 55 H (12-35) U/L ALT 28 (4-35) U/L Alkaline Phosphatase 192 H (40-150) U/L C-Reactive Protein 1.3 H (0.5-1.0) mg/dL Total Protein 7.0 (6.0-8.3) g/dL Albumin 3.0 L (3.3-5.0) g/dL Discharge Plan Discharge Clinical Impression: Ascites, Hypokalemia, Hyponatremia Patient Disposition: Home, Self-Care Condition: Stable Additional Instructions: Potassium and sodium are both low - are slowly getting lower. I would recommend checking your sodium and potassium levels with your primary care provider this coming Monday. You should reach out to Dr. Crawford to put in a standing order for paracentesis (draining of the abdomen). You can call this number to schedule a paracentesis when you need one. [phone] - Endoscopy clinic. Prescriptions: No Action gabapentin 300 mg capsule 300 mg PO 3XD PRN (Reason: for itch) Qty: 270 3RF spironolactone 50 mg tablet 50 mg PO DAILY furosemide 20 mg tablet 20 mg PO DAILY hydroxyzine HCl 25 mg tablet 25 - 50 mg PO TID PRN (Reason: itching) Qty: 120 6RF citalopram 10 mg tablet 10 mg PO QDAY Qty: 90 3RF Patient Comments: 08/01/24-Hasn't started yet lorata-dine D 10-240 mg tablet extended release 24 hr 1 tab PO QDAY PRN Follow Up/Referrals: Meliza Crawford MD [Primary Care Provider, [facility]] Stand Alone Forms: [employer] Info Instructions
[2024-08-01 09:20] LABS: Basophils Absolute Auto 0.03 K/uL (0.00-0.30); Basophils Percent Auto 0.6 % (0.0-3.0); Eosinophils Absolute Auto 0.29 K/uL (0.00-0.50); Eosinophils Percent Auto 5.8 % (0.0-7.0); Hematocrit 25.3 % (33.0-51.0); Hemoglobin* 8.5 gm/dL (12.0-16.0); Immature Granulocytes Abs Auto 0.01 K/uL (0.00-0.30); Immature Granulocytes Pct Auto 0.2 %; Lymphocytes Percent Auto 24.2 % (20-44); Mean Corpuscular HGB Conc 34 gm/dL (32-36); Mean Corpuscular Hemoglobin 33 pg (26-34); Mean Corpuscular Volume 99 fL (80-100); Monocytes Percent Auto 12.1 % (0.0-11.0); Neutrophils Absolute Auto 2.83 K/uL (1.7-7.0); Neutrophils Percent Auto 57.1 % (42.0-72.0); Platelet Count* 110 K/uL (140-440); RDW Coefficient of Variation % 16.5 % (11.5-15.5); Red Blood Count 2.56 m/uL (4.00-5.20); White Blood Count* 4.96 K/uL (4.50-11.00)
[2024-08-01 09:34] LABS: Chloride* 92 mmol/L (96-114); Sodium* 128 mmol/L (135-149)
[2024-08-01 09:35] LABS: Potassium* 3.1 mmol/L (3.6-5.1)
[2024-08-01 09:37] LABS: Anion Gap 7 mEq/L (7-15); Blood Urea Nitrogen* 21 mg/dL (7-30); Carbon Dioxide* 29 mmol/L (20-32); Creatinine* 1.1 mg/dL (0.5-1.5); Est. Creatinine Clearance* 56.13; Estimated Glomerular Filt Rate 57 ml/min
[2024-08-01 09:38] LABS: Alanine Aminotransferase* 28 U/L (4-35); Alkaline Phosphatase* 192 U/L (40-150); Aspartate Amino Transferase* 55 U/L (12-35); Bilirubin Direct* 3.9 mg/dL (0.0-0.5); Bilirubin Total* 9.1 mg/dL (0.1-1.5); Calcium* 8.6 mg/dL (8.4-10.6); Glucose* 100 mg/dL (60-115); Magnesium* 1.5 mg/dL (1.5-2.6)
[2024-08-01 09:41] LABS: C Reactive Protein* 1.3 mg/dL (0.5-1.0)
[2024-08-01 09:43] LABS: Slide Review Reflex Yes
[2024-08-01 09:44] LABS: Slide Review Acceptable Review (Acceptable)
[2024-08-01 10:17] LABS: INR 1.56 (0.91-1.10); Prothrombin Time 19.7 Seconds
--- NOTE | 2024-08-01 10:38 | PM.GSCN ---
History of Present Illness Consult details Date Seen: 08/01/24 Consult date: 08/01/24 Narrative: The patient is a 63-year-old female who was diagnosed with cirrhosis approximately a year and half ago. She is being followed by [facility]. She has severe peripheral edema and ascites. She is on diuretics for this, however she continues to have fairly significant ascites. She presented to the emergency department approximately 3 weeks ago and had 2.8 L drained via paracentesis. She states that she felt better after her last paracentesis, however her discomfort has slowly progressed. She denies significant shortness of breath but then states that she has had increased difficulty breathing. Her abdomen is very uncomfortable. She is undergoing workup for liver transplant. [facility] Surgical History History of tonsillectomy and adenoidectomy ?Z90.89 - Acquired absence of other organs (ICD-10) History of liver biopsy ?Z98.890 - Other specified postprocedural states (ICD-10) History of endometrial ablation ?Z98.890 - Other specified postprocedural states (ICD-10) History of cholecystectomy ?Z90.49 - Acquired absence of other specified parts of digestive tract (ICD-10) History of breast biopsy ?Z98.890 - Other specified postprocedural states (ICD-10) Family History Other Cardiovascular disease Diabetes Stroke Social History Narrative: 1 child non smoker Smoking Status: Never smoker Non-prescribed substance use: denies use Meds Home Medications and Allergies Home Medications ?Medication ?Instructions ?Recorded ?Confirmed ?Type furosemide 20 mg tablet 20 mg PO DAILY 02/20/24 08/01/24 History spironolactone 50 mg tablet 50 mg PO DAILY 02/20/24 08/01/24 History gabapentin 300 mg capsule 300 mg PO 3XD PRN for itch #270 03/01/24 08/01/24 Rx caps citalopram 10 mg tablet 10 mg PO QDAY #90 tabs 07/11/24 08/01/24 Rx hydroxyzine HCl 25 mg tablet 25 - 50 mg (1 - 2 x 25 mg) PO TID 07/11/24 08/01/24 Rx PRN itching #120 tabs loratadine-pseudoephedrine ER 10 1 tab PO QDAY PRN 08/01/24 08/01/24 History mg-240 mg tablet,extended [id number] (lorata-dine D) Allergies Allergy/AdvReac Type Severity Reaction Status Date / Time Sulfa (Sulfonamide Allergy Mild Hives Verified 08/01/24 08:21 Antibiotics) Exam Narrative: Exam Narrative: General appearance: Alert, cooperative, and in no distress Eyes: PERRLA, eye lids clear, scleral icterus noted HENT Head: Normocephalic Ears: External ears normal Pulmonary: Breathing nonlabored on room air Cardiovascular Heart: Mild tachycardia Extremities: warm and well perfused Gastrointestinal Abdominal: Distended but soft. No scars noted. Musculoskeletal: Extremities: Upper: Both upper extremities have normal joint range of motion and intact strength. Lower: Both lower extremities have normal joint range of motion and intact strength. Skin: Patient is jaundiced Neurologic: No focal deficits Psychiatric: Alert, oriented, cooperative, normal affect. Const: Vital Signs, click to edit/add: Vital Signs - 24 hr 08/01/24 08:23 Temperature 97.5 F L Pulse Rate [Pulse Oximeter] 102 H Respiratory Rate 16 Blood Pressure [Ri ght Upper Arm] 127/70 Pulse Oximetry 96 Oxygen Delivery Me thod Room Air Results Labs Labs: Abnormal lab results 08/01/24 08/01/24 Range/Units 09:12 09:42 RBC 2.56 L (4.00-5.20) m/uL Hgb 8.5 L (12.0-16.0) gm/dL Hct 25.3 L (33.0-51.0) % RDW Coeff of Monika 16.5 H (11.5-15.5) % Plt Count 110 L (140-440) K/uL [place] % (Auto) 12.1 H (0.0-11.0) % INR 1.56 H (0.91-1.10) Sodium 128 L (135-149) mmol/L Potassium 3.1 L (3.6-5.1) mmol/L Chloride 92 L (96-114) mmol/L Total Bilirubin 9.1 H (0.1-1.5) mg/dL Direct Bilirubin 3.9 H (0.0-0.5) mg/dL AST 55 H (12-35) U/L Alkaline Phosphatase 192 H (40-150) U/L C-Reactive Protein 1.3 H (0.5-1.0) mg/dL Albumin 3.0 L (3.3-5.0) g/dL Diabetes panel 08/01/24 Range/Units 09:12 Sodium 128 L (135-149) mmol/L Potassium 3.1 L (3.6-5.1) mmol/L Chloride 92 L (96-114) mmol/L Carbon Dioxide 29 (20-32) mmol/L BUN 21 (7-30) mg/dL Creatinine 1.1 (0.5-1.5) mg/dL Glucose 100 (60-115) mg/dL Calcium 8.6 (8.4-10.6) mg/dL AST 55 H (12-35) U/L ALT 28 (4-35) U/L Alkaline Phosphatase 192 H (40-150) U/L Total Protein 7.0 (6.0-8.3) g/dL Albumin 3.0 L (3.3-5.0) g/dL Calcium panel 08/01/24 Range/Units 09:12 Calcium 8.6 (8.4-10.6) mg/dL Albumin 3.0 L (3.3-5.0) g/dL Pituitary panel 08/01/24 Range/Units 09:12 Sodium 128 L (135-149) mmol/L Potassium 3.1 L (3.6-5.1) mmol/L Chloride 92 L (96-114) mmol/L Carbon Dioxide 29 (20-32) mmol/L BUN 21 (7-30) mg/dL Creatinine 1.1 (0.5-1.5) mg/dL Glucose 100 (60-115) mg/dL Calcium 8.6 (8.4-10.6) mg/dL Adrenal panel 08/01/24 Range/Units 09:12 Sodium 128 L (135-149) mmol/L Potassium 3.1 L (3.6-5.1) mmol/L Chloride 92 L (96-114) mmol/L Carbon Dioxide 29 (20-32) mmol/L BUN 21 (7-30) mg/dL Creatinine 1.1 (0.5-1.5) mg/dL Glucose 100 (60-115) mg/dL Calcium 8.6 (8.4-10.6) mg/dL Total Bilirubin 9.1 H (0.1-1.5) mg/dL AST 55 H (12-35) U/L ALT 28 (4-35) U/L Alkaline Phosphatase 192 H (40-150) U/L Total Protein 7.0 (6.0-8.3) g/dL Albumin 3.0 L (3.3-5.0) g/dL All other labs normal. Progress Note:A&P Assessment and plan (1) Ascites: Status: Acute (2) Liver disease: Status: Acute (3) Jaundice: Status: Acute Plan The patient is a 63-year-old female with cirrhosis of unclear etiology on diuretics but with refractory ascites. She presents today to the ER for paracentesis secondary to worsening distention and discomfort. Paracentesis was performed. 2.8 L were drained. We discussed that it is best for her to wait until she has a significant accumulation of fluid prior to paracentesis. Some patients progress to the point where they need paracentesis more frequently. I do recommend that she discuss with her primary care provider or vegetable farm worker in get a standing order for repeat paracentesis. She should schedule this as she begins to accumulate fluid so it can be done more electively as an outpatient. She was provided with information on how to schedule at our outpatient center when necessary.
--- NOTE | 2024-08-01 10:38 | W.PM.PARA ---
Paracentesis Date Date: 08/01/24 Procedure Note Procedure: Paracentesis with Ultrasound Guidance Type of paracentesis: Therapeutic Initial or Repeat?: Repeat Surgeon: Renetta Arboleda Indications: The patient is a 63-year-old female with cirrhosis and ascites. She has previously undergone paracentesis for therapeutic purposes approximately 3 weeks ago. She has had worsening abdominal distention and discomfort. She presented to the emergency department today. Repeat paracentesis was requested. Albumin infused: No Procedure Note:: Prior to the procedure, the risks and benefits of the procedure were discussed and an informed consent was obtained. Patient identification was confirmed and TIME OUT was performed. An ultrasound was brought onto the field and an easily accessible pocket of ascites was identified that was away from intraabdominal organs. The patient's abdomen in the right lower quadrant was prepped and draped in the usual sterile fashion. 1% Lidocaine was used to anesthetize the skin, soft tissues and peritoneum over the proposed needle insertion site. A skin incision was made with a scalpel just large enough to fit the needle. The needle with the paracentesis catheter was advanced into the abdomen and ascitic fluid was aspirated into the syringe. The needle was then withdrawn and the catheter was left in place. The catheter was then connected to the drainage tubing. 3.8 Liters of straw colored fluid was drained. The catheter was then removed and the skin was closed with Dermabond. Patient tolerated procedure well and there were no immediate complications. Patient's vital signs were stable throughout the procedure. Recomendation: Discharge to home (ambulatory) and return to normal activities tomorrow. Follow up with referring provider as needed.
[2024-08-01] MEDS: POTASSIUM CHLORIDE 10 MEQ CAPSULE ER 40 MEQ PO (10:58)
== END 2024-08-01 11:53 | disposition home or self-care (01) ==
PROVIDERS: Emergency Provider Family Medicine; PCP Family Medicine
DX: R18.8 Other ascites (principal); E87.6 Hypokalemia; E87.1 Hypo-osmolality and hyponatremia
CPT/HCPCS: 49083; 36415; 80048; 80076; 83735; 85025; 85610; 86140; 99284; 99285; A9270